=== PATIENT | male | born 1950 | race Two or more races ===

== ENCOUNTER → 2017-10-08 08:55 | Outpatient (CLI) | payer MEDICARE, SELFPAY ==
--- NOTE | 2017-10-08 09:00 | RAD_ITS ---
STUDY: BARIUM ENEMA. REASON FOR EXAM: Male, 67 years old. Recurrent UTIs. Possible colovesical fistula. FLUOROSCOPY TIME (if supplied): (0:47) minutes/seconds TECHNIQUE: A test clerk film was obtained. Following this, barium was was introduced retrograde through the rectum. The entire colon was opacified. COMPARISON: None. FINDINGS: On the test clerk film, mild degree of residual fecal material is seen in the colon. The entire colon was opacified. There is no evidence of antegrade or retrograde obstruction to the flow of contrast. There is no evidence of fistulous connection. The appendix was opacified. It is unremarkable. Prior to the start of the procedure and following the procedure, the patient's urine was radiographed. There is no evidence of barium within the urine. RAD/Barium Enema w/Air Contrast IMPRESSION: Unremarkable barium enema. Electronically Signed: Art Ochoa MD at 10:48 EST Tel [phone], Service support ,
== END ==
PROVIDERS: Family Provider Internal Medicine; PCP Internal Medicine
DX: N39.0 Urinary tract infection, site not specified (principal); Z87.440 Personal history of urinary (tract) infections
CPT/HCPCS: 74280

== ENCOUNTER 2017-12-21 17:28 | Inpatient (IN) | payer MEDICARE, SELFPAY ==
[2017-12-21] VITALS (9 sets, daily range): BP systolic 131–170; BP diastolic 59–78; PULSE 73–91; RESP 14–21; TEMP 36.9; O2SAT 98–100; BMI 29.0; BMI 28.4
--- NOTE | 2017-12-21 18:32 | EKG12_ITS ---
Test Reason : SOB Blood Pressure : / mmHG Vent. Rate : 078 BPM Atrial Rate : 078 BPM P-R Int : 202 ms QRS Dur : 144 ms QT Int : 372 ms P-R-T Axes : 027 -80 053 degrees QTc Int : 424 ms Normal sinus rhythm Right bundle branch block Left anterior fascicular block Abnormal ECG Confirmed by SONALI HERNÁNDEZ, MANJINDER ([id number]), editor managing director RICHELLE CHARLTON ([id number]) on 12/24/2017 1:58:13 PM Referred By: LOPEZ Confirmed By:MANJINDER LYON MD
--- NOTE | 2017-12-21 18:32 | CT_ITS ---
STUDY: CT BRAIN WITHOUT CONTRAST REASON FOR EXAM: Male, 67 years old. Weakness RADIATION DOSAGE (If Supplied By Facility): CTDIvol = ( 44.99 ) mGy, DLP = ( 832.67 ) mGycm TECHNIQUE: Transaxial CT imaging of the brain was performed without administration of intravenous contrast material. Individualized dose optimization techniques were used for this CT. COMPARISON: None. FINDINGS: Normal soft tissue structures. Normal calvarium. Mild atrophy and periventricular white matter ischemic changes.. Normal basal ganglia and thalami. Normal brainstem. Normal cerebellum. There is no intracranial hemorrhage. There are no findings of an acute ischemic infarction. Normal visualized paranasal sinuses. CT/Brain/Head without Contrast IMPRESSION: Mild atrophy and nonspecific periventricular white matter ischemic change. No evidence for acute bleed. If concern for acute infarct MRI recommended.. Electronically Signed: Wellington Sparks MD at 19:54 EDT , Service support ,
[2017-12-21 18:53] LABS: Bacteria 0 SEEN /hpf (None Seen); Mucous, Urine 0 SEEN /hpf (<or=2+); Red Blood Cells-Urine 0 SEEN /hpf (0-5)
[2017-12-21 18:55] LABS: Color, Urine Yellow (Yellow); Glucose, Dipstick Normal (Normal); Ketone-Dipstick Negative (Negative); Leukocyte Esterase-Dipstick 500 /ul (Negative); Nitrite-Dipstick Negative (Negative); Occult Blood-Urine 25 /ul (Negative); Protein-Dipstick 30 mg/dl (Negative); Specific Gravity, Urine 1.015 (1.002-1.030); Urine Bilirubin Dipstick Negative (Negative); Urine Clarity Sl. Cloudy (Clear); Urine Urobilinogen Normal (Normal)
[2017-12-21 19:01] LABS: Squamous Epithelial Cells - UA 0-5 SEEN /hpf (0-5); White Blood Cells >100 SEEN /hpf (0-5)
[2017-12-21 19:39] LABS: Absolute Lymphocyte Count 2.04 X10^3/ul (0.83-4.51); Absolute Neutrophil Count 7.1 X10^3/uL (2.0-7.7); Basophil# 0.02 X10^3/uL; Basophil% 0.2 % (0-1); Eosinophil# 0.28 X10^3/uL; Eosinophils% 2.8 % (0-5); Hemoglobin 9.4 g/dl (13.0-16.5); Lymphocyte # 2.04 X10^3/ul (4.0); Lymphocyte % 20.3 % (19-41); Mean Corp Hgb Conc 32.4 g/gl (32-36); Mean Corpuscular Volume 92.7 fL (80-94); Mean Platelet Vol. 9.4 fl (6.2-12.0); Monocyte# 0.59 X10^3/uL; Monocyte% 5.9 % (0-10); Neutrophil % 70.6 % (47-70); Platelet Count 212 K/mm3 (150-450); RBC Distribution Width CV 15.2 % (11.6-14.6); RBC Distribution Width SD 51.6 fl (35.1-43.9); Red Blood Count 3.13 M/mm3 (4.6-6.2); White Blood Count 10.1 K/mm3 (4.4-11.0)
[2017-12-21 19:40] LABS: POSITIVE COUNT NO; POSITIVE DIFFERENTIAL NO; POSITIVE MORPHOLOGY NO
--- NOTE | 2017-12-21 19:45 | RAD_ITS ---
STUDY: X-RAY CHEST REASON FOR EXAM: Male, 67 years old. Short of breath TECHNIQUE: PA and lateral COMPARISON: October 26, 2016 FINDINGS: The lungs are clear and expanded. There is no demonstrated pleural abnormality. Normal size heart. Normal mediastinum and power. Normal visualized pulmonary arteries. Normal visualized aortic arch and descending thoracic aorta. Mediport catheter seen on the right with tip in distal superior vena cava Dorsal spine demonstrates spondylosis. Normal visualized ribs, clavicles, and shoulders. There is no demonstrated abnormality of the visualized soft tissue structures of the upper abdomen. No significant change since prior study RAD/Chest PA and Lateral IMPRESSION: No acute cardiopulmonary pathology Electronically Signed: Wellington Sparks MD at 20:30 EDT , Service support ,
--- NOTE | 2017-12-21 20:38 | ED.RN ---
lab called to report pt's potassium of 9.1, dr made aware that labs needs to be redrawn.
[2017-12-21 21:23] LABS: ALB/GLOB Ratio 0.8 RATIO (0.9-2.4); AST(SGOT) 10 U/L (15-37); Alanine Aminotransfer ALT/SGPT 11 U/L (16-61); Albumin, Serum 3.3 g/dL (3.2-5.0); Alkaline Phosphatase 84 U/L (45-117); Anion Gap 8 (5-15); BUN 62 mg/dL (7-18); Calcium,Total 8.2 mg/dL (8.5-10.1); Chloride 118 mmol/L (98-107); Creatinine, Serum 3.87 mg/dL (0.70-1.30); EST Glomerular Filtration Rate 17 mL/min (>60); Est Glom Filt Rate - Afr Amer 20 mL/min (>60); Estimated Creatinine Clearance 16.94 ml/min; Globulin 4.4 g/dL (2.2-4.2); Glucose 84 mg/dL (74-106); Potassium 8.9 mmol/L (3.5-5.1); Protein, Total 7.7 g/dL (6.4-8.2); Sodium Level 140 mmol/L (136-145)
--- NOTE | 2017-12-21 21:23 | ED.RN ---
LAB CALLS WITH CRITICAL RESULT, POTASSIUM 8.9, DR. FERNANDES MADE AWARE.
--- NOTE | 2017-12-21 21:51 | PCM.HP.STD ---
Problem List (1) Diabetes mellitus, type II Status: Chronic Qualifiers: Diabetes mellitus alf insulin use: without alf use Diabetes mellitus complication status: with unspecified complications Qualified Code(s): E11.8 - Type 2 diabetes mellitus with unspecified complications (2) HTN (hypertension) Status: Chronic Qualifiers: Hypertension type: essential hypertension Qualified Code(s): I10 - Essential (primary) hypertension (3) HLD (hyperlipidemia) Status: Chronic Qualifiers: Hyperlipidemia type: unspecified Qualified Code(s): E78.5 - Hyperlipidemia, unspecified (4) Colon cancer Status: Chronic Qualifiers: Colon location: unspecified part of colon Qualified Code(s): C18.9 - Malignant neoplasm of colon, unspecified (5) LACHO (acute kidney injury) Status: Acute (6) Hyperkalemia Status: Acute (7) UTI (urinary tract infection) Status: Acute Qualifiers: Urinary tract infection type: site unspecified History of Present Illness Date of Admission: 12/21/17 Chief Complaint: Fatigue, weakness, malaise The patient is a 67 y/o M w/ PMHx: Chronic Normocytic Anemia, Diabetes mellitus type II w/ Neuropathy, HTN, HLD, Hx Colon CA s/p resection unclear region w/ radiation and chemotherapy following w/ [facility], Hx Frequent UTI who presents to the [facility] ED on 12/21/17 with history of ongoing malaise, progressively worsening weakness worse with exertional attempts, decreased intake, dyspnea worse with exertion ?3 weeks with increased urinary frequency but denied fevers or chills. In the ED work-up included T 98.5, HR 91, BP 131/59, RR 16, 98% on RA, CBC w/ WBC 10.2, Hgb 9.4, Plts 212 without marked shift, CMP w/ K 8.9, Chl 118, CO2 14, BUN/Cr 62/3.87, AST/ALT 10/11, trop < 0.02, EKG w/ SR with chronic findings without acute evidence of ischemia, no marked peaked T-waves, QRS 144 mildly widened, UA remarkable with pending UCx, CT brain with mild reticular right matter ischemic change with no acute findings, CXR with no acute findings. In the ED patient administered chloride, dextrose amp, insulin, Kayexalate. Past Medical History Past Medical History (Chronic Problems): Chronic Problems Diabetes mellitus, type II (Chronic) HTN (hypertension) (Chronic) HLD (hyperlipidemia) (Chronic) Colon cancer (Chronic) Allergies No Known Allergies Allergy (Verified 12/21/17 17:31) Home Medications: Ambulatory Orders Medication Instructions Recorded Lisinopril [Zestril] 30 mg PO DAILY 07/11/16 Metformin HCl [Glucophage] 500 mg PO BIDCM 07/11/16 glipiZIDE [Glucotrol] 5 mg PO DAILY@0730 07/11/16 Lovastatin [Mevacor] 40 mg PO QHS 07/12/16 Amlodipine [Norvasc] 2.5 mg PO DAILY 12/21/17 Pregabalin [Lyrica] 75 mg PO BID 12/21/17 Spironolactone [Aldactone] 100 mg PO DAILY 12/21/17 Surgical History: - - Colon CA resection, Port placement. Psychiatric History: No pertinent psych hx Lives: With Family Smoking Status: Never smoker Alcohol: None Drugs: None - *Family History Maternal History Items: Cancer, Diabetes, Renal Disease Paternal History Items: Heart Disease, Hypertension Review of Systems Constitutional: Reports: Anorexia, Malaise, Weakness, Fatigue. Denies: Chills, Fever, Weight Change HEENT: Denies: Head Aches, Sinus Congestion, Sinus Drainage Cardiovascular: Denies: Chest Pain, Palpitations Respiratory: Reports: Shortness of Breath, Shortness of breath upon exertion. Denies: Cough, Shortness of breath at rest, Sputum production Gastrointestinal: Denies: Abdominal Pain, Nausea, Vomiting Genitourinary: Reports: Dysuria, Frequency Musculoskeletal: Denies: Joint Pain, Joint Tenderness Skin: Denies: Rash, Wounds Neurological: Denies: Numbness, Tingling, Focal weakness Psychiatric: Denies: Anxiety, Depression, Homicidal Ideations, Suicidal Ideations Hematologic/ Lymphatic: Reports: Anemia. Denies: Easy Bruising, Easy Bleeding VTE Information - Inpt Only VTE Present on Admission: No VTE Mechan Device Prophylaxis: SCD's VTE Pharm Prophylaxis ordered?: Yes Patient Problems: Active and Suspected Problems LACHO (acute kidney injury) (Acute) Hyperkalemia (Acute) Subjective: Seated upright in the ED bed, fatigued appearing, flat affect. Objective: Physical Examination: General: awake, alert, oriented x 3 and cooperative, seated upright in the ED bed in no apparent distress, fatigued appearing. Skin: normal color, turgor, no icterus, cyanosis. HEENT: AT/NC, EOMI, PERRLA, dry MM, no carotid bruits or JVD noted. Lungs: Diminished BS BL, > bases, poor effort, shallow, no rales, ronchi or wheezing. Heart: Regular rate and rhythm; no gallop, rub audible. Abdomen: soft, mild suprapubic TTP otherwise NTTP, ND, normal BS, no HSM. Extremities: no cyanosis, clubbing, or edema. Neurological: patient awake, alert, oriented x 3; cognitive function intact; pupils equally reactive to light and accomodation; cranial nerves II-XII grossly normal, moving all 4 extremities, no focal deficits, strength severely globally decreased secondary to acute presentation. Psychiatric: affect appears flat, no acute evidence of depressive or anxiety feelings. - Physical Exam Vital Signs Temp Pulse Resp BP Pulse Ox 98.5 F 77 20 H 153/63 H 100 12/21/17 17:28 12/21/17 21:33 12/21/17 21:33 12/21/17 21:33 12/21/17 21:33 Oxygen Delivery Method Room Air Weight: 180 lb Body Mass Index (BMI) 29.0 Laboratory Tests Past 24 Hrs 12/21/17 12/21/17 12/21/17 18:45 19:30 19:30 WBC 10.1 RBC 3.13 L Hgb 9.4 L Hct 29.0 L MCV 92.7 MCH 30.0 MCHC 32.4 RDW 15.2 H RDW Differential 51.6 H Plt Count 212 MPV 9.4 Immature Gran % (Auto) 0.200 Neut % (Auto) 70.6 H Lymph % (Auto) 20.3 [place] % (Auto) 5.9 Eos % (Auto) 2.8 Baso % (Auto) 0.2 Absolute Neuts (auto) 7.1 Absolute Lymphs (auto) 2.04 Total Counted Not Reportable Sodium Cancelled Potassium Cancelled Chloride Cancelled Carbon Dioxide Cancelled Anion Gap Cancelled BUN Cancelled Creatinine Cancelled Estim Creat Clear Calc Cancelled Est GFR (MDRD) Af Amer Cancelled Est GFR (MDRD) Non-Af Cancelled BUN/Creatinine Ratio Cancelled Glucose Cancelled Calcium Cancelled Total Bilirubin Cancelled AST Cancelled ALT Cancelled Alkaline Phosphatase Cancelled Troponin I Cancelled Total Protein Cancelled Albumin Cancelled Globulin Cancelled Albumin/Globulin Ratio Cancelled Urine Color Yellow Urine Clarity Sl. Cloudy Urine pH 6.0 Ur Specific [place] 1.015 Urine Protein 30 H Urine Glucose (UA) Normal Urine Ketones Negative Urine Occult Blood 25 H Urine Nitrite Negative Urine Bilirubin Negative Urine Urobilinogen Normal Ur Leukocyte Esterase 500 H Urine RBC 0 SEEN Urine WBC >100 SEEN Ur Squamous Epith Cells 0-5 SEEN Urine Bacteria 0 SEEN Urine Mucus 0 SEEN 12/21/17 20:55 WBC RBC Hgb Hct MCV MCH MCHC RDW RDW Differential Plt Count MPV Immature Gran % (Auto) Neut % (Auto) Lymph % (Auto) [place] % (Auto) Eos % (Auto) Baso % (Auto) Absolute Neuts (auto) Absolute Lymphs (auto) Total Counted Sodium 140 Potassium 8.9 H* Chloride 118 H Carbon Dioxide 14.0 L Anion Gap 8 BUN 62 H Creatinine 3.87 H Estim Creat Clear Calc 16.94 Est GFR (MDRD) Af Amer 20 L Est GFR (MDRD) Non-Af 17 L BUN/Creatinine Ratio 16.0 Glucose 84 Calcium 8.2 L Total Bilirubin 0.50 AST 10 L ALT 11 L Alkaline Phosphatase 84 Troponin I < 0.02 Total Protein 7.7 Albumin 3.3 Globulin 4.4 H Albumin/Globulin Ratio 0.8 L Urine Color Urine Clarity Urine pH Ur Specific [place] Urine Protein Urine Glucose (UA) Urine Ketones Urine Occult Blood Urine Nitrite Urine Bilirubin Urine Urobilinogen Ur Leukocyte Esterase Urine RBC Urine WBC Ur Squamous Epith Cells Urine Bacteria Urine Mucus Assessment/Plan Active and Suspected Problems LACHO (acute kidney injury) (Acute) Hyperkalemia (Acute) The patient is a 67 y/o M w/ PMHx: Chronic Normocytic Anemia, Diabetes mellitus type II w/ Neuropathy, HTN, HLD, Hx Colon CA s/p resection unclear region w/ radiation and chemotherapy following w/ [facility], Hx Frequent UTI who presents to the [facility] ED on 12/21/17 with history of ongoing malaise, progressively worsening weakness worse with exertional attempts, decreased intake, dyspnea worse with exertion ?3 weeks with increased urinary frequency but denied fevers or chills. (1) Acute kidney injury: Secondary to acute UTI, suspected poor recent oral intake w/ dehydration, nephrotoxic regimen w/ concurrent hyperkalemia as noted. Admission BUN/Cr 62/3.87, prior baseline creatinine noted to be 1.1-1.3. Will given NS bolus now, requested pharmacy to arrange D5W w/ Bicarb (150 mEq) and given 1 amp bicarb now, hold nephrotoxic medications, serial BMPs given extensive K+ level, obtain FeNa, obtain renal US, treat acute UTI as noted. Nephrology and ICU consulted, notified these physicians of patient presentation and intervention plans upon admission. (2) Hyperkalemia: EKG without severe appearance despite confirmed K level, admission K+ 8.9, administered dextrose, insulin, Ca gluconate as well as kayexelate in the ED, will maintain on telemetry, cycle BMP, repeat EKG in AM, Nephrology and ICU consulted as noted, holding nephrotoxic regimen and medications with hyperkalemia association, maintained on D5W w/ bicarb, giving 1 amp bicarb now and prior to these being read administer 1L NS bolus now. (3) Acute Urinary Tract Infection: UA upon ED evaluation remarkable, pending UCx, admission CBC w/ WBC 10.1 without marked shift, continue aggressive IVFs, monitor I/Os, continue IV Rocephin w/ transition as able pending sensitivities and speciation. (4) Diabetes mellitus type II: Hold oral home regimen, ADA diet, accu checks w/ ISS. (5) Hypertension: Continue home regimen including vast, hold lisinopril and Aldactone given acute kidney injury and hyperkalemia, PRN hydralazine. (6) Hyperlipidemia: Continue home statin regimen. (7) Chronic normocytic anemia: Admission Hgb 9.4, baseline 9-10 range, stable. (8) Hx Colon CA: s/p resection unclear region w/ radiation and chemotherapy following w/ [facility]. (9) DVT Prophylaxis: SCDs, heparin. (10) CODE status: Discussed CODE status at length including difference between FULL code, DNR-CCA and DNR-CC status. Following discussions about the differences in these status, requested FULL CODE status. Advanced Care Planning Face to Face Time: 17 minutes. Code Visit Inpatient E&M: 00244 Init Hosp L3 Procedures: 00148 Advncd Care Plan 30 Min
[2017-12-21] MEDS: Calcium Chloride 1 GM/10 ML Syringe IV (21:54)
[2017-12-21] MEDS: Dextrose 50%-Water 25 GM/50 ML DISP.SYRIN IV (21:54)
--- NOTE | 2017-12-21 22:02 | HP.PCM_ITS ---
Problem List (1) Diabetes mellitus, type II Status: Chronic Qualifiers: Diabetes mellitus assisted insulin use: without assisted use Diabetes mellitus complication status: with unspecified complications Qualified Code(s) : E11.8 - Type 2 diabetes mellitus with unspecified complications (2) HTN (hypertension) Status: Chronic Qualifiers: Hypertension type: essential hypertension Qualified Code(s): I10 - Essential (primary) hypertension (3) HLD (hyperlipidemia) Status: Chronic Qualifiers: Hyperlipidemia type: unspecified Qualified Code(s): E78.5 - Hyperlipidemia , unspecified (4) Colon cancer Status: Chronic Qualifiers: Colon location: unspecified part of colon Qualified Code(s): C18.9 - Malignant neoplasm of colon, unspecified (5) LACHO (acute kidney injury) Status: Acute (6) Hyperkalemia Status: Acute (7) UTI (urinary tract infection) Status: Acute Qualifiers: Urinary tract infection type: site unspecified History of Present Illness Date of Admission: 12/21/17 Chief Complaint: Fatigue, weakness, malaise The patient is a 67 y/o M w/ PMHx: Chronic Normocytic Anemia, Diabetes mellitus type II w/ Neuropathy, HTN, HLD, Hx Colon CA s/p resection unclear region w/ radiation and chemotherapy following w/ [facility], Hx Frequent UTI who presents to the [facility] ED on 12/21/17 with history of ongoing malaise, progressively worsening weakness worse with exertional attempts, decreased intake, dyspnea worse with exertion ?3 weeks with increased urinary frequency but denied fevers or chills. In the ED work-up included T 98.5, HR 91, BP 131/59, RR 16, 98% on RA , CBC w/ WBC 10.2, Hgb 9.4, Plts 212 without marked shift, CMP w/ K 8.9, Chl 118 , CO2 14, BUN/Cr 62/3.87, AST/ALT 10/11, trop < 0.02, EKG w/ SR with chronic findings without acute evidence of ischemia, no marked peaked T-waves, QRS 144 mildly widened, UA remarkable with pending UCx, CT brain with mild reticular right matter ischemic change with no acute findings, CXR with no acute findings. In the ED patient administered chloride, dextrose amp, insulin, Kayexalate. Past Medical History Past Medical History (Chronic Problems): Chronic Problems Diabetes mellitus, type II (Chronic) HTN (hypertension) (Chronic) HLD (hyperlipidemia) (Chronic) Colon cancer (Chronic) Allergies No Known Allergies Allergy (Verified 12/21/17 17:31) Home Medications: Ambulatory Orders Medication Instructions Recorded Lisinopril [Zestril] 30 mg PO DAILY 07/11/16 Metformin HCl [Glucophage] 500 mg PO BIDCM 07/11/16 glipiZIDE [Glucotrol] 5 mg PO DAILY@0730 07/11/16 Lovastatin [Mevacor] 40 mg PO QHS 07/12/16 Amlodipine [Norvasc] 2.5 mg PO DAILY 12/21/17 Pregabalin [Lyrica] 75 mg PO BID 12/21/17 Spironolactone [Aldactone] 100 mg PO DAILY 12/21/17 Surgical History: - - Colon CA resection, Port placement. Psychiatric History: No pertinent psych hx Lives: With Family Smoking Status: Never smoker Alcohol: None Drugs: None - *Family History Maternal History Items: Cancer, Diabetes, Renal Disease Paternal History Items: Heart Disease, Hypertension Review of Systems Constitutional: Reports: Anorexia, Malaise, Weakness, Fatigue. Denies: Chills, Fever, Weight Change HEENT: Denies: Head Aches, Sinus Congestion, Sinus Drainage Cardiovascular: Denies: Chest Pain, Palpitations Respiratory: Reports: Shortness of Breath, Shortness of breath upon exertion. Denies: Cough, Shortness of breath at rest, Sputum production Gastrointestinal: Denies: Abdominal Pain, Nausea, Vomiting Genitourinary: Reports: Dysuria, Frequency Musculoskeletal: Denies: Joint Pain, Joint Tenderness Skin: Denies: Rash, Wounds Neurological: Denies: Numbness, Tingling, Focal weakness Psychiatric: Denies: Anxiety, Depression, Homicidal Ideations, Suicidal Ideations Hematologic/ Lymphatic: Reports: Anemia. Denies: Easy Bruising, Easy Bleeding VTE Information - Inpt Only VTE Present on Admission: No VTE Mechan Device Prophylaxis: SCD's VTE Pharm Prophylaxis ordered?: Yes Patient Problems: Active and Suspected Problems LACHO (acute kidney injury) (Acute) Hyperkalemia (Acute) Subjective: Seated upright in the ED bed, fatigued appearing, flat affect. Objective: Physical Examination: General: awake, alert, oriented x 3 and cooperative, seated upright in the ED bed in no apparent distress, fatigued appearing. Skin: normal color, turgor, no icterus, cyanosis. HEENT: AT/NC, EOMI, PERRLA, dry MM, no carotid bruits or JVD noted. Lungs: Diminished BS BL, > bases, poor effort, shallow, no rales, ronchi or wheezing. Heart: Regular rate and rhythm; no gallop, rub audible. Abdomen: soft, mild suprapubic TTP otherwise NTTP, ND, normal BS, no HSM. Extremities: no cyanosis, clubbing, or edema. Neurological: patient awake, alert, oriented x 3; cognitive function intact; pupils equally reactive to light and accomodation; cranial nerves II-XII grossly normal, moving all 4 extremities, no focal deficits, strength severely globally decreased secondary to acute presentation. Psychiatric: affect appears flat, no acute evidence of depressive or anxiety feelings. - Physical Exam Vital Signs Temp Pulse Resp BP Pulse Ox 98.5 F 77 20 H 153/63 H 100 12/21/17 17:28 12/21/17 21:33 12/21/17 21:33 12/21/17 21:33 12/21/17 21:33 Oxygen Delivery Method Room Air Weight: 180 lb Body Mass Index (BMI) 29.0 Laboratory Tests Past 24 Hrs 12/21/17 12/21/17 12/21/17 18:45 19:30 19:30 WBC 10.1 RBC 3.13 L Hgb 9.4 L Hct 29.0 L MCV 92.7 MCH 30.0 MCHC 32.4 RDW 15.2 H RDW Differential 51.6 H Plt Count 212 MPV 9.4 Immature Gran % (Auto) 0.200 Neut % (Auto) 70.6 H Lymph % (Auto) 20.3 [place] % (Auto) 5.9 Eos % (Auto) 2.8 Baso % (Auto) 0.2 Absolute Neuts (auto) 7.1 Absolute Lymphs (auto) 2.04 Total Counted Not Reportable Sodium Cancelled Potassium Cancelled Chloride Cancelled Carbon Dioxide Cancelled Anion Gap Cancelled BUN Cancelled Creatinine Cancelled Estim Creat Clear Calc Cancelled Est GFR (MDRD) Af Amer Cancelled Est GFR (MDRD) Non-Af Cancelled BUN/Creatinine Ratio Cancelled Glucose Cancelled Calcium Cancelled Total Bilirubin Cancelled AST Cancelled ALT Cancelled Alkaline Phosphatase Cancelled Troponin I Cancelled Total Protein Cancelled Albumin Cancelled Globulin Cancelled Albumin/Globulin Ratio Cancelled Urine Color Yellow Urine Clarity Sl. Cloudy Urine pH 6.0 Ur Specific [place] 1.015 Urine Protein 30 H Urine Glucose (UA) Normal Urine Ketones Negative Urine Occult Blood 25 H Urine Nitrite Negative Urine Bilirubin Negative Urine Urobilinogen Normal Ur Leukocyte Esterase 500 H Urine RBC 0 SEEN Urine WBC >100 SEEN Ur Squamous Epith Cells 0-5 SEEN Urine Bacteria 0 SEEN Urine Mucus 0 SEEN 12/21/17 20:55 WBC RBC Hgb Hct MCV MCH MCHC RDW RDW Differential Plt Count MPV Immature Gran % (Auto) Neut % (Auto) Lymph % (Auto) [place] % (Auto) Eos % (Auto) Baso % (Auto) Absolute Neuts (auto) Absolute Lymphs (auto) Total Counted Sodium 140 Potassium 8.9 H* Chloride 118 H Carbon Dioxide 14.0 L Anion Gap 8 BUN 62 H Creatinine 3.87 H Estim Creat Clear Calc 16.94 Est GFR (MDRD) Af Amer 20 L Est GFR (MDRD) Non-Af 17 L BUN/Creatinine Ratio 16.0 Glucose 84 Calcium 8.2 L Total Bilirubin 0.50 AST 10 L ALT 11 L Alkaline Phosphatase 84 Troponin I < 0.02 Total Protein 7.7 Albumin 3.3 Globulin 4.4 H Albumin/Globulin Ratio 0.8 L Urine Color Urine Clarity Urine pH Ur Specific [place] Urine Protein Urine Glucose (UA) Urine Ketones Urine Occult Blood Urine Nitrite Urine Bilirubin Urine Urobilinogen Ur Leukocyte Esterase Urine RBC Urine WBC Ur Squamous Epith Cells Urine Bacteria Urine Mucus Assessment/Plan Active and Suspected Problems LACHO (acute kidney injury) (Acute) Hyperkalemia (Acute) The patient is a 67 y/o M w/ PMHx: Chronic Normocytic Anemia, Diabetes mellitus type II w/ Neuropathy, HTN, HLD, Hx Colon CA s/p resection unclear region w/ radiation and chemotherapy following w/ [facility], Hx Frequent UTI who presents to the [facility] ED on 12/21/17 with history of ongoing malaise, progressively worsening weakness worse with exertional attempts, decreased intake, dyspnea worse with exertion ?3 weeks with increased urinary frequency but denied fevers or chills. (1) Acute kidney injury: Secondary to acute UTI, suspected poor recent oral intake w/ dehydration, nephrotoxic regimen w/ concurrent hyperkalemia as noted. Admission BUN/Cr 62/3.87, prior baseline creatinine noted to be 1.1-1.3. Will given NS bolus now, requested pharmacy to arrange D5W w/ Bicarb (150 mEq) and given 1 amp bicarb now, hold nephrotoxic medications, serial BMPs given extensive K+ level, obtain FeNa, obtain renal US, treat acute UTI as noted. Nephrology and ICU consulted, notified these physicians of patient presentation and intervention plans upon admission. (2) Hyperkalemia: EKG without severe appearance despite confirmed K level, admission K+ 8.9, administered dextrose, insulin, Ca gluconate as well as kayexelate in the ED, will maintain on telemetry, cycle BMP, repeat EKG in AM, Nephrology and ICU consulted as noted, holding nephrotoxic regimen and medications with hyperkalemia association, maintained on D5W w/ bicarb, giving 1 amp bicarb now and prior to these being read administer 1L NS bolus now. (3) Acute Urinary Tract Infection: UA upon ED evaluation remarkable, pending UCx , admission CBC w/ WBC 10.1 without marked shift, continue aggressive IVFs, monitor I/Os, continue IV Rocephin w/ transition as able pending sensitivities and speciation. (4) Diabetes mellitus type II: Hold oral home regimen, ADA diet, accu checks w/ ISS. (5) Hypertension: Continue home regimen including vast, hold lisinopril and Aldactone given acute kidney injury and hyperkalemia, PRN hydralazine. (6) Hyperlipidemia: Continue home statin regimen. (7) Chronic normocytic anemia: Admission Hgb 9.4, baseline 9-10 range, stable. (8) Hx Colon CA: s/p resection unclear region w/ radiation and chemotherapy following w/ [facility]. (9) DVT Prophylaxis: SCDs, heparin. (10) CODE status: Discussed CODE status at length including difference between FULL code, DNR-CCA and DNR-CC status. Following discussions about the differences in these status, requested FULL CODE status. Advanced Care Planning Face to Face Time: 17 minutes. Code Visit Inpatient E&M: 00929 Init Hosp L3 Procedures: 51602 Advncd Care Plan 30 Min
[2017-12-21] MEDS: Sodium Polystyrene Sulfonate 15 GM/60 ML UDC 30 GM PO (22:07)
[2017-12-21] MEDS: Ceftriaxone 1 GM/50 ML BAG IV (22:07)
--- NOTE | 2017-12-21 22:30 | NURSING ---
Pt arrives to ICU and walks to bed. Pt is A&O with no distress observed. Pt is oriented to ICU and use of call light.
--- NOTE | 2017-12-21 22:48 | US_ITS ---
STUDY: RENAL ULTRASOUND - COMPLETE REASON FOR EXAM: Male, 67 years old. Acute renal failure TECHNIQUE: Ultrasound evaluation of the kidneys was performed with real-time and static benitez-scale imaging. COMPARISON: None. FINDINGS: RIGHT KIDNEY: Normal location of the right kidney, which is normal in size. The right kidney measures 11.1 x 4.0 x 4.6 cm. There is a normal cortex of the right kidney. The renal cortex measures 1.9 cm. There is a lobular hypoechoic focus of the midpole of the right kidney measuring 2.7 x 2.4 x 2.2 cm. This is indeterminate for cyst versus mass. There are no right renal calculi. There is no right hydronephrosis. DISTAL RIGHT URETER: There is non-visualization of the distal right ureter. There is no demonstrated right ureterovesical junction calculus. There is no demonstrated right ureteral jet. LEFT KIDNEY: The left kidney is mildly atrophic The left kidney measures 9.2 x 4.5 x 4.5 cm. There is a normal cortex of the left kidney. The renal cortex measures 1.9 cm. There is no left renal mass or cyst. There are no left renal calculi. There is no left hydronephrosis. DISTAL LEFT URETER: There is non-visualization of the distal left ureter. There is no demonstrated left ureterovesical junction calculus. There is no demonstrated left ureteral jet. BLADDER: The distended urinary bladder has a volume of 286 ml. There is a normal wall thickness of the distended urinary bladder. There is no demonstrated mass within the urinary bladder. There are no demonstrated bladder calculi. US/Kidney and Bladder IMPRESSION: 1. Mildly atrophic left kidney. 2. There is a lobular hypoechoic focus of the midpole of the right kidney measuring 2.7 x 2.4 x 2.2 cm. This is indeterminate for solid versus cystic structure on this ultrasonographic study. This appears to have represented a cyst on prior CT study of 12/06/2012, where it measured 0.9 cm. If clinically indicated, follow-up CT may be helpful for confirmation of such. 3. There is no hydronephrosis or nephrolithiasis. Electronically Signed: Braeden Pennington MD at 23:58 EDT , Service support ,
[2017-12-21] MEDS: Sodium Bicarbonate 50 MEQ/50 ML Vial IV (23:05)
[2017-12-21] MEDS: 0.9% Normal Saline 1,000 ML 999 ML IV (23:05)
--- NOTE | 2017-12-21 23:20 | ED.VISSUMM ---
- ER Visit Summary Date of Service: 12/21/17 Chief Complaint: Dyspnea and weakness History of Present Illness: The patient is a 67 M who presents with shortness of breath and generalized weakness that has been getting worse over the past 3 weeks. Patient states that his legs feel weak when he is walking. Patient states after he walks his legs feel like they are going to give out and then he becomes short of breath. Patient also admits to some tingling of his left hand. Patient admits to some rhinorrhea. Patient denies any cough. Patient denies any fevers or chills. Patient does admit to some palpitations with his dizziness. Patient admits to some urinary urgency but denies any dysuria. Physical Examination: Vital signs are stable. Patient is afebrile. Patient is in no acute distress. Oral mucosa is pink and moist. Neck is supple. Trachea is midline. There is no JVD noted. Heart was regular rate and rhythm. Lungs are clear and equal bilaterally. Abdomen is soft and nontender. Cranial nerves II through XII are intact. There are no focal motor or sensory deficits noted. Strength is 5/5 bilaterally upper and lower extremity. The remaining physical exam is within normal limits. Test Results: EKG showed normal sinus rhythm with a rate of 78. There is a right bundle branch block noted. There is a left anterior hemiblock noted. There is some widening of the QRS at 144. There are no acute ST or T-wave changes noted. CT scan of the brain was obtained. There is no acute intracranial process noted. PA and lateral chest x-ray was obtained. There is no acute cardiopulmonary process. CBC showed anemia with a hemoglobin 9.4 and hematocrit 29.0. Basic metabolic profile showed elevated BUN and creatinine are 62 and 3.87. Potassium was elevated at 8.9. Chloride was 118. CO2 was low at 14. Urinalysis does show evidence of urinary tract infection with leukocyte esterase of 500 and greater than 100 white blood cells. Troponin was normal at 0.02. Emergency Department Course and Treatment: Patient was given IV fluids. Patient was given Kayexalate, calcium chloride, Humalog, and dextrose. Case was discussed with Dr. Lindo. She will admit the patient to the ICU. Patient and family understood and were agreeable with the plan. All questions were answered. Disposition: Admit to ICU Impression: Acute kidney injury, hyperkalemia, urinary tract infection This note was generated with [employer] dictation software. It may contain incorrect words, spelling, and punctuation that were not noted in review of the chart prior to signing ED Disposition - Plan for ED Patient: Disposition: Acute Care Hospital [facility] Chief Complaint: Shortness of Breath Diagnosis: Acute kidney injury (nontraumatic), UTI (urinary tract infection), Hyperkalemia Referrals: Tiffanie Ojeda MD [Primary Care Provider] -
[2017-12-22] VITALS (30 sets, daily range): BP systolic 112–158; BP diastolic 50–109; PULSE 66–104; RESP 13–23; TEMP 36.5–37.1; O2SAT 100
[2017-12-22 00:05] LABS: Anion Gap 8 (5-15); BUN 61 mg/dL (7-18); BUN/Creat Ratio 15.9 RATIO (10-20); Chloride 123 mmol/L (98-107); Creatinine, Serum 3.83 mg/dL (0.70-1.30); EST Glomerular Filtration Rate 17 mL/min (>60); Est Glom Filt Rate - Afr Amer 20 mL/min (>60); Estimated Creatinine Clearance 17.12 ml/min; Glucose 59 mg/dL (74-106); Magnesium 2.4 mg/dL (1.6-2.6); Potassium 7.3 mmol/L (3.5-5.1); Sodium Level 142 mmol/L (136-145)
--- NOTE | 2017-12-22 00:07 | NURSING ---
Farida LAMAS notified of critical K level of 7.3
[2017-12-22 00:18] LABS: M R Staph aureus DNA By PCR Negative (Negative); Probe Check PASS; Specimen Processing Control PASS
[2017-12-22 00:51] LABS: Bedside Glucose 47 mg/dL (70-110)
[2017-12-22 02:42] LABS: Anion Gap 8 (5-15); BUN 58 mg/dL (7-18); BUN/Creat Ratio 15.5 RATIO (10-20); Chloride 121 mmol/L (98-107); Creatinine, Serum 3.74 mg/dL (0.70-1.30); EST Glomerular Filtration Rate 17 mL/min (>60); Est Glom Filt Rate - Afr Amer 21 mL/min (>60); Estimated Creatinine Clearance 17.53 ml/min; Glucose 94 mg/dL (74-106); Sodium Level 143 mmol/L (136-145)
[2017-12-22 02:50] LABS: Potassium 7.5 mmol/L (3.5-5.1)
[2017-12-22 03:06] LABS: Bedside Glucose 88 mg/dL (70-110)
[2017-12-22 04:03] LABS: Hematocrit 27.5 % (40-54); Hemoglobin 9.2 g/dl (13.0-16.5); Mean Corp Hgb Conc 33.5 g/gl (32-36); Mean Corpuscular Hgb 30.9 pg (27.0-32.0); Mean Corpuscular Volume 92.3 fL (80-94); Mean Platelet Vol. 9.8 fl (6.2-12.0); Platelet Count 191 K/mm3 (150-450); RBC Distribution Width CV 14.8 % (11.6-14.6); RBC Distribution Width SD 48.2 fl (35.1-43.9); Red Blood Count 2.98 M/mm3 (4.6-6.2); Scan Indicated on CBC? Y/N NO
[2017-12-22 04:24] LABS: Anion Gap 8 (5-15); BUN 56 mg/dL (7-18); BUN/Creat Ratio 16.1 RATIO (10-20); Calcium,Total 8.5 mg/dL (8.5-10.1); Chloride 121 mmol/L (98-107); Creatinine, Serum 3.48 mg/dL (0.70-1.30); EST Glomerular Filtration Rate 19 mL/min (>60); Est Glom Filt Rate - Afr Amer 23 mL/min (>60); Estimated Creatinine Clearance 18.84 ml/min; Glucose 91 mg/dL (74-106); Potassium 8.5 mmol/L (3.5-5.1); Sodium Level 145 mmol/L (136-145)
[2017-12-22 04:26] LABS: Urine Sodium 128 mmol/L (Not Establ.)
[2017-12-22] MEDS: Sodium Polystyrene Sulfonate 15 GM/60 ML UDC 30 GM PO (05:28)
[2017-12-22] MEDS: Heparin Injection (Vial) 5,000 UNIT/ML VIAL 5000 UNIT SC ×3 (05:28→21:38)
--- NOTE | 2017-12-22 05:55 | EKG12_ITS ---
Test Reason : AM EKG Blood Pressure : / mmHG Vent. Rate : 065 BPM Atrial Rate : 065 BPM P-R Int : 192 ms QRS Dur : 124 ms QT Int : 382 ms P-R-T Axes : 015 -69 031 degrees QTc Int : 397 ms Normal sinus rhythm Right bundle branch block Left anterior fascicular block Bifascicular block Abnormal ECG When compared with ECG of 21-DEC-2017 18:38, MANUAL COMPARISON REQUIRED, DATA IS UNCONFIRMED Confirmed by SONALI HERNÁNDEZ, MANJINDER ([id number]), health editor RICHELLE CHARLTON ([id number]) on 12/31/2017 3:04:17 PM Referred By: AMERICA Confirmed By:MANJINDER LYON MD
--- NOTE | 2017-12-22 06:39 | PN_ITS ---
Patient Problems: Active and Suspected Problems LACHO (acute kidney injury) (Acute) Hyperkalemia (Acute) Acute kidney injury (nontraumatic) (Acute) UTI (urinary tract infection) (Acute) Subjective: Day #2 Nick The patient is a 67 YO M with a PMH of diabetes mellitus type 2, hypertension, hyperlipidemia, colon cancer ( treated with surgery, radiation and chemo), chronic anemia, diabetic peripheral neuropathy and frequent UTI's who presented to the ED at [facility] on 12/21/17 c/o weakness and malaise. He additionally complained of dyspnea with exertion which has been worsening over the past 3 weeks. He complained of urinary frequency but denied fever or chills. Vital signs at presentation to the emergency room were temp 98.5, heart rate 91, blood pressure 131/59, respiratory rate 16 and he was 98% saturated on room air. White blood cell count was elevated at 10.2 with hemoglobin of 9.4 and platelets of 212,000. Differential was unremarkable. CMP showed a potassium of 7.3 with sodium of 142, chloride of 123 and serum bicarb of 11. He has been on Zestril. The BUN was 61 with a creatinine of 3.83. Creatinine in October 2016 was 1.43. Glucose was low at 59. LFTs were unremarkable and troponin was less than 0.02. UA had greater than 100 WBCs per high-power field. Fractional excretion of sodium is 7.5. Chest x-ray showed no evidence of pleural effusion , pulmonary vascular congestion or infiltrate. Ultrasound of the kidneys showed a mildly atrophic left kidney a lobular hypoechoic focus of the midpole of the right kidney measuring 2.7 x 2.4 x 2.2. There was no hydronephrosis, nephrolithiasis or hydroureter. He was admitted to the intensive care unit with a diagnosis of urinary tract infection, acute kidney injury and hyperkalemia. All events of the past 24 hours have been reviewed. TMAX: 98.5 Vital signs: Vital signs are pulse 67, blood pressure 150/69, respiratory rate 17 and he is 100% saturated on room air. Fluid balance: Not accurate-patient has voided twice but is not measuring. He has had 6 bowel movements since Kayexalate given. Urine output: Urine output has not been measured. He has had 2 voids. Weight: 177 and 14.6 ounces, down from 178 and 12 ounces at admission. All radiologic testing was reviewed: see above All labs were personally reviewed: Microbiology: urine culture is pending Telemetry: Patient has a lot of interference on the telemetry. There was no significant ventricular ectopy noted and he is in normal sinus rhythm. EKG: Normal sinus rhythm with right bundle branch block and left anterior hemiblock. No significant peaking to the T waves no ischemic changes. Currently on a dextrose and bicarb infusion. Has received 2 doses of Kayexalate. Subjective: He tells me that for the past 2 weeks he has been getting more fatigued and he is short of breath, especially with walking. He denies fever, chills, sweats. He does have occasional cough but it is nonproductive. He denies any swelling of his legs. He denies any recent changes in his medication. He denies any history of heart disease. He tells me that his colon surgery was done in 2013 at [facility] in [place]. This facility no longer exists in his care has been transferred to [place]. He follows with Dr. Elder and is also seen Dr. Dan and had a colonoscopy. He had a barium enema in September 2017 that was unremarkable and showed no fistulas. He denies nausea and has had no emesis. His main complaint is that he feels very fatigued. He tells me that his urine OP has been decreased recently. He denies any hx of CRF. He tells me that his BS's are well controlled at home and are never greater than 200 - Physical Exam General: Alert, Oriented x3, Cooperative, No apparent distress, Well developed, Well nourished HEENT: Atraumatic, PERRLA, EOMI, Normocephalic Oral: Moist Mucosa Neck: Supple, No JVD, No Nuchal Rigidity, Trachea Midline Lungs: Clear to auscultation, Diminished - in the bases.....may be related to poor effort Cardiovascular: Regular rate, Regular Rhythm, Normal S1, Normal S2, No murmurs, No Ectopic Activity, No rub noted, No Gallop Abdomen: Bowel Sounds Present, Soft, Non Tender, Non-Distended Extremities: No clubbing, No cyanosis, No edema, No Calf Tenderness Skin: No rashes, No breakdown Neurological: Cranial nerves II-XII grossly intact, Neuro grossly intact Psych/Mental Status: Normal Affect, Appropriate Vital Signs Temp Pulse Resp BP Pulse Ox 98.4 F 67 17 158/69 H 100 12/21/17 22:46 12/22/17 05:00 12/22/17 05:00 12/22/17 05:00 12/22/17 05:00 Oxygen Delivery Method Room Air Weight: 177 lb 14.609 oz Body Mass Index (BMI) 28.4 Laboratory Tests Past 24 Hrs 12/21/17 12/21/17 12/22/17 22:40 23:40 01:15 WBC RBC Hgb Hct MCV MCH MCHC RDW RDW Differential Plt Count MPV Sodium 142 143 Potassium 7.3 H* 7.5 H* Chloride 123 H 121 H Carbon Dioxide 11.0 L 14.0 L Anion Gap 8 8 BUN 61 H 58 H Creatinine 3.83 H 3.74 H Estim Creat Clear Calc 17.12 17.53 Est GFR (MDRD) Af Amer 20 L 21 L Est GFR (MDRD) Non-Af 17 L 17 L BUN/Creatinine Ratio 15.9 15.5 Glucose 59 L 94 Calcium 9.0 9.0 Magnesium 2.4 Ur Random Sodium Urine Creatinine MRSA (PCR) Negative 12/22/17 12/22/17 12/22/17 03:45 03:45 04:15 WBC 9.0 RBC 2.98 L Hgb 9.2 L Hct 27.5 L MCV 92.3 MCH 30.9 MCHC 33.5 RDW 14.8 H RDW Differential 48.2 H Plt Count 191 MPV 9.8 Sodium 145 Potassium 8.5 H* Chloride 121 H Carbon Dioxide 16.0 L Anion Gap 8 BUN 56 H Creatinine 3.48 H Estim Creat Clear Calc 18.84 Est GFR (MDRD) Af Amer 23 L Est GFR (MDRD) Non-Af 19 L BUN/Creatinine Ratio 16.1 Glucose 91 Calcium 8.5 Magnesium Ur Random Sodium Urine Creatinine 40.90 MRSA (PCR) 12/22/17 12/22/17 04:15 06:15 WBC RBC Hgb Hct MCV MCH MCHC RDW RDW Differential Plt Count MPV Sodium Pending Potassium Pending Chloride Pending Carbon Dioxide Pending Anion Gap Pending BUN Pending Creatinine Pending Estim Creat Clear Calc Est GFR (MDRD) Af Amer Pending Est GFR (MDRD) Non-Af Pending BUN/Creatinine Ratio Pending Glucose Pending Calcium Pending Magnesium Ur Random Sodium 128 Urine Creatinine MRSA (PCR) POC Glucose 12/22/17 12/22/17 01:14 00:23 POC Glucose 88 47 L Medical Necessity - Tobacco Use Smoking Status: Never smoker Assessment/Plan Active and Suspected Problems LACHO (acute kidney injury) (Acute) Hyperkalemia (Acute) Acute kidney injury (nontraumatic) (Acute) UTI (urinary tract infection) (Acute) Impressions 1. acute on CRF with a FENA of 7.5 2. hyperkalemia - has been taking Zestril and Aldactone as OP 3. 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 N/N anemia - ? why 5. hx of colon CA treated with resection, radiation and chemo at [facility] - which no longer exists. He has been seeing Dr. Dan and Dr. Ojeda. Dr. Dan has performed a colonoscopy on him since his colon surgery and he had a Barium enema in September to r/o a fistula between the colon and the urinary tract.....there was no fistula. 6. DM II 7. HTN 8. HLD 9. hypoechoic mass in the R kidney and atrophic left kidney. 10. metabolic acidosis - due to ARF +/- Metformin CT scan of the abdomen to better evaluate the mass Add a potassium restriction to his diet Check a HGBA1C and a phos DC the Rocephin and start Merrem for hx of E. Coli ESBL check a post void residual Zestril, Aldactone, metformin, Glucotrol, Lyrica Check a hemoccult stool Continue heparin subcutaneously for DVT prophylaxis. Add famotidine 20 mg daily for GI prophylaxis. He has been seen by Dr. River who has discussed HD with him......he will discuss with his and get back to us Code Visit [facility] E[facility]M: 409[facility]
--- NOTE | 2017-12-22 06:59 | PCM.CON.CC ---
Reason for Consult Date of Consultation: 12/22/17 Reason for Consultation: Acute kidney injury/hyperkalemia History of Present Illness: The patient is a 67-year-old male, with a history as outlined below, who presented to the emergency department on December 21 with a myriad of symptoms including exertional dyspnea, generalized malaise, fatigue and decreased intake. The patient does have a history of colon cancer which was treated with surgery and a combination of chemoradiation. He also has frequent urinary tract infections with multidrug-resistant organisms. On presentation to the emergency department, the patient was noted to be afebrile hemodynamically stable. He was maintaining appropriate oxygen saturations on room air. Laboratory evaluation revealed no evidence of a leukocytosis. He did have a normocytic anemia. Urinalysis revealed the presence of leukocyte esterase with greater than 100 white blood cells, but no bacteria seen. Chemistry profile revealed elevated potassium to 7.3, chloride of 123, serum bicarbonate of 11 and creatinine of 3.83. The last serum creatinine level in our system from October [address] head revealed mild atrophy and nonspecific periventricular white matter ischemic change. Plain film chest x-ray revealed no acute cardiopulmonary process. Renal ultrasound was also performed and revealed a 2.7 x 2.4 x 2.2 cm hypoechoic focus in the midpole of the right kidney, indeterminate for solid versus cystic structure. There was no hydronephrosis or nephrolithiasis noted. The patient was treated with a combination of calcium, insulin, sodium bicarbonate and Kayexalate. He was also started on a sodium bicarbonate infusion. Nephrology was consulted. The patient was subsequently transferred to the medical intensive care unit for ongoing management. Past Medical History Past Medical History (Chronic Problems): Chronic Problems Diabetes mellitus, type II (Chronic) HTN (hypertension) (Chronic) HLD (hyperlipidemia) (Chronic) Colon cancer (Chronic) Allergies No Known Allergies Allergy (Verified 12/21/17 17:31) Home Medications: Ambulatory Orders Medication Instructions Recorded Lisinopril [Zestril] 30 mg PO DAILY 07/11/16 Metformin HCl [Glucophage] 500 mg PO BIDCM 07/11/16 glipiZIDE [Glucotrol] 5 mg PO DAILY@0730 07/11/16 Lovastatin [Mevacor] 40 mg PO QHS 07/12/16 Amlodipine [Norvasc] 2.5 mg PO DAILY 12/21/17 Pregabalin [Lyrica] 75 mg PO BID 12/21/17 Spironolactone [Aldactone] 100 mg PO DAILY 12/21/17 Surgical History: - - Colon CA resection, Port placement. Psychiatric History: No pertinent psych hx Lives: With Family Smoking Status: Never smoker Alcohol: None Drugs: None - *Family History Maternal History Items: Cancer, Diabetes, Renal Disease Paternal History Items: Heart Disease, Hypertension Review of Systems Constitutional: Reports: Anorexia, Chills, Malaise, Fatigue Eyes: Denies: Blurred vision, Double vision HEENT: Denies: Head Aches, Sinus Congestion, Sinus Drainage Cardiovascular: Denies: Chest Pain, Palpitations Respiratory: Reports: Shortness of Breath Gastrointestinal: Denies: Abdominal Pain, Nausea, Vomiting Genitourinary: Reports: Dysuria, Frequency Musculoskeletal: Denies: Joint Pain, Joint Tenderness Skin: Denies: Rash, Wounds Neurological: Denies: Numbness, Tingling, Focal weakness Psychiatric: Denies: Anxiety, Depression, Homicidal Ideations, Suicidal Ideations Hematologic/ Lymphatic: Reports: Anemia Patient Problems: Active and Suspected Problems LACHO (acute kidney injury) (Acute) Hyperkalemia (Acute) Acute kidney injury (nontraumatic) (Acute) UTI (urinary tract infection) (Acute) Objective: The patient's most recent lab work, culture data and imaging studies have all been personally reviewed. Urine culture is currently pending. - Physical Exam General: Alert, Oriented x3, Cooperative, No apparent distress HEENT: Atraumatic, PERRLA, Normocephalic Oral: Moist Mucosa, No Gingival or Mucosal Lesions/ Ulcerations Neck: Supple, No Nodes, Trachea Midline Lungs: No rhonchi, No wheeze, No rales, Diminished Cardiovascular: Regular rate, Regular Rhythm, Normal S1, Normal S2, No murmurs Abdomen: Bowel Sounds Present, Soft, Non Tender, Non-Distended Extremities: No clubbing, No cyanosis, No edema Skin: No rashes, No breakdown Musculoskeletal: No Tenderness to Palpation of Joints or Extremities Lymphatic: No Cervical, Supraclavicular, or Inguinal Adenopathy Neurological: Neuro grossly intact Psych/Mental Status: Normal Affect, Appropriate Vital Signs Temp Pulse Resp BP Pulse Ox 98.6 F 78 19 H 149/74 H 100 12/22/17 06:00 12/22/17 06:00 12/22/17 06:00 12/22/17 06:00 12/22/17 06:00 Oxygen Delivery Method Room Air Weight: 177 lb 14.609 oz Body Mass Index (BMI) 28.4 Laboratory Tests Past 24 Hrs 12/21/17 12/21/17 12/22/17 22:40 23:40 01:15 WBC RBC Hgb Hct MCV MCH MCHC RDW RDW Differential Plt Count MPV Sodium 142 143 Potassium 7.3 H* 7.5 H* Chloride 123 H 121 H Carbon Dioxide 11.0 L 14.0 L Anion Gap 8 8 BUN 61 H 58 H Creatinine 3.83 H 3.74 H Estim Creat Clear Calc 17.12 17.53 Est GFR (MDRD) Af Amer 20 L 21 L Est GFR (MDRD) Non-Af 17 L 17 L BUN/Creatinine Ratio 15.9 15.5 Glucose 59 L 94 Calcium 9.0 9.0 Magnesium 2.4 Ur Random Sodium Urine Creatinine MRSA (PCR) Negative 12/22/17 12/22/17 12/22/17 03:45 03:45 04:15 WBC 9.0 RBC 2.98 L Hgb 9.2 L Hct 27.5 L MCV 92.3 MCH 30.9 MCHC 33.5 RDW 14.8 H RDW Differential 48.2 H Plt Count 191 MPV 9.8 Sodium 145 Potassium 8.5 H* Chloride 121 H Carbon Dioxide 16.0 L Anion Gap 8 BUN 56 H Creatinine 3.48 H Estim Creat Clear Calc 18.84 Est GFR (MDRD) Af Amer 23 L Est GFR (MDRD) Non-Af 19 L BUN/Creatinine Ratio 16.1 Glucose 91 Calcium 8.5 Magnesium Ur Random Sodium Urine Creatinine 40.90 MRSA (PCR) 12/22/17 12/22/17 04:15 06:15 WBC RBC Hgb Hct MCV MCH MCHC RDW RDW Differential Plt Count MPV Sodium Cancelled Potassium Cancelled Chloride Cancelled Carbon Dioxide Cancelled Anion Gap Cancelled BUN Cancelled Creatinine Cancelled Estim Creat Clear Calc Cancelled Est GFR (MDRD) Af Amer Cancelled Est GFR (MDRD) Non-Af Cancelled BUN/Creatinine Ratio Cancelled Glucose Cancelled Calcium Cancelled Magnesium Ur Random Sodium 128 Urine Creatinine MRSA (PCR) POC Glucose 12/22/17 12/22/17 01:14 00:23 POC Glucose 88 47 L Clinical Impression(s) from Imaging Studies Brain CT 12/21/17 18:32 IMPRESSION: Mild atrophy and nonspecific periventricular white matter ischemic change. No evidence for acute bleed. If concern for acute infarct MRI recommended.. Electronically Signed: Wellington Sparks MD at 19:54 EDT , Service support , Chest X-Ray 12/21/17 19:45 IMPRESSION: No acute cardiopulmonary pathology Electronically Signed: Wellington Sparks MD at 20:30 EDT , Service support , Renal Ultrasound 12/21/17 22:48 IMPRESSION: 1. Mildly atrophic left kidney. 2. There is a lobular hypoechoic focus of the midpole of the right kidney measuring 2.7 x 2.4 x 2.2 cm. This is indeterminate for solid versus cystic structure on this ultrasonographic study. This appears to have represented a cyst on prior CT study of 12/06/2012, where it measured 0.9 cm. If clinically indicated, follow-up CT may be helpful for confirmation of such. 3. There is no hydronephrosis or nephrolithiasis. Electronically Signed: Braeden Pennington MD at 23:58 EDT , Service support , Assessment/Plan Active and Suspected Problems LACHO (acute kidney injury) (Acute) Hyperkalemia (Acute) Acute kidney injury (nontraumatic) (Acute) UTI (urinary tract infection) (Acute) RECOMMENDATIONS: 1. Continue medical management of hyperkalemia, pending evaluation by nephrology. 2. If the patient is felt to be a candidate for dialysis, a temporary hemodialysis catheter will be placed. 3. Continue sodium bicarbonate infusion for now. 4. Broaden antibiotics to include meropenem 5. Continue sliding scale insulin coverage 6. Check coagulation profile 7. Continue subcutaneous heparin for DVT prophylaxis IMPRESSIONS: 1. LACHO on CKD/hyperkalemia Potential medication effect with underlying progressive medical renal disease. Nephrology consultation is pending. If the patient does not respond to medical management of his hyperkalemia, dialysis may be required. If indicated, will place temporary hemodialysis catheter. We will plan to continue sodium bicarbonate infusion in the interim. Hold nephrotoxic medications. 2. Recurrent cystitis Given the patient's history, antibiotics will be broadened. The patient has grown ESBL E. coli previously. Awaiting finalized cultures. 3. Personal history of colon cancer/diabetes/hypertension/hyperlipidemia Complicates care, management, recovery and prognosis. Okay to continue Norvasc and hydralazine. Physical therapy evaluation once medically stabilized. Encourage incentive spirometer use. This note was generated with [employer] dictation software. It may contain incorrect words, spelling, and punctuation that were not noted in checking the note before signing. Code Visit Inpatient E&M: 41136 Init Hosp L3
--- NOTE | 2017-12-22 07:10 | CON.PCM_ITS ---
Reason for Consult Date of Consultation: 12/22/17 Reason for Consultation: Acute kidney injury/hyperkalemia History of Present Illness: The patient is a 67-year-old male, with a history as outlined below, who presented to the emergency department on December 21 with a myriad of symptoms including exertional dyspnea, generalized malaise, fatigue and decreased intake. The patient does have a history of colon cancer which was treated with surgery and a combination of chemoradiation. He also has frequent urinary tract infections with multidrug-resistant organisms. On presentation to the emergency department, the patient was noted to be afebrile hemodynamically stable. He was maintaining appropriate oxygen saturations on room air. Laboratory evaluation revealed no evidence of a leukocytosis. He did have a normocytic anemia. Urinalysis revealed the presence of leukocyte esterase with greater than 100 white blood cells, but no bacteria seen. Chemistry profile revealed elevated potassium to 7.3, chloride of 123, serum bicarbonate of 11 and creatinine of 3.83. The last serum creatinine level in our system from October [address] head revealed mild atrophy and nonspecific periventricular white matter ischemic change. Plain film chest x-ray revealed no acute cardiopulmonary process. Renal ultrasound was also performed and revealed a 2.7 x 2.4 x 2.2 cm hypoechoic focus in the midpole of the right kidney, indeterminate for solid versus cystic structure. There was no hydronephrosis or nephrolithiasis noted. The patient was treated with a combination of calcium, insulin, sodium bicarbonate and Kayexalate. He was also started on a sodium bicarbonate infusion. Nephrology was consulted. The patient was subsequently transferred to the medical intensive care unit for ongoing management. Past Medical History Past Medical History (Chronic Problems): Chronic Problems Diabetes mellitus, type II (Chronic) HTN (hypertension) (Chronic) HLD (hyperlipidemia) (Chronic) Colon cancer (Chronic) Allergies No Known Allergies Allergy (Verified 12/21/17 17:31) Home Medications: Ambulatory Orders Medication Instructions Recorded Lisinopril [Zestril] 30 mg PO DAILY 07/11/16 Metformin HCl [Glucophage] 500 mg PO BIDCM 07/11/16 glipiZIDE [Glucotrol] 5 mg PO DAILY@0730 07/11/16 Lovastatin [Mevacor] 40 mg PO QHS 07/12/16 Amlodipine [Norvasc] 2.5 mg PO DAILY 12/21/17 Pregabalin [Lyrica] 75 mg PO BID 12/21/17 Spironolactone [Aldactone] 100 mg PO DAILY 12/21/17 Surgical History: - - Colon CA resection, Port placement. Psychiatric History: No pertinent psych hx Lives: With Family Smoking Status: Never smoker Alcohol: None Drugs: None - *Family History Maternal History Items: Cancer, Diabetes, Renal Disease Paternal History Items: Heart Disease, Hypertension Review of Systems Constitutional: Reports: Anorexia, Chills, Malaise, Fatigue Eyes: Denies: Blurred vision, Double vision HEENT: Denies: Head Aches, Sinus Congestion, Sinus Drainage Cardiovascular: Denies: Chest Pain, Palpitations Respiratory: Reports: Shortness of Breath Gastrointestinal: Denies: Abdominal Pain, Nausea, Vomiting Genitourinary: Reports: Dysuria, Frequency Musculoskeletal: Denies: Joint Pain, Joint Tenderness Skin: Denies: Rash, Wounds Neurological: Denies: Numbness, Tingling, Focal weakness Psychiatric: Denies: Anxiety, Depression, Homicidal Ideations, Suicidal Ideations Hematologic/ Lymphatic: Reports: Anemia Patient Problems: Active and Suspected Problems LACHO (acute kidney injury) (Acute) Hyperkalemia (Acute) Acute kidney injury (nontraumatic) (Acute) UTI (urinary tract infection) (Acute) Objective: The patient's most recent lab work, culture data and imaging studies have all been personally reviewed. Urine culture is currently pending. - Physical Exam General: Alert, Oriented x3, Cooperative, No apparent distress HEENT: Atraumatic, PERRLA, Normocephalic Oral: Moist Mucosa, No Gingival or Mucosal Lesions/ Ulcerations Neck: Supple, No Nodes, Trachea Midline Lungs: No rhonchi, No wheeze, No rales, Diminished Cardiovascular: Regular rate, Regular Rhythm, Normal S1, Normal S2, No murmurs Abdomen: Bowel Sounds Present, Soft, Non Tender, Non-Distended Extremities: No clubbing, No cyanosis, No edema Skin: No rashes, No breakdown Musculoskeletal: No Tenderness to Palpation of Joints or Extremities Lymphatic: No Cervical, Supraclavicular, or Inguinal Adenopathy Neurological: Neuro grossly intact Psych/Mental Status: Normal Affect, Appropriate Vital Signs Temp Pulse Resp BP Pulse Ox 98.6 F 78 19 H 149/74 H 100 12/22/17 06:00 12/22/17 06:00 12/22/17 06:00 12/22/17 06:00 12/22/17 06:00 Oxygen Delivery Method Room Air Weight: 177 lb 14.609 oz Body Mass Index (BMI) 28.4 Laboratory Tests Past 24 Hrs 12/21/17 12/21/17 12/22/17 22:40 23:40 01:15 WBC RBC Hgb Hct MCV MCH MCHC RDW RDW Differential Plt Count MPV Sodium 142 143 Potassium 7.3 H* 7.5 H* Chloride 123 H 121 H Carbon Dioxide 11.0 L 14.0 L Anion Gap 8 8 BUN 61 H 58 H Creatinine 3.83 H 3.74 H Estim Creat Clear Calc 17.12 17.53 Est GFR (MDRD) Af Amer 20 L 21 L Est GFR (MDRD) Non-Af 17 L 17 L BUN/Creatinine Ratio 15.9 15.5 Glucose 59 L 94 Calcium 9.0 9.0 Magnesium 2.4 Ur Random Sodium Urine Creatinine MRSA (PCR) Negative 12/22/17 12/22/17 12/22/17 03:45 03:45 04:15 WBC 9.0 RBC 2.98 L Hgb 9.2 L Hct 27.5 L MCV 92.3 MCH 30.9 MCHC 33.5 RDW 14.8 H RDW Differential 48.2 H Plt Count 191 MPV 9.8 Sodium 145 Potassium 8.5 H* Chloride 121 H Carbon Dioxide 16.0 L Anion Gap 8 BUN 56 H Creatinine 3.48 H Estim Creat Clear Calc 18.84 Est GFR (MDRD) Af Amer 23 L Est GFR (MDRD) Non-Af 19 L BUN/Creatinine Ratio 16.1 Glucose 91 Calcium 8.5 Magnesium Ur Random Sodium Urine Creatinine 40.90 MRSA (PCR) 12/22/17 12/22/17 04:15 06:15 WBC RBC Hgb Hct MCV MCH MCHC RDW RDW Differential Plt Count MPV Sodium Cancelled Potassium Cancelled Chloride Cancelled Carbon Dioxide Cancelled Anion Gap Cancelled BUN Cancelled Creatinine Cancelled Estim Creat Clear Calc Cancelled Est GFR (MDRD) Af Amer Cancelled Est GFR (MDRD) Non-Af Cancelled BUN/Creatinine Ratio Cancelled Glucose Cancelled Calcium Cancelled Magnesium Ur Random Sodium 128 Urine Creatinine MRSA (PCR) POC Glucose 12/22/17 12/22/17 01:14 00:23 POC Glucose 88 47 L Clinical Impression(s) from Imaging Studies Brain CT 12/21/17 18:32 IMPRESSION: Mild atrophy and nonspecific periventricular white matter ischemic change. No evidence for acute bleed. If concern for acute infarct MRI recommended.. Electronically Signed: Wellington Sparks MD at 19:54 EDT , Service support , Chest X-Ray 12/21/17 19:45 IMPRESSION: No acute cardiopulmonary pathology Electronically Signed: Wellington Sparks MD at 20:30 EDT , Service support , Renal Ultrasound 12/21/17 22:48 IMPRESSION: 1. Mildly atrophic left kidney. 2. There is a lobular hypoechoic focus of the midpole of the right kidney measuring 2.7 x 2.4 x 2.2 cm. This is indeterminate for solid versus cystic structure on this ultrasonographic study. This appears to have represented a cyst on prior CT study of 12/06/2012, where it measured 0.9 cm. If clinically indicated, follow-up CT may be helpful for confirmation of such. 3. There is no hydronephrosis or nephrolithiasis. Electronically Signed: Braeden Pennington MD at 23:58 EDT , Service support , Assessment/Plan Active and Suspected Problems LACHO (acute kidney injury) (Acute) Hyperkalemia (Acute) Acute kidney injury (nontraumatic) (Acute) UTI (urinary tract infection) (Acute) RECOMMENDATIONS: 1. Continue medical management of hyperkalemia, pending evaluation by nephrology. 2. If the patient is felt to be a candidate for dialysis, a temporary hemodialysis catheter will be placed. 3. Continue sodium bicarbonate infusion for now. 4. Broaden antibiotics to include meropenem 5. Continue sliding scale insulin coverage 6. Check coagulation profile 7. Continue subcutaneous heparin for DVT prophylaxis IMPRESSIONS: 1. LACHO on CKD/hyperkalemia Potential medication effect with underlying progressive medical renal disease. Nephrology consultation is pending. If the patient does not respond to medical management of his hyperkalemia, dialysis may be required. If indicated, will place temporary hemodialysis catheter. We will plan to continue sodium bicarbonate infusion in the interim. Hold nephrotoxic medications. 2. Recurrent cystitis Given the patient's history, antibiotics will be broadened. The patient has grown ESBL E. coli previously. Awaiting finalized cultures. 3. Personal history of colon cancer/diabetes/hypertension/hyperlipidemia Complicates care, management, recovery and prognosis. Okay to continue Norvasc and hydralazine. Physical therapy evaluation once medically stabilized. Encourage incentive spirometer use. This note was generated with [employer] dictation software. It may contain incorrect words, spelling, and punctuation that were not noted in checking the note before signing. Code Visit Inpatient E&M: 41218 Init Hosp L3
[2017-12-22 07:31] LABS: Anion Gap 8 (5-15); BUN 54 mg/dL (7-18); BUN/Creat Ratio 14.9 RATIO (10-20); Calcium,Total 9.1 mg/dL (8.5-10.1); Chloride 120 mmol/L (98-107); Creatinine, Serum 3.62 mg/dL (0.70-1.30); EST Glomerular Filtration Rate 18 mL/min (>60); Est Glom Filt Rate - Afr Amer 22 mL/min (>60); Estimated Creatinine Clearance 18.11 ml/min; Glucose 110 mg/dL (74-106); Potassium 7.2 mmol/L (3.5-5.1); Sodium Level 146 mmol/L (136-145)
[2017-12-22 07:48] LABS: CPK Total, Creatine Kinase 54 U/L (39-308)
[2017-12-22 08:50] LABS: Bedside Glucose 96 mg/dL (70-110)
[2017-12-22 09:00] LABS: Prothrombin Time (Protime)PT. 13.5 SECONDS (11.7-14.9)
[2017-12-22 09:13] LABS: Anion Gap 5 (5-15); BUN 52 mg/dL (7-18); BUN/Creat Ratio 14.5 RATIO (10-20); Calcium,Total 8.7 mg/dL (8.5-10.1); Chloride 120 mmol/L (98-107); Creatinine, Serum 3.58 mg/dL (0.70-1.30); EST Glomerular Filtration Rate 18 mL/min (>60); Est Glom Filt Rate - Afr Amer 22 mL/min (>60); Estimated Creatinine Clearance 18.32 ml/min; Glucose 111 mg/dL (74-106); Potassium 8.2 mmol/L (3.5-5.1); Sodium Level 144 mmol/L (136-145)
--- NOTE | 2017-12-22 09:17 | CT_ITS ---
STUDY: CT ABDOMEN AND PELVIS WITHOUT CONTRAST REASON FOR EXAM: Male, 67 years old. Right renal mass on ultrasound RADIATION DOSAGE (If Supplied By Facility): CTDIvol = ( 18.79 ) mGy, DLP = ( 2072.92 ) mGycm TECHNIQUE: Transaxial images were obtained from the dome of the diaphragm to the symphysis pubis without oral contrast, and without intravenous contrast. Sagittal and coronal images were reconstructed. Individualized dose optimization techniques were used for this CT. COMPARISON: Previous study of 12/06/2012 FINDINGS: The study is technically limited, being performed without oral and intravenous contrast. The visualized lung bases are unremarkable. The visualized portions of the heart are within normal limits. Normal liver. Normal gallbladder and extrahepatic biliary system. Normal spleen. Normal pancreas. Normal bilateral adrenal glands. Normal right kidney. Normal left kidney. Normal visualized stomach. Normal small intestine. Status post rectal resection changes are noted. Radiopaque material is seen in the appendix. Normal abdominal aorta. Normal inferior vena cava. There are scattered shotty subcentimeter retroperitoneal nodes. Normal urinary bladder. The prostate, seminal vesicles, and seminal vesicle angles appear normal. There is a small midline ventral supraumbilical hernia containing fat. There are small bilateral fat-containing inguinal hernias, left side larger than right. There are diffuse degenerative changes of the visualized thoracolumbar spine. There is no evidence of osseous metastatic disease. CT/Abdomen/Pelvis without Cont IMPRESSION: 1. Status post rectal resection changes are noted. 2. There are scattered shotty subcentimeter retroperitoneal nodes. 3. There is a small midline ventral supraumbilical hernia containing omental fat. There are small bilateral fat-containing inguinal hernias, left side larger than right. 4. No definite right renal cyst or mass was identified on this study. Electronically Signed: Braeden Penningotn MD at 21:58 EDT , Service support ,
[2017-12-22 09:22] LABS: Phosphorus 4.7 mg/dL (2.5-4.9)
[2017-12-22 09:47] LABS: Hemoglobin A1c 5.3 % (4.2-6.3)
[2017-12-22] MEDS: amLODIPine 2.5 MG Tablet PO (10:00)
[2017-12-22] MEDS: Famotidine 20 MG Tablet PO (10:03)
--- NOTE | 2017-12-22 10:44 | CASEMGMT ---
RN CM Assessment Link. DC PLAN: home on discharge. Jimy SHANKAR updated on visit with pt and . is tearful, very worried for her . Pt states they had been to [facility] re: financial assistance. -plan is home. CM will continue to follow re: dc needs, possible hemodialysis on dc. Blaise SHEPHERD RN ACM
--- NOTE | 2017-12-22 11:15 | NURSING ---
Augustina Armstrong ICICLE MACHINE OPERATOR at bedside preparing to place a temporary dialysis catheter.
--- NOTE | 2017-12-22 11:37 | RAD_ITS ---
STUDY: X-RAY CHEST REASON FOR EXAM: Male, 67 years old. TEMPORARY DIALYSIS CATHETER PLACEMENT TECHNIQUE: Single AP portable view of the chest. COMPARISON: December 21, 2017 FINDINGS: There is a new left central venous line with the distal tip in the right atrium. There is a stable right central venous line. There is new minimal hazy opacity of the right upper lobe which may represent atelectasis. There is no demonstrated pleural abnormality. Normal size heart. Normal mediastinum and power. Normal visualized pulmonary arteries. There is atherosclerotic tortuosity of the aortic arch and descending thoracic aorta. Normal visualized thoracic spine. Normal visualized ribs, clavicles, and shoulders. There is no demonstrated abnormality of the visualized soft tissue structures of the upper abdomen. RAD/Chest 1 View (Portable) IMPRESSION: There is a new left central venous line with the distal tip in the right atrium. There is new minimal hazy opacity of the right upper lobe which may represent atelectasis. Electronically Signed: Mary River MD at 12:29 EDT , Service support ,
--- NOTE | 2017-12-22 11:42 | PCM.OP.BLANK ---
Operative Report Date of Procedure: 12/22/17 - Dialysis catheter insertion Temporary dialysis catheter placement procedure note Indication: Hemodialysis Procedure: A time-out was completed to verify correct patient, indication, medication allergies, procedure, coagulation studies, informed consent signed, and equipment needed. The patient was placed in the supine position for a central line placement to the left IJ vein. The patients left neck was prepped using chlorhexidine and a full body sterile drape was applied. 1% lidocaine was used to anesthetize the surrounding skin. A 12fr 20 cm temporary dialysis catheter introduced into the internal jugular vein using the modified Seldinger technique with the assistance of ultrasound. Site was dilated twice in a stepwise fashion. The catheter was threaded smoothly over the guidewire, the guidewire was removed easily, nonpulsatile blood returned. All ports were aspirated of air and flushed with sterile saline, and then locked with U 1000 heparin. The catheter was sutured in place and covered with an occlusive dressing impregnated with chlorhexidine. Post-procedure: The patient tolerated the procedure well. Vital signs remained stable. EBL 3 cc. No complications. Chest X Ray ordered, confirmed tip placement and the absence of a pneumothorax. Code Visit Procedures: 75608 Insert Non-tunnel CV Cath
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
[2017-12-22 12:26] LABS: Bedside Glucose 144 mg/dL (70-110)
--- NOTE | 2017-12-22 13:12 | CON.PCM_ITS ---
Consultation - Renal 12/22/17 PCP/ Referring MD: Requesting physician: Keira Lindo Primary care physician: Tiffanie Ojeda Reason for Consultation:: LACHO, hyperkalemia - History of Present Illness History of Present Illness: The patient is a 67 y/o M who presented to the ER for shortness of breath mostly with exertion past 3-4 days. He denied nausea vomiting, diarrhea. Denied chest pain, cough, fever, chills. He presented to ER with hyperkalemia at 8.9 with renal failure creatinine 3.87 with metabolic acidosis. Potassium remained elevated despite medical management including insulin, dextrose, bicarbonate, and kayexalate. Urine output has been the same at home. He is not aware of kidney disease in the past. However creatinine has been 1.1 to 1.4 since 2012, 2.4 in Aug 2017 on review of [facility] and [facility] records. 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 Renal US was negative for hydronephrosis. Appetite has been unchanged with no history of weight loss. Denied urinary complaints for BPH or UTI. He has a history of chronic Ecoli UTIs followed by . He has a history of colon cancer, pointing to transverse region of colon but [facility] records report rectal cancer. He has been on chemotherapy for 6 months around 4 years ago with radiation but no recent treatments or follow up with oncology. He complained of fatigue. Denied NSAID use or consumption of high potassium foods. Home medications included spironolactone and lisinopril. In ER , trop < 0.02, EKG w/ SR with chronic findings without acute evidence of ischemia, no marked peaked T-waves, QRS 144 mildly widened, UA remarkable for protein, leukocytes, occult blood with pending UCx, CT brain with mild reticular right matter ischemic change with no acute findings, CXR with no acute findings. - Allergies Allergies: Allergies No Known Allergies Allergy (Verified 12/21/17 17:31) - Current Medications Current Medications: Current Medications Albuterol Sulfate (Ventolin Aerosols) 2.5 mg INHALATION Q2H PRN PRN PRN Reason: dyspnea, hyperkalemia Amlodipine Besylate (Norvasc) 2.5 mg PO DAILY DANIEL Last Admin: 12/22/17 10:00 Dose: 2.5 mg Atorvastatin Calcium (Lipitor) 20 mg PO QHS [facility] Dextrose (D50w Syringe) 0 gm IV X1 PRN; Protocol PRN Reason: Hypoglycemia Famotidine (Pepcid) 20 mg PO DAILY [facility] Last Admin: 12/22/17 10:03 Dose: 20 mg Glucagon () 1 mg IM .X1 PRN PRN Reason: Hypoglycemia Heparin Sodium (Beef Lung) (Heparin 500 Unit/5 Ml (100/Ml)) 500 unit IV UD PRN PRN Reason: HEPARIN FLUSH Heparin Sodium (Porcine) (Heparin Na) 5,000 unit SC Q8 [facility] Last Admin: 12/22/17 05:28 Dose: 5,000 u Hydralazine HCl (Apresoline Iv) 10 mg IV Q4H PRN PRN PRN Reason: SBP > 160 Sodium Chloride () 250 mls @ 15 mls/hr IV .[id number] PRN PRN Reason: SALINE FLUSH Sodium Bicarbonate 100 meq/ (Dextrose) 1,000 mls @ 100 mls/hr IV .Q10H [facility] Last Admin: 12/22/17 08:20 Dose: 100 mls/hr Meropenem 500 mg/ Sodium (Chloride) 60 mls @ 100 mls/hr IV Q12 [facility] Last Admin: 12/22/17 10:00 Dose: 100 mls/hr Insulin Aspart (Novolog Flexpen (Bkc)) 0 units SC ACHS DANIEL PRN Reason: Protocol Last Admin: 12/22/17 12:25 Dose: Not Given Magnesium Hydroxide (Milk Of Magnesia) 30 ml PO DAILY PRN PRN PRN Reason: Constipation Ondansetron HCl (Zofran) 4 mg IV Q8H PRN PRN PRN Reason: NAUSEA Sodium Chloride () 10 ml IV UD PRN PRN Reason: VAD FLUSH - Past Medical History Past Medical History (Chronic Problems): Chronic Problems Diabetes mellitus, type II (Chronic) HTN (hypertension) (Chronic) HLD (hyperlipidemia) (Chronic) Colon cancer (Chronic) - Past Surgical History Surgical History: - - Colon CA resection, Port placement. - Social History Marital Status: Smoking Status: Never smoker Alcohol: None Drugs: None - Family History Maternal History Items: Cancer, Diabetes, Renal Disease Paternal History Items: Heart Disease, Hypertension Review of Systems Constitutional: Reports: Malaise, Weakness, Fatigue. Denies: Anorexia, Chills, Fever, Weight Change Eyes: Denies: Blurred vision HEENT: Denies: Head Aches, Sore Throat Cardiovascular: Reports: Edema, Syncope. Denies: Chest Pain Respiratory: Reports: Cough, Hemoptysis, Shortness of Breath, Shortness of breath upon exertion Gastrointestinal: Reports: - - colon cancer. Denies: Abdominal Pain, Constipation, Diarrhea, Hematochezia, Nausea, Vomiting Genitourinary: Reports: Urgency. Denies: Dysuria, Frequency, Hematuria, Hesitancy Musculoskeletal: Denies: Back Pain, Joint Pain, Joint swelling Skin: Denies: Rash Neurological: Denies: Balance problems, Focal weakness, Numbness Psychiatric: Denies: Anxiety, Depression Hematologic/ Lymphatic: Denies: Anemia, Hx of blood clot Patient Problems: Active and Suspected Problems LACHO (acute kidney injury) (Acute) Hyperkalemia (Acute) Acute kidney injury (nontraumatic) (Acute) UTI (urinary tract infection) (Acute) - Physical Exam General: Alert, Oriented x3, Cooperative, No apparent distress HEENT: PERRLA, EOMI Oral: Dry Mucosa Neck: Supple, No JVD Lungs: Clear to auscultation Cardiovascular: Regular rate Abdomen: Bowel Sounds Present, Soft, Non Tender Extremities: No edema Skin: No rashes Musculoskeletal: No Muscle Wasting Neurological: Cranial nerves II-XII grossly intact, - - mild intermittent UE twitching Psych/Mental Status: Appropriate, Flat Affect, Alert and oriented to time, place , person, mood and affect Vital Signs Temp Pulse Resp BP Pulse Ox 98.6 F 88 19 H 112/90 H 100 12/22/17 12:00 12/22/17 12:00 12/22/17 12:00 12/22/17 12:00 12/22/17 12:00 Oxygen Delivery Method Room Air Weight: 80.7 kg Body Mass Index (BMI) 28.4 Intake and Output for Last 24 Hours 12/20/17 12/21/17 12/22/17 23:59 23:59 23:59 Intake Total 2499 / 2499 Balance 2499 / 2499 Laboratory Tests Past 24 Hrs 12/21/17 12/21/17 12/22/17 22:40 23:40 01:15 WBC RBC Hgb Hct MCV MCH MCHC RDW RDW Differential Plt Count MPV Eos Smear Total Cells PT INR Sodium 142 143 Potassium 7.3 H* 7.5 H* Chloride 123 H 121 H Carbon Dioxide 11.0 L 14.0 L Anion Gap 8 8 BUN 61 H 58 H Creatinine 3.83 H 3.74 H Estim Creat Clear Calc 17.12 17.53 Est GFR (MDRD) Af Amer 20 L 21 L Est GFR (MDRD) Non-Af 17 L 17 L BUN/Creatinine Ratio 15.9 15.5 Glucose 59 L 94 Hemoglobin A1c Calcium 9.0 9.0 Phosphorus Magnesium 2.4 Total Creatine Kinase Ur Random Sodium Urine Creatinine MRSA (PCR) Negative 12/22/17 12/22/17 12/22/17 03:45 03:45 04:15 WBC 9.0 RBC 2.98 L Hgb 9.2 L Hct 27.5 L MCV 92.3 MCH 30.9 MCHC 33.5 RDW 14.8 H RDW Differential 48.2 H Plt Count 191 MPV 9.8 Eos Smear Total Cells PT INR Sodium 145 Potassium 8.5 H* Chloride 121 H Carbon Dioxide 16.0 L Anion Gap 8 BUN 56 H Creatinine 3.48 H Estim Creat Clear Calc 18.84 Est GFR (MDRD) Af Amer 23 L Est GFR (MDRD) Non-Af 19 L BUN/Creatinine Ratio 16.1 Glucose 91 Hemoglobin A1c Calcium 8.5 Phosphorus Magnesium Total Creatine Kinase Ur Random Sodium Urine Creatinine 40.90 MRSA (PCR) 12/22/17 12/22/17 12/22/17 04:15 06:15 07:08 WBC RBC Hgb Hct MCV MCH MCHC RDW RDW Differential Plt Count MPV Eos Smear Total Cells PT INR Sodium Cancelled 146 H Potassium Cancelled 7.2 H* Chloride Cancelled 120 H Carbon Dioxide Cancelled 18.0 L Anion Gap Cancelled 8 BUN Cancelled 54 H Creatinine Cancelled 3.62 H Estim Creat Clear Calc Cancelled 18.11 Est GFR (MDRD) Af Amer Cancelled 22 L Est GFR (MDRD) Non-Af Cancelled 18 L BUN/Creatinine Ratio Cancelled 14.9 Glucose Cancelled 110 H Hemoglobin A1c Calcium Cancelled 9.1 Phosphorus Magnesium Total Creatine Kinase Ur Random Sodium 128 Urine Creatinine MRSA (PCR) 12/22/17 12/22/17 12/22/17 07:09 08:44 08:44 WBC RBC Hgb Hct MCV MCH MCHC RDW RDW Differential Plt Count MPV Eos Smear Total Cells PT 13.5 INR 1.0 Sodium 144 Potassium 8.2 H* Chloride 120 H Carbon Dioxide 19.0 L Anion Gap 5 BUN 52 H Creatinine 3.58 H Estim Creat Clear Calc 18.32 Est GFR (MDRD) Af Amer 22 L Est GFR (MDRD) Non-Af 18 L BUN/Creatinine Ratio 14.5 Glucose 111 H Hemoglobin A1c Calcium 8.7 Phosphorus Magnesium Total Creatine Kinase 54 Ur Random Sodium Urine Creatinine MRSA (PCR) 12/22/17 12/22/17 12/22/17 08:45 08:45 10:30 WBC RBC Hgb Hct MCV MCH MCHC RDW RDW Differential Plt Count MPV Eos Smear Total Cells Pending PT INR Sodium Potassium Chloride Carbon Dioxide Anion Gap BUN Creatinine Estim Creat Clear Calc Est GFR (MDRD) Af Amer Est GFR (MDRD) Non-Af BUN/Creatinine Ratio Glucose Hemoglobin A1c 5.3 Calcium Phosphorus 4.7 Magnesium Total Creatine Kinase Ur Random Sodium Urine Creatinine MRSA (PCR) POC Glucose 12/22/17 12/22/17 12/22/17 12:21 08:44 01:14 POC Glucose 144 H 96 88 12/22/17 00:23 POC Glucose 47 L Clinical Impression(s) from Imaging Studies Brain CT 12/21/17 18:32 IMPRESSION: Mild atrophy and nonspecific periventricular white matter ischemic change. No evidence for acute bleed. If concern for acute infarct MRI recommended.. Electronically Signed: Wellington Sparks MD at 19:54 EDT , Service support , Chest X-Ray 12/21/17 19:45 IMPRESSION: No acute cardiopulmonary pathology Electronically Signed: Wellington Sparks MD at 20:30 EDT , Service support , Renal Ultrasound 12/21/17 22:48 IMPRESSION: 1. Mildly atrophic left kidney. 2. There is a lobular hypoechoic focus of the midpole of the right kidney measuring 2.7 x 2.4 x 2.2 cm. This is indeterminate for solid versus cystic structure on this ultrasonographic study. This appears to have represented a cyst on prior CT study of 12/06/2012, where it measured 0.9 cm. If clinically indicated, follow-up CT may be helpful for confirmation of such. 3. There is no hydronephrosis or nephrolithiasis. Electronically Signed: Braeden Pennington MD at 23:58 EDT , Service support , Chest X-Ray 12/22/17 11:37 IMPRESSION: There is a new left central venous line with the distal tip in the right atrium. There is new minimal hazy opacity of the right upper lobe which may represent atelectasis. Electronically Signed: Mary River MD at 12:29 EDT cf, Service support , Assessment/Plan Active and Suspected Problems LACHO (acute kidney injury) (Acute) Hyperkalemia (Acute) Acute kidney injury (nontraumatic) (Acute) UTI (urinary tract infection) (Acute) 1. LACHO on CKD stage 3. May have RORY from chronic infections vs arterionephrosclerosis. Creatinine 2.4 in Aug 2017 on [facility] records, 1.4 eGFR 53cc /min in October 2016 now at 3.8 to 3.6 after iv hydration. May have prerenal component from medications. Fena >1%. Renal US no hydro. Continue to monitor renal function with iv fluids to determine his baseline. 24h urine when at steady state. 2. Hyperkalemia refractory to medical management. Discussed with pt regarding short term dialysis to correct his acidosis and hyperkalemia. Pt to discuss with . Agree with discontinuation of spironolactone and lisinopril. Follow low K diet 3. Chronic ecoli UTI. Await urine c/s. IV antibx ordered 4. Hx colon cancer with no recent follow up. 5. DM2 stable 6. HTN stable 7. HPL 8. metabolic acidosis correct with bicarb, dialysis DW primary service, [facility] addendum: seen on dialysis at 2:45pm. Fluid bolus as needed for hypotension. Run even on 2K for 3 hrs.
[2017-12-22] MEDS: 0.9% Normal Saline 1,000 ML 75 ML IV (15:11)
[2017-12-22] MEDS: Heparin 10,000 UNITS/10 ML Vial IV (16:14)
--- NOTE | 2017-12-22 17:00 | DIALYSIS ---
Hemodialysis completed as ordered. Ran even with no fluid removed. Stable t/o. Tolerated well. CVC closed with Heparin to each lumen fill volume. Report to Sharon LAMAS
[2017-12-22 17:56] LABS: Bedside Glucose 121 mg/dL (70-110)
[2017-12-22 18:25] LABS: BUN 20 mg/dL (7-18); Creatinine, Serum 1.92 mg/dL (0.70-1.30); EST Glomerular Filtration Rate 37 mL/min (>60); Estimated Creatinine Clearance 34.15 ml/min; Glucose 127 mg/dL (74-106)
[2017-12-22 18:26] LABS: Anion Gap 6 (5-15); BUN/Creat Ratio 10.4 RATIO (10-20); Chloride 101 mmol/L (98-107); Est Glom Filt Rate - Afr Amer 45 mL/min (>60); Potassium 4.5 mmol/L (3.5-5.1); Sodium Level 139 mmol/L (136-145)
[2017-12-22] MEDS: Alteplase 2 MG/2 ML Vial IV (20:53)
[2017-12-22] MEDS: 0.9% NaCl VAD Flush 10 ML IV ×3 (20:54→22:02)
[2017-12-22] MEDS: Atorvastatin Calcium 20 MG Tablet PO (21:38)
--- NOTE | 2017-12-22 22:03 | NURSING ---
Cathflo administered by Emma Arita RN and Right chest port now has a positive blood return.
[2017-12-23] VITALS (23 sets, daily range): BP systolic 87–151; BP diastolic 43–82; PULSE 67–86; RESP 12–18; TEMP 36.4–37.2; O2SAT 97–100
[2017-12-23 04:09] LABS: HEPATITIS B SURFACE AG Negative (Negative)
[2017-12-23 04:34] LABS: Albumin, Serum 2.6 g/dL (3.2-5.0); BUN 23 mg/dL (7-18); BUN/Creat Ratio 9.8 RATIO (10-20); Calcium,Total 7.4 mg/dL (8.5-10.1); Chloride 104 mmol/L (98-107); Creatinine, Serum 2.35 mg/dL (0.70-1.30); EST Glomerular Filtration Rate 30 mL/min (>60); Est Glom Filt Rate - Afr Amer 36 mL/min (>60); Glucose 163 mg/dL (74-106); Phosphorus 4.2 mg/dL (2.5-4.9); Potassium 4.9 mmol/L (3.5-5.1); Sodium Level 141 mmol/L (136-145)
[2017-12-23] MEDS: Heparin Injection (Vial) 5,000 UNIT/ML VIAL 5000 UNIT SC ×3 (06:06→22:21)
[2017-12-23] MEDS: 0.9% NaCl VAD Flush 10 ML IV ×2 (06:07→10:08)
--- NOTE | 2017-12-23 06:42 | PCM.PN.INT ---
Subjective: The patient was seen and examined at the bedside this morning. Events from the last 24 hours have been reviewed. The patient is currently afebrile, hemodynamically stable and maintaining appropriate oxygen saturations on room air. The patient underwent successful hemodialysis yesterday. Laboratory abnormalities, including hyperkalemia have resolved. The patient is without any significant complaints this morning. Objective: The patient's most recent lab work, culture data and imaging studies have all been personally reviewed. Urine culture was positive for gram-negative alejandro. Blood cultures are currently pending. CT abdomen/pelvis revealed no definitive right renal cyst or mass. General: Alert, Oriented x3, Cooperative, No apparent distress HEENT: Atraumatic, PERRLA, Normocephalic Oral: No Gingival or Mucosal Lesions/ Ulcerations Neck: Supple, No Nodes, Trachea Midline, - - Left temporary hemodialysis catheter in place Lungs: Normal air movement, No rhonchi, No wheeze, No rales Cardiovascular: Regular rate, Regular Rhythm, Normal S1, Normal S2, No murmurs Abdomen: Bowel Sounds Present, Soft, Non Tender, Non-Distended Extremities: No clubbing, No cyanosis, No edema Skin: No breakdown Musculoskeletal: No Tenderness to Palpation of Joints or Extremities Lymphatic: No Cervical, Supraclavicular, or Inguinal Adenopathy Neurological: Neuro grossly intact Psych/Mental Status: Alert and oriented to time, place, person, mood and affect Vital Signs Temp Pulse Resp BP Pulse Ox 97.9 F 67 12 137/64 H 100 12/23/17 04:00 12/23/17 06:00 12/23/17 06:00 12/23/17 06:00 12/23/17 06:00 Oxygen Delivery Method Room Air Weight: 176 lb 2.389 oz Body Mass Index (BMI) 28.4 Intake and Output for Last 24 Hours 12/21/17 12/22/17 12/23/17 23:59 23:59 23:59 Intake Total 3366 / 3366 665 / 665 Output Total 0 / 0 Balance 3366 / 3366 665 / 665 Labs (Last 48 Hours) 12/21/17 12/21/17 12/22/17 22:40 23:40 00:23 WBC RBC Hgb Hct MCV MCH MCHC RDW RDW Differential Plt Count MPV Eos Smear Total Cells PT INR Sodium 142 Potassium 7.3 H* Chloride 123 H Carbon Dioxide 11.0 L Anion Gap 8 BUN 61 H Creatinine 3.83 H Estim Creat Clear Calc 17.12 Est GFR (MDRD) Af Amer 20 L Est GFR (MDRD) Non-Af 17 L BUN/Creatinine Ratio 15.9 Glucose 59 L Hemoglobin A1c Calcium 9.0 Phosphorus Magnesium 2.4 Total Creatine Kinase Albumin Ur Random Sodium Urine Creatinine Hep Bs Antigen Hep Bs Antibody Hep B Core Total Ab MRSA (PCR) Negative POC Glucose 47 L 12/22/17 12/22/17 12/22/17 01:14 01:15 03:45 WBC RBC Hgb Hct MCV MCH MCHC RDW RDW Differential Plt Count MPV Eos Smear Total Cells PT INR Sodium 143 145 Potassium 7.5 H* 8.5 H* Chloride 121 H 121 H Carbon Dioxide 14.0 L 16.0 L Anion Gap 8 8 BUN 58 H 56 H Creatinine 3.74 H 3.48 H Estim Creat Clear Calc 17.53 18.84 Est GFR (MDRD) Af Amer 21 L 23 L Est GFR (MDRD) Non-Af 17 L 19 L BUN/Creatinine Ratio 15.5 16.1 Glucose 94 91 Hemoglobin A1c Calcium 9.0 8.5 Phosphorus Magnesium Total Creatine Kinase Albumin Ur Random Sodium Urine Creatinine Hep Bs Antigen Hep Bs Antibody Hep B Core Total Ab MRSA (PCR) POC Glucose 88 12/22/17 12/22/17 12/22/17 03:45 04:15 04:15 WBC 9.0 RBC 2.98 L Hgb 9.2 L Hct 27.5 L MCV 92.3 MCH 30.9 MCHC 33.5 RDW 14.8 H RDW Differential 48.2 H Plt Count 191 MPV 9.8 Eos Smear Total Cells PT INR Sodium Potassium Chloride Carbon Dioxide Anion Gap BUN Creatinine Estim Creat Clear Calc Est GFR (MDRD) Af Amer Est GFR (MDRD) Non-Af BUN/Creatinine Ratio Glucose Hemoglobin A1c Calcium Phosphorus Magnesium Total Creatine Kinase Albumin Ur Random Sodium 128 Urine Creatinine 40.90 Hep Bs Antigen Hep Bs Antibody Hep B Core Total Ab MRSA (PCR) POC Glucose 12/22/17 12/22/17 12/22/17 06:15 07:08 07:09 WBC RBC Hgb Hct MCV MCH MCHC RDW RDW Differential Plt Count MPV Eos Smear Total Cells PT INR Sodium Cancelled 146 H Potassium Cancelled 7.2 H* Chloride Cancelled 120 H Carbon Dioxide Cancelled 18.0 L Anion Gap Cancelled 8 BUN Cancelled 54 H Creatinine Cancelled 3.62 H Estim Creat Clear Calc Cancelled 18.11 Est GFR (MDRD) Af Amer Cancelled 22 L Est GFR (MDRD) Non-Af Cancelled 18 L BUN/Creatinine Ratio Cancelled 14.9 Glucose Cancelled 110 H Hemoglobin A1c Calcium Cancelled 9.1 Phosphorus Magnesium Total Creatine Kinase 54 Albumin Ur Random Sodium Urine Creatinine Hep Bs Antigen Hep Bs Antibody Hep B Core Total Ab MRSA (PCR) POC Glucose 12/22/17 12/22/17 12/22/17 08:44 08:44 08:44 WBC RBC Hgb Hct MCV MCH MCHC RDW RDW Differential Plt Count MPV Eos Smear Total Cells PT 13.5 INR 1.0 Sodium 144 Potassium 8.2 H* Chloride 120 H Carbon Dioxide 19.0 L Anion Gap 5 BUN 52 H Creatinine 3.58 H Estim Creat Clear Calc 18.32 Est GFR (MDRD) Af Amer 22 L Est GFR (MDRD) Non-Af 18 L BUN/Creatinine Ratio 14.5 Glucose 111 H Hemoglobin A1c Calcium 8.7 Phosphorus Magnesium Total Creatine Kinase Albumin Ur Random Sodium Urine Creatinine Hep Bs Antigen Hep Bs Antibody Hep B Core Total Ab MRSA (PCR) POC Glucose 96 12/22/17 12/22/17 12/22/17 08:45 08:45 10:30 WBC RBC Hgb Hct MCV MCH MCHC RDW RDW Differential Plt Count MPV Eos Smear Total Cells Pending PT INR Sodium Potassium Chloride Carbon Dioxide Anion Gap BUN Creatinine Estim Creat Clear Calc Est GFR (MDRD) Af Amer Est GFR (MDRD) Non-Af BUN/Creatinine Ratio Glucose Hemoglobin A1c 5.3 Calcium Phosphorus 4.7 Magnesium Total Creatine Kinase Albumin Ur Random Sodium Urine Creatinine Hep Bs Antigen Hep Bs Antibody Hep B Core Total Ab MRSA (PCR) POC Glucose 12/22/17 12/22/17 12/22/17 12:21 14:55 17:36 WBC RBC Hgb Hct MCV MCH MCHC RDW RDW Differential Plt Count MPV Eos Smear Total Cells PT INR Sodium 139 Potassium 4.5 Chloride 101 Carbon Dioxide 32.0 Anion Gap 6 BUN 20 H Creatinine 1.92 H Estim Creat Clear Calc 34.15 Est GFR (MDRD) Af Amer 45 L Est GFR (MDRD) Non-Af 37 L BUN/Creatinine Ratio 10.4 Glucose 127 H Hemoglobin A1c Calcium 8.0 L Phosphorus Magnesium Total Creatine Kinase Albumin Ur Random Sodium Urine Creatinine Hep Bs Antigen Pending Hep Bs Antibody Pending Hep B Core Total Ab Pending MRSA (PCR) POC Glucose 144 H 12/22/17 12/23/17 17:51 04:15 WBC RBC Hgb Hct MCV MCH MCHC RDW RDW Differential Plt Count MPV Eos Smear Total Cells PT INR Sodium 141 Potassium 4.9 Chloride 104 Carbon Dioxide 34.0 H Anion Gap BUN 23 H Creatinine 2.35 H Estim Creat Clear Calc 27.90 Est GFR (MDRD) Af Amer 36 L Est GFR (MDRD) Non-Af 30 L BUN/Creatinine Ratio 9.8 L Glucose 163 H Hemoglobin A1c Calcium 7.4 L Phosphorus 4.2 Magnesium Total Creatine Kinase Albumin 2.6 L Ur Random Sodium Urine Creatinine Hep Bs Antigen Hep Bs Antibody Hep B Core Total Ab MRSA (PCR) POC Glucose 121 H Microbiology 12/22/17 16:40 Stool Stool Occult Blood (GARETH) - Final Clinical Impression(s) from Imaging Studies Brain CT 12/21/17 18:32 IMPRESSION: Mild atrophy and nonspecific periventricular white matter ischemic change. No evidence for acute bleed. If concern for acute infarct MRI recommended.. Electronically Signed: Wellington Sparks MD at 19:54 EDT , Service support , Chest X-Ray 12/21/17 19:45 IMPRESSION: No acute cardiopulmonary pathology Electronically Signed: Wellington Sparks MD at 20:30 EDT , Service support , Renal Ultrasound 12/21/17 22:48 IMPRESSION: 1. Mildly atrophic left kidney. 2. There is a lobular hypoechoic focus of the midpole of the right kidney measuring 2.7 x 2.4 x 2.2 cm. This is indeterminate for solid versus cystic structure on this ultrasonographic study. This appears to have represented a cyst on prior CT study of 12/06/2012, where it measured 0.9 cm. If clinically indicated, follow-up CT may be helpful for confirmation of such. 3. There is no hydronephrosis or nephrolithiasis. Electronically Signed: Braeden Pennington MD at 23:58 EDT , Service support , Abdomen/Pelvis CT 12/22/17 09:17 IMPRESSION: 1. Status post rectal resection changes are noted. 2. There are scattered shotty subcentimeter retroperitoneal nodes. 3. There is a small midline ventral supraumbilical hernia containing omental fat. There are small bilateral fat-containing inguinal hernias, left side larger than right. 4. No definite right renal cyst or mass was identified on this study. Electronically Signed: Braeden Pennington MD at 21:58 EDT , Service support , Chest X-Ray 12/22/17 11:37 IMPRESSION: There is a new left central venous line with the distal tip in the right atrium. There is new minimal hazy opacity of the right upper lobe which may represent atelectasis. Electronically Signed: Mary River MD at 12:29 EDT cf, Service support , Medical Necessity - Tobacco Use Smoking Status: Never smoker Assessment/Plan Active and Suspected Problems LACHO (acute kidney injury) (Acute) Hyperkalemia (Acute) Acute kidney injury (nontraumatic) (Acute) UTI (urinary tract infection) (Acute) RECOMMENDATIONS: 1. Continue hemodialysis per nephrology recommendations. 2. Continue antibiotics for gram-negative cystitis. 3. Discontinue sodium bicarbonate infusion 4. Continue sliding scale insulin coverage 5. Continue subcutaneous heparin for DVT prophylaxis IMPRESSIONS: 1. LACHO on CKD/hyperkalemia Potential medication/infectious effect with underlying progressive medical renal disease. Nephrology is following. The patient's electrolyte disturbance have normalized following hemodialysis. Discontinue sodium bicarbonate infusion, as it is no longer indicated. Will defer need for ongoing hemodialysis to nephrology accordingly. Maintain low potassium diet. Hold nephrotoxic medications. 2. 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 3. Personal history of colon cancer/diabetes/hypertension/hyperlipidemia Complicates care, management, recovery and prognosis. Okay to continue Norvasc and hydralazine. Physical therapy evaluation today. Continue to encourage incentive spirometer use. This note was generated with [employer] dictation software. It may contain incorrect words, spelling, and punctuation that were not noted in checking the note before signing. DISPOSITION: The patient is medically stable for transfer out of the intensive care unit. Given the lack of ongoing ICU/pulmonary needs, will sign off. Please call with any additional questions. Code Visit Inpatient E&M: 45524 Subs Hosp L2
--- NOTE | 2017-12-23 06:47 | PN_ITS ---
Subjective: The patient was seen and examined at the bedside this morning. Events from the last 24 hours have been reviewed. The patient is currently afebrile, hemodynamically stable and maintaining appropriate oxygen saturations on room air. The patient underwent successful hemodialysis yesterday. Laboratory abnormalities, including hyperkalemia have resolved. The patient is without any significant complaints this morning. Objective: The patient's most recent lab work, culture data and imaging studies have all been personally reviewed. Urine culture was positive for gram-negative alejandro. Blood cultures are currently pending. CT abdomen/pelvis revealed no definitive right renal cyst or mass. General: Alert, Oriented x3, Cooperative, No apparent distress HEENT: Atraumatic, PERRLA, Normocephalic Oral: No Gingival or Mucosal Lesions/ Ulcerations Neck: Supple, No Nodes, Trachea Midline, - - Left temporary hemodialysis catheter in place Lungs: Normal air movement, No rhonchi, No wheeze, No rales Cardiovascular: Regular rate, Regular Rhythm, Normal S1, Normal S2, No murmurs Abdomen: Bowel Sounds Present, Soft, Non Tender, Non-Distended Extremities: No clubbing, No cyanosis, No edema Skin: No breakdown Musculoskeletal: No Tenderness to Palpation of Joints or Extremities Lymphatic: No Cervical, Supraclavicular, or Inguinal Adenopathy Neurological: Neuro grossly intact Psych/Mental Status: Alert and oriented to time, place, person, mood and affect Vital Signs Temp Pulse Resp BP Pulse Ox 97.9 F 67 12 137/64 H 100 12/23/17 04:00 12/23/17 06:00 12/23/17 06:00 12/23/17 06:00 12/23/17 06:00 Oxygen Delivery Method Room Air Weight: 176 lb 2.389 oz Body Mass Index (BMI) 28.4 Intake and Output for Last 24 Hours 12/21/17 12/22/17 12/23/17 23:59 23:59 23:59 Intake Total 3366 / 3366 665 / 665 Output Total 0 / 0 Balance 3366 / 3366 665 / 665 Labs (Last 48 Hours) 12/21/17 12/21/17 12/22/17 22:40 23:40 00:23 WBC RBC Hgb Hct MCV MCH MCHC RDW RDW Differential Plt Count MPV Eos Smear Total Cells PT INR Sodium 142 Potassium 7.3 H* Chloride 123 H Carbon Dioxide 11.0 L Anion Gap 8 BUN 61 H Creatinine 3.83 H Estim Creat Clear Calc 17.12 Est GFR (MDRD) Af Amer 20 L Est GFR (MDRD) Non-Af 17 L BUN/Creatinine Ratio 15.9 Glucose 59 L Hemoglobin A1c Calcium 9.0 Phosphorus Magnesium 2.4 Total Creatine Kinase Albumin Ur Random Sodium Urine Creatinine Hep Bs Antigen Hep Bs Antibody Hep B Core Total Ab MRSA (PCR) Negative POC Glucose 47 L 12/22/17 12/22/17 12/22/17 01:14 01:15 03:45 WBC RBC Hgb Hct MCV MCH MCHC RDW RDW Differential Plt Count MPV Eos Smear Total Cells PT INR Sodium 143 145 Potassium 7.5 H* 8.5 H* Chloride 121 H 121 H Carbon Dioxide 14.0 L 16.0 L Anion Gap 8 8 BUN 58 H 56 H Creatinine 3.74 H 3.48 H Estim Creat Clear Calc 17.53 18.84 Est GFR (MDRD) Af Amer 21 L 23 L Est GFR (MDRD) Non-Af 17 L 19 L BUN/Creatinine Ratio 15.5 16.1 Glucose 94 91 Hemoglobin A1c Calcium 9.0 8.5 Phosphorus Magnesium Total Creatine Kinase Albumin Ur Random Sodium Urine Creatinine Hep Bs Antigen Hep Bs Antibody Hep B Core Total Ab MRSA (PCR) POC Glucose 88 12/22/17 12/22/17 12/22/17 03:45 04:15 04:15 WBC 9.0 RBC 2.98 L Hgb 9.2 L Hct 27.5 L MCV 92.3 MCH 30.9 MCHC 33.5 RDW 14.8 H RDW Differential 48.2 H Plt Count 191 MPV 9.8 Eos Smear Total Cells PT INR Sodium Potassium Chloride Carbon Dioxide Anion Gap BUN Creatinine Estim Creat Clear Calc Est GFR (MDRD) Af Amer Est GFR (MDRD) Non-Af BUN/Creatinine Ratio Glucose Hemoglobin A1c Calcium Phosphorus Magnesium Total Creatine Kinase Albumin Ur Random Sodium 128 Urine Creatinine 40.90 Hep Bs Antigen Hep Bs Antibody Hep B Core Total Ab MRSA (PCR) POC Glucose 12/22/17 12/22/17 12/22/17 06:15 07:08 07:09 WBC RBC Hgb Hct MCV MCH MCHC RDW RDW Differential Plt Count MPV Eos Smear Total Cells PT INR Sodium Cancelled 146 H Potassium Cancelled 7.2 H* Chloride Cancelled 120 H Carbon Dioxide Cancelled 18.0 L Anion Gap Cancelled 8 BUN Cancelled 54 H Creatinine Cancelled 3.62 H Estim Creat Clear Calc Cancelled 18.11 Est GFR (MDRD) Af Amer Cancelled 22 L Est GFR (MDRD) Non-Af Cancelled 18 L BUN/Creatinine Ratio Cancelled 14.9 Glucose Cancelled 110 H Hemoglobin A1c Calcium Cancelled 9.1 Phosphorus Magnesium Total Creatine Kinase 54 Albumin Ur Random Sodium Urine Creatinine Hep Bs Antigen Hep Bs Antibody Hep B Core Total Ab MRSA (PCR) POC Glucose 12/22/17 12/22/17 12/22/17 08:44 08:44 08:44 WBC RBC Hgb Hct MCV MCH MCHC RDW RDW Differential Plt Count MPV Eos Smear Total Cells PT 13.5 INR 1.0 Sodium 144 Potassium 8.2 H* Chloride 120 H Carbon Dioxide 19.0 L Anion Gap 5 BUN 52 H Creatinine 3.58 H Estim Creat Clear Calc 18.32 Est GFR (MDRD) Af Amer 22 L Est GFR (MDRD) Non-Af 18 L BUN/Creatinine Ratio 14.5 Glucose 111 H Hemoglobin A1c Calcium 8.7 Phosphorus Magnesium Total Creatine Kinase Albumin Ur Random Sodium Urine Creatinine Hep Bs Antigen Hep Bs Antibody Hep B Core Total Ab MRSA (PCR) POC Glucose 96 12/22/17 12/22/17 12/22/17 08:45 08:45 10:30 WBC RBC Hgb Hct MCV MCH MCHC RDW RDW Differential Plt Count MPV Eos Smear Total Cells Pending PT INR Sodium Potassium Chloride Carbon Dioxide Anion Gap BUN Creatinine Estim Creat Clear Calc Est GFR (MDRD) Af Amer Est GFR (MDRD) Non-Af BUN/Creatinine Ratio Glucose Hemoglobin A1c 5.3 Calcium Phosphorus 4.7 Magnesium Total Creatine Kinase Albumin Ur Random Sodium Urine Creatinine Hep Bs Antigen Hep Bs Antibody Hep B Core Total Ab MRSA (PCR) POC Glucose 12/22/17 12/22/17 12/22/17 12:21 14:55 17:36 WBC RBC Hgb Hct MCV MCH MCHC RDW RDW Differential Plt Count MPV Eos Smear Total Cells PT INR Sodium 139 Potassium 4.5 Chloride 101 Carbon Dioxide 32.0 Anion Gap 6 BUN 20 H Creatinine 1.92 H Estim Creat Clear Calc 34.15 Est GFR (MDRD) Af Amer 45 L Est GFR (MDRD) Non-Af 37 L BUN/Creatinine Ratio 10.4 Glucose 127 H Hemoglobin A1c Calcium 8.0 L Phosphorus Magnesium Total Creatine Kinase Albumin Ur Random Sodium Urine Creatinine Hep Bs Antigen Pending Hep Bs Antibody Pending Hep B Core Total Ab Pending MRSA (PCR) POC Glucose 144 H 12/22/17 12/23/17 17:51 04:15 WBC RBC Hgb Hct MCV MCH MCHC RDW RDW Differential Plt Count MPV Eos Smear Total Cells PT INR Sodium 141 Potassium 4.9 Chloride 104 Carbon Dioxide 34.0 H Anion Gap BUN 23 H Creatinine 2.35 H Estim Creat Clear Calc 27.90 Est GFR (MDRD) Af Amer 36 L Est GFR (MDRD) Non-Af 30 L BUN/Creatinine Ratio 9.8 L Glucose 163 H Hemoglobin A1c Calcium 7.4 L Phosphorus 4.2 Magnesium Total Creatine Kinase Albumin 2.6 L Ur Random Sodium Urine Creatinine Hep Bs Antigen Hep Bs Antibody Hep B Core Total Ab MRSA (PCR) POC Glucose 121 H Microbiology 12/22/17 16:40 Stool Stool Occult Blood (GARETH) - Final Clinical Impression(s) from Imaging Studies Brain CT 12/21/17 18:32 IMPRESSION: Mild atrophy and nonspecific periventricular white matter ischemic change. No evidence for acute bleed. If concern for acute infarct MRI recommended.. Electronically Signed: Wellington Sparks MD at 19:54 EDT , Service support , Chest X-Ray 12/21/17 19:45 IMPRESSION: No acute cardiopulmonary pathology Electronically Signed: Wellington Sparks MD at 20:30 EDT , Service support , Renal Ultrasound 12/21/17 22:48 IMPRESSION: 1. Mildly atrophic left kidney. 2. There is a lobular hypoechoic focus of the midpole of the right kidney measuring 2.7 x 2.4 x 2.2 cm. This is indeterminate for solid versus cystic structure on this ultrasonographic study. This appears to have represented a cyst on prior CT study of 12/06/2012, where it measured 0.9 cm. If clinically indicated, follow-up CT may be helpful for confirmation of such. 3. There is no hydronephrosis or nephrolithiasis. Electronically Signed: Braeden Pennington MD at 23:58 EDT , Service support , Abdomen/Pelvis CT 12/22/17 09:17 IMPRESSION: 1. Status post rectal resection changes are noted. 2. There are scattered shotty subcentimeter retroperitoneal nodes. 3. There is a small midline ventral supraumbilical hernia containing omental fat. There are small bilateral fat-containing inguinal hernias, left side larger than right. 4. No definite right renal cyst or mass was identified on this study. Electronically Signed: Braeden Pennington MD at 21:58 EDT , Service support , Chest X-Ray 12/22/17 11:37 IMPRESSION: There is a new left central venous line with the distal tip in the right atrium. There is new minimal hazy opacity of the right upper lobe which may represent atelectasis. Electronically Signed: Mary River MD at 12:29 EDT cf, Service support , Medical Necessity - Tobacco Use Smoking Status: Never smoker Assessment/Plan Active and Suspected Problems LACHO (acute kidney injury) (Acute) Hyperkalemia (Acute) Acute kidney injury (nontraumatic) (Acute) UTI (urinary tract infection) (Acute) RECOMMENDATIONS: 1. Continue hemodialysis per nephrology recommendations. 2. Continue antibiotics for gram-negative cystitis. 3. Discontinue sodium bicarbonate infusion 4. Continue sliding scale insulin coverage 5. Continue subcutaneous heparin for DVT prophylaxis IMPRESSIONS: 1. LACHO on CKD/hyperkalemia Potential medication/infectious effect with underlying progressive medical renal disease. Nephrology is following. The patient's electrolyte disturbance have normalized following hemodialysis. Discontinue sodium bicarbonate infusion , as it is no longer indicated. Will defer need for ongoing hemodialysis to nephrology accordingly. Maintain low potassium diet. Hold nephrotoxic medications. 2. 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 3. Personal history of colon cancer/diabetes/hypertension/hyperlipidemia Complicates care, management, recovery and prognosis. Okay to continue Norvasc and hydralazine. Physical therapy evaluation today. Continue to encourage incentive spirometer use. This note was generated with [employer] dictation software. It may contain incorrect words, spelling, and punctuation that were not noted in checking the note before signing. DISPOSITION: The patient is medically stable for transfer out of the intensive care unit. Given the lack of ongoing ICU/pulmonary needs, will sign off. Please call with any additional questions. Code Visit Inpatient E&M: 21508 Subs Hosp L2
[2017-12-23 07:40] LABS: Bedside Glucose 150 mg/dL (70-110)
[2017-12-23 09:21] LABS: Hep B Surface Antibodies Non Reactive (.); Hepatitis B Core Ab Total Negative (Negative)
[2017-12-23] MEDS: amLODIPine 2.5 MG Tablet PO (10:08)
[2017-12-23] MEDS: Famotidine 20 MG Tablet PO (10:08)
--- NOTE | 2017-12-23 10:48 | CASEMGMT ---
Addendum entered by Nicole Villalta 12/23/17 14:59: SW did call some mental health agencies to ask which agencies may be able to see pt's daughter, as had asked for assist with this. SW gave pt list of agencies that take pt's insurance, explained that he or his would need to call to make an initial appointment. Pt states understanding. SW remains available for support. MARILEE Rapp, [employer] TEACHER Original Note: SW spoke w/pt, and nephew Elyssa this morning in rounds. SW gave pt and family additional information on financial resources including information on [employer], [employer], [employer], [facility]. also spoke about their daughter being depressed, SW gave her a list of local places that offer counseling. SW also completed the application for [employer] offbearer care consult, faxed this to [facility], and left a message for Taina at [facility] regarding this application. SW called [facility] to ask about applying for food and delaney assist, was informed they need to fill out application for this. SW assisted pt and in completing the application and faxed it to [facility]. SW gave the S application and the [facility] care consult application. asked SW to assist in getting daughter set up w/counseling, SW explained will come back later as time allows to assist with this. SW will continue to follow for support to pt and . MARILEE Rapp, ETHNIC [employer]IGINS TEACHER
[2017-12-23] MEDS: Acetaminophen 325 MG Tablet 650 MG PO (11:35)
[2017-12-23 11:45] LABS: Bedside Glucose 208 mg/dL (70-110)
--- NOTE | 2017-12-23 14:20 | PCM.PROGNOTE ---
Patient Problems: Active and Suspected Problems LACHO (acute kidney injury) (Acute) Hyperkalemia (Acute) Acute kidney injury (nontraumatic) (Acute) UTI (urinary tract infection) (Acute) Subjective: All events of the past 24 hours have been reviewed. Antibiotic Day #day #2 meropenem TMAX: Afebrile since admission Vital signs: Current vital signs temp 97.6, pulse rate 86, blood pressure 126/74, respiratory rate 14 and he is 100% saturated on room air. Fluid balance: Urine output: He is not measuring all of his urine output. No urine output recorded for 5 9 but for 510 he is at 300 cc. Weight: 176 pounds 2.4 ounces, down from 178 and 12 ounces at admission All radiologic testing was reviewed: No evidence nephrolithiasis on CT scan of the abdomen and pelvis All labs were personally reviewed: Serum bicarb is 34 today. The BUN is 23 with a creatinine of 2.35. Phosphorus is normal at 4.2. Microbiology: E. coli ESBL in the urine sensitive to Augmentin, Unasyn, ertapenem, meropenem, Zosyn Telemetry: Normal sinus rhythm with occasional PACs Subjective: He complained of a headache this morning but it was relieved with Tylenol. He denies chest pain, shortness of breath, nausea or pain in his legs. Objective: - Physical Exam General: Alert, Oriented x3, Cooperative, No apparent distress, Well developed, Well nourished HEENT: Atraumatic, PERRLA, EOMI, Normocephalic Oral: Moist Mucosa Neck: Supple, No JVD, No Nuchal Rigidity, Trachea Midline Lungs: Clear to auscultation, Diminished - in the bases.....may be related to poor effort Cardiovascular: Regular rate, Regular Rhythm, Normal S1, Normal S2, No murmurs, No Ectopic Activity, No rub noted, No Gallop Abdomen: Bowel Sounds Present, Soft, Non Tender, Non-Distended Extremities: No clubbing, No cyanosis, No edema, No Calf Tenderness Skin: No rashes, No breakdown Neurological: Cranial nerves II-XII grossly intact, Neuro grossly intact Psych/Mental Status: Normal Affect, Appropriate - Physical Exam Vital Signs Temp Pulse Resp BP Pulse Ox 97.6 F L 86 14 126/74 H 100 12/23/17 14:00 12/23/17 14:00 12/23/17 14:00 12/23/17 14:00 12/23/17 14:00 Oxygen Delivery Method Room Air Weight: 176 lb 2.389 oz Body Mass Index (BMI) 28.4 Intake and Output for Last 24 Hours 12/21/17 12/22/17 12/23/17 23:59 23:59 23:59 Intake Total 3366 / 3366 1049 / 1049 Output Total 0 / 0 300 / 300 Balance 3366 / 3366 749 / 749 Microbiology Past 72 Hours 12/22/17 16:40 Stool Occult Blood (GARTEH) - Final Stool Laboratory Tests Past 24 Hrs 12/22/17 12/22/17 12/23/17 14:55 17:36 04:15 Sodium 139 141 Potassium 4.5 4.9 Chloride 101 104 Carbon Dioxide 32.0 34.0 H Anion Gap 6 BUN 20 H 23 H Creatinine 1.92 H 2.35 H Estim Creat Clear Calc 34.15 27.90 Est GFR (MDRD) Af Amer 45 L 36 L Est GFR (MDRD) Non-Af 37 L 30 L BUN/Creatinine Ratio 10.4 9.8 L Glucose 127 H 163 H Calcium 8.0 L 7.4 L Phosphorus 4.2 Albumin 2.6 L Hep Bs Antigen Negative Hep Bs Antibody Non Reactive Hep B Core Total Ab Negative POC Glucose 12/23/17 12/23/17 12/22/17 11:32 07:37 17:51 POC Glucose 208 H 150 H 121 H Medical Necessity - Tobacco Use Smoking Status: Never smoker Assessment/Plan Active and Suspected Problems LACHO (acute kidney injury) (Acute) Hyperkalemia (Acute) Acute kidney injury (nontraumatic) (Acute) UTI (urinary tract infection) (Acute) Impressions 1. acute on CRF with a FENA of 7.5 2. hyperkalemia - has been taking Zestril and Aldactone as OP 3. 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 N/N anemia - ? why 5. hx of colon CA treated with resection, radiation and chemo at [facility] - which no longer exists. He has been seeing Dr. Dan and Dr. Ojeda. Dr. Dan has performed a colonoscopy on him since his colon surgery and he had a Barium enema in September to r/o a fistula between the colon and the urinary tract.....there was no fistula. 6. DM II 7. HTN 8. HLD 9. hypoechoic mass in the R kidney and atrophic left kidney. 10. metabolic acidosis - due to ARF +/- Metformin Continue meropenem-consult Dr. Hollins to participate in management. Patient has had prior ESBL urinary tract infections and workup for a colon-bladder fistula was negative in September. Are no stones on CT scan of the abdomen. He is not retaining urine. He has seen a urologist at the [facility] who cannot tell him why he gets recurrent infections. Transfer to PCU Doubt he will need dialysis today but Dr. River has not assessed him yet. Code Visit Inpatient E&M: [id number] [facility] Hosp L3
--- NOTE | 2017-12-23 14:30 | PN_ITS ---
Patient Problems: Active and Suspected Problems LACHO (acute kidney injury) (Acute) Hyperkalemia (Acute) Acute kidney injury (nontraumatic) (Acute) UTI (urinary tract infection) (Acute) Subjective: All events of the past 24 hours have been reviewed. Antibiotic Day #day #2 meropenem TMAX: Afebrile since admission Vital signs: Current vital signs temp 97.6, pulse rate 86, blood pressure 126/74 , respiratory rate 14 and he is 100% saturated on room air. Fluid balance: Urine output: He is not measuring all of his urine output. No urine output recorded for 5 9 but for 510 he is at 300 cc. Weight: 176 pounds 2.4 ounces, down from 178 and 12 ounces at admission All radiologic testing was reviewed: No evidence nephrolithiasis on CT scan of the abdomen and pelvis All labs were personally reviewed: Serum bicarb is 34 today. The BUN is 23 with a creatinine of 2.35. Phosphorus is normal at 4.2. Microbiology: E. coli ESBL in the urine sensitive to Augmentin, Unasyn, ertapenem, meropenem, Zosyn Telemetry: Normal sinus rhythm with occasional PACs Subjective: He complained of a headache this morning but it was relieved with Tylenol. He denies chest pain, shortness of breath, nausea or pain in his legs. Objective: - Physical Exam General: Alert, Oriented x3, Cooperative, No apparent distress, Well developed, Well nourished HEENT: Atraumatic, PERRLA, EOMI, Normocephalic Oral: Moist Mucosa Neck: Supple, No JVD, No Nuchal Rigidity, Trachea Midline Lungs: Clear to auscultation, Diminished - in the bases.....may be related to poor effort Cardiovascular: Regular rate, Regular Rhythm, Normal S1, Normal S2, No murmurs, No Ectopic Activity, No rub noted, No Gallop Abdomen: Bowel Sounds Present, Soft, Non Tender, Non-Distended Extremities: No clubbing, No cyanosis, No edema, No Calf Tenderness Skin: No rashes, No breakdown Neurological: Cranial nerves II-XII grossly intact, Neuro grossly intact Psych/Mental Status: Normal Affect, Appropriate - Physical Exam Vital Signs Temp Pulse Resp BP Pulse Ox 97.6 F L 86 14 126/74 H 100 12/23/17 14:00 12/23/17 14:00 12/23/17 14:00 12/23/17 14:00 12/23/17 14:00 Oxygen Delivery Method Room Air Weight: 176 lb 2.389 oz Body Mass Index (BMI) 28.4 Intake and Output for Last 24 Hours 12/21/17 12/22/17 12/23/17 23:59 23:59 23:59 Intake Total 3366 / 3366 1049 / 1049 Output Total 0 / 0 300 / 300 Balance 3366 / 3366 749 / 749 Microbiology Past 72 Hours 12/22/17 16:40 Stool Occult Blood (GARETH) - Final Stool Laboratory Tests Past 24 Hrs 12/22/17 12/22/17 12/23/17 14:55 17:36 04:15 Sodium 139 141 Potassium 4.5 4.9 Chloride 101 104 Carbon Dioxide 32.0 34.0 H Anion Gap 6 BUN 20 H 23 H Creatinine 1.92 H 2.35 H Estim Creat Clear Calc 34.15 27.90 Est GFR (MDRD) Af Amer 45 L 36 L Est GFR (MDRD) Non-Af 37 L 30 L BUN/Creatinine Ratio 10.4 9.8 L Glucose 127 H 163 H Calcium 8.0 L 7.4 L Phosphorus 4.2 Albumin 2.6 L Hep Bs Antigen Negative Hep Bs Antibody Non Reactive Hep B Core Total Ab Negative POC Glucose 12/23/17 12/23/17 12/22/17 11:32 07:37 17:51 POC Glucose 208 H 150 H 121 H Medical Necessity - Tobacco Use Smoking Status: Never smoker Assessment/Plan Active and Suspected Problems LACHO (acute kidney injury) (Acute) Hyperkalemia (Acute) Acute kidney injury (nontraumatic) (Acute) UTI (urinary tract infection) (Acute) Impressions 1. acute on CRF with a FENA of 7.5 2. hyperkalemia - has been taking Zestril and Aldactone as OP 3. 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 N/N anemia - ? why 5. hx of colon CA treated with resection, radiation and chemo at [facility] - which no longer exists. He has been seeing Dr. Dan and Dr. Ojeda. Dr. Dan has performed a colonoscopy on him since his colon surgery and he had a Barium enema in September to r/o a fistula between the colon and the urinary tract.....there was no fistula. 6. DM II 7. HTN 8. HLD 9. hypoechoic mass in the R kidney and atrophic left kidney. 10. metabolic acidosis - due to ARF +/- Metformin Continue meropenem-consult Dr. Hollins to participate in management. Patient has had prior ESBL urinary tract infections and workup for a colon-bladder fistula was negative in September. Are no stones on CT scan of the abdomen. He is not retaining urine. He has seen a urologist at the [facility] who cannot tell him why he gets recurrent infections. Transfer to PCU Doubt he will need dialysis today but Dr. River has not assessed him yet. Code Visit Inpatient E&M: [id number] [facility] Hosp L3
--- NOTE | 2017-12-23 14:58 | PN.RENAL_ITS ---
Patient Problems: Active and Suspected Problems LACHO (acute kidney injury) (Acute) Hyperkalemia (Acute) Acute kidney injury (nontraumatic) (Acute) UTI (urinary tract infection) (Acute) Subjective: He denies any chest pain shortness of breath or edema. Denies any urinary complaints. Urine culture showed ESBL E. coli UTI. ID was consulted. He tolerated dialysis yesterday. Potassium improved. Creatinine at 2.3. Baseline creatinine unclear. Last serum creatinine was 2.4 in August 2017 on [facility] records but was 1.17 October 2016. Bladder scans were fine according to nursing staff. Renal ultrasound did not show hydronephrosis. - Physical Exam General: Alert, Oriented x3, Cooperative, No apparent distress HEENT: PERRLA, EOMI Oral: Dry Mucosa Neck: Supple Lungs: Clear to auscultation Cardiovascular: Regular rate Abdomen: Bowel Sounds Present, Soft, Non Tender, Non-Distended Extremities: No edema Skin: No rashes Neurological: - - No tremor Psych/Mental Status: Normal Affect, Appropriate, Alert and oriented to time, place, person, mood and affect Vital Signs Temp Pulse Resp BP Pulse Ox 97.6 F L 86 14 126/74 H 100 12/23/17 14:00 12/23/17 14:00 12/23/17 14:00 12/23/17 14:00 12/23/17 14:00 Oxygen Delivery Method Room Air Weight: 79.9 kg Body Mass Index (BMI) 28.4 Intake and Output for Last 24 Hours 12/21/17 12/22/17 12/23/17 23:59 23:59 23:59 Intake Total 3366 / 3366 1049 / 1049 Output Total 0 / 0 300 / 300 Balance 3366 / 3366 749 / 749 Microbiology Past 72 Hours 12/22/17 16:40 Stool Occult Blood (GARETH) - Final Stool Laboratory Tests Past 24 Hrs 12/22/17 12/22/17 12/23/17 14:55 17:36 04:15 Sodium 139 141 Potassium 4.5 4.9 Chloride 101 104 Carbon Dioxide 32.0 34.0 H Anion Gap 6 BUN 20 H 23 H Creatinine 1.92 H 2.35 H Estim Creat Clear Calc 34.15 27.90 Est GFR (MDRD) Af Amer 45 L 36 L Est GFR (MDRD) Non-Af 37 L 30 L BUN/Creatinine Ratio 10.4 9.8 L Glucose 127 H 163 H Calcium 8.0 L 7.4 L Phosphorus 4.2 Albumin 2.6 L Hep Bs Antigen Negative Hep Bs Antibody Non Reactive Hep B Core Total Ab Negative POC Glucose 12/23/17 12/23/17 12/22/17 11:32 07:37 17:51 POC Glucose 208 H 150 H 121 H Clinical Impression(s) from Imaging Studies Abdomen/Pelvis CT 12/22/17 09:17 IMPRESSION: 1. Status post rectal resection changes are noted. 2. There are scattered shotty subcentimeter retroperitoneal nodes. 3. There is a small midline ventral supraumbilical hernia containing omental fat. There are small bilateral fat-containing inguinal hernias, left side larger than right. 4. No definite right renal cyst or mass was identified on this study. Electronically Signed: Braeden Pennington MD at 21:58 EDT , Service support , Medical Necessity - Tobacco Use Smoking Status: Never smoker Assessment/Plan Active and Suspected Problems LACHO (acute kidney injury) (Acute) Hyperkalemia (Acute) Acute kidney injury (nontraumatic) (Acute) UTI (urinary tract infection) (Acute) 1. LACHO on CKD stage 3. May have RORY from chronic infections vs arterionephrosclerosis. Creatinine 2.4 in Aug 2017 on [facility] records, 1.4 eGFR 53cc /min in October 2016. Hemodialysis yesterday for hyperkalemia, acidosis.Creatinine 2.3 today. Hold dialysis today. Continue to monitor renal function to determine baseline creatinine. 24h urine when at steady state. 2. Hyperkalemia refractory to medical management resolved status post dialysis. Refrain from spironolactone and lisinopril. Follow low K diet. May remove dialysis catheter if potassium remains stable. 3. Chronic ecoli UTI. ID consulted 4. Hx colon cancer S/P chemotherapy and radiation history 5. DM2 stable continue to hold metformin. 6. HTN stable 7. HPL on statin therapy 8. metabolic acidosis corrected with dialysis
[2017-12-23] MEDS: Pregabalin 25 MG Capsule PO ×2 (15:01→22:32)
[2017-12-23 15:41] LABS: Bedside Glucose 215 mg/dL (70-110)
[2017-12-23 15:41] LABS: Bedside Glucose 237 mg/dL (70-110)
[2017-12-23 16:41] LABS: Bedside Glucose 210 mg/dL (70-110)
[2017-12-23] MEDS: Atorvastatin Calcium 20 MG Tablet PO (22:32)
[2017-12-24] VITALS (15 sets, daily range): BP systolic 148–191; BP diastolic 68–87; PULSE 63–98; RESP 14–16; TEMP 36.7–37.4; O2SAT 96–100
[2017-12-24 00:10] LABS: Bedside Glucose 156 mg/dL (70-110)
[2017-12-24] MEDS: 0.9% NaCl VAD Flush 10 ML IV ×4 (05:35→18:17)
[2017-12-24 05:50] LABS: Hematocrit 24.5 % (40-54); Hemoglobin 8.2 g/dl (13.0-16.5); Mean Corp Hgb Conc 33.5 g/gl (32-36); Mean Corpuscular Hgb 30.7 pg (27.0-32.0); Mean Corpuscular Volume 91.8 fL (80-94); Mean Platelet Vol. 9.8 fl (6.2-12.0); Platelet Count 125 K/mm3 (150-450); RBC Distribution Width CV 13.3 % (11.6-14.6); RBC Distribution Width SD 43.6 fl (35.1-43.9); Red Blood Count 2.67 M/mm3 (4.6-6.2); White Blood Count 6.7 K/mm3 (4.4-11.0)
[2017-12-24 05:51] LABS: Scan Indicated on CBC? Y/N NO
[2017-12-24] MEDS: Heparin Injection (Vial) 5,000 UNIT/ML VIAL 5000 UNIT SC ×2 (06:03→15:13)
[2017-12-24 06:06] LABS: Albumin, Serum 2.6 g/dL (3.2-5.0); BUN 24 mg/dL (7-18); BUN/Creat Ratio 8.2 RATIO (10-20); Calcium,Total 8.2 mg/dL (8.5-10.1); Chloride 107 mmol/L (98-107); Creatinine, Serum 2.92 mg/dL (0.70-1.30); EST Glomerular Filtration Rate 23 mL/min (>60); Est Glom Filt Rate - Afr Amer 28 mL/min (>60); Estimated Creatinine Clearance 22.46 ml/min; Glucose 126 mg/dL (74-106); Phosphorus 4.1 mg/dL (2.5-4.9); Potassium 4.7 mmol/L (3.5-5.1); Sodium Level 143 mmol/L (136-145)
[2017-12-24 06:56] LABS: Bedside Glucose 154 mg/dL (70-110)
[2017-12-24] MEDS: Pregabalin 25 MG Capsule PO (08:38)
[2017-12-24] MEDS: Famotidine 20 MG Tablet PO (08:38)
--- NOTE | 2017-12-24 08:51 | CASEMGMT ---
SW spoke w/Taina at [facility], [facility], in regard to this pt's situation. SW inquired if or daughter who is 16 can be pt's aide and be paid to care for pt. As per Taina, a spouse cannot be paid to care for the pt, and a minor is not able to do this either. Also a person needs to be an IMAGING NURSE. SW let the SW on PCU know this information. MARILEE Rapp, RAILROAD SWITCHMAN
[2017-12-24] MEDS: amLODIPine 2.5 MG Tablet PO (09:15)
[2017-12-24] MEDS: Glimepiride 1 MG Tablet PO (09:15)
[2017-12-24 11:50] LABS: Bedside Glucose 246 mg/dL (70-110)
[2017-12-24 11:59] LABS: Eosinophil Ct. Urine 2 % (.)
--- NOTE | 2017-12-24 13:38 | VDUE_ITS ---
Reason For Study: Assess for possible dialysis access placement Right Arm Left Arm Right Cephalic Vein at the wrist Left Cephalic Vein at the wrist measures .17 measures .23 x .27 cm. x .18 cm. Right Cephalic Vein in the forearm Left Cephalic Vein in the forearm measures .30 x .32 cm. measures .32 x .34 cm. Right Cephalic Vein below antecub Left Cephalic Vein below antecub measures .31 x .32 cm. measures .41 x .39 cm. Right Cephalic Vein above antecub Left Cephalic Vein above antecub measures .42 x .42 cm. measures .55 x .54 cm. Right Cephalic Vein mid bicep measures .43 Left Cephalic Vein at mid bicep measures .45 x .42 cm. x .50 cm. Right Cephalic Vein at the shoulder Left Cephalic Vein at the shoulder measures .48 x .44 cm. measures .48 x .45 cm. Right Basilic Vein at the origin Basilic vein at origin measures .49 x .47 measures .57 x .58 cm. cm. Right Basilic Vein mid bicep measures .37 Basilic vein at bicep measures .44 x .44 cm. x .39 cm. Basilic vein above antecub measures .40 Right Basilic Vein above antecub x .42 cm. measures .34 x .32 cm. Brachial artery - .45 x .41 cm with a Brachial artery - .54 x .53 cm with a velocity of 143.0 cm/sec velocity of 98.2 cm/sec Radial artery - .25 x .25 cm with a velocity Radial artery - .23 x .20 cm with a velocity of 79.4 cm/sec. of 88.8 cm/sec. < Interpretation Summary The basilic and cephalic veins are patent bilaterally,with segmental dimensions as documented above. The brachial and radial arteries are patent bilaterally, with dimensions as documented, and demonstrating pulsatile arterial flow. Ordering Physician: Scarlett River Referring Physician: GEETA WATSON Performed By: Lucinda Lopez RVT
--- NOTE | 2017-12-24 14:18 | PN.RENAL_ITS ---
Patient Problems: Active and Suspected Problems LACHO (acute kidney injury) (Acute) Hyperkalemia (Acute) Acute kidney injury (nontraumatic) (Acute) UTI (urinary tract infection) (Acute) Subjective: no complaints of SOB, weakness. No uremic symptoms. Urine output good. Denied dysuria, fever, chills or flank pain. Had lengthy discussion about dialysis, transplant eval, low potassium diet with pt and pt at bedside. Spoke with family friend who is an engraver ornamental design at [employer] [facility] main campus on renal status. Potassium level stable. Creatinine continues to rise but remains nonoliguric. Will remove dialysis catheter today. Hgb low at 8.2g. Denied hematochezia. - Physical Exam General: Alert, Oriented x3, Cooperative Neck: Supple Lungs: Clear to auscultation Cardiovascular: Regular rate Abdomen: Bowel Sounds Present, Soft, Non Tender, Non-Distended Extremities: No edema Skin: No rashes Musculoskeletal: No Muscle Wasting Psych/Mental Status: Normal Affect, Appropriate, Alert and oriented to time, place, person, mood and affect Vital Signs Temp Pulse Resp BP Pulse Ox 98.0 F 69 16 149/68 H 100 12/24/17 09:13 12/24/17 09:13 12/24/17 09:13 12/24/17 09:13 12/24/17 09:13 Oxygen Delivery Method Room Air Weight: 80 kg Body Mass Index (BMI) 28.4 Intake and Output for Last 24 Hours 12/22/17 12/23/17 12/24/17 23:59 23:59 23:59 Intake Total 3366 / 3366 1169 / 1169 300 / 300 Output Total 0 / 0 650 / 650 Balance 3366 / 3366 519 / 519 300 / 300 Microbiology Past 72 Hours 12/22/17 08:44 Blood Culture - Preliminary Blood Culture (Wb) - Anticubital Right No growth in 48 hours. 12/22/17 09:48 Blood Culture - Preliminary Blood Culture (Wb) - Anticubital Right No growth in 48 hours. 12/22/17 16:40 Stool Occult Blood (GARETH) - Final Stool Laboratory Tests Past 24 Hrs 12/22/17 12/24/17 12/24/17 10:30 05:30 05:30 WBC 6.7 RBC 2.67 L Hgb 8.2 L Hct 24.5 L MCV 91.8 MCH 30.7 MCHC 33.5 RDW 13.3 RDW Differential 43.6 Plt Count 125 L MPV 9.8 Eos Smear Total Cells 2 Sodium 143 Potassium 4.7 Chloride 107 Carbon Dioxide 30.0 BUN 24 H Creatinine 2.92 H Estim Creat Clear Calc 22.46 Est GFR (MDRD) Af Amer 28 L Est GFR (MDRD) Non-Af 23 L BUN/Creatinine Ratio 8.2 L Glucose 126 H Calcium 8.2 L Phosphorus 4.1 Albumin 2.6 L POC Glucose 12/24/17 12/24/17 12/23/17 11:45 06:43 22:19 POC Glucose 246 H 154 H 156 H 12/23/17 12/22/17 12/22/17 16:34 21:37 21:34 POC Glucose 210 H 215 H 237 H Medical Necessity - Tobacco Use Smoking Status: Never smoker Assessment/Plan Active and Suspected Problems LACHO (acute kidney injury) (Acute) Hyperkalemia (Acute) Acute kidney injury (nontraumatic) (Acute) UTI (urinary tract infection) (Acute) 1. LACHO on CKD stage 3 vs progressive renal failure. May have RORY from chronic infections vs arterionephrosclerosis. Creatinine 2.4 in Aug 2017 on [facility] records , 1.4 eGFR 53cc/min in October 2016. Creatinine up to 2.9 eGFR 23cc/min today. 24h urine as outpt. Had extensive discussion about dialysis, transplant with pt and pt spouse, family friend. f/u in office to continue monitoring renal fxn. No dialysis at this time. Will remove temp dialysis line before discharge to home. 2. Hyperkalemia refractory to medical management resolved status post dialysis. Refrain from spironolactone and lisinopril. Avoid NSAIDs. Follow low K diet. 3. Chronic ESBL ecoli UTI. ID consulted 4. Hx colon cancer S/P chemotherapy and radiation history. Still has mediport 5. DM2 stable avoid metformin. 6. HTN increase amlodipine to 5mg daily 7. HPL on statin therapy 8. metabolic acidosis corrected with dialysis DW primary team, ID
--- NOTE | 2017-12-24 15:20 | CASEMGMT ---
SW went to patient's room to let his know that in [place] she and her daughter are not allowed to be paid caregivers. She was not there so RAAD did let patient know this information. Rody FUCHS MSW
--- NOTE | 2017-12-24 15:34 | DCINST_ITS ---
- Discharge Diagnoses Current Active Problems: Current Active and Chronic Problems Diabetes mellitus, type II (Chronic) HTN (hypertension) (Chronic) HLD (hyperlipidemia) (Chronic) Colon cancer (Chronic) LACHO (acute kidney injury) (Acute) Hyperkalemia (Acute) Acute kidney injury (nontraumatic) (Acute) UTI (urinary tract infection) (Acute) You will use the following diet at home:: Calorie/Carbohydrate Controlled ( specify 1200, 1400, etc) - carbohydrate controlled, low potassium Your food should be the consistency of: Regular Your liquids should be the consistency of: Regular/Thin Discharge Activity: - - Activity as tolerated Call your doctor if you observe: Fever of 101 or Higher, Inability to urinate, Inability to have a bowel movement, Shortness of breath, Dizziness, Fainting spells, Swelling in the ankles, Chest pain, Prolonged hiccoughing, - - increasing fatigue Instructions: Discharge Instructions: Eating a Low Potassium Diet, Kidney Disease: Eating Less Sodium, Discharge Instructions for Chronic Kidney Disease, Kidney Disease: Understanding Fluids Additional Instructions: Since you are no longer getting chemotherapy you may want to speak to Dr. Dan about getting the mediport removed. You are being discharged on an antibiotic called Fosfomycin......for the urinary tract infection. If it comes back you will need IV antibiotics, possibly for a prolonged course. Do not take any Metformin, glucotrol, Lisinorpril or Aldactone......these medications can no longer be used because of the kidney disease. Take only the medications I listed on the discharge instructions. I will send a copy of the discharge summary to Dr. Ojeda so she will know what transpired in the hospital. Allergies/Adverse Reactions: Allergies No Known Allergies Allergy (Verified 12/21/17 17:31) Medications to take at Discharge Lovastatin [Mevacor] 40 mg PO QHS 07/12/16 Fosfomycin Tromethamine [Monurol] 3 gm PO Q72H #3 packet 12/24/17 Glimepiride [Amaryl] 1 mg PO DAILY@0800 #30 tab 12/24/17 Pregabalin [Lyrica] 25 mg PO BID #60 cap 12/24/17 The following prescriptions were given: Fosfomycin Tromethamine [Monurol] 3 gm PO Q72H #3 packet Glimepiride [Amaryl] 1 mg PO DAILY@0800 #30 tab Pregabalin [Lyrica] 25 mg PO BID #60 cap Primary Care Physician: Tiffanie Ojeda MD [Primary Care Provider] - Please follow up with your Primary Care Physician in: 7-10 days Please Follow Up With: Scarlett River DO When: next week Please Follow Up With: Rohit Dan MD When: call the office to see about getting the mediport taken out Proposed Discharge Date: 12/24/17
[2017-12-24 15:41] LABS: Ferritin 73 ng/mL (26-388); Iron 68 ug/dL (65-175)
--- NOTE | 2017-12-24 15:41 | CON.PCM_ITS ---
Problem List (1) Urinary tract infection due to extended-spectrum beta lactamase (ESBL) producing Escherichia coli Status: Acute Reason for Consult: esbl uti Consulted by: Dr. Chatterjee History of Present Illness: The patient is a 67 year old M with CKD and recurrent esbl ecoli uti who presented with several days of fatigue, not feeling well, dysuria, increased urinary frequency. Denies straining to urinate or sensation of incomplete emptying. Follows with urology. No h/o kidney stones. Has never been on care home abx or home iv abx. No fever, mild chills. Denies any changes in urine color or odor. Has not seen ID in past. Admitted, given HDx1, started on meropenem, feeling better. Full ROS performed and neg except as noted above. - Medical History Past Medical History (Chronic Problems): Chronic Problems History of colon cancer (Chronic) Diabetes mellitus, type II (Chronic) HTN (hypertension) (Chronic) HLD (hyperlipidemia) (Chronic) Allergies/Adverse Reactions: Allergies No Known Allergies Allergy (Verified 12/21/17 17:31) Home Medications: Ambulatory Orders Medication Instructions Recorded Lovastatin [Mevacor] 40 mg PO QHS 07/12/16 Fosfomycin Tromethamine [Monurol] 3 gm PO Q72H #3 packet 12/24/17 Glimepiride [Amaryl] 1 mg PO DAILY@0800 #30 tab 12/24/17 Pregabalin [Lyrica] 25 mg PO BID #60 cap 12/24/17 - Social History Tobacco Use: non-smoker Vital Signs Temp Pulse Resp BP Pulse Ox 98.2 F 76 14 163/81 H 100 12/24/17 15:00 12/24/17 15:00 12/24/17 15:00 12/24/17 15:00 12/24/17 15:00 Oxygen Delivery Method Room Air Weight: 80 kg Body Mass Index (BMI) 28.4 Microbiology Past 72 Hours 12/22/17 08:44 Blood Culture - Preliminary Blood Culture (Wb) - Anticubital Right No growth in 48 hours. 12/22/17 09:48 Blood Culture - Preliminary Blood Culture (Wb) - Anticubital Right No growth in 48 hours. 12/22/17 16:40 Stool Occult Blood (GARETH) - Final Stool Laboratory Tests Past 24 Hrs 12/22/17 12/24/17 12/24/17 10:30 05:30 05:30 WBC 6.7 RBC 2.67 L Hgb 8.2 L Hct 24.5 L MCV 91.8 MCH 30.7 MCHC 33.5 RDW 13.3 RDW Differential 43.6 Plt Count 125 L MPV 9.8 Eos Smear Total Cells 2 Sodium 143 Potassium 4.7 Chloride 107 Carbon Dioxide 30.0 BUN 24 H Creatinine 2.92 H Estim Creat Clear Calc 22.46 Est GFR (MDRD) Af Amer 28 L Est GFR (MDRD) Non-Af 23 L BUN/Creatinine Ratio 8.2 L Glucose 126 H Calcium 8.2 L Phosphorus 4.1 Iron Ferritin Albumin 2.6 L PTH Intact 12/24/17 12/24/17 05:30 05:30 WBC RBC Hgb Hct MCV MCH MCHC RDW RDW Differential Plt Count MPV Eos Smear Total Cells Sodium Potassium Chloride Carbon Dioxide BUN Creatinine Estim Creat Clear Calc Est GFR (MDRD) Af Amer Est GFR (MDRD) Non-Af BUN/Creatinine Ratio Glucose Calcium Phosphorus Iron Pending Ferritin Pending Albumin PTH Intact Pending - Other Studies Radiology: [] reviewed Other Studies: [] Route of nutrition/ use of supplements: [] Nutritional Intake: [] IV Site: [] Reddy Catheter: [] - Physical Exam General: Alert, Oriented x3, Cooperative, No apparent distress HEENT: Atraumatic, PERRLA, EOMI Neck: Supple, No Nodes Lungs: Clear to auscultation, Normal air movement Cardiovascular: Regular rate, Regular Rhythm, No murmurs Abdomen: Bowel Sounds Present, Soft, Non Tender, Non-Distended, - - no flank pain Extremities: No edema Skin: No rashes IV Site: Central Line, without redness Musculoskeletal: No Tenderness to Palpation of Joints or Extremities Neurological: Cranial nerves II-XII grossly intact - Assessment/Plan Antibiotics: [] Assessment/Plan: [] Active and Suspected Problems Urinary tract infection due to extended-spectrum beta lactamase (ESBL) producing Escherichia coli (Acute) Renal cyst, right (Acute) Metabolic acidosis (Acute) Acute renal failure superimposed on stage 3 chronic kidney disease (Acute) Hyperkalemia (Acute) recurrent esbl ecoli complicated uti - improved on meropenem. No h/o urinary retention. No fistula seen on CT here. U/s did show 2x2x2 R renal cyst. Given organism and renal function, no good options for care home prophylactic abx. Plan will be for d/c home on 3 dose course of 3gm fosfomycin q3day. Thank you, d./w primary team and Dr. River.
--- NOTE | 2017-12-24 15:45 | DS.PCM_ITS ---
Discharge Date and Diagnosis Date of Admission: 12/21/17 Date of Discharge: 12/24/17 - Primary Discharge Diagnosis Active and Suspected Problems Acute renal failure superimposed on stage 3 chronic kidney disease (Acute) Hyperkalemia (Acute) Metabolic acidosis (Acute) Urinary tract infection due to extended-spectrum beta lactamase (ESBL) producing Escherichia coli (Acute) - Secondary Discharge Diagnosis Chronic Problems History of colon cancer (Chronic)diagnosed and treated in 2013 Diabetes mellitus, type II (Chronic) - well controlled HTN (hypertension) (Chronic) HLD (hyperlipidemia) (Chronic) Right renal cyst-stable Chronic renal failure stage III Hospital Course and Treatment Imaging Results: Clinical Impression(s) from Imaging Studies Brain CT 12/21/17 18:32 IMPRESSION: Mild atrophy and nonspecific periventricular white matter ischemic change. No evidence for acute bleed. If concern for acute infarct MRI recommended.. Electronically Signed: Wellington Sparks MD at 19:54 EDT , Service support , Chest X-Ray 12/21/17 19:45 IMPRESSION: No acute cardiopulmonary pathology Electronically Signed: Wellington Sparks MD at 20:30 EDT , Service support , Renal Ultrasound 12/21/17 22:48 IMPRESSION: 1. Mildly atrophic left kidney. 2. There is a lobular hypoechoic focus of the midpole of the right kidney measuring 2.7 x 2.4 x 2.2 cm. This is indeterminate for solid versus cystic structure on this ultrasonographic study. This appears to have represented a cyst on prior CT study of 12/06/2012, where it measured 0.9 cm. If clinically indicated, follow-up CT may be helpful for confirmation of such. 3. There is no hydronephrosis or nephrolithiasis. Electronically Signed: Braeden Pennington MD at 23:58 EDT , Service support , Abdomen/Pelvis CT 12/22/17 09:17 IMPRESSION: 1. Status post rectal resection changes are noted. 2. There are scattered shotty subcentimeter retroperitoneal nodes. 3. There is a small midline ventral supraumbilical hernia containing omental fat. There are small bilateral fat-containing inguinal hernias, left side larger than right. 4. No definite right renal cyst or mass was identified on this study. Electronically Signed: Braeden Pennington MD at 21:58 EDT , Service support , Chest X-Ray 12/22/17 11:37 IMPRESSION: There is a new left central venous line with the distal tip in the right atrium. There is new minimal hazy opacity of the right upper lobe which may represent atelectasis. Electronically Signed: Mary River MD at 12:29 EDT , Service support , Laboratory Results - last 24 hr 12/22/17 12/23/17 12/23/17 10:30 16:34 22:19 WBC RBC Hgb Hct MCV MCH MCHC RDW RDW Differential Plt Count MPV Eos Smear Total Cells 2 Sodium Potassium Chloride Carbon Dioxide BUN Creatinine Estim Creat Clear Calc Est GFR (MDRD) Af Amer Est GFR (MDRD) Non-Af BUN/Creatinine Ratio Glucose Calcium Phosphorus Iron Ferritin Albumin POC Glucose 210 H 156 H 12/24/17 12/24/17 12/24/17 05:30 05:30 05:30 WBC 6.7 RBC 2.67 L Hgb 8.2 L Hct 24.5 L MCV 91.8 MCH 30.7 MCHC 33.5 RDW 13.3 RDW Differential 43.6 Plt Count 125 L MPV 9.8 Eos Smear Total Cells Sodium 143 Potassium 4.7 Chloride 107 Carbon Dioxide 30.0 BUN 24 H Creatinine 2.92 H Estim Creat Clear Calc 22.46 Est GFR (MDRD) Af Amer 28 L Est GFR (MDRD) Non-Af 23 L BUN/Creatinine Ratio 8.2 L Glucose 126 H Calcium 8.2 L Phosphorus 4.1 Iron 68 Ferritin 73 Albumin 2.6 L POC Glucose 12/24/17 12/24/17 06:43 11:45 WBC RBC Hgb Hct MCV MCH MCHC RDW RDW Differential Plt Count MPV Eos Smear Total Cells Sodium Potassium Chloride Carbon Dioxide BUN Creatinine Estim Creat Clear Calc Est GFR (MDRD) Af Amer Est GFR (MDRD) Non-Af BUN/Creatinine Ratio Glucose Calcium Phosphorus Iron Ferritin Albumin POC Glucose [address] Scarlett River-nephrology Dr. Timothy ToddRcnaf-vvuqbixp-iwif Dr. Rusty Hollins-infectious disease Operations: None Procedures: Dialysis Summary of Care Provided: The patient is a 67 YO M with a PMH of diabetes mellitus type 2, hypertension, stage III chronic renal failure, hyperlipidemia, colon cancer ( treated with surgery, radiation and chemo), chronic anemia, diabetic peripheral neuropathy and frequent UTI's who presented to the ED at [facility] on 12/21/17 c/o weakness and malaise. He additionally complained of dyspnea with exertion which has been worsening over the past 3 weeks. He complained of urinary frequency but denied fever or chills. Vital signs at presentation to the emergency room were temp 98.5, heart rate 91, blood pressure 131/59, respiratory rate 16 and he was 98% saturated on room air. White blood cell count was elevated at 10.2 with hemoglobin of 9.4 and platelets of 212,000. Differential was unremarkable. CMP showed a potassium of 7.3 with sodium of 142 , chloride of 123 and serum bicarb of 11. He had been on Zestril and Aldactone as an OP. The BUN was 61 with a creatinine of 3.83. Creatinine in October 2016 was 1.43. Glucose was low at 59. LFTs were unremarkable and troponin was less than 0.02. UA had greater than 100 WBCs per high-power field. Fractional excretion of sodium was 7.5. Chest x-ray showed no evidence of pleural effusion , pulmonary vascular congestion or infiltrate. Ultrasound of the kidneys showed a mildly atrophic left kidney a lobular hypoechoic focus of the midpole of the right kidney measuring 2.7 x 2.4 x 2.2. There was no hydronephrosis, nephrolithiasis or hydroureter. He was admitted to the intensive care unit with a diagnosis of urinary tract infection, acute kidney injury and hyperkalemia. Aldactone, Zestril, Glucotrol and Metformin were discontinued. Dr. River and Dr. Timothy Todd were consulted. He was started on Rocephin for UTI. A temporary dialysis catheter was placed and the patient had hemodialysis on . On 12/23/2017 the serum bicarb was 34, potassium 4.9, BUN was 23 and the creatinine was 2.35. The potassium remained WNL for the remainder of his hospital stay. Creat at VT was 2.92 with a BUN of 24 and a potassium 4.7. He is going to follow up with Dr. River in the office next week. On 12/22 review of prior urine cultures showed he had an E. Coli ESBL in the past and Rocephin was discontinued and he was started on Merrem. consult was ordered with Dr. Rusty Hollins. A CT scan of the abdomen and pelvis done on 12/22/2017 had showed no nephrolithiasis. He had previously been seen by a urologist and he was unable to find an abnormality that would lead to recurrent ESBL E. coli infections. He had a barium enema in September 2017 to rule out a fistula between the colon and the urinary tract and the study was negative for fistula. He had no history of urine retention. He does have renal cysts. He did not appear toxic. Dr. Hollins recommended discharge home on a 3 dose course of 3 g of fosfomycin every 3 days. There are no good options for long- term prophylactic antibiotics. The temporary dialysis catheter was removed prior to discharge. He was discharged home on 12/24/2017 and will follow up with Dr. River next week. He was given a prescription for fosfomycin 3 g p.o. every 3 days for 3 doses. He was also given prescriptions for a decreased dose of Lyrica, 25 mg twice daily, in light of renal failure. Glucotrol had been discontinued and he was started on Amaryl 1 mg p.o. daily. He will follow up with Dr. Ojeda 7-10 days. He will also follow-up with Dr. Vazquez to see if the Mediport can be removed. This note was generated with [employer] dictation software. It may contain incorrect words, spelling, and punctuation that were not noted in checking the note before signing. Discharge Activity: - - Activity as tolerated Call your doctor if you observe: Fever of 101 or Higher, Inability to urinate, Inability to have a bowel movement, Shortness of breath, Dizziness, Fainting spells, Swelling in the ankles, Chest pain, Prolonged hiccoughing, - - increasing fatigue Home Medications: Medications to take at Discharge Lovastatin [Mevacor] 40 mg PO QHS 07/12/16 Fosfomycin Tromethamine [Monurol] 3 gm PO Q72H #3 packet 12/24/17 Glimepiride [Amaryl] 1 mg PO DAILY@0800 #30 tab 12/24/17 Pregabalin [Lyrica] 25 mg PO BID #60 cap 12/24/17 Following Prescrptions Were Given to Patient: Fosfomycin Tromethamine [Monurol] 3 gm PO Q72H #3 packet Glimepiride [Amaryl] 1 mg PO DAILY@0800 #30 tab Pregabalin [Lyrica] 25 mg PO BID #60 cap Primary Care Physician: Tiffanie Ojeda MD [Primary Care Provider] - Please follow up with your Primary Care Physician in: 7-10 days Please Follow Up With: Scarlett River DO When: next week Please Follow Up With: Rohit Dan MD When: call the office to see about getting the mediport taken out Patient Instructions: Kidney Disease: Understanding Fluids, Kidney Disease: Eating Less Sodium, Discharge Instructions for Chronic Kidney Disease, Discharge Instructions: Eating a Low Potassium Diet Disposition: Home Minutes spent on discharge:: 40 Patient Condition:: Stable Medical Necessity - Tobacco Use Smoking Status: Never smoker Meaningful Use Info Meaningful Use Diagnoses (Choose all that apply): None applicable Code Visit Inpatient E&M: 65260 Disch Hosp
[2017-12-24 16:19] LABS: PTHIN 185.2 pg/mL (18.4-80.1)
--- NOTE | 2017-12-24 17:00 | DIALYSIS ---
[facility] temporary HD CVC removed intact. Hemostasis x 5mins. No s/s bleeding post procedure. Pt instructed on monitoring for s/s of infection. To maintain dressing for 24hrs and to not shower or get wet during this time. Pt tolerated very well. Bedside handoff to Nicole LAMAS
[2017-12-24 17:25] LABS: Bedside Glucose 163 mg/dL (70-110)
--- NOTE | 2017-12-24 21:50 | ED.RN ---
[facility] called and requesting information about dc instructions sent to [facility] for further information
== END 2017-12-24 19:50 | disposition home or self-care (01) | DRG 683 ==
LOC: ED 20:48 → ICU 22:15 → PCU 12-24 10:59
PROVIDERS: Internal Medicine Critical Care Medicine; Internal Medicine Nephrology; Admitting Provider Family Medicine; Emergency Provider Emergency Medicine; Family Provider Internal Medicine; PCP Internal Medicine; Visit Provider Internal Medicine
DX: N17.9 Acute kidney failure, unspecified (principal); E87.2 Acidosis; E87.5 Hyperkalemia; E78.5 Hyperlipidemia, unspecified; I12.9 Hypertensive chronic kidney disease with stage 1 through stage 4 chronic kidney disease, or unspecified chronic kidney disease; N18.3 Chronic kidney disease, stage 3 (moderate); N28.1 Cyst of kidney, acquired; Z92.3 Personal history of irradiation; Z87.440 Personal history of urinary (tract) infections; E11.22 Type 2 diabetes mellitus with diabetic chronic kidney disease; E11.42 Type 2 diabetes mellitus with diabetic polyneuropathy; Z79.84 Long term (current) use of oral hypoglycemic drugs; B96.20 Unspecified Escherichia coli [E. coli] as the cause of diseases classified elsewhere; N30.90 Cystitis, unspecified without hematuria; Z90.49 Acquired absence of other specified parts of digestive tract; Z92.21 Personal history of antineoplastic chemotherapy; Z85.038 Personal history of other malignant neoplasm of large intestine; Z16.12 Extended spectrum beta lactamase (ESBL) resistance; D64.9 Anemia, unspecified
CPT/HCPCS: 36415; 70450; 71045; 71046; 74176; 76770; 80048; 80053; 80069; 81001; 82274; 82550; 82570; 82728; 82962; 83036; 83540; 83735; 83970; 84100; 84300; 84484; 85025; 85027; 85610; 86704; 86706; 87040; 87077; 87086; 87088; 87186; 87205; 87340; 87641; 90937; 93005; 93970; 99284; J2185; J2997; J7030; A4216; C1752; G0257

== ENCOUNTER → 2017-12-27 13:28 | Outpatient (CLI) | payer MEDICARE, SELFPAY ==
[2017-12-27 14:37] LABS: Hemoglobin 8.3 g/dl (13.0-16.5); Mean Corp Hgb Conc 33.2 g/gl (32-36); Mean Corpuscular Hgb 30.2 pg (27.0-32.0); Mean Corpuscular Volume 90.9 fL (80-94); Platelet Count 159 K/mm3 (150-450); RBC Distribution Width CV 13.2 % (11.6-14.6); RBC Distribution Width SD 42.3 fl (35.1-43.9); Red Blood Count 2.75 M/mm3 (4.6-6.2); White Blood Count 6.9 K/mm3 (4.4-11.0)
[2017-12-27 14:39] LABS: Scan Indicated on CBC? Y/N NO
[2017-12-27 14:46] LABS: Albumin, Serum 3.1 g/dL (3.2-5.0); BUN 35 mg/dL (7-18); BUN/Creat Ratio 11.3 RATIO (10-20); Calcium,Total 8.1 mg/dL (8.5-10.1); Chloride 108 mmol/L (98-107); Creatinine, Serum 3.09 mg/dL (0.70-1.30); EST Glomerular Filtration Rate 22 mL/min (>60); Est Glom Filt Rate - Afr Amer 26 mL/min (>60); Glucose 193 mg/dL (74-106); Potassium 4.7 mmol/L (3.5-5.1); Sodium Level 137 mmol/L (136-145)
== END ==
LOC: POLAB3 13:39 → MEDOUTP 13:40
PROVIDERS: Family Provider Internal Medicine; PCP Internal Medicine; Visit Provider Internal Medicine Nephrology
DX: N17.9 Acute kidney failure, unspecified (principal)
CPT/HCPCS: 36591; 80069; 85027; A4216

== ENCOUNTER → 2017-12-30 10:53 | Outpatient (CLI) | payer MEDICARE, SELFPAY ==
[2017-12-30 13:05] LABS: Albumin, Serum 3.3 g/dL (3.2-5.0); BUN 35 mg/dL (7-18); BUN/Creat Ratio 12.7 RATIO (10-20); Calcium,Total 8.5 mg/dL (8.5-10.1); Chloride 112 mmol/L (98-107); Creatinine, Serum 2.76 mg/dL (0.70-1.30); EST Glomerular Filtration Rate 25 mL/min (>60); Est Glom Filt Rate - Afr Amer 30 mL/min (>60); Glucose 90 mg/dL (74-106); Phosphorus 3.8 mg/dL (2.5-4.9); Potassium 5.6 mmol/L (3.5-5.1); Sodium Level 141 mmol/L (136-145)
== END ==
PROVIDERS: Family Provider Internal Medicine; PCP Internal Medicine; Visit Provider Internal Medicine Nephrology
DX: N18.4 Chronic kidney disease, stage 4 (severe) (principal)
CPT/HCPCS: 36415; 80069

== ENCOUNTER → 2018-01-03 13:10 | Outpatient (CLI) | payer MEDICARE, SELFPAY ==
[2018-01-03 14:55] LABS: Anion Gap 9 (5-15); BUN 34 mg/dL (7-18); BUN/Creat Ratio 12.1 RATIO (10-20); Calcium,Total 8.5 mg/dL (8.5-10.1); Chloride 108 mmol/L (98-107); Creatinine, Serum 2.81 mg/dL (0.70-1.30); EST Glomerular Filtration Rate 24 mL/min (>60); Est Glom Filt Rate - Afr Amer 29 mL/min (>60); Glucose 271 mg/dL (74-106); Potassium 5.2 mmol/L (3.5-5.1); Sodium Level 138 mmol/L (136-145)
== END ==
PROVIDERS: Family Provider Internal Medicine; PCP Internal Medicine; Visit Provider Internal Medicine Nephrology
DX: E87.5 Hyperkalemia (principal)
CPT/HCPCS: 36415; 80048

== ENCOUNTER → 2018-02-03 10:59 | Outpatient (CLI) | payer MEDICARE, SELFPAY ==
[2018-02-03 13:03] LABS: Albumin, Serum 3.5 g/dL (3.2-5.0); BUN 34 mg/dL (7-18); BUN/Creat Ratio 11.6 RATIO (10-20); Calcium,Total 8.6 mg/dL (8.5-10.1); Chloride 110 mmol/L (98-107); Creatinine, Serum 2.94 mg/dL (0.70-1.30); EST Glomerular Filtration Rate 23 mL/min (>60); Est Glom Filt Rate - Afr Amer 28 mL/min (>60); Glucose 89 mg/dL (74-106); Sodium Level 140 mmol/L (136-145)
[2018-02-03 13:12] LABS: 24HR. UA Prot. Total Volume 1650 mL; Urine Protein (24 Hour) 16.3 mg/dL (<11.9)
[2018-02-03 13:13] LABS: Creat.Clear Total Volume 1650 mL; Creatinine Clearance 16 ml/min (100-200); Creatinine Serum Creat 2.9 mg/dL (0.8-1.3); Creatinine Urine 41.3 mg/dL (NO RANGE EST.); EST Glomerular Filtration Rate 23 mL/min (>60); Est Glom Filt Rate - Afr Amer 28 mL/min (>60)
== END ==
PROVIDERS: Family Provider Internal Medicine; PCP Internal Medicine; Visit Provider Internal Medicine Nephrology
DX: N18.4 Chronic kidney disease, stage 4 (severe) (principal)
CPT/HCPCS: 36415; 80069; 82575; 84156

== ENCOUNTER → 2018-02-08 10:45 | Outpatient (CLI) | payer MEDICARE, SELFPAY ==
[2018-02-08 12:49] LABS: Hematocrit 31.9 % (40-54); Hemoglobin 10.4 g/dl (13.0-16.5); Mean Corp Hgb Conc 32.6 g/gl (32-36); Mean Corpuscular Hgb 29.7 pg (27.0-32.0); Mean Corpuscular Volume 91.1 fL (80-94); Mean Platelet Vol. 11.4 fl (6.2-12.0); Platelet Count 172 K/mm3 (150-450); RBC Distribution Width CV 12.8 % (11.6-14.6); RBC Distribution Width SD 41.4 fl (35.1-43.9); White Blood Count 5.9 K/mm3 (4.4-11.0)
[2018-02-08 12:52] LABS: Scan Indicated on CBC? Y/N NO
== END ==
PROVIDERS: Family Provider Internal Medicine; PCP Internal Medicine; Visit Provider Internal Medicine Nephrology
DX: D50.9 Iron deficiency anemia, unspecified (principal)
CPT/HCPCS: 36415; 85027

== ENCOUNTER 2018-02-10 05:33 | Day surgery (SDC) | payer MEDICARE, SELFPAY ==
[2018-02-10] VITALS (7 sets, daily range): BP systolic 135–148; BP diastolic 60–78; PULSE 58–62; RESP 16–18; TEMP 36.1–36.6; O2SAT 99–100; BMI 28.0
[2018-02-10 06:36] LABS: Bedside Glucose 88 mg/dL (70-110)
--- NOTE | 2018-02-10 06:58 | PCM.DC.FIST ---
Discharge Diet: Renal Diet Discharge Activity: May Not Drive - for 2-3 days or while taking narcotic pain medications., May Shower, May Take a Tub Bath - in 5 days. Lifting Restrictions: 5 pounds Keep extremity elevated above heart level: - - Keep arm elevated above the heart level for 3 days. Additional Activity Instructions:: Exercise hand vigorously with a stress ball. Call your doctor if your incision/area has: Continuous Slow Oozing, Sudden Increased Bleeding - apply pressure and call your doctor., Increased Pain/ Swelling, Increased Redness, Foul Smelling Discharge Call your doctor if you observe: Fever of 101 or Higher Suture Line Care: Avoid Pulling/Pushing, Avoid Pinching/Bending Cleanse incision/area with: Keep Dressing Clean & Dry Additional Dressing/Incision Instructions:: You may leave the plastic dressing on for approximately 3 days. You may leave the Steri-Strips on for 1 week. Allergies/Adverse Reactions: Allergies No Known Allergies Allergy (Verified 01/14/18 15:12) Medications to take at Discharge Lovastatin [Mevacor] 40 mg PO QHS 07/12/16 ferrous sulfate ER 325 mg (65 mg iron) capsule,extended release 150 mg PO DAILY cap 01/14/18 Fosfomycin Tromethamine [Monurol] 3 gm PO 02/04/18 Glimepiride [Amaryl] 1 mg PO DAILY@0800 02/04/18 Pregabalin [Lyrica] 25 mg PO BID 02/04/18 Hydrocodone Bitart/Apap 5-325 [[place] 5MG-325MG] 1 tablet PO Q6H PRN PRN 2 Days #5 tablet 02/10/18 The following prescriptions were given: Hydrocodone Bitart/Apap 5-325 [[place] 5MG-325MG] 1 tablet PO Q6H PRN PRN 2 Days #5 tablet PRN Reason: Pain Primary Care Physician: Tiffanie Ojeda MD [Primary Care Provider] - Please Follow Up With: Rusty Grier MD - [phone] When: Call to make an appointment for follow up in 10 days please
--- NOTE | 2018-02-10 07:04 | DCINST_ITS ---
Discharge Diet: Renal Diet Discharge Activity: May Not Drive - for 2-3 days or while taking narcotic pain medications., May Shower, May Take a Tub Bath - in 5 days. Lifting Restrictions: 5 pounds Keep extremity elevated above heart level: - - Keep arm elevated above the heart level for 3 days. Additional Activity Instructions:: Exercise hand vigorously with a stress ball. Call your doctor if your incision/area has: Continuous Slow Oozing, Sudden Increased Bleeding - apply pressure and call your doctor., Increased Pain/ Swelling, Increased Redness, Foul Smelling Discharge Call your doctor if you observe: Fever of 101 or Higher Suture Line Care: Avoid Pulling/Pushing, Avoid Pinching/Bending Cleanse incision/area with: Keep Dressing Clean & Dry Additional Dressing/Incision Instructions:: You may leave the plastic dressing on for approximately 3 days. You may leave the Steri-Strips on for 1 week. Allergies/Adverse Reactions: Allergies No Known Allergies Allergy (Verified 01/14/18 15:12) Medications to take at Discharge Lovastatin [Mevacor] 40 mg PO QHS 07/12/16 ferrous sulfate ER 325 mg (65 mg iron) capsule,extended release 150 mg PO DAILY cap 01/14/18 Fosfomycin Tromethamine [Monurol] 3 gm PO 02/04/18 Glimepiride [Amaryl] 1 mg PO DAILY@0800 02/04/18 Pregabalin [Lyrica] 25 mg PO BID 02/04/18 Hydrocodone Bitart/Apap 5-325 [[place] 5MG-325MG] 1 tablet PO Q6H PRN PRN 2 Days # 5 tablet 02/10/18 The following prescriptions were given: Hydrocodone Bitart/Apap 5-325 [[place] 5MG-325MG] 1 tablet PO Q6H PRN PRN 2 Days # 5 tablet PRN Reason: Pain Primary Care Physician: Tiffanie Ojeda MD [Primary Care Provider] - Please Follow Up With: Rusty Grier MD - [phone] When: Call to make an appointment for follow up in 10 days please
[2018-02-10] MEDS: Heparin Injection (Vial) 5,000 UNIT/ML VIAL 5000 UNIT (07:30)
[2018-02-10] MEDS: Bupivacaine Mpf 0.5% 30 ML VIAL (07:30)
--- NOTE | 2018-02-10 08:21 | OP.PCM_ITS ---
Problem List (1) Acute renal failure superimposed on stage 3 chronic kidney disease Status: Acute Qualifiers: Acute renal failure type: unspecified Report of Operation Date of Procedure: 02/10/18 Pre-Operative Diagnosis: Chronic renal failure Post-Operative Diagnosis: Same Surgery/Procedure Performed:: Left forearm radiocephalic arteriovenous fistula creation Description of Surgical Findings:: Timeout informed consent was obtained. 67-year-old gentleman was taken out from. He was placed upon the table. The left upper extremity was sterilely prepped and draped. He underwent monitored anesthesia care local 1% lidocaine mixed 50-50 with 0.5% Marcaine was used as local anesthetic. Ultrasound was used to map out the course of the cephalic vein. Local was instilled. An oblique incision was made. Cephalic vein was sharply and bluntly dissected free. The radial artery was then dissected free and a vessel loop placed. The patient received 8000 units of heparin. The vein was secured distally with a Hemoclip. It was spatulated to length. A longitudinal arteriotomy was made in the radial artery with 11 blade and extended with Navarro scissors. A end-to- side anastomosis was created with a 7-0 Prolene in running fashion. Excellent apposition was achieved. Nice hemostasis. There was a good pulse, thrill, bruit within the fistula at the completion with a good positional lie. The wound was closed with a running septic or 4-0 Monocryl. Steri-Strips Telfa OpSite dressings applied. Sponge and instrument and needle counts were reported the surgeon be correct. Specimens none. Drains none. Blood loss minimal. Hand was viable to completion he was taken to the recovery room in satisfactory condition Rusty Grier M.D., F.A.C.S. Type of Anesthesia:: Local MAC Anesthesiologist: Rigoberto Mas
--- NOTE | 2018-02-10 10:25 | SUR.PHASEII ---
Addendum entered by Kia Guzmán 02/10/18 10:28: addendum to note: pt was departing at 0955. Original Note: as pt was departing via w/c, he brought to the nurses' attention that the surgery site had swelling. pt states that it '''just happened. pt ttaken back to his room. Dr Grier notified. pressure applied and elevated above heart level. swelling has decreased after pressure for 30minutes. sand bag applied at elevated wrist. awaiting Dr Grier's visit. pt and deny needs at this time.
== END 2018-02-10 10:42 | disposition home or self-care (01) ==
LOC: SDC 05:34 → AC 05:35
PROVIDERS: Family Provider Internal Medicine; PCP Internal Medicine; Visit Provider Surgery
PROC: (CPT 36821; principal; 2018-02-10 07:00)
DX: I12.9 Hypertensive chronic kidney disease with stage 1 through stage 4 chronic kidney disease, or unspecified chronic kidney disease (principal); E11.22 Type 2 diabetes mellitus with diabetic chronic kidney disease; N18.3 Chronic kidney disease, stage 3 (moderate); N17.9 Acute kidney failure, unspecified; E78.5 Hyperlipidemia, unspecified; E87.5 Hyperkalemia; Z99.2 Dependence on renal dialysis; Z85.038 Personal history of other malignant neoplasm of large intestine; Z90.49 Acquired absence of other specified parts of digestive tract; Z79.84 Long term (current) use of oral hypoglycemic drugs; Z79.899 Other long term (current) drug therapy
CPT/HCPCS: 01844; 36821; 82962

== ENCOUNTER → 2018-02-14 16:28 | Outpatient (CLI) | payer MEDICARE, SELFPAY ==
[2018-02-14 17:47] LABS: Absolute Lymphocyte Count 1.98 X10^3/ul (0.83-4.51); Absolute Neutrophil Count 4.2 X10^3/uL (2.0-7.7); Basophil# 0.02 X10^3/uL; Basophil% 0.3 % (0-1); Eosinophil# 0.15 X10^3/uL; Eosinophils% 2.3 % (0-5); Hematocrit 30.6 % (40-54); Hemoglobin 10.3 g/dl (13.0-16.5); Lymphocyte # 1.98 X10^3/ul (4.0); Lymphocyte % 29.9 % (19-41); Mean Corp Hgb Conc 33.7 g/gl (32-36); Mean Corpuscular Hgb 30.5 pg (27.0-32.0); Mean Corpuscular Volume 90.5 fL (80-94); Mean Platelet Vol. 10.7 fl (6.2-12.0); Monocyte# 0.32 X10^3/uL; Monocyte% 4.8 % (0-10); Neutrophil # 4.15 X10^3/uL (2.7-7.7); Neutrophil % 62.5 % (47-70); Platelet Count 182 K/mm3 (150-450); RBC Distribution Width CV 12.3 % (11.6-14.6); RBC Distribution Width SD 39.8 fl (35.1-43.9); Red Blood Count 3.38 M/mm3 (4.6-6.2); White Blood Count 6.6 K/mm3 (4.4-11.0)
[2018-02-14 17:50] LABS: POSITIVE COUNT NO; POSITIVE DIFFERENTIAL NO; POSITIVE MORPHOLOGY NO
[2018-02-14 18:05] LABS: Vitamin D,25 Hydroxy 17.4 ng/mL (29.95-100.01)
[2018-02-14 18:11] LABS: AST(SGOT) 10 U/L (15-37); Alanine Aminotransfer ALT/SGPT 14 U/L (16-61); Albumin, Serum 3.6 g/dL (3.2-5.0); Alkaline Phosphatase 61 U/L (45-117); Anion Gap 5 (5-15); BUN 35 mg/dL (7-18); BUN/Creat Ratio 12.2 RATIO (10-20); Calcium,Total 8.7 mg/dL (8.5-10.1); Chloride 113 mmol/L (98-107); Creatinine, Serum 2.86 mg/dL (0.70-1.30); EST Glomerular Filtration Rate 24 mL/min (>60); Est Glom Filt Rate - Afr Amer 29 mL/min (>60); Globulin 3.6 g/dL (2.2-4.2); Glucose 130 mg/dL (74-106); PSA,Total - Annual Screen 0.16 ng/mL (0.00-4.00); Potassium 5.1 mmol/L (3.5-5.1); Protein, Total 7.2 g/dL (6.4-8.2); Sodium Level 143 mmol/L (136-145)
== END ==
PROVIDERS: Family Provider Internal Medicine; PCP Internal Medicine; Visit Provider Family Medicine Geriatric Medicine
DX: D50.9 Iron deficiency anemia, unspecified (principal); E03.9 Hypothyroidism, unspecified; E56.9 Vitamin deficiency, unspecified; E87.5 Hyperkalemia; I10 Essential (primary) hypertension; Z12.5 Encounter for screening for malignant neoplasm of prostate
CPT/HCPCS: 36415; 80053; 82306; 84153; 84443; 85025; G0103

== ENCOUNTER 2018-02-28 22:23 | Emergency (ER) | payer MEDICARE, SELFPAY ==
[2018-02-28 22:25] VITALS: BP 128/65; PULSE 89; RESP 16; TEMP 36.8; O2SAT 99; BMI 28.0
[2018-02-28] MEDS: MethylPREDNISolone 125 MG/2 ML Vial IV (23:00)
[2018-02-28] MEDS: DiphenhydrAMINE 50 MG/ML Syringe 25 MG IV (23:01)
[2018-02-28 23:09] VITALS: PULSE 73; RESP 16; O2SAT 100
[2018-03-01 01:06] VITALS: RESP 16; O2SAT 99
--- NOTE | 2018-03-01 02:00 | ED.DCSUM_ITS ---
- ER Visit Summary Date of Service: 03/01/18 Chief Complaint: [Allergic reaction] History of Present Illness: The patient is a 67 M [presents to the emergency department with complaint of an allergic reaction to Bactrim. Patient states that he started taken Bactrim tonight that was prescribed by his urologist and 10 minutes after taking it patient began feeling very itchy and developed swelling in his hands. Patient also complains of some skin peeling from his feet that he noticed tonight. Patient denies any significant shortness of breath. He denies lip or tongue swelling. Patient denies any dysuria currently patient denies vomiting. Patient denies diarrhea. Patient has a history of UTIs and apparently had a urine culture that still showed some bacteria and his urologist wanted him on Bactrim.] Physical Examination: [HEENT-PERRLA, EOMI. Cranial nerves II through XII grossly intact. TMs clear. Mucous membranes moist. No adenopathy. No angioedema of the oropharynx or tongue. Cardiovascular-regular rate and rhythm without murmur or ectopy Lungs-clear to auscultation, chest wall stable without crepitus or subcu emphysema Abdomen-normoactive bowel sounds, soft, nontender, no rebound or rigidity, no peritoneal signs. Skin exam-no rash noted. Patient had some faint erythema both palms. Extremities-intact ?4, normal range of motion, normal pulses, atraumatic] Test Results: [None indicated] Emergency Department Course and Treatment: [Patient treated with Solu-Medrol, Benadryl, and Pepcid. Patient was observed for approximately 4 hours and his symptoms resolved.] Treatment Plan: [Patient was started on prednisone for 3 days. Patient advised to discontinue the Bactrim and claim it as an allergy. Patient advised to follow-up with his urologist tomorrow regarding different antibiotic given that I do not have access to patient's urine culture results.] Disposition: [Discharged home in stable condition] Impression: [Allergic reaction to Bactrim] This note was generated with [employer] dictation software. It may contain incorrect words, spelling, and punctuation that were not noted in review of the chart prior to signing ED Disposition - Plan for ED Patient: Chief Complaint: Allergic Reaction Referrals: Nabeel Reyes Chi, MD [Primary Care Provider] -
--- NOTE | 2018-03-01 02:00 | ED.DEP ---
ED Disposition - Plan for ED Patient: Chief Complaint: Allergic Reaction Instructions: ED Drug React Allergic Prescriptions: Prednisone [Deltasone] 20 mg PO BID #6 tab Referrals: Nabeel Reyes Chi, MD [Primary Care Provider] - Additional Instructions: call your Urologist tomorrow for an alternate antibiotic based on your culture results Do not take Bactrim
[2018-03-01 02:09] VITALS: BP 145/66; PULSE 66; RESP 18; O2SAT 99
== END 2018-03-01 02:12 | disposition home or self-care (01) ==
LOC: ED 23:14
PROVIDERS: Emergency Provider Emergency Medicine; Family Provider Family Medicine Geriatric Medicine; PCP Family Medicine Geriatric Medicine
DX: L29.9 Pruritus, unspecified (principal); M79.89 Other specified soft tissue disorders; T37.0X5A Adverse effect of sulfonamides, initial encounter; Y92.9 Unspecified place or not applicable; I12.9 Hypertensive chronic kidney disease with stage 1 through stage 4 chronic kidney disease, or unspecified chronic kidney disease; N18.9 Chronic kidney disease, unspecified; E78.00 Pure hypercholesterolemia, unspecified; Z87.440 Personal history of urinary (tract) infections; Z85.038 Personal history of other malignant neoplasm of large intestine; Z90.49 Acquired absence of other specified parts of digestive tract; Z79.899 Other long term (current) drug therapy
CPT/HCPCS: 96365; 96375; 99284; A4216; J3490

== ENCOUNTER → 2018-03-03 12:00 | Outpatient (CLI) | payer MEDICARE, SELFPAY ==
[2018-03-03 13:20] LABS: BUN 53 mg/dL (7-18); Creatinine, Serum 2.96 mg/dL (0.70-1.30); EST Glomerular Filtration Rate 23 mL/min (>60); Glucose 303 mg/dL (74-106)
[2018-03-03 13:21] LABS: Anion Gap 8 (5-15); BUN/Creat Ratio 17.9 RATIO (10-20); Calcium,Total 8.7 mg/dL (8.5-10.1); Chloride 109 mmol/L (98-107); Est Glom Filt Rate - Afr Amer 27 mL/min (>60); Sodium Level 138 mmol/L (136-145)
== END ==
PROVIDERS: Family Provider Family Medicine Geriatric Medicine; PCP Family Medicine Geriatric Medicine; Visit Provider Family Medicine Geriatric Medicine
DX: N18.4 Chronic kidney disease, stage 4 (severe) (principal)
CPT/HCPCS: 36415; 80048

== ENCOUNTER → 2018-03-28 09:13 | Outpatient (CLI) | payer MEDICARE, SELFPAY ==
[2018-03-28 10:40] LABS: Mean Corp Hgb Conc 32.4 g/gl (32-36); Mean Corpuscular Hgb 28.3 pg (27.0-32.0); Mean Corpuscular Volume 87.4 fL (80-94); Mean Platelet Vol. 9.8 fl (6.2-12.0); Platelet Count 191 K/mm3 (150-450); RBC Distribution Width CV 12.5 % (11.6-14.6); Red Blood Count 3.89 M/mm3 (4.6-6.2); Scan Indicated on CBC? Y/N NO; White Blood Count 5.7 K/mm3 (4.4-11.0)
[2018-03-28 10:53] LABS: Albumin, Serum 3.4 g/dL (3.2-5.0); BUN 31 mg/dL (7-18); BUN/Creat Ratio 11.5 RATIO (10-20); Calcium,Total 8.7 mg/dL (8.5-10.1); Chloride 110 mmol/L (98-107); Creatinine, Serum 2.69 mg/dL (0.70-1.30); EST Glomerular Filtration Rate 25 mL/min (>60); Est Glom Filt Rate - Afr Amer 31 mL/min (>60); Glucose 163 mg/dL (74-106); Iron 71 ug/dL (65-175); Iron Binding Capacity,Total 305 ug/dL (250-450); PERCENT IRON SATURATION 23.3 % (15.0-55.0); Phosphorus 3.6 mg/dL (2.5-4.9); Potassium 5.2 mmol/L (3.5-5.1); Sodium Level 145 mmol/L (136-145)
[2018-03-28 11:17] LABS: PTHIN 134.8 pg/mL (18.4-80.1)
[2018-03-29 11:12] LABS: Ferritin 24 ng/mL (26-388)
== END ==
PROVIDERS: Family Provider Family Medicine Geriatric Medicine; PCP Family Medicine Geriatric Medicine; Visit Provider Internal Medicine Nephrology
DX: N17.9 Acute kidney failure, unspecified (principal); N18.4 Chronic kidney disease, stage 4 (severe); D50.9 Iron deficiency anemia, unspecified; N25.81 Secondary hyperparathyroidism of renal origin
CPT/HCPCS: 36415; 80069; 82728; 83540; 83550; 83970; 85027

== ENCOUNTER → 2018-05-18 11:31 | Outpatient (CLI) | payer MEDICARE, SELFPAY ==
[2018-05-18 12:33] LABS: Absolute Lymphocyte Count 1.88 X10^3/ul (0.83-4.51); Absolute Neutrophil Count 4.1 X10^3/uL (2.0-7.7); Basophil# 0.02 X10^3/uL; Basophil% 0.3 % (0-1); Eosinophil# 0.12 X10^3/uL; Eosinophils% 1.8 % (0-5); Hematocrit 34.7 % (40-54); Hemoglobin 11.6 g/dl (13.0-16.5); Lymphocyte # 1.88 X10^3/ul (4.0); Lymphocyte % 28.7 % (19-41); Mean Corp Hgb Conc 33.4 g/gl (32-36); Mean Corpuscular Hgb 28.5 pg (27.0-32.0); Mean Corpuscular Volume 85.3 fL (80-94); Mean Platelet Vol. 10.2 fl (6.2-12.0); Monocyte# 0.39 X10^3/uL; Neutrophil # 4.14 X10^3/uL (2.7-7.7); Neutrophil % 63.2 % (47-70); Platelet Count 166 K/mm3 (150-450); RBC Distribution Width CV 13.4 % (11.6-14.6); RBC Distribution Width SD 41.6 fl (35.1-43.9); Red Blood Count 4.07 M/mm3 (4.6-6.2); White Blood Count 6.6 K/mm3 (4.4-11.0)
[2018-05-18 12:35] LABS: POSITIVE COUNT NO; POSITIVE DIFFERENTIAL NO; POSITIVE MORPHOLOGY NO
[2018-05-18 12:46] LABS: Vitamin D,25 Hydroxy 38.6 ng/mL (29.95-100.01)
[2018-05-18 12:52] LABS: AST(SGOT) 11 U/L (15-37); Alanine Aminotransfer ALT/SGPT 15 U/L (16-61); Albumin, Serum 3.6 g/dL (3.2-5.0); Alkaline Phosphatase 81 U/L (45-117); Anion Gap 7 (5-15); BUN 31 mg/dL (7-18); BUN/Creat Ratio 12.4 RATIO (10-20); Calcium,Total 8.5 mg/dL (8.5-10.1); Chloride 111 mmol/L (98-107); Creatinine, Serum 2.51 mg/dL (0.70-1.30); EST Glomerular Filtration Rate 27 mL/min (>60); Est Glom Filt Rate - Afr Amer 33 mL/min (>60); Globulin 3.6 g/dL (2.2-4.2); Glucose 145 mg/dL (74-106); Potassium 4.7 mmol/L (3.5-5.1); Protein, Total 7.2 g/dL (6.4-8.2); Sodium Level 142 mmol/L (136-145); Thyroid Stim Hormone (TSH) 1.85 uIU/mL (0.358-3.74)
== END ==
PROVIDERS: Family Provider Family Medicine Geriatric Medicine; PCP Family Medicine Geriatric Medicine; Visit Provider Family Medicine Geriatric Medicine
DX: E11.9 Type 2 diabetes mellitus without complications (principal); E55.9 Vitamin D deficiency, unspecified; I10 Essential (primary) hypertension
CPT/HCPCS: 36415; 80053; 82306; 84443; 85025

== ENCOUNTER 2018-05-30 09:52 | Day surgery (SDC) | payer MEDICARE, SELFPAY ==
[2018-05-23 08:11] VITALS: BP 129/72; PULSE 100; RESP 16; TEMP 36.5; O2SAT 63; BMI 28.3
[2018-05-30] VITALS (7 sets, daily range): BP systolic 146–159; BP diastolic 64–77; PULSE 54–60; RESP 16; TEMP 36.1–36.6; O2SAT 97–100; BMI 28.3
[2018-05-30] MEDS: Heparin Injection (Vial) 5,000 UNIT/ML VIAL 5000 UNIT (10:52)
[2018-05-30 11:30] LABS: Bedside Glucose 70 mg/dL (70-110)
--- NOTE | 2018-05-30 12:14 | DCINST_ITS ---
Discharge Diet: Renal Diet Discharge Activity: May Not Drive - for 2-3 days or while taking narcotic pain medications., May Shower, May Take a Tub Bath - in 5 days. Lifting Restrictions: 5 pounds Keep extremity elevated above heart level: - - Keep arm elevated above the heart level for 3 days. Additional Activity Instructions:: Exercise hand vigorously with a stress ball. Call your doctor if your incision/area has: Continuous Slow Oozing, Sudden Increased Bleeding - apply pressure and call your doctor., Increased Pain/ Swelling, Increased Redness, Foul Smelling Discharge Call your doctor if you observe: Fever of 101 or Higher Suture Line Care: Avoid Pulling/Pushing, Avoid Pinching/Bending Cleanse incision/area with: Keep Dressing Clean & Dry Additional Dressing/Incision Instructions:: Change or remove dressing in one day. May protect with a gauze bandaid. Allergies/Adverse Reactions: Allergies No Known Allergies Allergy (Verified 05/23/18 08:06) Medications to take at Discharge Lovastatin [Mevacor] 40 mg PO QHS 07/12/16 ferrous sulfate ER 325 mg (65 mg iron) capsule,extended release 150 mg PO DAILY cap 01/14/18 Fosfomycin Tromethamine [Monurol] 3 gm PO 02/04/18 Pregabalin [Lyrica] 25 mg PO BID 02/04/18 Amlodipine [Norvasc] 5 mg PO DAILY 02/28/18 glimepiride 1 mg tablet 2 mg PO DAILY@0800 tab 05/19/18 Ergocalciferol [Vitamin D] 50,000 unit PO Q7D 05/23/18 Hydrocodone Bitart/Apap 5-325 [[place] 5MG-325MG] 1 tablet PO Q6H PRN PRN 3 Days #5 tablet 05/30/18 Metoprolol Succinate 25 mg PO 05/30/18 The following prescriptions were given: Hydrocodone Bitart/Apap 5-325 [[place] 5MG-325MG] 1 tablet PO Q6H PRN PRN 3 Days #5 tablet PRN Reason: Pain Primary Care Physician: Nabeel Reyes Chi, MD [Primary Care Provider] - Test Results: Test results from this visit will be discussed in further detail at your follow- up appointment, if applicable. Please Follow Up With: Rusty Grier MD - [phone] When: Call to make an appointment for suture removal and follow up in 1 week.
[2018-05-30] MEDS: Bupivacaine Mpf 0.5% 30 ML VIAL (12:34)
--- NOTE | 2018-05-30 13:35 | PCM.OPRPT ---
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 68-year-old gentleman was taken the operating he was placed on the table. Discussion was had with the patient is preoperatively that if the forearm cephalic vein was not adequate that I would convert to an antecubital space. He has had an opportunity to ask and have questions answered and was comfortable with this. The left upper extremity was sterilely prepped and draped. 1% lidocaine mixed 50-50 with 0.5% Marcaine was used as a local anesthetic. A total 10 cc was used. Ultrasound was performed demonstrating that the cephalic vein of the forearm was thrombosed distally and very diminutive and thick-walled in the proximal forearm. It then became adequate in the upper arm albeit somewhat deep. After mapping I placed ink celeste. Instilled a local made a slightly oblique incision left upper arm identify the cephalic vein at the antecubital space. Tediously and carefully I dissected 8 cm proximally in the sub-cutaneous tissues carefully dissected the vein free. Side branches were secured with hemoclips. I then had the vein nicely mobilized. I marked the anterior wall of the vein. Sharp and blunt dissection was used to identify the brachial artery this also was circumferentially dissected free to allow for better mobilization. Having achieved that the patient received 8000 units of heparin intravenously. The vein was ligated distal at the antecubital space with hemoclips. The vein nicely had nice luminal diameter it was irrigated with heparinized saline. The brachial artery was secured carefully with vascular clamps. 11 blade was used to make an arteriotomy which was extended with Navarro scissors. A end-to-side venous to arterial anastomosis was created with a running 7-0 Prolene. Prior to completion there was excellent arterial inflow and venous outflow. The anastomosis was completed to complete hemostasis was intact. Patient still had a 2+ left radial artery and a viable hand. The fistula had an excellent pulse and thrill. Appear to have a good positional lie and I further dissected free some of the extra subcutaneous fatty tissue to allow for more superficial positioning of the vein. The wound was closed with a deep layer of interrupted 3-0 Vicryl. The skin edges were approximated running septic or 4-0 Monocryl. Steri-Strips Telfa tape dressing was applied. Sponge instrument and needle counts were reported the surgeon be correct. Blood loss was quite minimal. He tolerated the procedure well had a viable hand had an excellent thrill he was taken to the recovery area in satisfactory condition. Specimens none. Drains none. Blood loss minimal. Rusty rGier M.D., F.A.C.S. Type of Anesthesia:: Local MAC Anesthesiologist: Barron Jacob
== END 2018-05-30 15:14 | disposition home or self-care (01) ==
LOC: SDC 09:53 → AC 12:19
PROVIDERS: Family Provider Family Medicine Geriatric Medicine; PCP Family Medicine Geriatric Medicine; Referring Provider Surgery; Visit Provider Surgery
PROC: (CPT 36818; principal; 2018-05-30 11:30)
DX: T82.868A Thrombosis due to vascular prosthetic devices, implants and grafts, initial encounter (principal); I12.9 Hypertensive chronic kidney disease with stage 1 through stage 4 chronic kidney disease, or unspecified chronic kidney disease; E11.22 Type 2 diabetes mellitus with diabetic chronic kidney disease; N18.4 Chronic kidney disease, stage 4 (severe); N17.9 Acute kidney failure, unspecified; Z99.2 Dependence on renal dialysis; E78.5 Hyperlipidemia, unspecified; E78.00 Pure hypercholesterolemia, unspecified; Z85.038 Personal history of other malignant neoplasm of large intestine; Z90.49 Acquired absence of other specified parts of digestive tract; Z79.84 Long term (current) use of oral hypoglycemic drugs; Z79.899 Other long term (current) drug therapy
CPT/HCPCS: 01780; 36818; 82962; J7120

== ENCOUNTER → 2018-06-07 11:29 | Outpatient (CLI) | payer MEDICARE, SELFPAY ==
[2018-06-07 12:46] LABS: Absolute Lymphocyte Count 2.04 X10^3/ul (0.83-4.51); Absolute Neutrophil Count 4.3 X10^3/uL (2.0-7.7); Basophil# 0.02 X10^3/uL; Basophil% 0.3 % (0-1); Eosinophil# 0.18 X10^3/uL; Eosinophils% 2.6 % (0-5); Hematocrit 31.7 % (40-54); Hemoglobin 10.3 g/dl (13.0-16.5); Lymphocyte # 2.04 X10^3/ul (4.0); Lymphocyte % 29.4 % (19-41); Mean Corp Hgb Conc 32.5 g/gl (32-36); Mean Corpuscular Hgb 28.1 pg (27.0-32.0); Mean Corpuscular Volume 86.6 fL (80-94); Mean Platelet Vol. 10.8 fl (6.2-12.0); Monocyte# 0.43 X10^3/uL; Monocyte% 6.2 % (0-10); Neutrophil # 4.28 X10^3/uL (2.7-7.7); Neutrophil % 61.5 % (47-70); POSITIVE COUNT NO; POSITIVE DIFFERENTIAL NO; POSITIVE MORPHOLOGY NO; Platelet Count 174 K/mm3 (150-450); RBC Distribution Width CV 13.9 % (11.6-14.6); RBC Distribution Width SD 44.2 fl (35.1-43.9); Red Blood Count 3.66 M/mm3 (4.6-6.2)
[2018-06-07 12:55] LABS: Albumin, Serum 3.3 g/dL (3.2-5.0); BUN 30 mg/dL (7-18); BUN/Creat Ratio 12.4 RATIO (10-20); Calcium,Total 8.3 mg/dL (8.5-10.1); Chloride 111 mmol/L (98-107); Creatinine, Serum 2.42 mg/dL (0.70-1.30); EST Glomerular Filtration Rate 29 mL/min (>60); Est Glom Filt Rate - Afr Amer 35 mL/min (>60); Glucose 166 mg/dL (74-106); Phosphorus 2.8 mg/dL (2.5-4.9); Potassium 5.3 mmol/L (3.5-5.1); Sodium Level 142 mmol/L (136-145)
== END ==
PROVIDERS: Family Provider Family Medicine Geriatric Medicine; PCP Family Medicine Geriatric Medicine; Visit Provider Internal Medicine Nephrology
DX: N18.4 Chronic kidney disease, stage 4 (severe) (principal); D50.9 Iron deficiency anemia, unspecified
CPT/HCPCS: 36415; 80069; 85025

== ENCOUNTER → 2018-06-16 08:06 | Outpatient (CLI) | payer MEDICARE, SELFPAY ==
[2018-06-16 09:01] LABS: Anion Gap 5 (5-15); BUN 28 mg/dL (7-18); BUN/Creat Ratio 11.5 RATIO (10-20); Calcium,Total 8.2 mg/dL (8.5-10.1); Chloride 112 mmol/L (98-107); Creatinine, Serum 2.43 mg/dL (0.70-1.30); EST Glomerular Filtration Rate 28 mL/min (>60); Est Glom Filt Rate - Afr Amer 34 mL/min (>60); Glucose 80 mg/dL (74-106); Potassium 4.4 mmol/L (3.5-5.1); Sodium Level 143 mmol/L (136-145)
== END ==
PROVIDERS: Family Provider Family Medicine Geriatric Medicine; PCP Family Medicine Geriatric Medicine; Referring Provider Internal Medicine Nephrology; Visit Provider Internal Medicine Nephrology
DX: E11.22 Type 2 diabetes mellitus with diabetic chronic kidney disease (principal); N18.4 Chronic kidney disease, stage 4 (severe); N25.81 Secondary hyperparathyroidism of renal origin; D50.9 Iron deficiency anemia, unspecified; E87.5 Hyperkalemia
CPT/HCPCS: 36415; 80048

== ENCOUNTER → 2018-08-22 11:34 | Outpatient (CLI) | payer MEDICARE, SELFPAY ==
[2018-08-22 13:48] LABS: Protein, Urine (Random) 45.6 mg/dL (<11.9); Protein:Creat Ratio 463 mg/g CRE (0-200)
[2018-08-22 13:53] LABS: Albumin, Serum 3.7 g/dL (3.2-5.0); BUN 36 mg/dL (7-18); BUN/Creat Ratio 14.5 RATIO (10-20); Calcium,Total 8.8 mg/dL (8.5-10.1); Chloride 112 mmol/L (98-107); Creatinine, Serum 2.49 mg/dL (0.70-1.30); EST Glomerular Filtration Rate 28 mL/min (>60); Est Glom Filt Rate - Afr Amer 33 mL/min (>60); Ferritin 17 ng/mL (26-388); Glucose 73 mg/dL (74-106); Iron 80 ug/dL (65-175); Iron Binding Capacity,Total 359 ug/dL (250-450); Potassium 5.3 mmol/L (3.5-5.1); Sodium Level 144 mmol/L (136-145)
[2018-08-22 14:13] LABS: PTHIN 108.6 pg/mL (18.4-80.1)
== END ==
PROVIDERS: Family Provider Family Medicine Geriatric Medicine; PCP Family Medicine Geriatric Medicine; Visit Provider Internal Medicine Nephrology
DX: E87.5 Hyperkalemia (principal); E11.22 Type 2 diabetes mellitus with diabetic chronic kidney disease; N18.4 Chronic kidney disease, stage 4 (severe); N25.81 Secondary hyperparathyroidism of renal origin; D50.9 Iron deficiency anemia, unspecified
CPT/HCPCS: 36415; 80069; 82570; 82728; 83540; 83550; 83970; 84156

== ENCOUNTER → 2018-08-30 13:23 | Outpatient (CLI) | payer MEDICARE, SELFPAY ==
[2018-08-30 17:26] LABS: Potassium 4.7 mmol/L (3.5-5.1)
== END ==
PROVIDERS: Family Provider Family Medicine Geriatric Medicine; PCP Family Medicine Geriatric Medicine; Visit Provider Internal Medicine Nephrology
DX: E87.5 Hyperkalemia (principal); E11.22 Type 2 diabetes mellitus with diabetic chronic kidney disease; N18.4 Chronic kidney disease, stage 4 (severe); N25.81 Secondary hyperparathyroidism of renal origin; D50.9 Iron deficiency anemia, unspecified
CPT/HCPCS: 36415; 84132

== ENCOUNTER → 2018-10-19 11:21 | Outpatient (CLI) | payer MEDICARE, SELFPAY | PROVIDERS: Family Provider Family Medicine Geriatric Medicine; PCP Family Medicine Geriatric Medicine; Referring Provider Family Medicine Geriatric Medicine; Visit Provider Family Medicine Geriatric Medicine | DX: R50.9 Fever, unspecified (principal) | CPT/HCPCS: 87633 ==

== ENCOUNTER → 2018-11-02 11:11 | Outpatient (CLI) | payer MEDICARE, SELFPAY ==
--- NOTE | 2018-11-02 11:40 | RAD_ITS ---
STUDY: X-RAY - LEFT KNEE REASON FOR EXAM: Male, 68 years old. Chronic knee pain, recently acute. TECHNIQUE: 4 view(s) of the knee. COMPARISON: None. FINDINGS: There is degenerative periarticular spurring of the femoral condyles. 3 mm degenerative ossific density also seen along the medial margin of the medial femoral condyle. There is mild degenerative periarticular spurring of the medial tibial plateau. Normal visualized proximal fibula. There is near circumferential periarticular spurring of the patella, most prominent along its medial margin. There is no demonstrated destructive osseous lesion or acute fracture. There is mild degenerative arthrosis of the medial femorotibial compartment. Normal lateral femorotibial compartment. There is borderline to mild degenerative arthrosis of the patellofemoral articulation. Normal proximal tibiofibular articulation. There is no demonstrated joint effusion. The soft tissue structures are unremarkable. RAD/Knee 4 or More Views IMPRESSION: Degenerative changes of the left knee, as noted. Electronically Signed: Saúl Mejias MD at 16:03 EDT , Service support ,
[2018-11-02 15:47] LABS: Absolute Lymphocyte Count 1.68 X10^3/ul (0.83-4.51); Absolute Neutrophil Count 4.7 X10^3/uL (2.0-7.7); Basophil# 0.02 X10^3/uL; Basophil% 0.3 % (0-1); Eosinophil# 0.14 X10^3/uL; Hematocrit 36.1 % (40-54); Hemoglobin 8.4 g/dl (13.0-16.5); Lymphocyte # 1.68 X10^3/ul (4.0); Lymphocyte % 23.5 % (19-41); Mean Corp Hgb Conc 23.3 g/gl (32-36); Mean Corpuscular Hgb 21.2 pg (27.0-32.0); Mean Corpuscular Volume 90.9 fL (80-94); Mean Platelet Vol. 11.1 fl (6.2-12.0); Monocyte# 0.58 X10^3/uL; Monocyte% 8.1 % (0-10); Neutrophil # 4.71 X10^3/uL (2.7-7.7); Platelet Count 144 K/mm3 (150-450); RBC Distribution Width CV 14.6 % (11.6-14.6); RBC Distribution Width SD 47.3 fl (35.1-43.9); Red Blood Count 3.97 M/mm3 (4.6-6.2); White Blood Count 7.1 K/mm3 (4.4-11.0)
[2018-11-02 15:56] LABS: Anion Gap 4 (5-15); BUN 33 mg/dL (7-18); BUN/Creat Ratio 14.7 RATIO (10-20); CRP < 2.90 mg/L (0.0-3.0); Calcium,Total 8.5 mg/dL (8.5-10.1); Chloride 112 mmol/L (98-107); Creatinine, Serum 2.25 mg/dL (0.70-1.30); EST Glomerular Filtration Rate 31 mL/min (>60); Est Glom Filt Rate - Afr Amer 38 mL/min (>60); Glucose 101 mg/dL (74-106); Potassium 5.6 mmol/L (3.5-5.1); Sodium Level 142 mmol/L (136-145); Uric Acid 3.9 mg/dL (3.5-7.2)
[2018-11-02 16:27] LABS: POSITIVE COUNT NO; POSITIVE DIFFERENTIAL NO; POSITIVE MORPHOLOGY NO
[2018-11-02 16:37] LABS: Erythrocyte Sedimentation Rate 5 mm/hr (0-20)
== END ==
PROVIDERS: Family Provider Family Medicine Geriatric Medicine; PCP Family Medicine Geriatric Medicine; Referring Provider Family Medicine Geriatric Medicine; Visit Provider Family Medicine Geriatric Medicine
DX: M25.562 Pain in left knee (principal); I10 Essential (primary) hypertension; M10.9 Gout, unspecified
CPT/HCPCS: 36415; 73564; 80048; 84550; 85025; 85652; 86140

== ENCOUNTER 2018-11-14 13:30 | Outpatient (RCR) | payer MEDICARE, SELFPAY ==
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
--- NOTE | 2019-01-23 16:25 | HP.PT.NRP ---
HP - Discharge Summary (1) - Patient Information ALEISHA ERVIN was seen in my office for initial evaluation on 11/03/18. The following Plan of Care was established for this patient: Initial Frequency: 2-3x /Week Initial Duration: 4-6 Weeks - Anticipated Interventions Patient/Client Instruction: Educate patient on: Condition, Plan of Care, Risk Factors, Benefits of Fitness Program For the Purpose of:: To improve self management Therapeutic Exercise to Include: Strength training, Postural training, Flexibilty training, Dynamic Lumbar Stabilization For the Purpose of:: To decrease pain, To improve muscle performance and motor function, To increase tolerance to activity/condition/position, To improve ability of physical actions for home/community/work/leisure, To improve gait and locomotor functions This patient was last seen in our office 11/14/18. Pertinent comments regarding their Physical therapy will appear below: This patient has not returned to Physical Therapy and is appropriate to return to MD for further follow-up as needed. At this point I will be discontinuing this patient from physical therapy. I would be happy to see this patient again in the future if found appropriate by the physician. Thank you! Unique Erickson, PT, Cert MDT
== END 2018-11-14 19:00 | disposition home or self-care (01) ==
LOC: PT 13:30
PROVIDERS: Family Provider Family Medicine Geriatric Medicine; PCP Family Medicine Geriatric Medicine; Referring Provider Family Medicine Geriatric Medicine; Visit Provider Family Medicine Geriatric Medicine
DX: M25.569 Pain in unspecified knee (principal)
CPT/HCPCS: 97110; 97162; 97530

== ENCOUNTER → 2018-11-22 | Outpatient (CLI) | payer MEDICARE, SELFPAY ==
[2018-11-22 12:40] VITALS: BMI 29.3
[2018-11-22 16:07] LABS: Absolute Lymphocyte Count 1.97 X10^3/ul (0.83-4.51); Absolute Neutrophil Count 5.3 X10^3/uL (2.0-7.7); Basophil# 0.02 X10^3/uL; Basophil% 0.2 % (0-1); Eosinophil# 0.28 X10^3/uL; Eosinophils% 3.4 % (0-5); Hematocrit 39.3 % (40-54); Hemoglobin 12.9 g/dl (13.0-16.5); Lymphocyte # 1.97 X10^3/ul (4.0); Lymphocyte % 23.8 % (19-41); Mean Corp Hgb Conc 32.8 g/gl (32-36); Mean Corpuscular Hgb 29.1 pg (27.0-32.0); Mean Corpuscular Volume 88.5 fL (80-94); Mean Platelet Vol. 10.9 fl (6.2-12.0); Monocyte% 8.4 % (0-10); Neutrophil # 5.31 X10^3/uL (2.7-7.7); Neutrophil % 64.1 % (47-70); Platelet Count 154 K/mm3 (150-450); RBC Distribution Width CV 14.9 % (11.6-14.6); Red Blood Count 4.44 M/mm3 (4.6-6.2); White Blood Count 8.3 K/mm3 (4.4-11.0)
[2018-11-22 16:09] LABS: POSITIVE COUNT NO; POSITIVE DIFFERENTIAL NO; POSITIVE MORPHOLOGY NO
[2018-11-22 16:27] LABS: Vitamin D,25 Hydroxy 40.7 ng/mL (29.95-100.01)
[2018-11-22 16:38] LABS: ALB/GLOB Ratio 1.1 RATIO (0.9-2.4); AST(SGOT) 21 U/L (15-37); Alanine Aminotransfer ALT/SGPT 25 U/L (16-61); Albumin, Serum 3.5 g/dL (3.2-5.0); Alkaline Phosphatase 62 U/L (45-117); Anion Gap 7 (5-15); BUN 33 mg/dL (7-18); BUN/Creat Ratio 14.7 RATIO (10-20); Calcium,Total 8.5 mg/dL (8.5-10.1); Chloride 111 mmol/L (98-107); Creatinine, Serum 2.24 mg/dL (0.70-1.30); EST Glomerular Filtration Rate 31 mL/min (>60); Est Glom Filt Rate - Afr Amer 38 mL/min (>60); Globulin 3.2 g/dL (2.2-4.2); Glucose 57 mg/dL (74-106); Protein, Total 6.7 g/dL (6.4-8.2); Sodium Level 143 mmol/L (136-145); Thyroid Stim Hormone (TSH) 1.76 uIU/mL (0.358-3.74)
== END | disposition home or self-care (01) ==
LOC: POLAB3 13:01
PROVIDERS: Family Provider Family Medicine Geriatric Medicine; PCP Family Medicine Geriatric Medicine; Visit Provider Family Medicine Geriatric Medicine
DX: E87.6 Hypokalemia (principal); E11.9 Type 2 diabetes mellitus without complications; E55.9 Vitamin D deficiency, unspecified; I10 Essential (primary) hypertension
CPT/HCPCS: 36415; 80053; 82306; 84443; 85025

== ENCOUNTER → 2018-12-23 20:00 | Outpatient (CLI) | payer MEDICARE, SELFPAY ==
[2018-11-24 12:28] VITALS: BMI 29.3
== END ==
PROVIDERS: Family Provider Family Medicine Geriatric Medicine; PCP Family Medicine Geriatric Medicine; Visit Provider Family Medicine Geriatric Medicine
DX: G47.30 Sleep apnea, unspecified (principal); R06.83 Snoring
CPT/HCPCS: 95810

== ENCOUNTER → 2019-02-22 09:50 | Outpatient (CLI) | payer MEDICARE, SELFPAY ==
[2019-01-10 10:47] VITALS: BMI 62.9
== END ==
LOC: POLAB3 09:51 → LAB.FUTURE 15:06 → POLAB3 15:08 → LAB.FUTURE 08-26 00:33
PROVIDERS: Family Provider Family Medicine Geriatric Medicine; PCP Family Medicine Geriatric Medicine; Visit Provider Family Medicine Geriatric Medicine
DX: E11.9 Type 2 diabetes mellitus without complications (principal); E55.9 Vitamin D deficiency, unspecified; I10 Essential (primary) hypertension; Z12.5 Encounter for screening for malignant neoplasm of prostate

== ENCOUNTER → 2019-03-30 12:08 | Outpatient (CLI) | payer MEDICARE, SELFPAY ==
[2018-11-22 12:40] VITALS: BMI 29.3
[2019-01-10 10:47] VITALS: BMI 62.9
[2019-03-30 12:51] LABS: Hematocrit 38.3 % (40-54); Hemoglobin 13.1 g/dL (13.0-16.5); Mean Corp Hgb Conc 34.2 g/dL (32-36); Mean Corpuscular Hgb 31.1 pg (27.0-32.0); Mean Platelet Vol. 11.2 fl (6.2-12.0); Platelet Count 131 K/mm3 (150-450); RBC Distribution Width SD 39.8 fl (35.1-43.9); Red Blood Count 4.21 M/mm3 (4.6-6.2); White Blood Count 7.7 K/mm3 (4.4-11.0)
[2019-03-30 13:12] LABS: Albumin, Serum 3.4 g/dL (3.2-5.0); BUN 32 mg/dL (7-18); BUN/Creat Ratio 14.5 RATIO (10-20); Calcium,Total 8.6 mg/dL (8.5-10.1); Chloride 112 mmol/L (98-107); Creatinine, Serum 2.21 mg/dL (0.70-1.30); EST Glomerular Filtration Rate 32 mL/min (>60); Est Glom Filt Rate - Afr Amer 38 mL/min (>60); Glucose 86 mg/dL (74-106); Phosphorus 2.8 mg/dL (2.5-4.9); Potassium 4.9 mmol/L (3.5-5.1); Sodium Level 143 mmol/L (136-145)
[2019-03-30 13:36] LABS: PTHIN 132.7 pg/mL (18.4-80.1)
== END ==
PROVIDERS: Family Provider Family Medicine Geriatric Medicine; PCP Family Medicine Geriatric Medicine; Visit Provider Internal Medicine Nephrology
DX: N18.4 Chronic kidney disease, stage 4 (severe) (principal); N25.81 Secondary hyperparathyroidism of renal origin; E87.5 Hyperkalemia; D50.9 Iron deficiency anemia, unspecified
CPT/HCPCS: 36415; 80069; 83970; 85027

== ENCOUNTER → 2019-04-07 08:56 | Outpatient (CLI) | payer MEDICARE, SELFPAY ==
[2019-01-10 10:47] VITALS: BMI 62.9
--- NOTE | 2019-04-07 11:36 | RAD_ITS ---
STUDY: X-RAY - RIGHT WRIST REASON FOR EXAM: Male, 69 years old. Right wrist pain TECHNIQUE: 3 view(s) of the wrist were obtained. COMPARISON: None. FINDINGS: Osseous structures about the wrist appear acutely intact. There is evidence for small cortical erosion on the surface of the lunate. No other apparent degenerative features. Periarticular soft tissues unremarkable. Distal radius and ulna intact. RAD/Wrist min 3 Views IMPRESSION: Small cortical surface erosions of the lunate. Otherwise unremarkable wrist. No evidence of traumatic injury. Electronically Signed: Rohit Ardon MD at 14:00 EDT Tel , Service support ,
[2019-04-07 12:57] LABS: Absolute Lymphocyte Count 1.83 X10^3/uL (0.83-4.51); Absolute Neutrophil Count 4.7 X10^3/uL (2.0-7.7); Basophil# 0.04 X10^3/uL; Basophil% 0.6 % (0-1); Eosinophil# 0.17 X10^3/uL; Eosinophils% 2.4 % (0-5); Hematocrit 36.1 % (40-54); Hemoglobin 12.1 g/dL (13.0-16.5); Lymphocyte # 1.83 X10^3/ul (4.0); Lymphocyte % 25.3 % (19-41); Mean Corp Hgb Conc 33.5 g/dL (32-36); Mean Corpuscular Hgb 31.1 pg (27.0-32.0); Mean Corpuscular Volume 92.8 fL (80-94); Mean Platelet Vol. 10.7 fl (6.2-12.0); Monocyte% 6.9 % (0-10); NRBC Flagged by Analyzer 0 % (0-5); Neutrophil # 4.65 X10^3/uL (2.7-7.7); Neutrophil % 64.4 % (47-70); Platelet Count 136 K/mm3 (150-450); RBC Distribution Width CV 12.5 % (11.6-14.6); RBC Distribution Width SD 42.4 fl (35.1-43.9); Red Blood Count 3.89 M/mm3 (4.6-6.2); White Blood Count 7.2 K/mm3 (4.4-11.0)
[2019-04-07 13:20] LABS: Vitamin D,25 Hydroxy 24.3 ng/mL (29.95-100.01)
[2019-04-07 13:27] LABS: AST(SGOT) 15 U/L (15-37); Alanine Aminotransfer ALT/SGPT 15 U/L (16-61); Albumin, Serum 3.3 g/dL (3.2-5.0); Alkaline Phosphatase 69 U/L (45-117); Anion Gap 6 (5-15); BUN 29 mg/dL (7-18); BUN/Creat Ratio 14.1 RATIO (10-20); Calcium,Total 8.3 mg/dL (8.5-10.1); Chloride 112 mmol/L (98-107); Creatinine, Serum 2.05 mg/dL (0.70-1.30); EST Glomerular Filtration Rate 35 mL/min (>60); Est Glom Filt Rate - Afr Amer 42 mL/min (>60); Globulin 3.2 g/dL (2.2-4.2); Glucose 79 mg/dL (74-106); PSA,Total - Annual Screen 0.17 ng/mL (0.00-4.00); Potassium 4.7 mmol/L (3.5-5.1); Protein, Total 6.5 g/dL (6.4-8.2); Sodium Level 144 mmol/L (136-145); Thyroid Stim Hormone (TSH) 2.36 uIU/mL (0.358-3.74)
[2019-04-07 14:03] LABS: Hepatitis C Antibody Non-Reactive (Nonreactive)
== END ==
PROVIDERS: Family Provider Family Medicine Geriatric Medicine; PCP Family Medicine Geriatric Medicine; Referring Provider Family Medicine Geriatric Medicine; Visit Provider Family Medicine Geriatric Medicine
DX: E11.9 Type 2 diabetes mellitus without complications (principal); E55.9 Vitamin D deficiency, unspecified; I10 Essential (primary) hypertension; Z12.5 Encounter for screening for malignant neoplasm of prostate; Z13.89 Encounter for screening for other disorder; M25.531 Pain in right wrist
CPT/HCPCS: 36415; 73110; 80053; 82306; 84153; 84443; 85025; 86803; G0103

== ENCOUNTER 2019-05-11 22:19 | Observation (INO) | payer MEDICARE, SELFPAY ==
[2019-01-10 10:47] VITALS: BMI 62.9
[2019-05-11 22:21] VITALS: BP 165/80; PULSE 78; RESP 16; TEMP 36.7; O2SAT 98; BMI 28.2
--- NOTE | 2019-05-11 22:39 | CT_ITS ---
STUDY: CT ABDOMEN AND PELVIS WITHOUT CONTRAST REASON FOR EXAM: Male, 69 years old. Periumbilical abdominal pain, history of colon CA RADIATION DOSAGE (If Supplied By Facility): CTDIvol = ( 9.59 ) mGy, DLP = ( 488.79 ) mGycm TECHNIQUE: Transaxial images were obtained from the dome of the diaphragm to the symphysis pubis without oral contrast, and without intravenous contrast. Sagittal and coronal images were reconstructed. Individualized dose optimization techniques were used for this CT. COMPARISON: Prior study of 12/22/2017 FINDINGS: The study is technically limited, being performed without oral and intravenous contrast. The visualized lung bases are unremarkable. There is mild cardiomegaly. There is no pericardial effusion. Normal liver. Normal gallbladder and extrahepatic biliary system. Normal spleen. Normal pancreas. Normal bilateral adrenal glands. Normal right kidney. Normal left kidney. Normal visualized stomach. There is mild dilatation with air-fluid levels of several loops of small bowel in the abdomen and pelvis. There are postsurgical changes of the rectosigmoid. There is a tiny amount of free fluid in the deep pelvis. The appendix is visualized and appears normal. Normal abdominal aorta. There are calcified plaques of the abdominal aorta. Normal retroperitoneum. Normal urinary bladder. The prostate, seminal vesicles, and seminal vesicle angles appear normal. There is a ventral hernia containing omental fat. There is no evidence of associated inflammatory process. There are also small bilateral fat-containing inguinal hernias. There are mild degenerative changes of the visualized thoracolumbar spine. CT/Abdomen/Pelvis without Cont IMPRESSION: 1. Mild dilatation with air-fluid levels of several loops of small bowel in the abdomen and pelvis. Findings may represent early or incomplete small bowel obstruction. 2. There is a tiny amount of free fluid in the deep pelvis. 3. There are postsurgical changes of the rectosigmoid. 4. There is a ventral hernia containing omental fat. There is no associated inflammatory process. 5. There are small bilateral fat-containing inguinal hernias. Electronically Signed: Braeden Pennington MD at 23:18 EDT , Service support ,
--- NOTE | 2019-05-11 22:39 | ED.DCSUM_ITS ---
History of Present Illness Chief Complaint: Abd Pain Informant: Patient Narrative: Dense with middle abdominal pain for last 2 hours. It came on gradually. It is a cramping sharp pain in the middle of his abdomen. It does help to push on it with his hands. He associates nausea with one episode of emesis. He has small bowel movement this afternoon. Normal bowel movements yesterday. Status post remote partial colectomy 10 cm for rectal cancer. It was 5 years ago. He has had no problems since. He is not had any chemo or radiation for several years. Forearm patient does have a periumbilical hernia that he is been watching it does not hurt him. Current severity is moderate. He is tried Gas-X with minimal relief. No previous pain like this. - Past Medical History (1) Acute renal failure superimposed on stage 3 chronic kidney disease Status: Acute (2) Chronic renal failure, stage 4 (severe) Status: Acute (3) Hx of colectomy Status: Acute Comment: 2012 (4) Hyperkalemia Status: Acute (5) Metabolic acidosis Status: Acute (6) GERA (obstructive sleep apnea) Status: Acute (7) Problem with dialysis access Status: Acute (8) Renal cyst, right Status: Acute (9) Sepsis Status: Acute (10) Urinary tract infection due to extended-spectrum beta lactamase (ESBL) producing Escherichia coli Status: Acute (11) Anemia in chronic kidney disease Status: Chronic (12) Diabetes mellitus, type II Status: Chronic (13) HLD (hyperlipidemia) Status: Chronic (14) HTN (hypertension) Status: Chronic (15) History of colon cancer Status: Chronic (16) Iron deficiency Status: Resolved Past Medical History - Allergies and Home Meds Allergies/Adverse Reactions: Allergies No Known Allergies Allergy (Verified 05/11/19 22:23) Primary Care Physician: Nabeel Reyes Chi, MD [Primary Care Provider] - Prior records reviewed: Yes Past Medical History: - - See problem list Surgical History: - - Reviewed Lives: With Family Smoking Status: Never smoker Alcohol: None Drugs: None - Family History Maternal Family History: Reports: Cancer, Diabetes, Renal Disease Paternal Family History: Reports: Heart Disease, Hypertension Review of Systems General: Denies: Chills, Fever, Sweats Eyes: Denies: Visual changes - bilaterally, Diplopia ENT: Denies: Rhinorrhea, Sore throat Cardiovascular: Denies: Chest pain, Palpitations Respiratory: Denies: Dyspnea, Cough, Dyspnea on exertion Gastrointestinal: Reports: Abdominal pain, Nausea, Vomiting. Denies: Diarrhea, Melena, Hematochezia Genitourinary: Denies: Dysuria, Hematuria, Frequency Musculoskeletal: Denies: Back pain, Extremity Pain Skin: Denies: Rash, Wounds Neurological: Denies: Headache, Weakness, Numbness Physical Exam Vital Signs/Narrative: Vital Signs Temp Pulse Resp BP Pulse Ox 05/11/19 22:21 98.1 F 78 16 165/80 H 98 General: Well nourished, Well developed, No Acute Distress Head: Normocephalic, Atraumatic Eyes: Perrl, EOMI ENT: Moist mucous membranes, No rhinorrhea Neck: Supple, Nontender Cardiovascular: Regular rate, Regular rhythm, No murmurs Respiratory: No distress, CTA bilaterally, Chest nontender Abdomen: Soft, Nondistended, Normal bowel sounds, Tender. Negative for: Nontender - Mild tenderness in the umbilical region of the abdomen. The hernia that he was speaking about is not palpated. There is no strangulation or incar ceration. There is no guarding or rebound. He is able to allow me to palpate deeply. Sometimes it seems to bother him and sometimes it does not., Guarding, Rebound tenderness, Pulsatile mass, Swift's sign Back: Nontender, Normal Inspection Extremities: Nontender, No edema Skin: Normal color, No rash Neurological: Alert, Oriented x3, Cranial nerves II-XII grossly intact, Normal Strength, Normal Sensation Psychological: Normal affect, Normal Mood Diagnostic/Tx/Re-eval Impressions Abdomen/Pelvis CT 05/11/19 22:39 IMPRESSION: 1. Mild dilatation with air-fluid levels of several loops of small bowel in the abdomen and pelvis. Findings may represent early or incomplete small bowel obstruction. 2. There is a tiny amount of free fluid in the deep pelvis. 3. There are postsurgical changes of the rectosigmoid. 4. There is a ventral hernia containing omental fat. There is no associated inflammatory process. 5. There are small bilateral fat-containing inguinal hernias. Electronically Signed: Braeden Pennington MD at 23:18 EDT , Service support , 05/11/19 22:39 Abdomen/Pelvis without Cont [CT] Stat 05/11/19 23:29 Abdomen Single View (Portable) [RAD] Stat Laboratory Results 05/11/19 05/11/19 05/11/19 22:30 22:50 22:50 WBC 10.4 RBC 4.33 L Hgb 13.4 Hct 39.0 L MCV 90.1 MCH 30.9 MCHC 34.4 RDW Std Deviation 39.9 RDW Coeff of Teresa 12.1 Plt Count 154 MPV 10.0 Immature Gran % (Auto) 0.200 Neut % (Auto) 58.6 Lymph % (Auto) 32.9 [place] % (Auto) 6.2 Eos % (Auto) 1.8 Baso % (Auto) 0.3 Absolute Neuts (auto) 6.1 Absolute Lymphs (auto) 3.43 Nucleated RBC % 0 Sodium 140 Potassium 4.3 Chloride 109 H Carbon Dioxide 25.0 Anion Gap 6 BUN 31 H Creatinine 2.38 H Estim Creat Clear Calc 26.81 Est GFR (MDRD) Af Amer 35 L Est GFR (MDRD) Non-Af 29 L BUN/Creatinine Ratio 13.0 Glucose 147 H Calcium 8.8 Total Bilirubin 0.70 AST 15 ALT 13 L Alkaline Phosphatase 72 Total Protein 6.8 Albumin 3.7 Globulin 3.1 Albumin/Globulin Ratio 1.2 Lipase 340 Urine Color Yellow Urine Clarity Sl. Cloudy Urine pH 6.0 Ur Specific [employer] 1.015 Urine Protein 100 H Urine Glucose (UA) Normal Urine Ketones Negative Urine Occult Blood 10 H Urine Nitrite Negative Urine Bilirubin Negative Urine Urobilinogen Normal Ur Leukocyte Esterase Negative Urine RBC 0-5 SEEN Urine WBC 0 SEEN Ur Squamous Epith Cells 0-5 SEEN Urine Bacteria 0 SEEN Urine Mucus 0 SEEN - Medical Decision Making Given IV fluids Zofran morphine. Lab work CT abdomen pelvis obtained. Lab work below. Patient has no leukocytosis. He does have chronic renal insufficiency. He is not doing dialysis they are monitoring. His creatinine is baseline. Liver function test and lipase show no abnormality. CT shows a early or incomplete small bowel obstruction. Discussed with surgery Dr. Painter is the hospitalist and the patient will be admitted to the hospitalist service. NG was placed. Patient resting comfortably. I suspect this is adhesion related partial small bowel obstruction. Impressions Abdomen/Pelvis CT 05/11/19 22:39 IMPRESSION: 1. Mild dilatation with air-fluid levels of several loops of small bowel in the abdomen and pelvis. Findings may represent early or incomplete small bowel obstruction. 2. There is a tiny amount of free fluid in the deep pelvis. 3. There are postsurgical changes of the rectosigmoid. 4. There is a ventral hernia containing omental fat. There is no associated inflammatory process. 5. There are small bilateral fat-containing inguinal hernias. Electronically Signed: Braeden Pennington MD at 23:18 EDT , Service support , 05/11/19 22:39 Abdomen/Pelvis without Cont [CT] Stat 05/11/19 23:29 Abdomen Single View (Portable) [RAD] Stat Laboratory Results 05/11/19 05/11/19 05/11/19 22:30 22:50 22:50 WBC 10.4 RBC 4.33 L Hgb 13.4 Hct 39.0 L MCV 90.1 MCH 30.9 MCHC 34.4 RDW Std Deviation 39.9 RDW Coeff of Teresa 12.1 Plt Count 154 MPV 10.0 Immature Gran % (Auto) 0.200 Neut % (Auto) 58.6 Lymph % (Auto) 32.9 [place] % (Auto) 6.2 Eos % (Auto) 1.8 Baso % (Auto) 0.3 Absolute Neuts (auto) 6.1 Absolute Lymphs (auto) 3.43 Nucleated RBC % 0 Sodium 140 Potassium 4.3 Chloride 109 H Carbon Dioxide 25.0 Anion Gap 6 BUN 31 H Creatinine 2.38 H Estim Creat Clear Calc 26.81 Est GFR (MDRD) Af Amer 35 L Est GFR (MDRD) Non-Af 29 L BUN/Creatinine Ratio 13.0 Glucose 147 H Calcium 8.8 Total Bilirubin 0.70 AST 15 ALT 13 L Alkaline Phosphatase 72 Total Protein 6.8 Albumin 3.7 Globulin 3.1 Albumin/Globulin Ratio 1.2 Lipase 340 Urine Color Yellow Urine Clarity Sl. Cloudy Urine pH 6.0 Ur Specific [employer] 1.015 Urine Protein 100 H Urine Glucose (UA) Normal Urine Ketones Negative Urine Occult Blood 10 H Urine Nitrite Negative Urine Bilirubin Negative Urine Urobilinogen Normal Ur Leukocyte Esterase Negative Urine RBC 0-5 SEEN Urine WBC 0 SEEN Ur Squamous Epith Cells 0-5 SEEN Urine Bacteria 0 SEEN Urine Mucus 0 SEEN ED Disposition - Plan for ED Patient: Diagnosis: Small bowel obstruction
[2019-05-11] MEDS: Morphine 4 MG/ML Syringe IV (22:49)
[2019-05-11] MEDS: 0.9% Normal Saline 1,000 ML 1000 ML IV (22:49)
[2019-05-11] MEDS: Ondansetron 4 MG/2 ML Vial IV (22:49)
[2019-05-11 22:55] LABS: Bacteria 0 SEEN /hpf (None Seen); Mucous, Urine 0 SEEN /hpf (<or=2+); White Blood Cells 0 SEEN /hpf (0-5)
[2019-05-11 23:01] LABS: Absolute Lymphocyte Count 3.43 X10^3/uL (0.83-4.51); Absolute Neutrophil Count 6.1 X10^3/uL (2.0-7.7); Basophil# 0.03 X10^3/uL; Basophil% 0.3 % (0-1); Eosinophil# 0.19 X10^3/uL; Eosinophils% 1.8 % (0-5); Hemoglobin 13.4 g/dL (13.0-16.5); Lymphocyte # 3.43 X10^3/ul (4.0); Lymphocyte % 32.9 % (19-41); Mean Corp Hgb Conc 34.4 g/dL (32-36); Mean Corpuscular Hgb 30.9 pg (27.0-32.0); Mean Corpuscular Volume 90.1 fL (80-94); Monocyte# 0.65 X10^3/uL; Monocyte% 6.2 % (0-10); NRBC Flagged by Analyzer 0 % (0-5); Neutrophil # 6.09 X10^3/uL (2.7-7.7); Neutrophil % 58.6 % (47-70); Platelet Count 154 K/mm3 (150-450); RBC Distribution Width CV 12.1 % (11.6-14.6); RBC Distribution Width SD 39.9 fl (35.1-43.9); Red Blood Count 4.33 M/mm3 (4.6-6.2); White Blood Count 10.4 K/mm3 (4.4-11.0)
[2019-05-11 23:05] LABS: Color, Urine Yellow (Yellow); Glucose, Dipstick Normal (Normal); Ketone-Dipstick Negative (Negative); Leukocyte Esterase-Dipstick Negative /ul (Negative); Nitrite-Dipstick Negative (Negative); Occult Blood-Urine 10 /ul (Negative); Protein-Dipstick 100 mg/dl (Negative); Specific Gravity, Urine 1.015 (1.002-1.030); Urine Bilirubin Dipstick Negative (Negative); Urine Clarity Sl. Cloudy (Clear); Urine Urobilinogen Normal (Normal)
[2019-05-11 23:12] LABS: ALB/GLOB Ratio 1.2 RATIO (0.9-2.4); AST(SGOT) 15 U/L (15-37); Alanine Aminotransfer ALT/SGPT 13 U/L (16-61); Albumin, Serum 3.7 g/dL (3.2-5.0); Alkaline Phosphatase 72 U/L (45-117); Anion Gap 6 (5-15); BUN 31 mg/dL (7-18); Calcium,Total 8.8 mg/dL (8.5-10.1); Chloride 109 mmol/L (98-107); Creatinine, Serum 2.38 mg/dL (0.70-1.30); EST Glomerular Filtration Rate 29 mL/min (>60); Est Glom Filt Rate - Afr Amer 35 mL/min (>60); Estimated Creatinine Clearance 26.81 ml/min; Globulin 3.1 g/dL (2.2-4.2); Glucose 147 mg/dL (74-106); Lipase 340 U/L (73-393); Potassium 4.3 mmol/L (3.5-5.1); Protein, Total 6.8 g/dL (6.4-8.2); Sodium Level 140 mmol/L (136-145)
[2019-05-11 23:15] VITALS: BP 165/70; PULSE 66; RESP 17; TEMP 36.9; O2SAT 99
[2019-05-11 23:18] LABS: Red Blood Cells-Urine 0-5 SEEN /hpf (0-5); Squamous Epithelial Cells - UA 0-5 SEEN /hpf (0-5)
--- NOTE | 2019-05-11 23:29 | RAD_ITS ---
STUDY: X-RAY - ABDOMEN/PELVIS REASON FOR EXAM: Male, 69 years old. Nasogastric tube placement TECHNIQUE: AP portable COMPARISON: CT abdomen and pelvis from 05/11/2019 FINDINGS: Gastric tube tracks into the stomach. The prior noted mildly dilated loops of small bowel are not well demonstrated.. There is no demonstrated free abdominal air. The visualized liver, spleen and kidneys are grossly normal in size and morphology. Normal soft tissue structures. Negative visualized osseous structures. RAD/Abdomen Single View (Portable) IMPRESSION: Interval insertion of nasogastric tube tracking into the stomach. Electronically Signed: Refugio Erwin, at 1:07 EDT Tel , Service support ,
--- NOTE | 2019-05-11 23:44 | PCM.HP.STD ---
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: without intermediate use Diabetes mellitus complication status: with unspecified complications (6) HTN (hypertension) Status: Chronic Qualifiers: Hypertension type: essential hypertension Qualified Code(s): I10 - Essential (primary) hypertension (7) HLD (hyperlipidemia) Status: Chronic Qualifiers: Hyperlipidemia type: unspecified Qualified Code(s): E78.5 - Hyperlipidemia, unspecified History of Present Illness Date of Admission: 05/11/19 Chief Complaint: Nausea and abdominal pain The patient is a 69 year old M with PMH as below who presents with 1 day of abdominal pain and nausea that started a few hours prior to admission. He states that he had rectal cancer about 5 years ago and is status post rectal resection with reanastomosis. He developed abdominal pain and nausea 2 hours prior to presentation to the ER. He has never had anything like this before. CT of the abdomen and pelvis in the ER demonstrated mild dilatation with air-fluid levels several loops of small bowel in the abdomen and pelvis. An NG tube was placed with about 100 cc of output. Lab work is unremarkable and at baseline. Past Medical History Past Medical History (Chronic Problems): Chronic Problems (Last Reviewed 01/10/19 @ 11:05 by Augustina Armstrong NP-C) Anemia in chronic kidney disease (Chronic) History of colon cancer (Chronic) Diabetes mellitus, type II (Chronic) HTN (hypertension) (Chronic) HLD (hyperlipidemia) (Chronic) Medical History: Medical History (Last Reviewed 01/10/19 @ 11:05 by Augustina Armstrong NP-C) Problem with dialysis access (Acute) T82.898A Chronic renal failure, stage 4 (severe) (Acute) N18.4 Urinary tract infection due to extended-spectrum beta lactamase (ESBL) producing Escherichia coli (Acute) N39.0, B96.29, Z16.12 Renal cyst, right (Acute) N28.1 Metabolic acidosis (Acute) E87.2 Acute renal failure superimposed on stage 3 chronic kidney disease (Acute) N17.9, N18.3 History of colon cancer (Chronic) Z85.038 Diabetes mellitus, type II (Chronic) E11.9 HTN (hypertension) (Chronic) I10 HLD (hyperlipidemia) (Chronic) E78.5 Hyperkalemia (Acute) E87.5 Sepsis (Acute) A41.9 Allergies No Known Allergies Allergy (Verified 05/11/19 22:23) Home Medications: Ambulatory Orders Medication Instructions Recorded Pregabalin [Lyrica] 25 mg PO BID 02/04/18 glimepiride 1 mg tablet 2 mg PO DAILY@0800 tab 05/19/18 Metoprolol Succinate 25 mg PO DAILY 05/30/18 Atorvastatin Calcium [Lipitor] 40 mg PO DAILY 11/08/18 Surgical History: Surgical History (Last Reviewed 01/10/19 @ 11:05 by MACEY Hope) Hx of colectomy (Acute) Z90.49 2013 Presence of surgically created arteriovenous shunt for hemodialysis Z99.2 Surgical History: - - Reviewed Psychiatric History: No pertinent psych hx Lives: With Family Smoking Status: Never smoker Alcohol: None Drugs: None - *Family History Maternal History Items: Cancer, Diabetes, Renal Disease Paternal History Items: Heart Disease, Hypertension Review of Systems Constitutional: Denies: Chills, Fever, Weight Change HEENT: Denies: Head Aches, Sinus Congestion, Sinus Drainage Cardiovascular: Denies: Chest Pain, Palpitations Respiratory: Denies: Cough, Shortness of breath at rest, Sputum production Gastrointestinal: Reports: Abdominal Pain, Nausea. Denies: Vomiting Genitourinary: Denies: Dysuria Musculoskeletal: Denies: Joint Pain, Joint Tenderness Skin: Denies: Rash, Wounds Neurological: Denies: Numbness, Tingling, Focal weakness Psychiatric: Denies: Anxiety, Depression, Homicidal Ideations, Suicidal Ideations Hematologic/ Lymphatic: Denies: Easy Bruising, Easy Bleeding VTE Information - Inpt Only VTE Present on Admission: No Patient Problems: Active and Suspected Problems (Last Reviewed 01/10/19 @ 11:05 by MACEY Hope) Small bowel obstruction (Acute) - Physical Exam General: Alert, Oriented x3, Cooperative, No apparent distress HEENT: Atraumatic, PERRLA, EOMI, Normocephalic Oral: Moist Mucosa Neck: Supple, No JVD Lungs: Clear to auscultation, Normal air movement, No rhonchi, No wheeze, No rales Cardiovascular: Regular rate, Regular Rhythm, Normal S1, Normal S2, No murmurs Abdomen: Soft, Non Tender, Non-Distended, No Hepato-splenomegaly Extremities: No edema, Capillary Refill Less than 3 Seconds Skin: No rashes, No breakdown Neurological: Neuro grossly intact, Sensory exam intact to light touch and pain Psych/Mental Status: Normal Affect, Appropriate Vital Signs Temp Pulse Resp BP Pulse Ox 98.1 F 78 16 165/80 H 98 05/11/19 22:21 05/11/19 22:21 05/11/19 22:21 05/11/19 22:21 05/11/19 22:21 Oxygen Delivery Method Room Air Weight: 175 lb Body Mass Index (BMI) 28.2 Laboratory Tests Past 24 Hrs 05/11/19 05/11/19 05/11/19 22:30 22:50 22:50 WBC 10.4 RBC 4.33 L Hgb 13.4 Hct 39.0 L MCV 90.1 MCH 30.9 MCHC 34.4 RDW Std Deviation 39.9 RDW Coeff of Teresa 12.1 Plt Count 154 MPV 10.0 Immature Gran % (Auto) 0.200 Neut % (Auto) 58.6 Lymph % (Auto) 32.9 [place] % (Auto) 6.2 Eos % (Auto) 1.8 Baso % (Auto) 0.3 Absolute Neuts (auto) 6.1 Absolute Lymphs (auto) 3.43 Nucleated RBC % 0 Sodium 140 Potassium 4.3 Chloride 109 H Carbon Dioxide 25.0 Anion Gap 6 BUN 31 H Creatinine 2.38 H Estim Creat Clear Calc 26.81 Est GFR (MDRD) Af Amer 35 L Est GFR (MDRD) Non-Af 29 L BUN/Creatinine Ratio 13.0 Glucose 147 H Calcium 8.8 Total Bilirubin 0.70 AST 15 ALT 13 L Alkaline Phosphatase 72 Total Protein 6.8 Albumin 3.7 Globulin 3.1 Albumin/Globulin Ratio 1.2 Lipase 340 Urine Color Yellow Urine Clarity Sl. Cloudy Urine pH 6.0 Ur Specific [place] 1.015 Urine Protein 100 H Urine Glucose (UA) Normal Urine Ketones Negative Urine Occult Blood 10 H Urine Nitrite Negative Urine Bilirubin Negative Urine Urobilinogen Normal Ur Leukocyte Esterase Negative Urine RBC 0-5 SEEN Urine WBC 0 SEEN Ur Squamous Epith Cells 0-5 SEEN Urine Bacteria 0 SEEN Urine Mucus 0 SEEN Assessment/Plan All Active Problems (Last Reviewed 01/10/19 @ 11:05 by Augustina Armstrong, GATE PERSON-C) Small bowel obstruction (Acute) GERA (obstructive sleep apnea) (Acute) Iron deficiency (Resolved) Problem with dialysis access (Acute) Chronic renal failure, stage 4 (severe) (Acute) Hx of colectomy (Acute) Urinary tract infection due to extended-spectrum beta lactamase (ESBL) producing Escherichia coli (Acute) Renal cyst, right (Acute) Metabolic acidosis (Acute) Acute renal failure superimposed on stage 3 chronic kidney disease (Acute) Hyperkalemia (Acute) Sepsis (Acute) 1. Small bowel obstruction -Secondary to adhesions from his previous abdominal surgery for his rectal cancer -Consult to general surgery -NG tube placed in the ER continue with low intermittent wall suction -N.p.o. -IV fluids -Chloraseptic [place] for comfort 2. Chronic kidney disease stage IV -Creatinine is at baseline 2.38 -We will continue to monitor 3. DM 2 -He is on glimepiride at home, will hold -Sliding scale insulin with Accu-Cheks every 4 while n.p.o. 4. HTN/HLD -We will hold his home medications for now while he is n.p.o. -If his blood pressure be does become difficult to manage could likely restart his metoprolol with sips and clamping the NG tube for 30 minutes DVT: Heparin Code Visit Inpatient E&M: 16838 Init Hosp L2
[2019-05-12] VITALS (7 sets, daily range): BP systolic 161–193; BP diastolic 69–93; PULSE 67–79; RESP 18; TEMP 36.6–37.1; O2SAT 98–100; BMI 28.5
[2019-05-12] MEDS: 0.9% Normal Saline 1,000 ML 100 ML IV (02:03)
[2019-05-12] MEDS: Metoprolol(XL)Succ 25 MG Tablet PO ×2 (02:03→13:25)
[2019-05-12] MEDS: Insulin Lispro 100 UNIT/ML INSULN.PEN SC ×2 (02:21→11:18)
[2019-05-12 02:31] LABS: Bedside Glucose 152 mg/dL (70-110)
[2019-05-12 06:05] LABS: Bedside Glucose 146 mg/dL (70-110)
[2019-05-12] MEDS: Heparin Injection (Vial) 5,000 UNIT/ML VIAL 5000 UNIT SC (06:05)
[2019-05-12 06:42] LABS: Anion Gap 6 (5-15); BUN 31 mg/dL (7-18); Calcium,Total 8.2 mg/dL (8.5-10.1); Chloride 111 mmol/L (98-107); Creatinine, Serum 2.06 mg/dL (0.70-1.30); EST Glomerular Filtration Rate 34 mL/min (>60); Est Glom Filt Rate - Afr Amer 42 mL/min (>60); Estimated Creatinine Clearance 30.97 ml/min; Glucose 141 mg/dL (74-106); Potassium 4.7 mmol/L (3.5-5.1); Sodium Level 143 mmol/L (136-145)
[2019-05-12 06:46] LABS: Absolute Lymphocyte Count 1.37 X10^3/uL (0.83-4.51); Absolute Neutrophil Count 6.1 X10^3/uL (2.0-7.7); Basophil# 0.02 X10^3/uL; Basophil% 0.2 % (0-1); Eosinophil# 0.06 X10^3/uL; Eosinophils% 0.7 % (0-5); Hematocrit 38.2 % (40-54); Hemoglobin 12.9 g/dL (13.0-16.5); Lymphocyte # 1.37 X10^3/ul (4.0); Lymphocyte % 17.1 % (19-41); Mean Corp Hgb Conc 33.8 g/dL (32-36); Mean Corpuscular Hgb 30.6 pg (27.0-32.0); Mean Corpuscular Volume 90.5 fL (80-94); Mean Platelet Vol. 10.3 fl (6.2-12.0); Monocyte# 0.49 X10^3/uL; Monocyte% 6.1 % (0-10); NRBC Flagged by Analyzer 0 % (0-5); Neutrophil # 6.05 X10^3/uL (2.7-7.7); Neutrophil % 75.5 % (47-70); Platelet Count 133 K/mm3 (150-450); RBC Distribution Width CV 12.1 % (11.6-14.6); RBC Distribution Width SD 39.8 fl (35.1-43.9); Red Blood Count 4.22 M/mm3 (4.6-6.2)
[2019-05-12] MEDS: hydrALAZINE 20 MG/ML Vial 10 MG IV (07:02)
--- NOTE | 2019-05-12 07:07 | PCM.PROGNOTE ---
Patient Problems: Active and Suspected Problems (Last Reviewed 01/10/19 @ 11:05 by MCAEY Hope) Small bowel obstruction (Acute) Subjective: The patient is an 69-year-old male with a past medical history of anemia of chronic renal disease, stage IV chronic renal failure, diabetes mellitus type 2, hypertension, hyperlipidemia and history of partial colectomy for rectal CA who presented to the emergency department at [facility] on 05/11/2019 complaining of nausea and abdominal pain. CT scan of the abdomen and pelvis showed mild dilatation with air-fluid levels of several loops of small bowel in the abdomen and pelvis. NG was placed and he was admitted to the hospital with a diagnosis of small bowel obstruction and Dr. Painter was consulted to participate in management. All events the past 24 hours of been reviewed. Blood pressures have been elevated through the night and he has been receiving oral antihypertensives with clamping of the NG tube for 1 hour. Current blood pressure is 193/84 and IV hydralazine has been ordered. He is maintaining appropriate oxygen saturation on room air. Fluid balance since admission is +630. White blood cell count remains normal at 8.0 with 75% neutrophils. Hemoglobin is 12.9 today and platelets are low at 133,000. The BUN is 31 and the creatinine is 2.06. Baseline creatinine has ranged from 2.09-2.49 in 2019. - Physical Exam Vital Signs Temp Pulse Resp BP Pulse Ox 97.8 F 73 18 193/84 H 100 05/12/19 05:48 05/12/19 07:02 05/12/19 05:48 05/12/19 05:48 05/12/19 05:48 Oxygen Delivery Method Room Air Weight: 179 lb 3 oz Body Mass Index (BMI) 28.5 Intake and Output for Last 24 Hours 05/10/19 05/11/19 05/12/19 23:59 23:59 23:59 Intake Total 1030 / 1030 Output Total 400 / 400 Balance 630 / 630 Laboratory Tests Past 24 Hrs 05/11/19 05/11/19 05/11/19 22:30 22:50 22:50 WBC 10.4 RBC 4.33 L Hgb 13.4 Hct 39.0 L MCV 90.1 MCH 30.9 MCHC 34.4 RDW Std Deviation 39.9 RDW Coeff of Teresa 12.1 Plt Count 154 MPV 10.0 Immature Gran % (Auto) 0.200 Neut % (Auto) 58.6 Lymph % (Auto) 32.9 [place] % (Auto) 6.2 Eos % (Auto) 1.8 Baso % (Auto) 0.3 Absolute Neuts (auto) 6.1 Absolute Lymphs (auto) 3.43 Nucleated RBC % 0 Sodium 140 Potassium 4.3 Chloride 109 H Carbon Dioxide 25.0 Anion Gap 6 BUN 31 H Creatinine 2.38 H Estim Creat Clear Calc 26.81 Est GFR (MDRD) Af Amer 35 L Est GFR (MDRD) Non-Af 29 L BUN/Creatinine Ratio 13.0 Glucose 147 H Calcium 8.8 Total Bilirubin 0.70 AST 15 ALT 13 L Alkaline Phosphatase 72 Total Protein 6.8 Albumin 3.7 Globulin 3.1 Albumin/Globulin Ratio 1.2 Lipase 340 Urine Color Yellow Urine Clarity Sl. Cloudy Urine pH 6.0 Ur Specific [place] 1.015 Urine Protein 100 H Urine Glucose (UA) Normal Urine Ketones Negative Urine Occult Blood 10 H Urine Nitrite Negative Urine Bilirubin Negative Urine Urobilinogen Normal Ur Leukocyte Esterase Negative Urine RBC 0-5 SEEN Urine WBC 0 SEEN Ur Squamous Epith Cells 0-5 SEEN Urine Bacteria 0 SEEN Urine Mucus 0 SEEN 05/12/19 05/12/19 05:55 05:55 WBC 8.0 RBC 4.22 L Hgb 12.9 L Hct 38.2 L MCV 90.5 MCH 30.6 MCHC 33.8 RDW Std Deviation 39.8 RDW Coeff of Teresa 12.1 Plt Count 133 L MPV 10.3 Immature Gran % (Auto) 0.400 Neut % (Auto) 75.5 H Lymph % (Auto) 17.1 L [place] % (Auto) 6.1 Eos % (Auto) 0.7 Baso % (Auto) 0.2 Absolute Neuts (auto) 6.1 Absolute Lymphs (auto) 1.37 Nucleated RBC % 0 Sodium 143 Potassium 4.7 Chloride 111 H Carbon Dioxide 26.0 Anion Gap 6 BUN 31 H Creatinine 2.06 H Estim Creat Clear Calc 30.97 Est GFR (MDRD) Af Amer 42 L Est GFR (MDRD) Non-Af 34 L BUN/Creatinine Ratio 15.0 Glucose 141 H Calcium 8.2 L Total Bilirubin AST ALT Alkaline Phosphatase Total Protein Albumin Globulin Albumin/Globulin Ratio Lipase Urine Color Urine Clarity Urine pH Ur Specific [place] Urine Protein Urine Glucose (UA) Urine Ketones Urine Occult Blood Urine Nitrite Urine Bilirubin Urine Urobilinogen Ur Leukocyte Esterase Urine RBC Urine WBC Ur Squamous Epith Cells Urine Bacteria Urine Mucus POC Glucose 05/12/19 05/12/19 05:59 02:20 POC Glucose 146 H 152 H Medical Necessity - Tobacco Use Smoking Status: Never smoker Assessment/Plan All Active Problems (Last Reviewed 01/10/19 @ 11:05 by Augustina Armstrong, SENIOR GENETIC COUNSELOR-C) Small bowel obstruction (Acute) GERA (obstructive sleep apnea) (Acute) Iron deficiency (Resolved) Problem with dialysis access (Acute) Chronic renal failure, stage 4 (severe) (Acute) Hx of colectomy (Acute) Urinary tract infection due to extended-spectrum beta lactamase (ESBL) producing Escherichia coli (Acute) Renal cyst, right (Acute) Metabolic acidosis (Acute) Acute renal failure superimposed on stage 3 chronic kidney disease (Acute) Hyperkalemia (Acute) Sepsis (Acute)
--- NOTE | 2019-05-12 07:33 | CON.PCM_ITS ---
Problem List (1) Small bowel obstruction Status: Acute Reason for Consult Date of Consultation: 05/12/19 Reason for Consultation: Abdominal pain and small bowel obstruction History of Present Illness: The patient is a 69 year old M who presented to the emergency room with abdominal pain. Patient reports abdominal pain started yesterday and it was in his mid abdomen. He did have nausea and vomiting x1. He says that he was not passing any flatus. He has never had a bowel obstruction in the past. He does have a history of colon resection for rectal cancer. Past Medical History Past Medical History (Chronic Problems): Chronic Problems (Last Reviewed 01/10/19 @ 11:05 by Augustina Armstrong NP-C) Anemia in chronic kidney disease (Chronic) History of colon cancer (Chronic) Diabetes mellitus, type II (Chronic) HTN (hypertension) (Chronic) HLD (hyperlipidemia) (Chronic) Medical History: Medical History (Last Reviewed 01/10/19 @ 11:05 by DUANE HopeC) Problem with dialysis access (Acute) T82.898A Chronic renal failure, stage 4 (severe) (Acute) N18.4 Urinary tract infection due to extended-spectrum beta lactamase (ESBL) producing Escherichia coli (Acute) N39.0, B96.29, Z16.12 Renal cyst, right (Acute) N28.1 Metabolic acidosis (Acute) E87.2 Acute renal failure superimposed on stage 3 chronic kidney disease (Acute) N17.9, N18.3 History of colon cancer (Chronic) Z85.038 Diabetes mellitus, type II (Chronic) E11.9 HTN (hypertension) (Chronic) I10 HLD (hyperlipidemia) (Chronic) E78.5 Hyperkalemia (Acute) E87.5 Sepsis (Acute) A41.9 Allergies No Known Allergies Allergy (Verified 05/11/19 22:23) Home Medications: Ambulatory Orders Medication Instructions Recorded Pregabalin [Lyrica] 25 mg PO BID 02/04/18 glimepiride 1 mg tablet 2 mg PO DAILY@0800 tab 05/19/18 Metoprolol Succinate 25 mg PO DAILY 05/30/18 Atorvastatin Calcium [Lipitor] 40 mg PO DAILY 11/08/18 Surgical History: Surgical History (Last Reviewed 01/10/19 @ 11:05 by Augustina Armstrong NP-[place]) Hx of colectomy (Acute) Z90.49 2013 Presence of surgically created arteriovenous shunt for hemodialysis Z99.2 Surgical History: - - Reviewed Psychiatric History: No pertinent psych hx Lives: With Family Smoking Status: Never smoker Alcohol: None Drugs: None - *Family History Maternal History Items: Cancer, Diabetes, Renal Disease Paternal History Items: Heart Disease, Hypertension Review of Systems Constitutional: Denies: Anorexia, Chills, Fever HEENT: Denies: Difficulty Swallowing Cardiovascular: Denies: Chest Pain Respiratory: Denies: Shortness of Breath Gastrointestinal: Reports: Abdominal Pain, Nausea, Vomiting Genitourinary: Denies: Incontinence Musculoskeletal: Denies: Joint Tenderness Skin: Denies: Dryness Neurological: Denies: Balance problems Hematologic/ Lymphatic: Denies: Anemia Patient Problems: Active and Suspected Problems (Last Reviewed 01/10/19 @ 11:05 by Augustina Armstrong NP-C) Small bowel obstruction (Acute) - Physical Exam General: Alert, Oriented x3 Neck: No JVD Lungs: Normal air movement Cardiovascular: Regular rate, Regular Rhythm Abdomen: Soft, Non Tender, Non-Distended Vital Signs Temp Pulse Resp BP Pulse Ox 97.8 F 73 18 193/84 H 100 05/12/19 05:48 05/12/19 07:02 05/12/19 05:48 05/12/19 05:48 05/12/19 05:48 Oxygen Delivery Method Room Air Weight: 179 lb 3 oz Body Mass Index (BMI) 28.5 Intake and Output for Last 24 Hours 05/10/19 05/11/19 05/12/19 23:59 23:59 23:59 Intake Total 1030 / 1030 Output Total 400 / 400 Balance 630 / 630 Laboratory Tests Past 24 Hrs 05/11/19 05/11/19 05/11/19 22:30 22:50 22:50 WBC 10.4 RBC 4.33 L Hgb 13.4 Hct 39.0 L MCV 90.1 MCH 30.9 MCHC 34.4 RDW Std Deviation 39.9 RDW Coeff of Teresa 12.1 Plt Count 154 MPV 10.0 Immature Gran % (Auto) 0.200 Neut % (Auto) 58.6 Lymph % (Auto) 32.9 [place] % (Auto) 6.2 Eos % (Auto) 1.8 Baso % (Auto) 0.3 Absolute Neuts (auto) 6.1 Absolute Lymphs (auto) 3.43 Nucleated RBC % 0 Sodium 140 Potassium 4.3 Chloride 109 H Carbon Dioxide 25.0 Anion Gap 6 BUN 31 H Creatinine 2.38 H Estim Creat Clear Calc 26.81 Est GFR (MDRD) Af Amer 35 L Est GFR (MDRD) Non-Af 29 L BUN/Creatinine Ratio 13.0 Glucose 147 H Calcium 8.8 Total Bilirubin 0.70 AST 15 ALT 13 L Alkaline Phosphatase 72 Total Protein 6.8 Albumin 3.7 Globulin 3.1 Albumin/Globulin Ratio 1.2 Lipase 340 Urine Color Yellow Urine Clarity Sl. Cloudy Urine pH 6.0 Ur Specific [place] 1.015 Urine Protein 100 H Urine Glucose (UA) Normal Urine Ketones Negative Urine Occult Blood 10 H Urine Nitrite Negative Urine Bilirubin Negative Urine Urobilinogen Normal Ur Leukocyte Esterase Negative Urine RBC 0-5 SEEN Urine WBC 0 SEEN Ur Squamous Epith Cells 0-5 SEEN Urine Bacteria 0 SEEN Urine Mucus 0 SEEN 05/12/19 05/12/19 05:55 05:55 WBC 8.0 RBC 4.22 L Hgb 12.9 L Hct 38.2 L MCV 90.5 MCH 30.6 MCHC 33.8 RDW Std Deviation 39.8 RDW Coeff of Teresa 12.1 Plt Count 133 L MPV 10.3 Immature Gran % (Auto) 0.400 Neut % (Auto) 75.5 H Lymph % (Auto) 17.1 L [place] % (Auto) 6.1 Eos % (Auto) 0.7 Baso % (Auto) 0.2 Absolute Neuts (auto) 6.1 Absolute Lymphs (auto) 1.37 Nucleated RBC % 0 Sodium 143 Potassium 4.7 Chloride 111 H Carbon Dioxide 26.0 Anion Gap 6 BUN 31 H Creatinine 2.06 H Estim Creat Clear Calc 30.97 Est GFR (MDRD) Af Amer 42 L Est GFR (MDRD) Non-Af 34 L BUN/Creatinine Ratio 15.0 Glucose 141 H Calcium 8.2 L Total Bilirubin AST ALT Alkaline Phosphatase Total Protein Albumin Globulin Albumin/Globulin Ratio Lipase Urine Color Urine Clarity Urine pH Ur Specific [place] Urine Protein Urine Glucose (UA) Urine Ketones Urine Occult Blood Urine Nitrite Urine Bilirubin Urine Urobilinogen Ur Leukocyte Esterase Urine RBC Urine WBC Ur Squamous Epith Cells Urine Bacteria Urine Mucus POC Glucose 05/12/19 05/12/19 05:59 02:20 POC Glucose 146 H 152 H Assessment/Plan All Active Problems (Last Reviewed 01/10/19 @ 11:05 by Augustina Armstrong, CAYLA-C) Small bowel obstruction (Acute) GERA (obstructive sleep apnea) (Acute) Iron deficiency (Resolved) Problem with dialysis access (Acute) Chronic renal failure, stage 4 (severe) (Acute) Hx of colectomy (Acute) Urinary tract infection due to extended-spectrum beta lactamase (ESBL) producing Escherichia coli (Acute) Renal cyst, right (Acute) Metabolic acidosis (Acute) Acute renal failure superimposed on stage 3 chronic kidney disease (Acute) Hyperkalemia (Acute) Sepsis (Acute) 69-year-old male with small bowel obstruction 1. Patient reports that this morning he is not having any abdominal pain he started passing flatus overnight. I will order a small bowel follow-through. If this reaches the colon his NG can be removed and he can try to clear liquid diet and advance as tolerated. Patient may have had gastroenteritis instead of a bowel obstruction. David Painter MD Pager: [facility] [address] [place] [address] [address] [place] [address] Office:
--- NOTE | 2019-05-12 08:10 | NURSING ---
Pt being taken to xray
--- NOTE | 2019-05-12 08:15 | RAD_ITS ---
STUDY: SMALL BOWEL FOLLOW-THROUGH STUDY REASON FOR EXAM: Male, 69 years old. Abdominal pain and distention RADIATION DOSAGE (If Supplied By Facility): CTDIvol = ( ) mGy, DLP = ( ) mGycm. Individualized dose optimization techniques were used for this CT.? TECHNIQUE: Barium injected into the stomach via NG tube. Serial films tracked the barium through the small intestine. COMPARISON: None. FINDINGS: Director [employer] film demonstrates retained stool throughout the colon. NG tube tip in the distal stomach. No free air or suspicious calcifications noted. Small bowel follow-through series shows normal distention of the small bowel. There is no evidence of wall thickening, abnormal distention, or separation of bowel loops to suspect acute inflammation. Transit time to the terminal ileum was approximately 90 minutes, within normal range. No suspicious findings are noted in the terminal ileum. RAD/Small Bowel Series Only IMPRESSION: Normal small bowel follow-through. Electronically Signed: Saúl Riojas MD at 11:07 EDT , Service support ,
[2019-05-12 10:56] LABS: Bedside Glucose 157 mg/dL (70-110)
[2019-05-12] MEDS: amLODIPine 10 MG Tablet PO (11:17)
--- NOTE | 2019-05-12 13:03 | DCINST_ITS ---
- Discharge Diagnoses Current Active Problems: Current Active and Chronic Problems (Last Reviewed 01/10/19 @ 11:05 by MACEY Hope) Partial Small bowel obstruction (Acute) - resolved You will use the following diet at home:: Other - light diet, low residue for the next 3-5 days Your food should be the consistency of: Mechanical soft (ground) Your liquids should be the consistency of: Regular/Thin Discharge Activity: Return to Normal Activity Call your doctor if you observe: Fever of 101 or Higher, Uncontrolled pain, - - nausea, vomiting, abdominal pain, inability to pass gas or have a bowel movement Instructions: Low-Residue Diet Additional Instructions: Make sure that your bowel movements are soft. Constipation can lead to the problems you have had this admission. If you have to strain to have a BM or you are not having a BM at least every other day I recommend you start a stool softener such as Metamucil or Citracel or Miralax. Pending Tests on Discharge: none Allergies/Adverse Reactions: Allergies No Known Allergies Allergy (Verified 05/11/19 22:23) Medications to take at Discharge Pregabalin [Lyrica] 25 mg PO BID 02/04/18 glimepiride 1 mg tablet 2 mg PO DAILY@0800 tab 05/19/18 Metoprolol Succinate 25 mg PO DAILY 05/30/18 Atorvastatin Calcium [Lipitor] 40 mg PO DAILY 11/08/18 Primary Care Physician: Nabeel Reyes Chi, MD [Primary Care Provider] - Please follow up with your Primary Care Physician in: 7-10 days Test Results: Test results from this visit will be discussed in further detail at your follow- up appointment, if applicable. Proposed Discharge Date: 05/12/19
--- NOTE | 2019-05-12 13:11 | DS.PCM_ITS ---
Discharge Date and Diagnosis Date of Admission: 05/11/19 Date of Discharge: 05/12/19 - Primary Discharge Diagnosis Partial small bowel obstruction-resolved - Secondary Discharge Diagnosis Chronic Problems (Last Reviewed 01/10/19 @ 11:05 by MACEY Hope) GERA (obstructive sleep apnea) (Chronic) Anemia in chronic kidney disease (Chronic) Chronic renal failure, stage 4 (severe) (Chronic) Hx of partial colectomy (Chronic) 2013 Renal cyst, right (Chronic) History of colon cancer (Chronic) Diabetes mellitus, type II (Chronic) HTN (hypertension) (Chronic) HLD (hyperlipidemia) (Chronic) Ventral hernia Hospital Course and Treatment Imaging Results: 05/12/19 08:15 Small Bowel Series Only [RAD] Urgent Clinical Impression(s) from Imaging Studies Abdomen/Pelvis CT 05/11/19 22:39 IMPRESSION: 1. Mild dilatation with air-fluid levels of several loops of small bowel in the abdomen and pelvis. Findings may represent early or incomplete small bowel obstruction. 2. There is a tiny amount of free fluid in the deep pelvis. 3. There are postsurgical changes of the rectosigmoid. 4. There is a ventral hernia containing omental fat. There is no associated inflammatory process. 5. There are small bilateral fat-containing inguinal hernias. Electronically Signed: Braeden Pennington MD at 23:18 EDT , Service support , KUB X-Ray 05/11/19 23:29 IMPRESSION: Interval insertion of nasogastric tube tracking into the stomach. Electronically Signed: Refugio Erwin at 1:07 EDT Tel , Service support , Small Bowel X-Ray 05/12/19 08:15 IMPRESSION: Normal small bowel follow-through. Electronically Signed: Saúl Riojas MD at 11:07 EDT , Service support , Dr. David Painter[facility] [facility] Operations: None Procedures: None Summary of Care Provided: The patient is a 69-year-old male with a past medical history of anemia of chronic renal disease, stage IV chronic renal failure, diabetes mellitus type 2, hypertension, hyperlipidemia and history of partial colectomy for rectal CA who presented to the emergency department at [facility] on 05/11/2019 complaining of nausea and abdominal pain. CT scan of the abdomen and pelvis showed mild dilatation with air-fluid levels of several loops of small bowel in the abdomen and pelvis. NG was placed and he was admitted to the hospital with a diagnosis of small bowel obstruction and Dr. Painter was consulted to participate in management. The following morning he had 2 formed bowel movements and was passing flatus. He denied any nausea or vomiting and his abdomen was flat. Small bowel follow-through on 05/12/2019 was normal. He was started on clear liquids following discontinuation of the NG tube and he tolerated this without any abdominal pain, nausea or vomiting. His diet was advanced and he tolerated the advance without nausea, vomiting or abdominal pain. He was afebrile for the duration of his hospital stay. But pressures were elevated but he was being given oral antihypertensives which she was likely not absorbing. He was converted to hydralazine intravenously and the blood pressure improved. He was given his regular dose of metoprolol prior to discharge and his blood pressure was 161/69 at discharge. He was instructed to follow-up with Dr. Reyes in 7 to 10 days. He was told that bowel obstructions sometimes happen in pts who have had abdominal surgery due to scar tissue and being constipated increases the Risk. He was advised to take a stool softener to ensure that he has a BM at least every other day. PHYSICAL EXAM: GENERAL: alert, oriented X 3, Cooperative, NAD ORAL: moist mucosa, no mucosal lesions NECK: No JVD, supple, trachea midline LUNGS: CTA, symmetric chest expansion HEART: RRR, Normal S1 and S2, no rub, no gallop ABDOMEN: soft, NT, ND, BS present, no guarding with palpation, very active bowel sounds EXTREMITIES: no edema, no cyanosis, no calf tenderness SKIN: No rashes, no breakdown NEUROLOGIC: no focal neurologic deficits PSYCH: appropriate, normal affect, pleasant This note was generated with [employer] software. It may contain incorrect words, spelling, and punctuation that were not noted in checking the note before signing. - Physical Exam Vital Signs Temp Pulse Resp BP Pulse Ox 98.1 F 79 18 163/93 H 98 05/12/19 10:50 05/12/19 10:50 05/12/19 10:50 05/12/19 10:50 05/12/19 10:50 Oxygen Delivery Method Room Air Weight: 179 lb 3 oz Body Mass Index (BMI) 28.5 Intake and Output for Last 24 Hours 05/10/19 05/11/19 05/12/19 23:59 23:59 23:59 Intake Total 1881.67 / 1881.67 Output Total 400 / 400 Balance 1481.67 / 1481.67 Laboratory Tests Past 24 Hrs 05/11/19 05/11/19 05/11/19 22:30 22:50 22:50 WBC 10.4 RBC 4.33 L Hgb 13.4 Hct 39.0 L MCV 90.1 MCH 30.9 MCHC 34.4 RDW Std Deviation 39.9 RDW Coeff of Teresa 12.1 Plt Count 154 MPV 10.0 Immature Gran % (Auto) 0.200 Neut % (Auto) 58.6 Lymph % (Auto) 32.9 [place] % (Auto) 6.2 Eos % (Auto) 1.8 Baso % (Auto) 0.3 Absolute Neuts (auto) 6.1 Absolute Lymphs (auto) 3.43 Nucleated RBC % 0 Sodium 140 Potassium 4.3 Chloride 109 H Carbon Dioxide 25.0 Anion Gap 6 BUN 31 H Creatinine 2.38 H Estim Creat Clear Calc 26.81 Est GFR (MDRD) Af Amer 35 L Est GFR (MDRD) Non-Af 29 L BUN/Creatinine Ratio 13.0 Glucose 147 H Calcium 8.8 Total Bilirubin 0.70 AST 15 ALT 13 L Alkaline Phosphatase 72 Total Protein 6.8 Albumin 3.7 Globulin 3.1 Albumin/Globulin Ratio 1.2 Lipase 340 Urine Color Yellow Urine Clarity Sl. Cloudy Urine pH 6.0 Ur Specific [place] 1.015 Urine Protein 100 H Urine Glucose (UA) Normal Urine Ketones Negative Urine Occult Blood 10 H Urine Nitrite Negative Urine Bilirubin Negative Urine Urobilinogen Normal Ur Leukocyte Esterase Negative Urine RBC 0-5 SEEN Urine WBC 0 SEEN Ur Squamous Epith Cells 0-5 SEEN Urine Bacteria 0 SEEN Urine Mucus 0 SEEN 05/12/19 05/12/19 05:55 05:55 WBC 8.0 RBC 4.22 L Hgb 12.9 L Hct 38.2 L MCV 90.5 MCH 30.6 MCHC 33.8 RDW Std Deviation 39.8 RDW Coeff of Teresa 12.1 Plt Count 133 L MPV 10.3 Immature Gran % (Auto) 0.400 Neut % (Auto) 75.5 H Lymph % (Auto) 17.1 L [place] % (Auto) 6.1 Eos % (Auto) 0.7 Baso % (Auto) 0.2 Absolute Neuts (auto) 6.1 Absolute Lymphs (auto) 1.37 Nucleated RBC % 0 Sodium 143 Potassium 4.7 Chloride 111 H Carbon Dioxide 26.0 Anion Gap 6 BUN 31 H Creatinine 2.06 H Estim Creat Clear Calc 30.97 Est GFR (MDRD) Af Amer 42 L Est GFR (MDRD) Non-Af 34 L BUN/Creatinine Ratio 15.0 Glucose 141 H Calcium 8.2 L Total Bilirubin AST ALT Alkaline Phosphatase Total Protein Albumin Globulin Albumin/Globulin Ratio Lipase Urine Color Urine Clarity Urine pH Ur Specific [place] Urine Protein Urine Glucose (UA) Urine Ketones Urine Occult Blood Urine Nitrite Urine Bilirubin Urine Urobilinogen Ur Leukocyte Esterase Urine RBC Urine WBC Ur Squamous Epith Cells Urine Bacteria Urine Mucus POC Glucose 05/12/19 05/12/19 05/12/19 10:44 05:59 02:20 POC Glucose 157 H 146 H 152 H Discharge Activity: Return to Normal Activity Call your doctor if you observe: Fever of 101 or Higher, Uncontrolled pain, - - nausea, vomiting, abdominal pain, inability to pass gas or have a bowel movement Home Medications: Medications to take at Discharge Pregabalin [Lyrica] 25 mg PO BID 02/04/18 glimepiride 1 mg tablet 2 mg PO DAILY@0800 tab 05/19/18 Metoprolol Succinate 25 mg PO DAILY 05/30/18 Atorvastatin Calcium [Lipitor] 40 mg PO DAILY 11/08/18 Primary Care Physician: Nabeel Reyes Chi, MD [Primary Care Provider] - Please follow up with your Primary Care Physician in: 7-10 days Patient Instructions: Low-Residue Diet Disposition: Home Minutes spent on discharge:: 25 Patient Condition:: Good Medical Necessity - Tobacco Use Smoking Status: Never smoker Tobacco Use: Non-smoker Meaningful Use Info Meaningful Use Diagnoses (Choose all that apply): None applicable Code Visit OBSV E&M: 44864 Observation care discharge
--- NOTE | 2019-05-12 13:20 | NURSING ---
patient was in a hurry to go home, tried to call kathy office two times to make an followup apt. Kept getting a answering machine saying they were busy to leave message. told patient all the doctors office information and for him to call and make an apt
== END 2019-05-12 13:43 | disposition home or self-care (01) ==
LOC: ED 22:48 → MS3 23:46
PROVIDERS: Admitting Provider Family Medicine; Emergency Provider Emergency Medicine; Family Provider Family Medicine Geriatric Medicine; PCP Family Medicine Geriatric Medicine; Visit Provider Internal Medicine
DX: K56.600 Partial intestinal obstruction, unspecified as to cause (principal); G47.33 Obstructive sleep apnea (adult) (pediatric); E78.5 Hyperlipidemia, unspecified; I12.9 Hypertensive chronic kidney disease with stage 1 through stage 4 chronic kidney disease, or unspecified chronic kidney disease; N18.4 Chronic kidney disease, stage 4 (severe); E11.22 Type 2 diabetes mellitus with diabetic chronic kidney disease; E87.5 Hyperkalemia; D63.1 Anemia in chronic kidney disease; Z85.048 Personal history of other malignant neoplasm of rectum, rectosigmoid junction, and anus; Z90.49 Acquired absence of other specified parts of digestive tract; Z79.899 Other long term (current) drug therapy
CPT/HCPCS: 36415; 74018; 74176; 74250; 80048; 80053; 81001; 82962; 83690; 85025; 96361; 96372; 96374; 96375; 99218; 99285; J7030; A4216; G0378; J2405

== ENCOUNTER → 2019-05-15 16:34 | Outpatient (CLI) | payer MEDICARE, SELFPAY ==
[2019-05-12 00:46] VITALS: BMI 28.5
--- NOTE | 2019-05-15 16:40 | RAD_ITS ---
STUDY: X-RAY - ABDOMEN/PELVIS REASON FOR EXAM: Male, 69 years old. Follow-up for fecal impaction and continued constipation. TECHNIQUE: AP supine and upright views of the abdomen and pelvis. COMPARISON: May 11, 2019. Small bowel series, May 12, 2019. FINDINGS: Lung bases are not included. The NG tube is no longer seen. There is contrast remaining in the descending and rectosigmoid colon. Air is seen in the rectum. There is no small bowel distention. Minimal feces is seen in the proximal colon. There is no demonstrated free abdominal air. The visualized liver, spleen and kidneys are grossly normal in size and morphology. Normal soft tissue structures. There are no osseous changes. RAD/Abd Inc Decub and/or Erect IMPRESSION: 1. Residual colonic contrast from a small bowel series performed 3 days earlier. 2. Minimal feces in the right colon without evidence of obstruction Electronically Signed: Sukhwinder Guillory DO at 23:02 EDT Tel [phone], Service support ,
== END ==
PROVIDERS: Family Provider Family Medicine Geriatric Medicine; PCP Family Medicine Geriatric Medicine; Referring Provider Family Medicine Geriatric Medicine; Visit Provider Family Medicine Geriatric Medicine
DX: K56.41 Fecal impaction (principal)
CPT/HCPCS: 74019

== ENCOUNTER → 2019-08-10 13:36 | Outpatient (CLI) | payer MEDICARE, SELFPAY ==
[2019-01-10 10:47] VITALS: BMI 62.9
[2019-07-11 14:58] VITALS: BMI 29.7
[2019-08-10 17:31] LABS: Absolute Lymphocyte Count 2.75 X10^3/uL (0.83-4.51); Absolute Neutrophil Count 4.1 X10^3/uL (2.0-7.7); Basophil# 0.04 X10^3/uL; Basophil% 0.5 % (0-1); Eosinophil# 0.25 X10^3/uL; Eosinophils% 3.2 % (0-5); Hematocrit 38.6 % (40-54); Hemoglobin 12.7 g/dL (13.0-16.5); Lymphocyte # 2.75 X10^3/ul (4.0); Lymphocyte % 35.7 % (19-41); Mean Corp Hgb Conc 32.9 g/dL (32-36); Mean Corpuscular Hgb 30.2 pg (27.0-32.0); Mean Corpuscular Volume 91.7 fL (80-94); Mean Platelet Vol. 11.9 fl (6.2-12.0); Monocyte# 0.59 X10^3/uL; Monocyte% 7.7 % (0-10); NRBC Flagged by Analyzer 0 % (0-5); Neutrophil # 4.06 X10^3/uL (2.7-7.7); Neutrophil % 52.6 % (47-70); Platelet Count 138 K/mm3 (150-450); Red Blood Count 4.21 M/mm3 (4.6-6.2); White Blood Count 7.7 K/mm3 (4.4-11.0)
[2019-08-10 17:53] LABS: Albumin, Serum 3.6 g/dL (3.2-5.0); BUN 32 mg/dL (7-18); BUN/Creat Ratio 12.9 RATIO (10-20); Creatinine, Serum 2.48 mg/dL (0.70-1.30); EST Glomerular Filtration Rate 28 mL/min (>60); Est Glom Filt Rate - Afr Amer 34 mL/min (>60); Globulin 3.2 g/dL (2.2-4.2); Glucose 68 mg/dL (74-106); Protein, Total 6.8 g/dL (6.4-8.2)
[2019-08-10 17:54] LABS: ALB/GLOB Ratio 1.1 RATIO (0.9-2.4); AST(SGOT) 18 U/L (15-37); Alanine Aminotransfer ALT/SGPT 18 U/L (16-61); Alkaline Phosphatase 76 U/L (45-117); Anion Gap 5 (5-15); Calcium,Total 9.2 mg/dL (8.5-10.1); Chloride 108 mmol/L (98-107); Phosphorus 3.9 mg/dL (2.5-4.9); Potassium 4.9 mmol/L (3.5-5.1); Sodium Level 142 mmol/L (136-145); Thyroid Stim Hormone (TSH) 2.19 uIU/mL (0.358-3.74)
[2019-08-10 17:57] LABS: Vitamin D,25 Hydroxy 29.9 ng/mL (29.95-100.01)
[2019-08-11 09:22] LABS: PTHIN 52.1 pg/mL (18.4-80.1)
== END ==
PROVIDERS: Family Provider Family Medicine Geriatric Medicine; PCP Family Medicine Geriatric Medicine; Visit Provider Internal Medicine Nephrology
DX: E11.9 Type 2 diabetes mellitus without complications (principal); E55.9 Vitamin D deficiency, unspecified; I10 Essential (primary) hypertension
CPT/HCPCS: 36415; 80053; 82306; 83970; 84100; 84443; 85025

== ENCOUNTER → 2019-10-05 11:21 | Outpatient (CLI) | payer MEDICARE, SELFPAY ==
[2019-07-11 14:58] VITALS: BMI 29.7
[2019-10-05 12:30] LABS: Absolute Lymphocyte Count 2.14 X10^3/uL (0.83-4.51); Absolute Neutrophil Count 4.6 X10^3/uL (2.0-7.7); Basophil# 0.03 X10^3/uL; Basophil% 0.4 % (0-1); Eosinophil# 0.26 X10^3/uL; Eosinophils% 3.4 % (0-5); Hematocrit 37.6 % (40-54); Hemoglobin 12.4 g/dL (13.0-16.5); Lymphocyte # 2.14 X10^3/ul (4.0); Lymphocyte % 28.2 % (19-41); Mean Corpuscular Hgb 29.8 pg (27.0-32.0); Mean Corpuscular Volume 90.4 fL (80-94); Mean Platelet Vol. 12.6 fl (6.2-12.0); Monocyte# 0.59 X10^3/uL; Monocyte% 7.8 % (0-10); NRBC Flagged by Analyzer 0 % (0-5); Neutrophil # 4.55 X10^3/uL (2.7-7.7); Neutrophil % 59.9 % (47-70); Platelet Count 130 K/mm3 (150-450); RBC Distribution Width CV 12.6 % (11.6-14.6); RBC Distribution Width SD 41.1 fl (35.1-43.9); Red Blood Count 4.16 M/mm3 (4.6-6.2); White Blood Count 7.6 K/mm3 (4.4-11.0)
[2019-10-05 12:40] LABS: Vitamin D,25 Hydroxy 33.7 ng/mL (29.95-100.01)
[2019-10-05 12:44] LABS: AST(SGOT) 16 U/L (15-37); Alanine Aminotransfer ALT/SGPT 16 U/L (16-61); Albumin, Serum 3.5 g/dL (3.2-5.0); Alkaline Phosphatase 76 U/L (45-117); Anion Gap 3 (5-15); BUN 29 mg/dL (7-18); BUN/Creat Ratio 12.3 RATIO (10-20); Calcium,Total 8.9 mg/dL (8.5-10.1); Chloride 110 mmol/L (98-107); Creatinine, Serum 2.36 mg/dL (0.70-1.30); EST Glomerular Filtration Rate 29 mL/min (>60); Est Glom Filt Rate - Afr Amer 35 mL/min (>60); Globulin 3.4 g/dL (2.2-4.2); Glucose 92 mg/dL (74-106); Potassium 4.8 mmol/L (3.5-5.1); Protein, Total 6.9 g/dL (6.4-8.2); Sodium Level 141 mmol/L (136-145); Thyroid Stim Hormone (TSH) 2.57 uIU/mL (0.358-3.74)
== END ==
PROVIDERS: PCP Family Medicine Geriatric Medicine; Visit Provider Family Medicine Geriatric Medicine
DX: E11.9 Type 2 diabetes mellitus without complications (principal); E55.9 Vitamin D deficiency, unspecified; I10 Essential (primary) hypertension
CPT/HCPCS: 36415; 80053; 82306; 84443; 85025

== ENCOUNTER → 2019-12-27 11:39 | Outpatient (CLI) | payer MEDICARE, MEDICAID, SELFPAY ==
[2019-07-11 14:58] VITALS: BMI 29.7
[2019-12-27 12:23] LABS: Hematocrit 34.9 % (40-54); Hemoglobin 11.5 g/dL (13.0-16.5); Mean Corpuscular Hgb 30.7 pg (27.0-32.0); Mean Corpuscular Volume 93.1 fL (80-94); Mean Platelet Vol. 10.5 fl (6.2-12.0); Platelet Count 145 K/mm3 (150-450); RBC Distribution Width CV 12.9 % (11.6-14.6); RBC Distribution Width SD 43.9 fl (35.1-43.9); Red Blood Count 3.75 M/mm3 (4.6-6.2); White Blood Count 6.4 K/mm3 (4.4-11.0)
[2019-12-27 12:35] LABS: Albumin, Serum 3.6 g/dL (3.2-5.0); BUN 36 mg/dL (7-18); BUN/Creat Ratio 15.6 RATIO (10-20); Calcium,Total 8.8 mg/dL (8.5-10.1); Chloride 111 mmol/L (98-107); Creatinine, Serum 2.31 mg/dL (0.70-1.30); EST Glomerular Filtration Rate 30 mL/min (>60); Est Glom Filt Rate - Afr Amer 36 mL/min (>60); Glucose 110 mg/dL (74-106); Phosphorus 3.3 mg/dL (2.5-4.9); Sodium Level 143 mmol/L (136-145)
[2019-12-27 12:45] LABS: PTHIN 98.7 pg/mL (18.4-80.1)
== END ==
PROVIDERS: Family Provider Family Medicine Geriatric Medicine; PCP Family Medicine Geriatric Medicine; Visit Provider Internal Medicine Nephrology
DX: N18.4 Chronic kidney disease, stage 4 (severe) (principal); N25.81 Secondary hyperparathyroidism of renal origin
CPT/HCPCS: 36415; 80069; 83970; 85027

== ENCOUNTER → 2020-04-09 11:23 | Outpatient (CLI) | payer MEDICARE, MEDICAID, SELFPAY ==
[2020-01-09 15:21] VITALS: BMI 29.9
[2020-04-09 12:36] LABS: Absolute Lymphocyte Count 2.06 X10^3/uL (0.83-4.51); Basophil# 0.03 X10^3/uL; Basophil% 0.4 % (0-1); Eosinophil# 0.22 X10^3/uL; Eosinophils% 3.2 % (0-5); Hematocrit 34.4 % (40-54); Hemoglobin 11.3 g/dL (13.0-16.5); Lymphocyte # 2.06 X10^3/ul (4.0); Lymphocyte % 30.2 % (19-41); Mean Corp Hgb Conc 32.8 g/dL (32-36); Mean Corpuscular Hgb 30.1 pg (27.0-32.0); Mean Corpuscular Volume 91.5 fL (80-94); Mean Platelet Vol. 10.6 fl (6.2-12.0); Monocyte# 0.52 X10^3/uL; Monocyte% 7.6 % (0-10); NRBC Flagged by Analyzer 0 % (0-5); Neutrophil # 3.99 X10^3/uL (2.7-7.7); Neutrophil % 58.5 % (47-70); Platelet Count 166 K/mm3 (150-450); RBC Distribution Width CV 12.7 % (11.6-14.6); RBC Distribution Width SD 41.8 fl (35.1-43.9); Red Blood Count 3.76 M/mm3 (4.6-6.2); White Blood Count 6.8 K/mm3 (4.4-11.0)
[2020-04-09 12:53] LABS: Vitamin D,25 Hydroxy 50.4 ng/mL
[2020-04-09 13:24] LABS: ALB/GLOB Ratio 1.2 RATIO (0.9-2.4); AST(SGOT) 14 U/L (15-37); Alanine Aminotransfer ALT/SGPT 16 U/L (16-61); Albumin, Serum 3.5 g/dL (3.2-5.0); Alkaline Phosphatase 76 U/L (45-117); Anion Gap 6 (5-15); BUN 33 mg/dL (7-18); BUN/Creat Ratio 14.2 RATIO (10-20); Calcium,Total 8.4 mg/dL (8.5-10.1); Chloride 114 mmol/L (98-107); Creatinine, Serum 2.33 mg/dL (0.70-1.30); EST Glomerular Filtration Rate 30 mL/min (>60); Est Glom Filt Rate - Afr Amer 36 mL/min (>60); Globulin 2.8 g/dL (2.2-4.2); Glucose 80 mg/dL (74-106); PSA,Total - Annual Screen 0.19 ng/mL (0.00-4.00); Potassium 4.8 mmol/L (3.5-5.1); Protein, Total 6.3 g/dL (6.4-8.2); Sodium Level 144 mmol/L (136-145)
[2020-04-09 15:22] LABS: Ferritin 56 ng/mL (26-388); Iron 71 ug/dL (65-175); Iron Binding Capacity,Total 226 ug/dL (250-450)
== END ==
PROVIDERS: PCP Family Medicine Geriatric Medicine; Visit Provider Family Medicine Geriatric Medicine
DX: E11.40 Type 2 diabetes mellitus with diabetic neuropathy, unspecified (principal); E55.9 Vitamin D deficiency, unspecified; I10 Essential (primary) hypertension; Z12.5 Encounter for screening for malignant neoplasm of prostate
CPT/HCPCS: 36415; 80053; 82306; 82728; 83540; 83550; 84153; 84443; 85025; G0103

== ENCOUNTER → 2020-04-12 14:32 | Outpatient (CLI) | payer MEDICARE, MEDICAID, SELFPAY ==
[2020-01-09 15:21] VITALS: BMI 29.9
[2020-04-10 13:44] VITALS: BMI 29.5
--- NOTE | 2020-04-12 14:36 | US_ITS ---
STUDY: THYROID ULTRASOUND REASON FOR EXAM: Male, 70 years old. THYROID NODULE TECHNIQUE: Ultrasound evaluation of the thyroid was performed with real-time and static mary-scale imaging. COMPARISON: None. FINDINGS: RIGHT LOBE: The right lobe of the thyroid gland measures 3.8 x 1.5 x 1.4 cm. There is a homogeneous echotexture. There are no demonstrated solid, cystic or complex lesions. LEFT LOBE: The left lobe of the thyroid gland measures 3.7 x 1.6 x 1.2 cm. There is a homogeneous echotexture. There are no demonstrated solid, cystic or complex lesions. ISTHMUS: The isthmus measures 3 mm thick. . The regional lymph nodes are normal. US/Thyroid IMPRESSION: Normal ultrasound examination of the thyroid. Electronically Signed: Rohit De Leon MD at 15:33 EDT Tel , Service support ,
== END ==
PROVIDERS: PCP Family Medicine Geriatric Medicine; Referring Provider Family Medicine Geriatric Medicine; Visit Provider Family Medicine Geriatric Medicine
DX: E06.0 Acute thyroiditis (principal)
CPT/HCPCS: 76536

== ENCOUNTER → 2020-06-27 15:26 | Outpatient (CLI) | payer MEDICARE, MEDICAID, SELFPAY ==
[2019-07-11 14:58] VITALS: BMI 29.7
[2020-04-10 13:44] VITALS: BMI 29.5
[2020-06-27 16:47] LABS: Hemoglobin 11.2 g/dL (13.0-16.5); Mean Corpuscular Hgb 29.2 pg (27.0-32.0); Mean Corpuscular Volume 91.1 fL (80-94); Mean Platelet Vol. 11.4 fl (6.2-12.0); Platelet Count 131 K/mm3 (150-450); RBC Distribution Width SD 42.9 fl (35.1-43.9); Red Blood Count 3.84 M/mm3 (4.6-6.2); White Blood Count 6.5 K/mm3 (4.4-11.0)
[2020-06-27 16:51] LABS: Albumin, Serum 3.7 g/dL (3.2-5.0); BUN 30 mg/dL (7-18); BUN/Creat Ratio 13.2 RATIO (10-20); Calcium,Total 8.7 mg/dL (8.5-10.1); Chloride 109 mmol/L (98-107); Creatinine, Serum 2.27 mg/dL (0.70-1.30); EST Glomerular Filtration Rate 31 mL/min (>60); Est Glom Filt Rate - Afr Amer 37 mL/min (>60); Glucose 79 mg/dL (74-106); Phosphorus 3.6 mg/dL (2.5-4.9); Potassium 4.8 mmol/L (3.5-5.1); Sodium Level 141 mmol/L (136-145)
[2020-06-27 17:22] LABS: PTHIN 128.7 pg/mL (18.4-80.1)
== END ==
PROVIDERS: PCP Family Medicine Geriatric Medicine; Visit Provider Internal Medicine Nephrology
DX: N18.4 Chronic kidney disease, stage 4 (severe) (principal); D50.9 Iron deficiency anemia, unspecified; N25.81 Secondary hyperparathyroidism of renal origin
CPT/HCPCS: 36415; 80069; 83970; 85027

== ENCOUNTER → 2020-10-08 11:11 | Outpatient (CLI) | payer MEDICARE, MEDICAID, SELFPAY ==
[2020-10-03 13:03] VITALS: BMI 31.3
[2020-10-08 12:59] LABS: Absolute Lymphocyte Count 1.63 X10^3/uL (0.83-4.51); Absolute Neutrophil Count 4.5 X10^3/uL (2.0-7.7); Basophil# 0.04 X10^3/uL; Basophil% 0.6 % (0-1); Eosinophil# 0.18 X10^3/uL; Eosinophils% 2.6 % (0-5); Hematocrit 37.6 % (40-54); Hemoglobin 12.1 g/dL (13.0-16.5); Lymphocyte # 1.63 X10^3/ul (4.0); Lymphocyte % 23.8 % (19-41); Mean Corp Hgb Conc 32.2 g/dL (32-36); Mean Corpuscular Hgb 29.7 pg (27.0-32.0); Mean Corpuscular Volume 92.4 fL (80-94); Mean Platelet Vol. 11.1 fl (6.2-12.0); Monocyte# 0.47 X10^3/uL; Monocyte% 6.9 % (0-10); NRBC Flagged by Analyzer 0 % (0-5); Neutrophil # 4.52 X10^3/uL (2.7-7.7); Neutrophil % 65.8 % (47-70); Platelet Count 154 K/mm3 (150-450); RBC Distribution Width CV 12.8 % (11.6-14.6); RBC Distribution Width SD 43.1 fl (35.1-43.9); Red Blood Count 4.07 M/mm3 (4.6-6.2); White Blood Count 6.9 K/mm3 (4.4-11.0)
[2020-10-08 13:13] LABS: Vitamin D,25 Hydroxy 45.7 ng/mL
[2020-10-08 13:26] LABS: ALB/GLOB Ratio 1.2 RATIO (0.9-2.4); AST(SGOT) 21 U/L (15-37); Alanine Aminotransfer ALT/SGPT 21 U/L (16-61); Albumin, Serum 3.8 g/dL (3.2-5.0); Alkaline Phosphatase 79 U/L (45-117); Anion Gap 6 (5-15); BUN 34 mg/dL (7-18); BUN/Creat Ratio 14.3 RATIO (10-20); Calcium,Total 8.9 mg/dL (8.5-10.1); Chloride 109 mmol/L (98-107); Creatinine, Serum 2.38 mg/dL (0.70-1.30); EST Glomerular Filtration Rate 29 mL/min (>60); Est Glom Filt Rate - Afr Amer 35 mL/min (>60); Globulin 3.2 g/dL (2.2-4.2); Glucose 63 mg/dL (74-106); Potassium 5.1 mmol/L (3.5-5.1); Sodium Level 143 mmol/L (136-145); Thyroid Stim Hormone (TSH) 1.96 uIU/mL (0.358-3.74)
== END ==
PROVIDERS: PCP Family Medicine Geriatric Medicine; Visit Provider Family Medicine Geriatric Medicine
DX: I10 Essential (primary) hypertension (principal); E11.40 Type 2 diabetes mellitus with diabetic neuropathy, unspecified; E55.9 Vitamin D deficiency, unspecified
CPT/HCPCS: 36415; 80053; 82306; 84443; 85025

== ENCOUNTER → 2020-10-21 14:28 | Outpatient (CLI) | payer MEDICARE, MEDICAID, SELFPAY ==
[2020-10-03 13:03] VITALS: BMI 31.3
== END ==
PROVIDERS: PCP Family Medicine Geriatric Medicine; Referring Provider Family Medicine Geriatric Medicine; Visit Provider Family Medicine Geriatric Medicine
DX: R68.83 Chills (without fever) (principal)
CPT/HCPCS: 87635; C9803; U0002

== ENCOUNTER → 2020-11-13 11:26 | Outpatient (CLI) | payer MEDICARE, MEDICAID, SELFPAY ==
[2020-10-03 13:03] VITALS: BMI 31.3
--- NOTE | 2020-11-13 11:40 | RAD_ITS ---
STUDY: X-RAY - UNILATERAL RIBS ( LEFT ) WITH CHEST REASON FOR EXAM: Male, 70 years old. Rib pain. Fell against bathtub. TECHNIQUE - RIBS: 2 view(s) of the ribs. TECHNIQUE - CHEST: Single PA view of the chest. COMPARISON: Chest, 12/22/2017. FINDINGS - RIBS: Normal visualized ribs without a demonstrated fracture. FINDINGS - CHEST: There is been interval removal of the right jugular Port-A-Cath seen on the prior study. The lungs are clear and expanded. There is no demonstrated pleural abnormality. Normal size heart. Normal mediastinum. There is persistent mild hilar prominence. Normal visualized pulmonary arteries. Normal visualized aortic arch and descending thoracic aorta. There are diffuse degenerative changes of the visualized thoracic spine. There is degenerative osteoarthritis of the bilateral shoulders. There is no demonstrated abnormality of the visualized soft tissue structures of the upper abdomen. RAD/Ribs Uni Min 3V w/PA Chest IMPRESSION: RIBS: Normal x-ray examination of the ribs. CHEST: No acute cardiopulmonary disease. Electronically Signed: Sukhwinder Guillory DO at 17:34 EDT Tel [phone], Service support ,
== END ==
PROVIDERS: PCP Family Medicine Geriatric Medicine; Referring Provider Family Medicine Geriatric Medicine; Visit Provider Family Medicine Geriatric Medicine
DX: R07.81 Pleurodynia (principal)
CPT/HCPCS: 71101

== ENCOUNTER 2020-12-05 13:24 | Day surgery (SDC) | payer MEDICARE, MEDICAID, SELFPAY ==
--- NOTE | 2020-12-05 11:03 | PCM.HP.BLA ---
Problem List (1) Problem with dialysis access Status: Acute History and Physical Date of Admission: 12/05/20 [facility] [address] [place] [address] OFFICE VISIT Date of Service: 12/05/20 MR#:[id number] Name: ALEISHA ERVINRep #:[id number] : 1950 Provider: SARA Guzmán Age/Sex: 70/M Location:[facility] Status:ISigned Intake Vital Signs 12/05/20 BP 197/87 H 12/05/20 Blood Pressure Location Rt brachial 12/05/20 Position Sitting 12/05/20 Height 5 ft 6 in 12/05/20 Weight: 188 lb 12/05/20 BMI 30.3 12/05/20 BP 209/97 H 12/05/20 Blood Pressure Location Rt brachial 12/05/20 Position Sitting 12/05/20 Respiration 16 12/05/20 Pulse 62 12/05/20 Pulse Source Monitor 12/05/20 Temp 98.2 F 12/05/20 Temp Source Temporal 12/05/20 Pulse Oximetry (%) 99 12/05/20 Oxygen Delivery Method room air Intake Visit Reasons: FISTULA F/U Chief Complaint: check fistula Brim Stretcher Required: No Is patient in pain?: No Allergies No Known Allergies Allergy (Verified 12/05/20 07:50) Medications glimepiride 1 mg tablet 2 mg PO DAILY@0800 tab 05/19/18 [History Confirmed 12/05/20] Metoprolol Succinate 50 mg PO BID 05/30/18 [History Confirmed 12/05/20] Atorvastatin Calcium [Lipitor] 40 mg PO DAILY 11/08/18 [History Confirmed 12/05/20] Iron Polysaccharide Complex [Ferrex 150] 150 mg PO DAILYCM #90 cap 01/09/20 [Rx Confirmed 12/05/20] hydrALAZINE [Apresoline] 25 mg PO TID 01/09/20 [History Confirmed 12/05/20] Ergocalciferol (Vitamin D2) [Vitamin D2] 50,000 unit PO DAILY 04/10/20 [History Confirmed 12/05/20] Pregabalin 25 mg PO DAILY 04/10/20 [History Confirmed 12/05/20] cephalexin 500 mg capsule 500 mg PO BID 5 Days #10 cap 12/02/20 [Rx Confirmed 12/05/20] [facility] Medical History Chronic renal failure, stage 4 (severe) (Chronic) Renal cyst, right (Chronic) History of colon cancer (Chronic) Diabetes mellitus, type II (Chronic) HTN (hypertension) (Chronic) HLD (hyperlipidemia) (Chronic) Acute renal failure superimposed on stage 3 chronic kidney disease (Resolved) Hyperkalemia (Resolved) Metabolic acidosis (Resolved) Problem with dialysis access (Resolved) Sepsis (Resolved) Urinary tract infection due to extended-spectrum beta lactamase (ESBL) producing Escherichia coli (Resolved) Surgical History Hx of colectomy (Chronic) Presence of surgically created arteriovenous shunt for hemodialysis (Acute) Family History Brother Myocardial infarction Social History (Updated 12/05/20 @ 08:39 by Gabrielle APONTE PA-C) Smoking Status: Never smoker alcohol intake: never substance use type: does not use caffeine: Yes what type of physical activity do you participate in: walking, running frequency: daily duration: < 15 minutes/day seatbelt use: always HPI: ALEISHA ERVIN, is a 70 M who presents to the office today for worsening erythema and swelling at the fistula site. Patient contacted our physician contract preparer last night and stated his arm was looking worse. Dr. Garcia recommended the patient come into the office this morning to be evaluated. Patient was evaluated on Wednesday do to increased pain and swelling at his left upper extremity AV fistula site. Patient has never been on dialysis. He denies recent hospitalizations or illnesses. He denies previous myocardial infarction or pulmonary issues. He denies anesthesia complications. He denies taking any blood thinners. His daughter, whom I spoke with the patient's permission, stated following the patient's COVID he had mentioned the fistula was not working as well. My previous note from Wednesday reflected below: ALEISHA ERVIN, is a 70 M who presents to the office today for left upper extremity fistula pain/discomfort. Patient was evaluated at his PCP, Dr. Reyes's office today. He was given an injection of Rocephin due to the patient having redness in the upper arm at the fistula site. Patient states the left upper extremity started becoming painful yesterday. He noted a thrill yesterday however he was not feeling one today. He denies being on dialysis ever. He had this fistula created in 2018. He has not followed up with our office since 07/2018. Patient denies trauma to the area. Dr. River is his web project manager. ROS General General: Yes colon cancer; no weight change, appetite, fatigue, breast cancer or weakness HEENT HEENT: No difficulty swallowing, eye injury, eye surgery, swollen glands or hoarseness Endo Endocrine: Yes diabetes mellitus; no thyroid disease, thyroid cancer, Hair loss, heat intolerance or cold intolerance Skin Skin: No rash or changing moles Musc Musculoskeletal: Yes arthritis; no back problems, rheumatoid arthritis, gout or joint pain Cardio Cardiovascular: Yes high blood pressure; no murmur, pacemaker, heart disease, atrial fibrillation, heart attack, heart stent, palpitations, shortness of breat with exertion or chest pain Psych Psychiatric: No depression, anxiety or hearing voices Resp Respiratory: No shortness of breath, No sleep apnea, No cough, No COPD, No asthma, No emphysema, No wheezing Gastro Gastrointestinal: No abdominal pain, No nausea or vomiting, No diarrhea, No constipation, No blood in stool, No acid reflux, No hemorrhoids, No ulcers, No gallbladder problem, No black,tarry stools Chris Hematologic: No blood thinners, No blood disorders, No bleeding, No anemia, No blood clots Neuro Neurologic: No system reviewed and no additional complaints, except as docu, No as per HPI, No abnormal walking, No abnormal hearing, No abnormal movements, No abnormal speech, No behavioral changes, No burning sensations, No confusion, No seizure-like activity, No unsteadiness, No dizziness, No localized weakness, No frequent falls, No headache(s), No lack of coordination, No loss of vision, No memory loss, No numbness, No other visual disturbances, No radiating pain, No restless legs, No sensory deficit, No fainting, No tingling, No tremor(s), No weakness, No other Exam Const General: cooperative, healthy appearing, comfortable, no acute distress [facility] Head: normal to inspection Eyes General: appearance normal, both eyes and all related structures Neck Neck mass: No Resp Effort & Inspection: normal respiratory effort Auscultation: clear to auscultation bilaterally Cardio Rate: regular rate Rhythm: regular rhythm Heart Sounds: no murmurs GI Inspection: normal to inspection Palpation: soft Auscultation: normal bowel sounds Skin Other: Left upper extremity- erythema noted noted from the antecubital space superior towards mid upper arm. Increased swelling noted. Pulse noted. Negative bruit and thrill. Fistula is no longer viable. Neuro General: no focal motor deficits Extrem General: normal to inspection Psych Appearance: grossly normal Affect: normal affect Assessment & Plan Problems 1. Problem with dialysis access, subsequent encounter T82.105D 2. Erythema L53.9 3. Swelling R60.9 Plan - Dr. Grier has also evaluated this patient. Dr. Grier will plan to perform a ligation and debridement of the left upper extremity arteriovenous fistula. He will plan to tie off the current fistula. Procedure details, risks and benefits have been explained to the patient. He is aware that he is to not have anything to drink or eat until after the procedure. He was given a wash. Our office will call the patient to give arrival time. I have also discussed this procedure with his daughter via phone. Patient verbally understands and agrees with the plan. He notes having his 2nd COVID injection on 11/24. His blood pressure was also elevated this morning. Coding Level of Care Code Off vis,est,level 3 Diagnoses Problem with dialysis access, subsequent encounter T82.898D Encounter type: subsequent encounter Erythema L53.9 Swelling R60.9 12/05/20 0839<Electronically signed by Gabrielle APONTE PA-C> Date Gabrielle APONTE PA-C
--- NOTE | 2020-12-05 13:37 | SUR.PREOP ---
pt here for surgery- by himself, when discussed transport he said he was driving himself home- informed pt that he can not do this - he then says he will call a taxi- informed pt that he can't do this by himself- he said that he is going to call someone to come get him.
--- NOTE | 2020-12-05 13:39 | EKG12_ITS ---
Test Reason : PRE OP Blood Pressure : / mmHG Vent. Rate : 067 BPM Atrial Rate : 067 BPM P-R Int : 202 ms QRS Dur : 120 ms QT Int : 410 ms P-R-T Axes : 029 -76 030 degrees QTc Int : 433 ms Normal sinus rhythm Right bundle branch block Left anterior fascicular block Bifascicular block Abnormal ECG When compared with ECG of 22-DEC-2017 05:07, No significant change was found Confirmed by LAURO HERNÁNDEZ, DIANE ([id number]), makeup editor PALAK DALY ([id number]) on 12/09/2020 10:14:04 A M Referred By: Rusty Grier Confirmed By:LETICIA RESTREPO MD
--- NOTE | 2020-12-05 13:44 | HP.PCM_ITS ---
Problem List (1) Problem with dialysis access Status: Acute Qualifiers: Encounter type: initial encounter Qualified Code(s): T82.898A - Other specified complication of vascular prosthetic devices, implants and grafts, initial encounter History and Physical Date of Admission: 12/05/20 [facility] Medical Records Department [address] [place] [address] History and Physical 12/05/20 1103 MR#: [id number] Acct: [id number] Name: ALEISHA ERVIN HAMMAD Rep #:[id number] : 1950 70 From: Gabrielle APONTE PA-C PCP: Dr. Nabeel Reyes MD Status:PRE S DC Y Location: [facility] [place] Problem List (1) Problem with dialysis access Status: Acute History and Physical Date of Admission: 12/05/20 [facility] [address] [place] [address] OFFICE VISIT Date of Service: 12/05/20 MR#:[id number] Name: ALEISHA ERVIN HAMMADRep #:[id number] : 1950 Provider: SARA Guzmán Age/Sex: 70/M Location:[facility] Status:ISigned Intake Vital Signs 12/05/20 BP 197/87 H 12/05/20 Blood Pressure Location Rt brachial 12/05/20 Position Sitting 12/05/20 Height 5 ft 6 in 12/05/20 Weight: 188 lb 12/05/20 BMI 30.3 12/05/20 BP 209/97 H 12/05/20 Blood Pressure Location Rt brachial 12/05/20 Position Sitting 12/05/20 Respiration 16 12/05/20 Pulse 62 12/05/20 Pulse Source Monitor 12/05/20 Temp 98.2 F 12/05/20 Temp Source Temporal 12/05/20 Pulse Oximetry (%) 99 12/05/20 Oxygen Delivery Method room air Intake Visit Reasons: FISTULA F/U Chief Complaint: check fistula Social Worker Health Services Required: No Is patient in pain?: No Allergies No Known Allergies Allergy (Verified 12/05/20 07:50) Medications glimepiride 1 mg tablet 2 mg PO DAILY@0800 tab 05/19/18 [History Confirmed 12/05/20] Metoprolol Succinate 50 mg PO BID 05/30/18 [History Confirmed 12/05/20] Atorvastatin Calcium [Lipitor] 40 mg PO DAILY 11/08/18 [History Confirmed 12/05/20] Iron Polysaccharide Complex [Ferrex 150] 150 mg PO DAILYCM #90 cap 01/09/20 [Rx Confirmed 12/05/20] hydrALAZINE [Apresoline] 25 mg PO TID 01/09/20 [History Confirmed 12/05/20] Ergocalciferol (Vitamin D2) [Vitamin D2] 50,000 unit PO DAILY 04/10/20 [History Confirmed 12/05/20] Pregabalin 25 mg PO DAILY 04/10/20 [History Confirmed 12/05/20] cephalexin 500 mg capsule 500 mg PO BID 5 Days #10 cap 12/02/20 [Rx Confirmed 12/05/20] PFSH Medical History Chronic renal failure, stage 4 (severe) (Chronic) Renal cyst, right (Chronic) History of colon cancer (Chronic) Diabetes mellitus, type II (Chronic) HTN (hypertension) (Chronic) HLD (hyperlipidemia) (Chronic) Acute renal failure superimposed on stage 3 chronic kidney disease (Resolved) Hyperkalemia (Resolved) Metabolic acidosis (Resolved) Problem with dialysis access (Resolved) Sepsis (Resolved) Urinary tract infection due to extended-spectrum beta lactamase (ESBL) producing Escherichia coli (Resolved) Surgical History Hx of colectomy (Chronic) Presence of surgically created arteriovenous shunt for hemodialysis (Acute) Family History Brother Myocardial infarction Social History (Updated 12/05/20 @ 08:39 by Gabrielle APONTE PAKathyC) Smoking Status: Never smoker alcohol intake: never substance use type: does not use caffeine: Yes what type of physical activity do you participate in: walking, running frequency: daily duration: < 15 minutes/day seatbelt use: always HPI: ALEISHA ERVIN, is a 70 M who presents to the office today for worsening erythema and swelling at the fistula site. Patient contacted our physician auto parts counter person last night and stated his arm was looking worse. Dr. Garcia recommended the patient come into the office this morning to be evaluated. Patient was evaluated on Wednesday do to increased pain and swelling at his left upper extremity AV fistula site. Patient has never been on dialysis. He denies recent hospitalizations or illnesses. He denies previous myocardial infarction or pulmonary issues. He denies anesthesia complications. He denies taking any blood thinners. His daughter, whom I spoke with the patient's permission, stated following the patient's COVID he had mentioned the fistula was not working as well. My previous note from Wednesday reflected below: ALEISHA ERVIN, is a 70 M who presents to the office today for left upper extremity fistula pain/discomfort. Patient was evaluated at his PCP, Dr. Reyes's office today. He was given an injection of Rocephin due to the patient having redness in the upper arm at the fistula site. Patient states the left upper extremity started becoming painful yesterday. He noted a thrill yesterday however he was not feeling one today. He denies being on dialysis ever. He had this fistula created in 2018. He has not followed up with our office since 07/2018. Patient denies trauma to the area. Dr. River is his customer engagement manager. ROS General General: Yes colon cancer; no weight change, appetite, fatigue, breast cancer or weakness HEENT HEENT: No difficulty swallowing, eye injury, eye surgery, swollen glands or hoarseness Endo Endocrine: Yes diabetes mellitus; no thyroid disease, thyroid cancer, Hair loss, heat intolerance or cold intolerance Skin Skin: No rash or changing moles Musc Musculoskeletal: Yes arthritis; no back problems, rheumatoid arthritis, gout or joint pain Cardio Cardiovascular: Yes high blood pressure; no murmur, pacemaker, heart disease, atrial fibrillation, heart attack, heart stent, palpitations, shortness of breat with exertion or chest pain Psych Psychiatric: No depression, anxiety or hearing voices Resp Respiratory: No shortness of breath, No sleep apnea, No cough, No COPD, No asthma, No emphysema, No wheezing Gastro Gastrointestinal: No abdominal pain, No nausea or vomiting, No diarrhea, No constipation, No blood in stool, No acid reflux, No hemorrhoids, No ulcers, No gallbladder problem, No black,tarry stools Chris Hematologic: No blood thinners, No blood disorders, No bleeding, No anemia, No blood clots Neuro Neurologic: No system reviewed and no additional complaints, except as docu, No as per HPI, No abnormal walking, No abnormal hearing, No abnormal movements, No abnormal speech, No behavioral changes, No burning sensations, No confusion, No seizure-like activity, No unsteadiness, No dizziness, No localized weakness, No frequent falls, No headache(s), No lack of coordination, No loss of vision, No memory loss, No numbness, No other visual disturbances, No radiating pain, No restless legs, No sensory deficit, No fainting, No tingling, No tremor(s), No weakness, No other Exam Const General: cooperative, healthy appearing, comfortable, no acute distress HENMT Head: normal to inspection Eyes General: appearance normal, both eyes and all related structures Neck Neck mass: No Resp Effort & Inspection: normal respiratory effort Auscultation: clear to auscultation bilaterally Cardio Rate: regular rate Rhythm: regular rhythm Heart Sounds: no murmurs GI Inspection: normal to inspection Palpation: soft Auscultation: normal bowel sounds Skin Other: Left upper extremity- erythema noted noted from the antecubital space superior towards mid upper arm. Increased swelling noted. Pulse noted. Negative bruit and thrill. Fistula is no longer viable. Neuro General: no focal motor deficits Extrem General: normal to inspection Psych Appearance: grossly normal Affect: normal affect Assessment & Plan Problems 1. Problem with dialysis access, subsequent encounter T82.259L 2. Erythema L53.9 3. Swelling R60.9 Plan - Dr. Grier has also evaluated this patient. Dr. Grier will plan to perform a ligation and debridement of the left upper extremity arteriovenous fistula. He will plan to tie off the current fistula. Procedure details, risks and benefits have been explained to the patient. He is aware that he is to not have anything to drink or eat until after the procedure. He was given a wash. Our office will call the patient to give arrival time. I have also discussed this procedure with his daughter via phone. Patient verbally understands and agrees with the plan. He notes having his 2nd COVID injection on 11/24. His blood pressure was also elevated this morning. Coding Level of Care Code Off vis,est,level 3 Diagnoses Problem with dialysis access, subsequent encounter T82.077V Encounter type: subsequent encounter Erythema L53.9 Swelling R60.9 12/05/20 0839<Electronically signed by Gabrielle APONTE PA-C> Date Gabrielle Ramirez APONTE PA-C 12/05/20 1105 <Electronically signed by Gabrielle APONTE PA-C> Date _ Gabrielle APONTE PA-C I was present throughout the interview and evaluation and concur with the above findings. We will proceed as indicated. Rusty Grier M.D., F.A.C.S. Procedure Criteria Procedure Type: Elective COVID Risk Discussion: The surgeon/proceduralist and patient have discussed in detail the risk of exposure to and/or potential harm posed by the COVID-19 virus with having a surgery/procedure at this time versus the risk of delaying the surgery/procedure. It is not possible to know either the risk of delaying the surgery or procedure or chance of getting an infection with perfect accuracy, but a joint decision was made between the patient and the surgeon/proceduralist to proceed at this time with the scheduled surgery/procedure as indicated on the consent form.
[2020-12-05 13:57] VITALS: BP 220/85; PULSE 75; RESP 18; TEMP 36.3; O2SAT 100; BMI 29.9
[2020-12-05] MEDS: Lactated Ringers 1,000 ML 30 ML IV (14:20)
[2020-12-05 14:26] LABS: Hematocrit 37.6 % (40-54); Hemoglobin 12.4 g/dL (13.0-16.5); Mean Corpuscular Volume 90.8 fL (80-94); Mean Platelet Vol. 10.8 fl (6.2-12.0); Platelet Count 150 K/mm3 (150-450); RBC Distribution Width CV 12.6 % (11.6-14.6); RBC Distribution Width SD 41.4 fl (35.1-43.9); Red Blood Count 4.14 M/mm3 (4.6-6.2); White Blood Count 9.6 K/mm3 (4.4-11.0)
[2020-12-05 14:36] LABS: Anion Gap 5 (5-15); BUN 36 mg/dL (7-18); BUN/Creat Ratio 16.6 RATIO (10-20); Calcium,Total 8.9 mg/dL (8.5-10.1); Chloride 111 mmol/L (98-107); Creatinine, Serum 2.17 mg/dL (0.70-1.30); EST Glomerular Filtration Rate 32 mL/min (>60); Est Glom Filt Rate - Afr Amer 39 mL/min (>60); Estimated Creatinine Clearance 28.99 ml/min; Glucose 79 mg/dL (74-106); Sodium Level 140 mmol/L (136-145)
[2020-12-05 14:50] LABS: Bedside Glucose 65 mg/dL (70-110)
[2020-12-05] MEDS: Cefazolin 2 GM in 0.9% Normal Saline 100 ML IV (15:07)
--- NOTE | 2020-12-05 15:30 | VE_PTH ---
PATIENT: ALEISHA ERVIN LOC: [facility] [place] U#:[id number] AGE/SX: 70/M ROOM: RE12/05/[address]: Dr. Rusty Grier MD : 1950 BED: DIS: 12/05/2020 SPEC #: [id number] RECD: 12/06/20 08:02 STATUS: WILBERT PHAM #: [id number] KAVYA: 12/05/20 15:[address]: Rusty Grier DEPT: SURGICAL PATHOLOGY RECD BY: Kassandra Matthew ENTERED: 12/06/20 08:22 SP TYPE: VEIN(S) OTHR DR: Dr. Nabeel Reyes MD Tissues: Vein, NOS Procedures: Surgery Specimen Level IV HEADER OPERATION: Ligation and debridement upper arm arteriovenous fistula PRE-OP DIAGNOSIS: Problem with dialysis access TISSUE SUBMITTED: Cephalic vein, left upper arm MICROSCOPIC DIAGNOSIS Left upper arm cephalic vein, excision: Intimal fibroplasia and acute inflammation. Early organizing thrombus. AM:yg 12/09/2020 MICROSCOPIC DESCRIPTION Slides are reviewed. GROSS DESCRIPTION Received in fixative is one container labeled with the patient's name and designated cephalic vein left upper arm. The specimen consists of a tubular fragment of walsh tissue measuring 7 cm in length and varying in diameter from 0.8 to 1.2 cm. Airport Ramp Agent cross-sections are submitted in two cassettes. / AM:yg 12/06/20 TC:2 CPT: 56136
[2020-12-05] MEDS: Bupivacaine Mpf 0.5% 30 ML VIAL (16:00)
--- NOTE | 2020-12-05 16:05 | OP.PCM_ITS ---
Problem List (1) Problem with dialysis access Status: Acute Qualifiers: Encounter type: initial encounter Qualified Code(s): T82.898A - Other specified complication of vascular prosthetic devices, implants and grafts, initial encounter Report of Operation Date of Procedure: 12/05/20 Pre-Operative Diagnosis: Acutely thrombosed left upper arm brachiocephalic arteriovenous hemodialysis fistula with increasing induration and erythema, possible septic thrombophlebitis Post-Operative Diagnosis: Acutely thrombosed left upper arm brachiocephalic arteriovenous hemodialysis fistula with findings consistent with acute thrombophlebitis Surgery/Procedure Performed:: Ligation left upper arm brachiocephalic arteriovenous fistula with debridement of segment of severe thrombophlebitis. Cultures obtained Description of Surgical Findings:: Timeout and informed consent was obtained. 70-year-old gentleman was taken to the operating room placed supine on the table underwent general anesthesia Ancef 2 g were given intravenously the left upper extremity was sterilely prepped all the way to the shoulder. Then a sleep was placed at the shoulder level and a tourniquet was placed. 0.5% Marcaine was used as a local anesthetic. Total 9 cc was used. Local was instilled. The tourniquet was inflated to 250 mmHg pressure. Total tourniquet time was 19 minutes. A longitudinal incision was made directly over the inflamed thrombosed cephalic vein. Sharp and blunt dissection was instituted down to the anastomosis. It is of note that there was slight amount of soft tissue fluid but there clearly was no purulence. I transected the vein short of the artery and some thrombus was removed and the thrombus Was removed. I then suture closed a very small Of remaining cephalic vein with a 2-0 Prolene running suture. I have elected not to dissect all the way down to the brachial artery anterior direct repair of the artery as there wa s no purulence identified and I did not want to risk potential blood flow interruption to the hand. There was inflamed thickened thrombosed cephalic vein which I then lengthened my incision cephalad and dissected free until the vein return to a more normal size. At that point I ligated the vein with a 3-0 Vicryl suture ligature. The inflamed segment of vein was removed. It is of note that thrombus within the vein was sent for Gram stain SHIPBOARD INTELLIGENCE ANALYST aerobic anaerobic and aerobic. The tourniquet was deflated. Hemostasis obtained with interrupted 3-0 chromic. The small portion of the vein adjacent the brachial artery was then tunneled from the a interrupted simple suture layer of 3-0 Vicryl to provide containment. Several interrupted 3-0 Vicryl sutures were used to approximate some of the jovanny d space in the subcutaneous tissue. I elected not to use a running subcuticular stitch in case there was actually infection present so I did apply mihir. Telfa 4 x 4's applied followed by soft roll and Tevin wrap. Sponge and instrument and needle counts were reported to surgically correct. Specimen included the cultures obtained in the segment of inflamed thrombosed vein. He was taken to the recovery room in satisfactory condition no apparent complication. Specimen vein. Blood loss minimal. Drains none. Rusty Grier M.D., F.A.C.S. Type of Anesthesia:: General Anesthesiologist: Michelle Steinberg
[2020-12-05 16:20] VITALS: BP 204/84; BP 220/85; PULSE 58; RESP 16; TEMP 36.3; O2SAT 100
[2020-12-05 16:30] VITALS: BP 196/78; BP 220/85; PULSE 54; RESP 17; O2SAT 100
--- NOTE | 2020-12-05 16:34 | DCINST_ITS ---
Discharge Diet: Renal Diet Discharge Activity: May Not Shower Lifting Restrictions: 5 pounds Keep extremity elevated above heart level: Left Arm, - - Keep arm elevated above the heart level for 3 days. Additional Dressing/Incision Instructions:: Please leave your dressings intact. Allergies/Adverse Reactions: Allergies No Known Allergies Allergy (Verified 12/05/20 13:45) Medications to take at Discharge glimepiride 1 mg tablet 2 mg PO DAILY@0800 tab 05/19/18 Metoprolol Succinate 50 mg PO BID 05/30/18 Atorvastatin Calcium [Lipitor] 40 mg PO DAILY 11/08/18 hydrALAZINE [Apresoline] 25 mg PO BID 01/09/20 Ergocalciferol (Vitamin D2) [Vitamin D2] 50,000 unit PO DAILY 04/10/20 Pregabalin 25 mg PO DAILY 04/10/20 Augmentin 500-125 Tablet 500 mg PO BID #10 12/05/20 Hydrocodone Bitart/Apap 5-325 [Belton 5MG-325MG] 1 tablet PO Q6H PRN PRN 3 Days #8 tab 12/05/20 The following prescriptions were given: Augmentin 500-125 Tablet 500 mg PO BID #10 Hydrocodone Bitart/Apap 5-325 [Belton 5MG-325MG] 1 tablet PO Q6H PRN PRN 3 Days #8 tab PRN Reason: Pain Transmission Status: Received by [facility] Primary Care Physician: Nabeel Reyes Chi, MD [Primary Care Provider] - Test Results: Test results from this visit will be discussed in further detail at your follow- up appointment, if applicable. Please Follow Up With: Rusty Grier MD - [phone] When: Appt. tomorrow 12:00 noon please
[2020-12-05 16:45] VITALS: BP 207/78; BP 220/85; PULSE 54; RESP 16; O2SAT 99
[2020-12-05 17:00] VITALS: BP 204/76; BP 220/85; PULSE 55; RESP 16; TEMP 36.1; O2SAT 100
[2020-12-05 18:15] VITALS: BP 208/67; BP 220/85; PULSE 64; RESP 16; TEMP 35.8; O2SAT 98
== END 2020-12-05 18:30 | disposition home or self-care (01) ==
LOC: SDC 13:25 → AC 13:26
PROVIDERS: PCP Family Medicine Geriatric Medicine; Referring Provider Surgery; Visit Provider Surgery
PROC: (CPT 37607; principal; 2020-12-05 15:15)
DX: T82.868A Thrombosis due to vascular prosthetic devices, implants and grafts, initial encounter (principal); I12.9 Hypertensive chronic kidney disease with stage 1 through stage 4 chronic kidney disease, or unspecified chronic kidney disease; E11.22 Type 2 diabetes mellitus with diabetic chronic kidney disease; N18.4 Chronic kidney disease, stage 4 (severe); E78.00 Pure hypercholesterolemia, unspecified; Z79.84 Long term (current) use of oral hypoglycemic drugs; Z79.899 Other long term (current) drug therapy
CPT/HCPCS: 01770; 37607; 80048; 82962; 85027; 87070; 87075; 87102; 87205; 87206; 87426; 88304; 88305; 93005; J7120; J2405

== ENCOUNTER → 2021-01-08 14:58 | Outpatient (CLI) | payer MEDICARE, SELFPAY ==
[2021-01-08 16:01] LABS: Anion Gap 3 (5-15); BUN 31 mg/dL (7-18); BUN/Creat Ratio 14.4 RATIO (10-20); Calcium,Total 9.2 mg/dL (8.5-10.1); Chloride 111 mmol/L (98-107); Creatinine, Serum 2.16 mg/dL (0.70-1.30); EST Glomerular Filtration Rate 32 mL/min (>60); Est Glom Filt Rate - Afr Amer 39 mL/min (>60); Glucose 67 mg/dL (74-106); Potassium 4.5 mmol/L (3.5-5.1); Sodium Level 142 mmol/L (136-145)
[2021-01-08 16:04] LABS: Absolute Lymphocyte Count 2.14 X10^3/uL (0.83-4.51); Absolute Neutrophil Count 4.1 X10^3/uL (2.0-7.7); Basophil# 0.03 X10^3/uL; Basophil% 0.4 % (0-1); Eosinophil# 0.22 X10^3/uL; Eosinophils% 3.1 % (0-5); Hematocrit 36.5 % (40-54); Hemoglobin 11.8 g/dL (13.0-16.5); Lymphocyte # 2.14 X10^3/ul (0.83-4.51); Lymphocyte % 30.6 % (19-41); Mean Corp Hgb Conc 32.3 g/dL (32-36); Mean Corpuscular Hgb 29.6 pg (27.0-32.0); Mean Corpuscular Volume 91.7 fL (80-94); Mean Platelet Vol. 10.6 fl (6.2-12.0); Monocyte# 0.49 X10^3/uL; NRBC Flagged by Analyzer 0 % (0-5); Neutrophil # 4.11 X10^3/uL (2.7-7.7); Neutrophil % 58.9 % (47-70); Platelet Count 169 K/mm3 (150-450); RBC Distribution Width CV 12.7 % (11.6-14.6); RBC Distribution Width SD 42.6 fl (35.1-43.9); Red Blood Count 3.98 M/mm3 (4.6-6.2)
== END ==
PROVIDERS: PCP Family Medicine Geriatric Medicine; Visit Provider Family Medicine Geriatric Medicine
DX: I10 Essential (primary) hypertension (principal)
CPT/HCPCS: 36415; 80048; 85025

== ENCOUNTER → 2021-01-22 08:55 | Outpatient (CLI) | payer MEDICARE, MEDICAID, SELFPAY ==
[2020-10-03 13:03] VITALS: BMI 31.3
--- NOTE | 2021-01-22 15:07 | NEURO ---
NCS and/or EMG Patient Report Ordering Doctor: Nabeel Reyes Chi DATE OF SERVICE: 01/22/21 Delores Bear presents for electrodiagnostic testing of the lower limbs. He reports progressive weakness in the legs. He has a history of chemotherapy and radiation for treatment of colon cancer. Electrodiagnostic findings: Peroneal motor nerve demonstrates normal distal latency bilaterally with normal amplitude and reduced conduction velocity. Normal tibial motor response bilaterally. Sensory responses are absent. Prolonged tibial F wave bilaterally. Prolonged right peroneal F-wave. Prolonged right tibial H reflex. Needle EMG, motor units of increased amplitude and duration noted bilaterally in the gastrocnemius. No acute denervation noted. Electrodiagnostic assessment: This is an abnormal study in the lower limbs 1. Electrodiagnostic findings demonstrate peripheral polyneuropathy, sensory greater than motor. This may be secondary to previous history of chemotherapy and radiation treatment.
== END ==
PROVIDERS: PCP Family Medicine Geriatric Medicine; Referring Provider Family Medicine Geriatric Medicine; Visit Provider Family Medicine Geriatric Medicine
DX: R20.2 Paresthesia of skin (principal)
CPT/HCPCS: 95886; 95911

== ENCOUNTER → 2021-04-10 13:05 | Outpatient (CLI) | payer MEDICARE, SELFPAY ==
[2021-04-10 16:45] LABS: Vitamin D,25 Hydroxy 57.8 ng/mL
[2021-04-10 16:52] LABS: ALB/GLOB Ratio 1.1 RATIO (0.9-2.4); AST(SGOT) 17 U/L (15-37); Alanine Aminotransfer ALT/SGPT 22 U/L (16-61); Albumin, Serum 3.5 g/dL (3.2-5.0); Alkaline Phosphatase 69 U/L (45-117); Anion Gap 6 (5-15); BUN 32 mg/dL (7-18); BUN/Creat Ratio 15.5 RATIO (10-20); Calcium,Total 8.8 mg/dL (8.5-10.1); Chloride 110 mmol/L (98-107); Creatinine, Serum 2.06 mg/dL (0.70-1.30); EST Glomerular Filtration Rate 34 mL/min (>60); Est Glom Filt Rate - Afr Amer 41 mL/min (>60); Globulin 3.1 g/dL (2.2-4.2); Glucose 115 mg/dL (74-106); PSA,Total - Annual Screen 0.12 ng/mL (0.00-4.00); Potassium 4.2 mmol/L (3.5-5.1); Protein, Total 6.6 g/dL (6.4-8.2); Sodium Level 141 mmol/L (136-145); Thyroid Stim Hormone (TSH) 1.69 uIU/mL (0.358-3.74)
[2021-04-10 17:04] LABS: Absolute Lymphocyte Count 1.66 X10^3/uL (0.83-4.51); Absolute Neutrophil Count 4.4 X10^3/uL (2.0-7.7); Basophil# 0.03 X10^3/uL; Basophil% 0.4 % (0-1); Eosinophil# 0.16 X10^3/uL; Eosinophils% 2.4 % (0-5); Hemoglobin 11.4 g/dL (13.0-16.5); Lymphocyte # 1.66 X10^3/ul (0.83-4.51); Lymphocyte % 24.5 % (19-41); Mean Corp Hgb Conc 32.6 g/dL (32-36); Mean Corpuscular Hgb 29.6 pg (27.0-32.0); Mean Corpuscular Volume 90.9 fL (80-94); Mean Platelet Vol. 11.6 fl (6.2-12.0); Monocyte# 0.49 X10^3/uL; Monocyte% 7.2 % (0-10); NRBC Flagged by Analyzer 0 % (0-5); Neutrophil # 4.43 X10^3/uL (2.7-7.7); Neutrophil % 65.4 % (47-70); Platelet Count 142 K/mm3 (150-450); RBC Distribution Width CV 13.1 % (11.6-14.6); Red Blood Count 3.85 M/mm3 (4.6-6.2); White Blood Count 6.8 K/mm3 (4.4-11.0)
== END ==
PROVIDERS: PCP Family Medicine Geriatric Medicine; Visit Provider Family Medicine Geriatric Medicine
DX: E11.65 Type 2 diabetes mellitus with hyperglycemia (principal); E55.9 Vitamin D deficiency, unspecified; I10 Essential (primary) hypertension; Z12.5 Encounter for screening for malignant neoplasm of prostate
CPT/HCPCS: 36415; 80053; 82306; 84153; 84443; 85025; G0103

== ENCOUNTER → 2021-05-13 13:30 | Outpatient (CLI) | payer MEDICARE, MEDICAID, SELFPAY ==
--- NOTE | 2021-05-13 13:32 | AVDS_ITS ---
Reason For Study: Evaluate for aneurysm, left upper arm LEFT Brachial artery, 0.56 x 0.54 cm, 108.8/7.9 cm/sec. Residual fistula noted at the prox anastamosis site. Prox anastamosis, 0.50 cm. Bidirectional flow noted. Cephalic vein just prox to anastamosis, 0.77 x 0.91 cm. Radial artery, 0.30 x 0.30 cm, 88.1 cm/sec. Ulnar artery, 0.27 x 0.27 cm, 97.2 cm/sec. Basilic is compressible, normal venous flow. Cephalic vein below antecube is compressible, normal venous flow. Prelim to [place]. VL/AV Fistula/Dialysis Graft Scan Interpretation Summary Normal diameter and flow left brachial artery, radial artery, and ulnar artery Remnant cephalic vein stump portion of the fistula measuring 0.77 x 0.91 cm in diameter, patent with no evidence of thrombophlebitis Ordering Physician: Gabrielle Guzmán Referring Physician: Naebel Reyes Chi Performed By: Taina Vega RVT
== END ==
PROVIDERS: PCP Family Medicine Geriatric Medicine; Referring Provider Physician Assistant; Visit Provider Physician Assistant
DX: N18.4 Chronic kidney disease, stage 4 (severe) (principal)
CPT/HCPCS: 93990

== ENCOUNTER → 2021-08-06 11:26 | Outpatient (CLI) | payer MEDICARE, MEDICAID, SELFPAY ==
[2021-08-06 12:28] LABS: Hematocrit 33.6 % (40-54); Hemoglobin 10.7 g/dL (13.0-16.5); Mean Corp Hgb Conc 31.8 g/dL (32-36); Mean Corpuscular Hgb 28.8 pg (27.0-32.0); Mean Corpuscular Volume 90.6 fL (80-94); Mean Platelet Vol. 11.1 fl (6.2-12.0); Platelet Count 166 K/mm3 (150-450); RBC Distribution Width SD 42.7 fl (35.1-43.9); Red Blood Count 3.71 M/mm3 (4.6-6.2); White Blood Count 6.9 K/mm3 (4.4-11.0)
[2021-08-06 12:52] LABS: PTHIN 39.4 pg/mL (18.4-80.1)
[2021-08-06 12:54] LABS: Albumin, Serum 3.2 g/dL (3.2-5.0); BUN 35 mg/dL (7-18); BUN/Creat Ratio 14.1 RATIO (10-20); Calcium,Total 8.9 mg/dL (8.5-10.1); Chloride 107 mmol/L (98-107); Creatinine, Serum 2.49 mg/dL (0.70-1.30); EST Glomerular Filtration Rate 27 mL/min (>60); Est Glom Filt Rate - Afr Amer 33 mL/min (>60); Glucose 126 mg/dL (74-106); Phosphorus 3.3 mg/dL (2.5-4.9); Potassium 4.9 mmol/L (3.5-5.1); Sodium Level 141 mmol/L (136-145)
== END ==
PROVIDERS: PCP Family Medicine Geriatric Medicine; Visit Provider Internal Medicine Nephrology
DX: N18.4 Chronic kidney disease, stage 4 (severe) (principal)
CPT/HCPCS: 36415; 80069; 83970; 85027

== ENCOUNTER → 2021-08-12 16:28 | Outpatient (CLI) | payer MEDICARE, MEDICAID, SELFPAY ==
--- NOTE | 2021-08-12 16:32 | RAD_ITS ---
STUDY: X-RAY - RIGHT ANKLE REASON FOR EXAM: Male, 71 years old. ANKLE PAIN TECHNIQUE: 2 view(s) of the ankle. COMPARISON: None. FINDINGS: Normal visualized distal tibia and fibula. Normal medial and lateral malleoli. Normal tibiotalar articulation and ankle mortise. Normal visualized talus and calcaneus. The visualized subtalar, talonavicular, calcaneocuboid and tarsal articulations are normal. The soft tissue structures are unremarkable. RAD/Ankle 2 Views IMPRESSION: Normal x-ray examination of the ankle. Electronically Signed: Rohit De Leon MD at 8:59 EST Tel , Service support ,
--- NOTE | 2021-08-12 16:37 | RAD_ITS ---
STUDY: X-RAY - RIGHT FOOT CLINICAL: Male, 71 years old. FOOT PAIN TECHNIQUE: 2 view(s) of the foot. COMPARISON: None. FINDINGS: Normal talus, calcaneus, and tarsal bones. Tiny plantar calcaneal enthesophyte. Normal visualized subtalar, talonavicular, calcaneocuboid, tarsal and tarsometatarsal articulations. Normal metatarsi. Mild hallux valgus deformity. Normal tibial and fibular sesamoid bones. Normal interphalangeal joint of the great toe. Normal phalanges of the great toe. Normal second through fifth metatarsophalangeal joints. Normal interphalangeal joints and phalanges of the lesser toes. The soft tissue structures are unremarkable. RAD/Foot 2 Views IMPRESSION: Mild hallux valgus deformity. Electronically Signed: Rohit De Leon MD at 9:00 EST Tel , Service support ,
== END ==
PROVIDERS: PCP Family Medicine Geriatric Medicine; Referring Provider Family Medicine Geriatric Medicine; Visit Provider Family Medicine Geriatric Medicine
DX: M20.11 Hallux valgus (acquired), right foot (principal)
CPT/HCPCS: 73600; 73620

== ENCOUNTER 2021-10-09 12:48 | Outpatient (CLI) | payer MEDICARE, MEDICAID, SELFPAY ==
[2021-10-09 15:39] LABS: Absolute Lymphocyte Count 1.77 X10^3/uL (0.83-4.51); Absolute Neutrophil Count 4.3 X10^3/uL (2.0-7.7); Basophil# 0.04 X10^3/uL; Basophil% 0.6 % (0-1); Eosinophil# 0.19 X10^3/uL; Eosinophils% 2.8 % (0-5); Hematocrit 33.9 % (40-54); Hemoglobin 11.4 g/dL (13.0-16.5); Lymphocyte # 1.77 X10^3/ul (0.83-4.51); Lymphocyte % 25.8 % (19-41); Mean Corp Hgb Conc 33.6 g/dL (32-36); Mean Corpuscular Hgb 30.6 pg (27.0-32.0); Mean Corpuscular Volume 90.9 fL (80-94); Mean Platelet Vol. 11.1 fl (6.2-12.0); Monocyte# 0.51 X10^3/uL; Monocyte% 7.4 % (0-10); NRBC Flagged by Analyzer 0 % (0-5); Neutrophil # 4.29 X10^3/uL (2.7-7.7); Neutrophil % 62.7 % (47-70); Platelet Count 155 K/mm3 (150-450); RBC Distribution Width CV 13.7 % (11.6-14.6); RBC Distribution Width SD 45.9 fl (35.1-43.9); Red Blood Count 3.73 M/mm3 (4.6-6.2); White Blood Count 6.9 K/mm3 (4.4-11.0)
[2021-10-09 16:06] LABS: AST(SGOT) 17 U/L (15-37); Alanine Aminotransfer ALT/SGPT 20 U/L (16-61); Albumin, Serum 3.5 g/dL (3.2-5.0); Alkaline Phosphatase 74 U/L (45-117); Anion Gap 4 (5-15); BUN 37 mg/dL (7-18); BUN/Creat Ratio 17.1 RATIO (10-20); Calcium,Total 9.1 mg/dL (8.5-10.1); Chloride 109 mmol/L (98-107); Creatinine, Serum 2.17 mg/dL (0.70-1.30); EST Glomerular Filtration Rate 32 mL/min (>60); Est Glom Filt Rate - Afr Amer 39 mL/min (>60); Globulin 3.4 g/dL (2.2-4.2); Glucose 113 mg/dL (74-106); Potassium 4.4 mmol/L (3.5-5.1); Protein, Total 6.9 g/dL (6.4-8.2); Sodium Level 141 mmol/L (136-145); Thyroid Stim Hormone (TSH) 1.45 uIU/mL (0.358-3.74)
== END 2021-10-09 23:59 | disposition home or self-care (01) ==
LOC: POLAB3 12:49
PROVIDERS: PCP Family Medicine Geriatric Medicine; Visit Provider Family Medicine Geriatric Medicine
DX: E11.40 Type 2 diabetes mellitus with diabetic neuropathy, unspecified (principal); E55.9 Vitamin D deficiency, unspecified; I10 Essential (primary) hypertension
CPT/HCPCS: 36415; 80053; 82306; 84443; 85025

== ENCOUNTER 2021-10-23 13:57 | Outpatient (CLI) | payer MEDICARE, MEDICAID, SELFPAY ==
--- NOTE | 2021-10-23 14:06 | ART_ITS ---
Reason For Study: PVD Procedure A bilateral lower extremity continuous wave Doppler with analog waveform analysis and ankle brachial indexes. Left Segmental Pressures Left brachial= 174mmHg. Left posterior tibial artery = 212mmHg. Left dorsalis pedis artery = 200mmHg. Left digit = 194 mmHg. The left dorsalis pedis waveforms are triphasic. The left posterior tibial artery waveforms are triphasic. Right Segmental Pressures Right brachial= 168mmHg. Right posterior tibial artery = 213mmHg. Right dorsalis pedis artery = 221mmHg. Right digit = 159 mmHg. The right dorsalis pedis waveforms are triphasic. The right posterior tibial artery waveforms are triphasic. Indices The right ankle brachial index by the dorsalis pedis is 1.27. The right ankle brachial index by the posterior tibial artery is 1.22. The right digital-brachial index is .91. The left ankle brachial index by the dorsalis pedis is 1.15. The left ankle brachial index by the posterior tibial artery is 1.22. The left digital-brachial index is 1.12. VL/Ankle Brachial Index Interpretation Summary Normal bilateral lower extremity resting ankle brachial indices and triphasic d oppler waveforms. Normal bilateral digital brachial indices Ordering Physician: Nabeel Reyes Performed By: Nic Leroy RVT
== END 2021-10-23 23:59 | disposition home or self-care (01) ==
PROVIDERS: PCP Family Medicine Geriatric Medicine; Referring Provider Family Medicine Geriatric Medicine; Visit Provider Family Medicine Geriatric Medicine
DX: I73.9 Peripheral vascular disease, unspecified (principal)
CPT/HCPCS: 93922

== ENCOUNTER 2021-11-14 13:52 | Outpatient (CLI) | payer MEDICARE, MEDICAID, SELFPAY ==
--- NOTE | 2021-11-14 13:54 | AVDS_ITS ---
Reason For Study: Fistula check LEFT Brachial artery, 0.52 x 0.56 cm, 113 cm/sec. Minimal residual fistula noted at the prox anastamosis site. Prox anastamosis, 0.50 cm. Bidirectional flow noted. Cephalic vein at prox and mid bicep is noncompressible with bright intraluminal echoes. Radial artery, 0.20 x x 0.21 cm, 89.3 cm/sec. Ulnar artery, 0.18 x 0.21 cm, 80.3 cm/sec. Basilic is compressible, normal venous flow. Cephalic vein below antecube is compressible, normal venous flow. Compared to 05/13/2021. VL/AV Fistula/Dialysis Graft Scan Interpretation Summary Normal diameter and flow left brachial artery Occluded left upper arm cephalic vein fistula Patent compressible left basilic vein Ordering Physician: Rusty Grier Referring Physician: Nabeel Reyes Chi Performed By: Taina Vega RVT
== END 2021-11-14 23:59 | disposition home or self-care (01) ==
LOC: CVS 13:53
PROVIDERS: PCP Family Medicine Geriatric Medicine; Referring Provider Surgery; Visit Provider Surgery
DX: Z99.2 Dependence on renal dialysis (principal); Z98.890 Other specified postprocedural states; Z86.79 Personal history of other diseases of the circulatory system
CPT/HCPCS: 93990

== ENCOUNTER → 2021-12-10 | Outpatient (CLI) | payer MEDICARE, MEDICAID, SELFPAY ==
--- NOTE | 2021-12-10 14:35 | RAD_ITS ---
STUDY: X-RAY - LUMBAR SPINE REASON FOR EXAM: Male, 71 years old. Technologist Notes PATIENT FELL ON WEDNESDAY. PAIN IN LEFT KNEE AND LOWER LEFT BACK. LOW BACK PAIN TECHNIQUE: XR Spine Lumbar 2 or 3 Views COMPARISON: None FINDINGS: Normal lumbar lordosis. There is a dextroscoliosis of the lumbar spine. There is a normal alignment of the vertebrae. There is multilevel endplate spondylosis of the lumbar vertebrae. There is multi-level degenerative disc disease with multi-level disc space narrowing. The soft tissue structures are unremarkable. RAD/Lumbar Spine 2 or 3 Views IMPRESSION: Degenerative changes of the spine, as detailed above. Electronically Signed: Immanuel Garcia MD at 18:41 EDT ,
--- NOTE | 2021-12-10 14:50 | RAD_ITS ---
STUDY: XR Knee Complete 4 Views or More 12/10/2021 6:40 PM REASON FOR EXAM: Male, 71 years old. PAIN TECHNIQUE: XR Knee Complete 4 Views or More LEFT COMPARISON: None FINDINGS: Normal visualized distal femur. Normal visualized proximal tibia and fibula. Normal proximal tibiofibular articulation. There is severe degenerative arthrosis of the medial femorotibial compartment with severe joint space narrowing. There is mild degenerative arthrosis of the lateral femorotibial compartment. There is mild degenerative arthrosis of the patellofemoral articulation. The soft tissue structures are unremarkable. RAD/Knee 4 or More Views IMPRESSION: Degenerative arthrosis. Electronically Signed: Immanuel Garcia MD at 18:41 EDT ,
== END | disposition home or self-care (01) ==
LOC: RAD 14:34
PROVIDERS: PCP Family Medicine Geriatric Medicine; Referring Provider Family Medicine Geriatric Medicine; Visit Provider Family Medicine Geriatric Medicine
DX: M25.569 Pain in unspecified knee (principal); M54.50 Low back pain, unspecified
CPT/HCPCS: 72100; 73564

== ENCOUNTER → 2021-12-17 | Outpatient (CLI) | payer MEDICARE, MEDICAID, SELFPAY ==
--- NOTE | 2021-12-17 15:16 | VDLE_ITS ---
Reason For Study: edema Procedure LEFT This is a venous duplex using B-mode, color GSV is normal. flow and spectral Doppler. CFV is compressible, spontaneous, phasic, Exam performed in department. competent, and demonstrates normal The exam was abbreviated due to the COVID 19 augmentation. protocol. FV is compressible, spontaneous, phasic, The exam was diagnostic. competent and demonstrates normal A preliminary report was called and/or faxed augmentation. to Dr. Reyes. POP V is compressible, spontaneous, phasic, competent and demonstrates normal augmentation. T/P Trunk is compressible. PTV is compressible. LT PerV is compressible. VL/Venous Duplex US, Unilateral Interpretation Summary Deep veins of the left lower extremity are patent and compressible segmentally. There is no evidence of left lower extremity deep vein thrombosis. Valvular competence appears intac t within the proximal deep venous system on the left . The left great saphenous vein appears patent a nd compressible segmentally. Ordering Physician: Nabeel Reyes Performed By: Nic Leroy RVT
== END | disposition home or self-care (01) ==
LOC: CVS 15:15
PROVIDERS: PCP Family Medicine Geriatric Medicine; Referring Provider Family Medicine Geriatric Medicine; Visit Provider Family Medicine Geriatric Medicine
DX: R60.0 Localized edema (principal)
CPT/HCPCS: 93971

== ENCOUNTER 2022-01-05 14:30 | Outpatient (RCR) | payer MEDICARE, MEDICAID, SELFPAY ==
--- NOTE | 2021-12-29 15:24 | HP.PTEVAL_ITS ---
Patient's Visit Information ALEISHA ERVIN is a 71 year old M referred to Physical Therapy by Dr. Nabeel Reyes MD with a diagnosis of Severe Left Knee OA. Date of Evaluation: 12/29/21 Physical Therapist: Niecy Hall DPT - Visit Plan Frequency: 2x /Week Duration: 4 Weeks Plan: Knee- severe left OA- focus on LE and core strength/stabilization- modality as needed. HEP Given IE: SLS, HR/TR, sit to stand, hamstring stretch seated - Subjective Patient reports that his left knee really bothers hip. About a month ago he fell on it and now it swells. He has pain on the inside of the knee. He had x- rays and he has severe OA. No radiating pain from the knee but does have left back pain. Worst: 6/10 Agg: walking to far. Gets tired but if he sits for 5 min he can then walk again. Eases: sitting down, rest. Best: 0/10. Sleep: does not wake him up but he does have redness on the medial side. But when he gets up in the AM he feels he has to wait and get his knee under him before he moves. Describes the knee pain as sharp but usually its a constant pain. Sometimes he has N/T in bilateral LE. He does not fall normally- he is careful of how he moves. He is unable to cross his legs. 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 He has not had any injections in the knee. PMHx/Meds: see chart scanned in. - Objective Posture: FH, RS can correct but does not maintain throughout session. Gait: sli ght deviation noted- decreased stance on the left LE- no AD. HR/TR: able with UE A. Stairs: asc/desc 8 recip with bilateral HR- poor control with descent. SLS: 1-2 seconds then required to place other foot on the floor. Palpation: not tender to palpatoin. ROM: WFL in all planes. Strength: Core: fair, hip: 4/5 throughout, Knee: 4+/5, Ankle: 5/5. Flex: HS: moderate Gastroc: mild. - Special Tests L Knee Bella - Meniscus: Positive L Knee Valgus - MCL: Positive L Knee Varus - LCL: Positive L Knee Patellar Grind - PFS: Positive - Balance/Special Test Scores Lower Extremity Functional Score: 30 - Goals Goal 1:: Patient will be I with HEP and progression Goal Time Frame: 4-6 Weeks Goal 2:: Patient will asc/desc 8 stairs recip with 1 HR Goal Time Frame: 4-6 Weeks Goal 3:: Patient will ambulate >300 feet with a normalized gait pattern Goal Time Frame: 4-6 Weeks Goal 4:: Patient will report 80% improvement Goal Time Frame: 4-6 Weeks - Rehabilitation Potential Physical Therapy Diagnosis: Patient presents with hypomobility- he has decreased LE and core strength/stabilization, flex, proprioception and functional mobility leading to abnormal gait and increased pain with ADL's. - Anticipated Interventions Patient/Client Instruction: Educate patient on: Benefits of Fitness Program Therapeutic Exercise to Include: Strength training, Endurance training, Balance training, Coordination, Agility training, Body mechanics, Postural training, Flexibilty training, Gait and locomotor training, Neuromotor development, P assive ROM, Active ROM, Dynamic Lumbar Stabilization, Scapular Strength/Stabilization For the Purpose of:: To improve muscle performance and motor function TENS: Yes Cryotherapy (ice pack, ice massage): Yes Thermo therapy (hot pack): Yes Ultrasound (thermal/non thermal): Yes Thank you for the opportunity to evaluate your patient. For Medicare and Medicare HMO plans, please review the plan of care and approve it. It will need to be FAXED BACK to us at [phone] for Medicare purposes. For Medicare only, by signing this I certify the plan of care. Please let me know if there are questions or concerns regarding this plan of care. Physician Signature: Date:
== END 2022-01-05 19:00 | disposition home or self-care (01) ==
LOC: PT 14:30
PROVIDERS: PCP Family Medicine Geriatric Medicine; Referring Provider Family Medicine Geriatric Medicine; Visit Provider Family Medicine Geriatric Medicine
DX: M17.12 Unilateral primary osteoarthritis, left knee (principal)
CPT/HCPCS: 97110; 97162

== ENCOUNTER → 2022-01-15 | Outpatient (CLI) | payer MEDICARE, MEDICAID, SELFPAY ==
--- NOTE | 2022-01-15 13:11 | VDLE_ITS ---
Reason For Study: Edema Procedure LEFT This is a venous duplex using B-mode, color GSV is normal. flow and spectral Doppler. CFV is compressible, spontaneous, phasic, Exam performed in department. competent, and demonstrates normal A preliminary report was called and/or faxed augmentation. to Daniela. FV is compressible, spontaneous, phasic, competent and demonstrates normal augmentation. POP V is compressible, spontaneous, phasic, competent and demonstrates normal augmentation. T/P Trunk is compressible. PTV is compressible. LT PerV is compressible. Acute deep vein thrombosis is noted in the left Gastroc vein. Nonvascularized structure noted in the prosimal calf muscle that measures 1.94 x 4.33 cm. VL/Venous Duplex US, Unilateral Interpretation Summary Complex 1.94 x 4.33 non-vascular non-simple cyst proximal left calf. Clinical c orrelation would be appropriate Acute deep venous thrombosis left gastrocnemius vein Patent,compressible left great saphenous vein Ordering Physician: Nabeel Reyes Referring Physician: Nabeel Reyes Chi Performed By: Taina Vega RVT
== END | disposition home or self-care (01) ==
LOC: CVS 12:50
PROVIDERS: PCP Family Medicine Geriatric Medicine; Referring Provider Family Medicine Geriatric Medicine; Visit Provider Family Medicine Geriatric Medicine
DX: I82.462 Acute embolism and thrombosis of left calf muscular vein (principal)
CPT/HCPCS: 93971

== ENCOUNTER → 2022-02-04 | Outpatient (CLI) | payer MEDICARE, MEDICAID, SELFPAY ==
--- NOTE | 2022-02-04 15:53 | VDLE_ITS ---
Reason For Study: Edema Procedure LEFT This is a venous duplex using B-mode, color GSV is normal. flow and spectral Doppler. CFV is compressible, spontaneous, phasic, Exam performed in department. competent, and demonstrates normal A preliminary report was called and/or faxed augmentation. to Eric. FV is compressible, spontaneous, phasic, competent and demonstrates normal augmentation. POP V is compressible, spontaneous, phasic, competent and demonstrates normal augmentation. T/P Trunk is compressible. PTV is compressible. LT PerV is compressible. Acute deep vein thrombosis is noted in the right GastrocV. Compared to 01/15/22. Nonvascularized structure noted in the proximal calf muscle. VL/Venous Duplex US, Unilateral Interpretation Summary Deep venous thrombosis left gastrocnemius vein similar to January 15, 2022 Nonvascular structure proximal left calf muscle similar to January 15, 2022 with cl inical correlation appropriate. Patent and compressible left great saphenous vein Ordering Physician: Nabeel Reyes Referring Physician: Nabeel Reyes Chi Performed By: Taina Vega RVT
== END | disposition home or self-care (01) ==
LOC: CVS 15:52
PROVIDERS: PCP Family Medicine Geriatric Medicine; Referring Provider Family Medicine Geriatric Medicine; Visit Provider Family Medicine Geriatric Medicine
DX: I82.462 Acute embolism and thrombosis of left calf muscular vein (principal)
CPT/HCPCS: 93971

== ENCOUNTER → 2022-02-09 | Outpatient (CLI) | payer MEDICARE, MEDICAID, SELFPAY ==
[2022-02-09 10:54] LABS: Hematocrit 37.1 % (40-54); Hemoglobin 11.9 g/dL (13.0-16.5); Mean Corp Hgb Conc 32.1 g/dL (32-36); Mean Corpuscular Hgb 29.5 pg (27.0-32.0); Mean Corpuscular Volume 92.1 fL (80-94); Mean Platelet Vol. 10.9 fl (6.2-12.0); Platelet Count 180 K/mm3 (150-450); RBC Distribution Width SD 43.8 fl (35.1-43.9); Red Blood Count 4.03 M/mm3 (4.6-6.2); White Blood Count 8.9 K/mm3 (4.4-11.0)
[2022-02-09 11:15] LABS: PTHIN 56.2 pg/mL (18.4-80.1)
[2022-02-09 11:27] LABS: Albumin, Serum 3.7 g/dL (3.2-5.0); BUN 39 mg/dL (7-18); Calcium,Total 9.8 mg/dL (8.5-10.1); Chloride 108 mmol/L (98-107); Creatinine, Serum 2.44 mg/dL (0.70-1.30); EST Glomerular Filtration Rate 28 mL/min (>60); Est Glom Filt Rate - Afr Amer 34 mL/min (>60); Glucose 119 mg/dL (74-106); Potassium 4.8 mmol/L (3.5-5.1); Sodium Level 140 mmol/L (136-145)
== END | disposition home or self-care (01) ==
PROVIDERS: PCP Family Medicine Geriatric Medicine; Referring Provider Internal Medicine Nephrology; Visit Provider Internal Medicine Nephrology
DX: N18.4 Chronic kidney disease, stage 4 (severe) (principal); N25.81 Secondary hyperparathyroidism of renal origin; D50.9 Iron deficiency anemia, unspecified
CPT/HCPCS: 36415; 80069; 83970; 85027

== ENCOUNTER → 2022-04-13 | Outpatient (CLI) | payer MEDICARE, MEDICAID, SELFPAY ==
[2022-04-13 16:29] LABS: Absolute Lymphocyte Count 2.07 X10^3/uL (0.83-4.51); Absolute Neutrophil Count 4.6 X10^3/uL (2.0-7.7); Basophil# 0.02 X10^3/uL; Basophil% 0.3 % (0-1); Eosinophil# 0.18 X10^3/uL; Eosinophils% 2.4 % (0-5); Hematocrit 34.5 % (40-54); Hemoglobin 11.5 g/dL (13.0-16.5); Lymphocyte # 2.07 X10^3/ul (0.83-4.51); Lymphocyte % 27.5 % (19-41); Mean Corp Hgb Conc 33.3 g/dL (32-36); Mean Corpuscular Hgb 30.6 pg (27.0-32.0); Mean Corpuscular Volume 91.8 fL (80-94); Mean Platelet Vol. 10.9 fl (6.2-12.0); Monocyte# 0.62 X10^3/uL; Monocyte% 8.2 % (0-10); NRBC Flagged by Analyzer 0 % (0-5); Neutrophil # 4.64 X10^3/uL (2.7-7.7); Neutrophil % 61.5 % (47-70); Platelet Count 192 K/mm3 (150-450); RBC Distribution Width CV 12.9 % (11.6-14.6); Red Blood Count 3.76 M/mm3 (4.6-6.2); White Blood Count 7.5 K/mm3 (4.4-11.0)
[2022-04-13 16:48] LABS: Vitamin D,25 Hydroxy 56.2 ng/mL
[2022-04-13 16:59] LABS: ALB/GLOB Ratio 0.9 RATIO (0.9-2.4); AST(SGOT) 15 U/L (15-37); Alanine Aminotransfer ALT/SGPT 16 U/L (16-61); Albumin, Serum 3.3 g/dL (3.2-5.0); Alkaline Phosphatase 70 U/L (45-117); Anion Gap 7 (5-15); BUN 30 mg/dL (7-18); BUN/Creat Ratio 12.8 RATIO (10-20); Calcium,Total 8.5 mg/dL (8.5-10.1); Chloride 107 mmol/L (98-107); Creatinine, Serum 2.35 mg/dL (0.70-1.30); EST Glomerular Filtration Rate 29 mL/min (>60); Est Glom Filt Rate - Afr Amer 35 mL/min (>60); Globulin 3.5 g/dL (2.2-4.2); Glucose 149 mg/dL (74-106); Potassium 4.4 mmol/L (3.5-5.1); Protein, Total 6.8 g/dL (6.4-8.2); Sodium Level 139 mmol/L (136-145); Thyroid Stim Hormone (TSH) 1.54 uIU/mL (0.358-3.74)
[2022-04-15 13:57] LABS: Ferritin 106 ng/mL (26-388); Iron 79 ug/dL (65-175); Iron Binding Capacity,Total 248 ug/dL (250-450); PERCENT IRON SATURATION 31.9 % (15.0-55.0)
== END | disposition home or self-care (01) ==
PROVIDERS: Internal Medicine Medical Oncology; PCP Family Medicine Geriatric Medicine; Visit Provider Family Medicine Geriatric Medicine
DX: E11.65 Type 2 diabetes mellitus with hyperglycemia (principal); E55.9 Vitamin D deficiency, unspecified; I10 Essential (primary) hypertension
CPT/HCPCS: 36415; 80053; 82306; 82728; 83540; 83550; 84443; 85025

== ENCOUNTER 2022-08-15 10:50 | Emergency (ER) | payer MEDICARE, MEDICAID, SELFPAY ==
[2022-08-15] VITALS (10 sets, daily range): BP systolic 154–207; BP diastolic 75–86; PULSE 60–68; RESP 13–19; TEMP 36.6; O2SAT 99–100; BMI 30.2
--- NOTE | 2022-08-15 11:03 | CT_ITS ---
STUDY: CT BRAIN WITHOUT CONTRAST REASON FOR EXAM: Male, 72 years old. Dizziness, ELEVATED BLOOD PRESSURE RADIATION DOSAGE (If Supplied By Facility): CTDIvol = ( 44.99 ) mGy, DLP = ( 846.73 ) mGycm TECHNIQUE: Transaxial CT imaging of the brain was performed without administration of intravenous contrast material. Individualized dose optimization techniques were used for this CT. COMPARISON: December 21, 2017 CT scan head FINDINGS: Normal soft tissue structures. Normal calvarium. There is mild cerebral atrophy with widening of the extra-axial spaces and ventricular dilatation. There are minimal areas of decreased attenuation within the white matter tracts of the supratentorial brain, consistent with microvascular disease changes. Normal basal ganglia and thalami. Normal brainstem. There is mild cerebellar atrophy. There is no intracranial hemorrhage. There are no findings of an acute ischemic infarction. Normal visualized paranasal sinuses. CT/Brain/Head without Contrast IMPRESSION: Mild atrophy no visualized acute hemorrhage infarct or edema. Stable head CT. Electronically Signed: Brooke Martinez MD at 12:15 EST Reading Location ID and State: [facility] / [place] Tel , Service support ,
--- NOTE | 2022-08-15 11:03 | EKG12_ITS ---
Test Reason : HTN Blood Pressure : / mmHG Vent. Rate : 062 BPM Atrial Rate : 062 BPM P-R Int : 248 ms QRS Dur : 134 ms QT Int : 460 ms P-R-T Axes : 033 -78 034 degrees QTc Int : 466 ms Sinus rhythm with sinus arrhythmia with 1st degree A-V block Right bundle branch block Left anterior fascicular block Bifascicular block Abnormal ECG Confirmed by SAMI HERNÁNDEZ, ARTURO ([id number]), newspaper managing editor PALAK DALY ([id number]) on 08/18/2022 10:38:40 AM Referred By: Confirmed By:ARTURO GALLARDO MD
--- NOTE | 2022-08-15 11:04 | EX.ED.DYSGE1 ---
HPI History of Present Illness Chief Complaint: Dizziness Narrative Narrative: 72-year-old male past medical history of hypertension, hyperlipidemia, diabetes, chronic kidney failure presents with dizziness that began yesterday and worsened today. He states he did not take his antihypertensive last night but took it this morning and noticed his blood pressure was high, over 200 systolic. He complains of dizziness and vertiginous type symptoms especially when he turns his head to the right or looks to the right. He denies any fevers or chills. No nausea or vomiting. No paresthesias. He states he might have a slight headache but it is more the dizziness although he drove himself here. PFSH [facility] Medical History Acute renal failure superimposed on stage 3 chronic kidney disease Chronic renal failure, stage 4 (severe) Diabetes mellitus, type II History of colon cancer HLD (hyperlipidemia) HTN (hypertension) Hyperkalemia Left upper arm pain Metabolic acidosis Problem with dialysis access Renal cyst, right Sepsis Urinary tract infection due to extended-spectrum beta lactamase (ESBL) producing Escherichia coli Home Medications glimepiride 1 mg tablet 2 mg PO DAILY@0800 DIABETES 05/19/18 [History Last Taken 05/11/19 08:00 2 mg] metoprolol succinate 25 mg tablet,extended release 24 hr 50 mg PO BID heart 05/30/18 [History Last Taken 12/05/20 06:50 50 MG] atorvastatin 40 mg tablet 40 mg PO DAILY cholesterol 11/08/18 [History Last Taken 05/10/19 08:00 40 mg] hydralazine 25 mg tablet 25 mg PO BID 01/09/20 [History Last Taken Unknown] ergocalciferol (vitamin D2) 1,250 mcg (50,000 unit) capsule 50,000 unit PO DAILY 04/10/20 [History Last Taken Unknown] pregabalin 50 mg capsule 25 mg PO DAILY 04/10/20 [History Last Taken Unknown] meclizine 25 mg tablet 25 mg PO TID PRN dizziness #20 tabs 08/15/22 [Rx Last Taken Unknown] Allergy/AdvReac Type Severity Reaction Status Date / Time No Known Allergies Allergy Verified 08/15/22 10:53 Family History Brother Myocardial infarction Surgical History Hx of colectomy Presence of surgically created arteriovenous shunt for hemodialysis S/P arteriovenous (AV) fistula repair Social History Smoking Status: Never smoker alcohol intake: never substance use type: does not use caffeine: Yes what type of physical activity do you participate in: walking and running frequency: daily duration: < 15 minutes/day seatbelt use: always ROS ROS ED ROS Narrative Constitutional: No fever, no chills. HEENT: No sore throat. No neck pain. No loss of vision. No rhinorrhea. Cardiovascular: No chest pain. No palpitations. No pedal edema. Respiratory: No cough, no shortness of breath. Abdominal: No abdominal pain. No nausea. No vomiting. Genitourinary: No dysuria. No hematuria. Musculoskeletal: No myalgias. No arthralgias. Neurologic: Minimal headaches. Positive dizziness. No lightheadedness. No paresthesias. Skin: No rash. No change in color. Psychiatric: No depression. No anxiety. EXAM Physical Exam Narrative Exam Narrative: Afebrile. Vital signs noted. HEENT: Normocephalic. Atraumatic. PERRL, EOMI. Neck soft and supple. No point tenderness or step off. Cardiovascular: Regular rate and rhythm. No murmurs, rubs, or gallops appreciated. Respiratory: No tachypnea. Lungs clear to auscultation bilaterally. Gastrointestinal: Abdomen soft, nontender, with normoactive bowel sounds. No rebound or guarding. Neurological: Awake. Alert. Oriented x3. Nonfocal, nonlateralizing. DTRs are equal and symmetric. No noted nystagmus on examination. Vertiginous symptoms exacerbated by turning head to right and looking towards the right. Skin: No rash. Normal color. No pallor. Musculoskeletal: No pedal edema. Full range of motion extremities. Const Vital Signs: 08/15/22 10:51 08/15/22 11:21 08/15/22 11:24 Temperature 97.8 F Temperature Source Temporal Pulse Rate 62 67 Respiratory Rate 16 18 Respiratory Effort Normal Non-Labored Respiratory Pattern Normal Blood Pressure 199/85 H 171/78 H Blood Pressure Mean 123 109 Pulse Ox 100 99 Oxygen Delivery Method Room Air Room Air 08/15/22 12:33 08/15/22 13:48 08/15/22 14:26 Temperature Temperature Source Pulse Rate 60 Respiratory Rate 13 Respiratory Effort Respiratory Pattern Blood Pressure 188/81 H 207/86 H 185/83 H Blood Pressure Mean 116 126 117 Pulse Ox 100 Oxygen Delivery Method Room Air 08/15/22 15:30 08/15/22 15:58 Temperature Temperature Source Pulse Rate Respiratory Rate Respiratory Effort Respiratory Pattern Blood Pressure 179/83 H 193/86 H Blood Pressure Mean 115 121 Pulse Ox Oxygen Delivery Method MDM MDM MDM Narrative Medical decision making narrative: I do feel that he probably has more benign positional vertigo/labyrinthitis. He has elevated blood pressure 199/85. Given his risk factors I do feel that CT imaging and laboratory work is indicated including EKG. He denies any chest pain however. Mynor maneuver was attempted, but was unsuccessful. He has a negative CT of the brain he will be given meclizine. CBC shows normal white count of 7.6, hemoglobin stable at 12.4, hematocrit 38.1. He has a history of chronic renal disease and electrolyte panel shows creatinine 2.33 near his baseline, BUN of 35. Chloride slightly elevated at 111 which I think is nonspecific, glucose of 270 but he has a normal anion gap of 5. He was feeling slightly improved with the meclizine. However his blood pressure is fluctuating. He was given an additional dose of hydralazine for a total of 20 mg, but his blood pressure still remains elevated. I discussed the patient with Dr. Harvey who suggested administering clonidine 0.2 mg orally. Blood pressure was rechecked approximately 40 minutes afterwards and it still remains elevated in the 190s. At this point in time, given his uncontrolled blood pressure, patient will be placed on observation to the PCU. He is in stable condition. Lab Data Attestation: I reviewed the patient's lab results. Labs: Laboratory Results - last 24 hr 08/15/22 08/15/22 11:20 11:20 WBC 7.6 RBC 4.25 L Hgb 12.4 L Hct 38.1 L MCV 89.6 MCH 29.2 MCHC 32.5 RDW Std Deviation 42.6 RDW Coeff of Teresa 13.0 Plt Count 193 MPV 10.5 Immature Gran % (Auto) 0.300 Neut % (Auto) 72.6 H Lymph % (Auto) 21.0 Knox % (Auto) 4.6 Eos % (Auto) 1.0 Baso % (Auto) 0.5 Absolute Neuts (auto) 5.5 Absolute Lymphs (auto) 1.60 Nucleated RBC % 0 Sodium 141 Potassium 4.6 Chloride 111 H Carbon Dioxide 25.0 Anion Gap 5 BUN 35 H Creatinine 2.33 H Estim Creat Clear Calc 25.30 Est GFR (MDRD) Af Amer 36 L Est GFR (MDRD) Non-Af 30 L BUN/Creatinine Ratio 15.0 Glucose 270 H Calcium 8.5 Radiography Diagnostic Testing: Clinical Impression(s) from Imaging Studies Brain CT 08/15/22 11:03 IMPRESSION: Mild atrophy no visualized acute hemorrhage infarct or edema. Stable head CT. Electronically Signed: Brooke Martinez MD at 12:15 EST Reading Location ID and State: [facility] / [place] Tel , Service support , Discharge Plan Dx/Rx/DC Orders Clinical Impression: Dizziness, Vertigo, Uncontrolled hypertension Disposition Disposition: Acute Care Hospital [facility]
[2022-08-15] MEDS: hydrALAZINE 20 MG/ML Vial 10 MG IV ×2 (11:19→13:45)
[2022-08-15 11:34] LABS: Absolute Neutrophil Count 5.5 X10^3/uL (2.0-7.7); Basophil# 0.04 X10^3/uL; Basophil% 0.5 % (0-1); Eosinophil# 0.08 X10^3/uL; Hematocrit 38.1 % (40-54); Hemoglobin 12.4 g/dL (13.0-16.5); Mean Corp Hgb Conc 32.5 g/dL (32-36); Mean Corpuscular Hgb 29.2 pg (27.0-32.0); Mean Corpuscular Volume 89.6 fL (80-94); Mean Platelet Vol. 10.5 fl (6.2-12.0); Monocyte# 0.35 X10^3/uL; Monocyte% 4.6 % (0-10); NRBC Flagged by Analyzer 0 % (0-5); Neutrophil # 5.54 X10^3/uL (2.7-7.7); Neutrophil % 72.6 % (47-70); Platelet Count 193 K/mm3 (150-450); RBC Distribution Width SD 42.6 fl (35.1-43.9); Red Blood Count 4.25 M/mm3 (4.6-6.2); White Blood Count 7.6 K/mm3 (4.4-11.0)
[2022-08-15 11:47] LABS: Anion Gap 5 (5-15); BUN 35 mg/dL (7-18); Calcium,Total 8.5 mg/dL (8.5-10.1); Chloride 111 mmol/L (98-107); Creatinine, Serum 2.33 mg/dL (0.70-1.30); EST Glomerular Filtration Rate 30 mL/min (>60); Est Glom Filt Rate - Afr Amer 36 mL/min (>60); Glucose 270 mg/dL (74-106); Potassium 4.6 mmol/L (3.5-5.1); Sodium Level 141 mmol/L (136-145)
[2022-08-15] MEDS: Meclizine HCl 25 MG Tablet PO (12:42)
[2022-08-15] MEDS: cloNIDine HCl 0.2 MG Tablet PO (15:19)
[2022-08-15] MEDS: cloNIDine HCl 0.1 MG Tablet PO (16:56)
== END 2022-08-15 17:16 | disposition home or self-care (01) ==
PROVIDERS: Emergency Provider Emergency Medicine; PCP Family Medicine Geriatric Medicine; Visit Provider Emergency Medicine
DX: R42 Dizziness and giddiness (principal); E11.22 Type 2 diabetes mellitus with diabetic chronic kidney disease; N18.4 Chronic kidney disease, stage 4 (severe); I12.9 Hypertensive chronic kidney disease with stage 1 through stage 4 chronic kidney disease, or unspecified chronic kidney disease; E78.5 Hyperlipidemia, unspecified
CPT/HCPCS: 70450; 80048; 85025; 93005; 96374; 96376; 99284; A4216

== ENCOUNTER → 2022-08-26 | Outpatient (CLI) | payer MEDICARE, MEDICAID, SELFPAY ==
[2022-08-26 12:41] LABS: Hematocrit 37.3 % (40-54); Hemoglobin 12.1 g/dL (13.0-16.5); Mean Corp Hgb Conc 32.4 g/dL (32-36); Mean Corpuscular Hgb 29.2 pg (27.0-32.0); Mean Corpuscular Volume 89.9 fL (80-94); Mean Platelet Vol. 9.8 fl (6.2-12.0); Platelet Count 209 K/mm3 (150-450); RBC Distribution Width CV 12.7 % (11.6-14.6); Red Blood Count 4.15 M/mm3 (4.6-6.2); White Blood Count 7.5 K/mm3 (4.4-11.0)
[2022-08-26 13:16] LABS: PTHIN 40.2 pg/mL (18.4-80.1)
[2022-08-26 13:22] LABS: Albumin, Serum 3.4 g/dL (3.2-5.0); BUN 36 mg/dL (7-18); BUN/Creat Ratio 14.9 RATIO (10-20); Calcium,Total 9.2 mg/dL (8.5-10.1); Chloride 110 mmol/L (98-107); Creatinine, Serum 2.41 mg/dL (0.70-1.30); EST Glomerular Filtration Rate 28 mL/min (>60); Est Glom Filt Rate - Afr Amer 34 mL/min (>60); Glucose 141 mg/dL (74-106); Phosphorus 3.4 mg/dL (2.5-4.9); Potassium 4.7 mmol/L (3.5-5.1); Sodium Level 141 mmol/L (136-145)
== END | disposition home or self-care (01) ==
LOC: LAB.FUTURE 11:56 → POLAB3 11:57
PROVIDERS: PCP Family Medicine Geriatric Medicine; Visit Provider Internal Medicine Nephrology
DX: N18.4 Chronic kidney disease, stage 4 (severe) (principal); N25.81 Secondary hyperparathyroidism of renal origin; D50.9 Iron deficiency anemia, unspecified
CPT/HCPCS: 36415; 80069; 83970; 85027

== ENCOUNTER → 2022-10-12 | Outpatient (CLI) | payer MEDICARE, MEDICAID, SELFPAY ==
[2022-10-12 17:36] LABS: Absolute Lymphocyte Count 2.48 X10^3/uL (0.83-4.51); Absolute Neutrophil Count 4.6 X10^3/uL (2.0-7.7); Basophil# 0.06 X10^3/uL; Basophil% 0.8 % (0-1); Eosinophil# 0.15 X10^3/uL; Eosinophils% 1.9 % (0-5); Hematocrit 37.3 % (40-54); Hemoglobin 12.3 g/dL (13.0-16.5); Lymphocyte # 2.48 X10^3/ul (0.83-4.51); Mean Corpuscular Hgb 29.6 pg (27.0-32.0); Mean Corpuscular Volume 89.7 fL (80-94); Mean Platelet Vol. 10.4 fl (6.2-12.0); Monocyte# 0.47 X10^3/uL; Monocyte% 6.1 % (0-10); NRBC Flagged by Analyzer 0 % (0-5); Neutrophil # 4.59 X10^3/uL (2.7-7.7); Neutrophil % 59.1 % (47-70); Platelet Count 190 K/mm3 (150-450); RBC Distribution Width CV 12.9 % (11.6-14.6); RBC Distribution Width SD 42.1 fl (35.1-43.9); Red Blood Count 4.16 M/mm3 (4.6-6.2); White Blood Count 7.8 K/mm3 (4.4-11.0)
[2022-10-12 17:55] LABS: Vitamin D,25 Hydroxy 54.3 ng/mL
[2022-10-12 18:07] LABS: AST(SGOT) 20 U/L (15-37); Alanine Aminotransfer ALT/SGPT 17 U/L (16-61); Albumin, Serum 3.6 g/dL (3.2-5.0); Alkaline Phosphatase 83 U/L (45-117); Anion Gap 6 (5-15); BUN 38 mg/dL (7-18); BUN/Creat Ratio 15.5 RATIO (10-20); Calcium,Total 8.9 mg/dL (8.5-10.1); Chloride 110 mmol/L (98-107); Creatinine, Serum 2.45 mg/dL (0.70-1.30); EST Glomerular Filtration Rate 28 mL/min (>60); Est Glom Filt Rate - Afr Amer 34 mL/min (>60); Globulin 3.7 g/dL (2.2-4.2); Glucose 194 mg/dL (74-106); Potassium 4.5 mmol/L (3.5-5.1); Protein, Total 7.3 g/dL (6.4-8.2); Sodium Level 141 mmol/L (136-145)
== END | disposition home or self-care (01) ==
LOC: POLAB3 13:48
PROVIDERS: PCP Family Medicine Geriatric Medicine; Visit Provider Family Medicine Geriatric Medicine
DX: E11.65 Type 2 diabetes mellitus with hyperglycemia (principal); E55.9 Vitamin D deficiency, unspecified; I10 Essential (primary) hypertension
CPT/HCPCS: 36415; 80053; 82306; 84443; 85025

== ENCOUNTER → 2023-02-02 | Outpatient (CLI) | payer MEDICARE, MEDICAID, SELFPAY ==
[2023-02-02 18:18] LABS: Hematocrit 33.6 % (40-54); Hemoglobin 11.1 g/dL (13.0-16.5); Mean Corpuscular Hgb 29.3 pg (27.0-32.0); Mean Corpuscular Volume 88.7 fL (80-94); Mean Platelet Vol. 10.8 fl (6.2-12.0); Platelet Count 144 K/mm3 (150-450); RBC Distribution Width CV 13.3 % (11.6-14.6); RBC Distribution Width SD 43.2 fl (35.1-43.9); Red Blood Count 3.79 M/mm3 (4.6-6.2); White Blood Count 7.3 K/mm3 (4.4-11.0)
[2023-02-02 18:39] LABS: Albumin, Serum 3.3 g/dL (3.2-5.0); BUN 37 mg/dL (7-18); BUN/Creat Ratio 14.8 RATIO (10-20); Calcium,Total 8.7 mg/dL (8.5-10.1); Chloride 113 mmol/L (98-107); EST Glomerular Filtration Rate 27 mL/min (>60); Est Glom Filt Rate - Afr Amer 33 mL/min (>60); Glucose 187 mg/dL (74-106); Phosphorus 3.2 mg/dL (2.5-4.9); Potassium 4.3 mmol/L (3.5-5.1); Sodium Level 143 mmol/L (136-145)
[2023-02-03 08:23] LABS: PTHIN 46.7 pg/mL (18.4-80.1)
== END | disposition home or self-care (01) ==
LOC: LAB 17:37
PROVIDERS: PCP Family Medicine Geriatric Medicine; Referring Provider Internal Medicine Nephrology; Visit Provider Internal Medicine Nephrology
DX: I12.9 Hypertensive chronic kidney disease with stage 1 through stage 4 chronic kidney disease, or unspecified chronic kidney disease (principal); N18.4 Chronic kidney disease, stage 4 (severe)
CPT/HCPCS: 36415; 80069; 83970; 85027

== ENCOUNTER → 2023-04-14 | Outpatient (CLI) | payer MEDICARE, MEDICAID, SELFPAY ==
[2023-04-14 14:55] LABS: Absolute Lymphocyte Count 2.37 X10^3/uL (0.83-4.51); Absolute Neutrophil Count 4.6 X10^3/uL (2.0-7.7); Basophil# 0.04 X10^3/uL; Basophil% 0.5 % (0-1); Eosinophil# 0.15 X10^3/uL; Hematocrit 35.5 % (40-54); Hemoglobin 11.2 g/dL (13.0-16.5); Lymphocyte # 2.37 X10^3/ul (0.83-4.51); Lymphocyte % 31.3 % (19-41); Mean Corp Hgb Conc 31.5 g/dL (32-36); Mean Corpuscular Hgb 29.2 pg (27.0-32.0); Mean Corpuscular Volume 92.4 fL (80-94); Mean Platelet Vol. 10.7 fl (6.2-12.0); Monocyte# 0.42 X10^3/uL; Monocyte% 5.5 % (0-10); NRBC Flagged by Analyzer 0 % (0-5); Neutrophil # 4.57 X10^3/uL (2.7-7.7); Neutrophil % 60.4 % (47-70); Platelet Count 167 K/mm3 (150-450); RBC Distribution Width CV 13.1 % (11.6-14.6); RBC Distribution Width SD 43.8 fl (35.1-43.9); Red Blood Count 3.84 M/mm3 (4.6-6.2); White Blood Count 7.6 K/mm3 (4.4-11.0)
[2023-04-14 15:23] LABS: Hemoglobin A1c 7.4 % (3.8-5.6)
[2023-04-14 16:04] LABS: Vitamin B12 271 pg/mL (211-911)
[2023-04-14 16:06] LABS: ALB/GLOB Ratio 0.9 RATIO (0.9-2.4); AST(SGOT) 14 U/L (15-37); Alanine Aminotransfer ALT/SGPT 15 U/L (16-61); Albumin, Serum 3.4 g/dL (3.2-5.0); Alkaline Phosphatase 82 U/L (45-117); Anion Gap 6 (5-15); BUN 36 mg/dL (7-18); Calcium,Total 8.4 mg/dL (8.5-10.1); Chloride 109 mmol/L (98-107); Cholesterol 100 mg/dL (200); Creatinine, Serum 2.57 mg/dL (0.70-1.30); EST Glomerular Filtration Rate 26 mL/min (>60); Est Glom Filt Rate - Afr Amer 32 mL/min (>60); Ferritin 50 ng/mL (26-388); Globulin 3.6 g/dL (2.2-4.2); Glucose 196 mg/dL (74-106); High Density Lipoprotein 39 mg/dL; Iron 54 ug/dL (65-175); Iron Binding Capacity,Total 252 ug/dL (250-450); LDH 180 U/L (87-241); PERCENT IRON SATURATION 21.4 % (15.0-55.0); Potassium 4.6 mmol/L (3.5-5.1); Sodium Level 140 mmol/L (136-145); Thyroid Stim Hormone (TSH) 1.29 uIU/mL (0.358-3.74); Triglycerides 141 mg/dL; Very Low Density Lipoprotein 28 mg/dL (5-40)
== END | disposition home or self-care (01) ==
LOC: POLAB3 14:32
PROVIDERS: Internal Medicine Medical Oncology; PCP Family Medicine Geriatric Medicine; Visit Provider Family Medicine Geriatric Medicine
DX: E11.65 Type 2 diabetes mellitus with hyperglycemia (principal); E55.9 Vitamin D deficiency, unspecified; I10 Essential (primary) hypertension
CPT/HCPCS: 80053; 80061; 82306; 82607; 82728; 83036; 83540; 83550; 83615; 84443; 85025

== ENCOUNTER → 2023-07-05 | Outpatient (CLI) | payer MEDICARE, MEDICAID, SELFPAY | END | disposition home or self-care (01) | LOC: PSN 12:17 | PROVIDERS: PCP Family Medicine Geriatric Medicine; Referring Provider Family Medicine Geriatric Medicine; Visit Provider Family Medicine Geriatric Medicine | DX: R68.83 Chills (without fever) (principal) | CPT/HCPCS: 87635; 87804; 87807 ==

== ENCOUNTER → 2023-08-31 | Outpatient (CLI) | payer MEDICARE, MEDICAID, SELFPAY ==
[2023-08-31 16:41] LABS: Hematocrit 38.6 % (40-54); Hemoglobin 12.3 g/dL (13.0-16.5); Mean Corp Hgb Conc 31.9 g/dL (32-36); Mean Corpuscular Hgb 29.3 pg (27.0-32.0); Mean Corpuscular Volume 91.9 fL (80-94); Mean Platelet Vol. 10.7 fl (6.2-12.0); Platelet Count 199 K/mm3 (150-450); RBC Distribution Width CV 13.2 % (11.6-14.6); RBC Distribution Width SD 44.2 fl (35.1-43.9); White Blood Count 8.6 K/mm3 (4.4-11.0)
--- OUTSIDE RECORDS SUMMARY | 2023-08-31 16:44 | XMS RPT_ITS | CCD ---
Author Name Unknown Address [address] [place] [address] Organization [facility] Results Test Name Value Interpretation Reference Range Facil ity Procedures Date Procedure Procedure Detail Performing Clinician Start: 03-08-2018 Antibody screen Summary Purpose Family History No Family History Records Found Advance Directives No Advanced Directives Records Found Additional Source Comments (unrecognized sect ion and content) No Status Records Found INFORMATION SOURCE (unrecogn ized section and content) FOR RECORDS PERTAINING TO PATIENTS WHO ARE OR HAVE BEEN ENROLLED IN A CHEMICAL DEPENDENCY/SUBSTANCEABUSE PROGRAM, SOME INFORMATION MAY BE OMITTED. This clinical summary was aggregated from multiple sources. Caution should be exercised in using it in the provision of clinical care. This summary normalizes information from multiple sources, and as a consequence, information in this document may materially change the coding, format and clinical context of patient data. In addition, data may be omitted in some cases. CLINICAL DECISIONS SHOULD BE BASED ON THE PRIMARY CLINICAL RECORDS. [employer] provides no warranty or guarantee of the accuracy or completeness of information in this document.
[2023-08-31 16:51] LABS: Albumin, Serum 3.5 g/dL (3.2-5.0); BUN 32 mg/dL (7-18); BUN/Creat Ratio 14.2 RATIO (10-20); Calcium,Total 9.4 mg/dL (8.5-10.1); Chloride 110 mmol/L (98-107); Creatinine, Serum 2.26 mg/dL (0.70-1.30); EST Glomerular Filtration Rate 30 mL/min (>60); Est Glom Filt Rate - Afr Amer 37 mL/min (>60); Glucose 195 mg/dL (74-106); Potassium 5.1 mmol/L (3.5-5.1); Sodium Level 142 mmol/L (136-145)
[2023-08-31 17:05] LABS: Protein, Urine (Random) 116.5 mg/dL (<11.9); Protein:Creat Ratio 883 mg/g CRE (0-200)
== END | disposition home or self-care (01) ==
PROVIDERS: PCP Family Medicine Geriatric Medicine; Visit Provider Internal Medicine Nephrology
DX: E11.22 Type 2 diabetes mellitus with diabetic chronic kidney disease (principal); N18.4 Chronic kidney disease, stage 4 (severe); D50.9 Iron deficiency anemia, unspecified
CPT/HCPCS: 36415; 80069; 82570; 84156; 85027

== ENCOUNTER → 2023-10-11 | Outpatient (CLI) | payer MEDICARE, MEDICAID, SELFPAY ==
[2023-10-11 15:17] LABS: Absolute Lymphocyte Count 2.47 X10^3/uL (0.83-4.51); Absolute Neutrophil Count 4.5 X10^3/uL (2.0-7.7); Basophil# 0.04 X10^3/uL; Basophil% 0.5 % (0-1); Eosinophil# 0.26 X10^3/uL; Eosinophils% 3.3 % (0-5); Hematocrit 35.3 % (40-54); Hemoglobin 11.4 g/dL (13.0-16.5); Lymphocyte # 2.47 X10^3/ul (0.83-4.51); Lymphocyte % 31.8 % (19-41); Mean Corp Hgb Conc 32.3 g/dL (32-36); Mean Corpuscular Hgb 28.9 pg (27.0-32.0); Mean Corpuscular Volume 89.4 fL (80-94); Mean Platelet Vol. 10.4 fl (6.2-12.0); Monocyte# 0.46 X10^3/uL; Monocyte% 5.9 % (0-10); NRBC Flagged by Analyzer 0 % (0-5); Neutrophil # 4.52 X10^3/uL (2.7-7.7); Neutrophil % 58.2 % (47-70); Platelet Count 173 K/mm3 (150-450); RBC Distribution Width CV 12.7 % (11.6-14.6); Red Blood Count 3.95 M/mm3 (4.6-6.2); White Blood Count 7.8 K/mm3 (4.4-11.0)
[2023-10-11 15:33] LABS: Vitamin D,25 Hydroxy 39.8 ng/mL
[2023-10-11 15:39] LABS: Hemoglobin A1c 7.9 % (3.8-5.6)
[2023-10-11 15:42] LABS: AST(SGOT) 16 U/L (15-37); Alanine Aminotransfer ALT/SGPT 15 U/L (16-61); Albumin, Serum 3.4 g/dL (3.2-5.0); Alkaline Phosphatase 78 U/L (45-117); Anion Gap 4 (5-15); BUN 27 mg/dL (7-18); BUN/Creat Ratio 11.4 RATIO (10-20); Calcium,Total 8.9 mg/dL (8.5-10.1); Chloride 111 mmol/L (98-107); Cholesterol 123 mg/dL (200); Creatinine, Serum 2.36 mg/dL (0.70-1.30); EST Glomerular Filtration Rate 29 mL/min (>60); Est Glom Filt Rate - Afr Amer 35 mL/min (>60); Globulin 3.3 g/dL (2.2-4.2); Glucose 163 mg/dL (74-106); High Density Lipoprotein 49 mg/dL; Potassium 4.5 mmol/L (3.5-5.1); Protein, Total 6.7 g/dL (6.4-8.2); Sodium Level 140 mmol/L (136-145); Thyroid Stim Hormone (TSH) 1.68 uIU/mL (0.358-3.74); Triglycerides 94 mg/dL; Very Low Density Lipoprotein 19 mg/dL (5-40)
== END | disposition home or self-care (01) ==
LOC: POLAB3 14:22
PROVIDERS: PCP Family Medicine Geriatric Medicine; Visit Provider Family Medicine Geriatric Medicine
DX: I10 Essential (primary) hypertension (principal); E11.65 Type 2 diabetes mellitus with hyperglycemia; E78.5 Hyperlipidemia, unspecified; E55.9 Vitamin D deficiency, unspecified
CPT/HCPCS: 36415; 80053; 80061; 82306; 83036; 84443; 85025

== ENCOUNTER → 2023-10-13 | Outpatient (CLI) | payer MEDICARE, MEDICAID, SELFPAY ==
[2023-10-13 15:46] LABS: Microalbumin:Creatinine Ratio 277.6 mg/g CRE (<30 mg/g CRE)
== END | disposition home or self-care (01) ==
LOC: POLAB3 13:01
PROVIDERS: PCP Family Medicine Geriatric Medicine; Visit Provider Family Medicine Geriatric Medicine
DX: I10 Essential (primary) hypertension (principal); E11.65 Type 2 diabetes mellitus with hyperglycemia
CPT/HCPCS: 82043; 82570

== ENCOUNTER 2024-03-21 14:30 | Outpatient (RCR) | payer MEDICARE, MEDICAID, SELFPAY ==
--- NOTE | 2024-02-15 15:47 | HP.PTEVAL ---
Patient's Visit Information Visit Information Visit Information: ALEISHA ERVIN is a 73 year old M referred to Physical Therapy by Dr. Nabeel Reyes MD with a diagnosis of LE weakness. Date of Evaluation: 02/15/24 Physical Therapist: Eliezer Lin, DPT, OCS, CSCS Visit Plan Frequency: 2x /Week Duration: 4-6 Weeks Plan: 2x/week for 4-6 weeks for 1. Teach FW weight shift, vestibular balance ex and LE general strength via HEP with pics. 2. integrate improvements to faster walking and fully shifting weight Fw on steps. Subjective Subjective: Legs swell up and feel stiff. Possibly from his arthritis but has DM also. Getting worse over time. Has kidney problem 2017 and since then has been worsening. This symptoms makes it hard to walk fast or longer distances. No falls. No AD needed. Feels numby at times in feet. No spinning. No leg pain necessarily but feels weak in legs. Retired from [place] in [place]. Lives with family and in house one story, a couple steps with railing. No troubkle on steps with railing. Basic ADLs: dress, bathroom, shower all I. Spends day with and hanging out with people. Hobbies: Get ready to go out. Activities : Cannot walk fast. Limited distance 1/2 mile before feels dangerous, cannot run. Wants to have strength on legs. Exercises: none Objective Objective: Walks I slow and lacking FW weight shift but I. Stands with good balance but tends posterior. Trasnfer chair and bed I. Steps require UE x 2 and foot only half way on step and lacks FW weight shift. ankle strength 4-, knee strength 4-, hips strength 4 flexiona nd 3+ abd and ext. 0/3 reflexes patella and achilles B. sensation EL WNL to gross light touch but feels numby distally B. coordination to reciprocal toe tap and heel tap is fair. able to heel rasie and toe raise but loses balance BW with toe raise. Obviously bearing more weight through heels with balance. UE an LE AROM WFL, HS and gastroc moderately tight. Balance/Special Test Scores Functional Gait Assessment Score: 24 % Disability: 20.0000 CATSIB Score (Max score 120 seconds): 94 Lower Extremity Functional Score: 33 TUG Test Time Seconds: 12 30 Second Chair Rise Test Seconds: 18 Goals Goal 1:: I appropriate HEP to limit future probklems(FW weight shift, vest and LE strengthat home) Goal Time Frame: 4-6 Weeks Goal 2:: Pt feel 50% better in overall mobility and speed. Goal Time Frame: 4-6 Weeks Goal 3:: TUG < 10 seconds Goal Time Frame: 4-6 Weeks Goal 4:: LEFS 50 Goal Time Frame: 4-6 Weeks Rehabilitation Potential Physical Therapy Diagnosis: Neuropathy symptoms and weakness causing difficulty with confidence in funciton. Rehabilitation Potential: Fair Anticipated Interventions Patient/Client Instruction: Educate patient on: Condition For the Purpose of:: To improve nutrient delivery to tissue, To improve muscle performance and motor function, To increase tolerance to activity/condition/position and To improve gait and locomotor functions Therapeutic Exercise to Include: Strength training, Balance training, Flexibilty training and Gait and locomotor training For the Purpose of:: To improve nutrient delivery to tissue, To improve muscle performance and motor function, To improve ability to perform ADL's, To increase tolerance to activity/condition/position and To improve ability of physical actions for home/community/work/leisure Text: Thank you for the opportunity to evaluate your patient. For Medicare and Medicare HMO plans, please review the plan of care and approve it. It will need to be FAXED BACK to us at [phone] for Medicare purposes. For Medicare only, by signing this I certify the plan of care. Please let me know if there are questions or concerns regarding this plan of care. Physician Signature: Date:
--- NOTE | 2024-03-21 15:17 | HP.PTREVAL ---
Re-Evaluation Intro: Dr. Nabeel Reyes MD, It has been my pleasure to treat ALEISHA ERVIN over the last 8 visits for LE weakness. Please see the progress note below for an update on the physical therapy plan of care! Subjective Subjective: It/s better , walking speed is improved. Legs feel stronger. L knee still sore with OA at times. TNo schedule with Dr. Reyes. Sleep is Ok, Activities like walking in evening are still limited. Soreness in evening is noticeable. Objective Objective/Function: Not quite sure if pt is doing his current HEP, though still provided more today to progress general strengthening. After this, he should have general strengthening with Sink Exs, fwd weight shifting with Step Ups and Sit to Stands, and proprioception with VOR Head Turs/Nods. Still doesn't tolerate a whole lot - progressions are difficult ea session. Pt to see PT next. Plan Plan Plan: 2x/week x 2-4 more weeks, 0please let him do his HEP and work out to gym for more aggressive strength LE and posture and get I for membership Balance/Gait/Functional tests Balance/Special Test Scores Functional Gait Assessment Score: 24 % Disability: 20.0000 CATSIB Score (Max score 120 seconds): 94 Lower Extremity Functional Score: 43 TUG Test Time Seconds: 12 Tug Test: <20 sec.=mostly independent 30 Second Chair Rise Test Seconds: 18 Goals Goals Goal 1:: I appropriate HEP to limit future probklems(FW weight shift, vest and LE strengthat home) Goal Time Frame: 4-6 Weeks Goal Progress: Goal Met Goal 2:: Pt feel 50% better in overall mobility and speed. Goal Time Frame: 4-6 Weeks Goal Progress: Goal Met Goal 3:: TUG < 10 seconds Goal Time Frame: 4-6 Weeks Goal Progress: Not Progressing Goal 4:: LEFS 50 Goal Time Frame: 4-6 Weeks Goal Progress: Progressing Goal 5:: I gym ex for LE strength and core strength adn posture to limit future problems. Anticipated Interventions Anticipated Interventions Patient/Client Instruction: Educate patient on: Condition For the Purpose of:: To improve nutrient delivery to tissue, To improve muscle performance and motor function, To increase tolerance to activity/condition/position and To improve gait and locomotor functions Therapeutic Exercise to Include: Strength training, Balance training, Flexibilty training and Gait and locomotor training For the Purpose of:: To improve nutrient delivery to tissue, To improve muscle performance and motor function, To improve ability to perform ADL's, To increase tolerance to activity/condition/position and To improve ability of physical actions for home/community/work/leisure Re-Evaluation Ending Re-evaluation ending: Please do not hesitate to contact me at [phone] by phone or if you have questions or concerns regarding this new plan of care! Sincerely, Eliezer Lin, DPT, OCS, CSCS
--- NOTE | 2024-05-26 14:42 | HP.PT.NRP ---
Patient Information Patient Information: ALEISHA ERVIN was seen in my office for initial evaluation on 02/15/24. The following Plan of Care was established for this patient: POC Established Initial Frequency: 2x /Week Initial Duration: 4-6 Weeks Anticipated Interventions Patient/Client Instruction: Educate patient on: Condition For the Purpose of:: To improve nutrient delivery to tissue, To improve muscle performance and motor function, To increase tolerance to activity/condition/position and To improve gait and locomotor functions Therapeutic Exercise to Include: Strength training, Balance training, Flexibilty training and Gait and locomotor training For the Purpose of:: To improve nutrient delivery to tissue, To improve muscle performance and motor function, To improve ability to perform ADL's, To increase tolerance to activity/condition/position and To improve ability of physical actions for home/community/work/leisure Last Seen Last Seen: This patient was last seen in our office 03/21/24. Pertinent comments regarding their Physical therapy will appear below: Pt seen 8 visits and was 70% better. Did not show up for his next visit. At this point, it has been over two months and I will discontinue from my care. At this point I will be discontinuing this patient from physical therapy. I would be happy to see this patient again in the future if found appropriate by the physician. Thank you! Eliezer Lin, DPT, OCS, CSCS Balance/Gait/Functional tests Balance/Special Test Scores Functional Gait Assessment Score: 24 % Disability: 20.0000 CATSIB Score (Max score 120 seconds): 94 Lower Extremity Functional Score: 43 TUG Test Time Seconds: 12 Tug Test: <20 sec.=mostly independent 30 Second Chair Rise Test Seconds: 18
== END 2024-03-21 19:00 | disposition home or self-care (01) ==
LOC: PT 14:30
PROVIDERS: PCP Family Medicine Geriatric Medicine; Referring Provider Family Medicine Geriatric Medicine; Visit Provider Family Medicine Geriatric Medicine
DX: R29.898 Other symptoms and signs involving the musculoskeletal system (principal)
CPT/HCPCS: 97110; 97112; 97161

== ENCOUNTER → 2024-04-24 | Outpatient (CLI) | payer MEDICARE, MEDICAID, SELFPAY ==
[2024-04-24 14:48] LABS: Absolute Lymphocyte Count 2.26 X10^3/uL (0.83-4.51); Absolute Neutrophil Count 4.9 X10^3/uL (2.0-7.7); Basophil# 0.04 X10^3/uL; Basophil% 0.5 % (0-1); Eosinophil# 0.24 X10^3/uL; Hematocrit 34.8 % (40-54); Hemoglobin 11.3 g/dL (13.0-16.5); Lymphocyte # 2.26 X10^3/ul (0.83-4.51); Lymphocyte % 28.6 % (19-41); Mean Corp Hgb Conc 32.5 g/dL (32-36); Mean Corpuscular Hgb 28.9 pg (27.0-32.0); Mean Platelet Vol. 11.3 fl (6.2-12.0); Monocyte% 6.3 % (0-10); NRBC Flagged by Analyzer 0 % (0-5); Neutrophil # 4.85 X10^3/uL (2.7-7.7); Neutrophil % 61.3 % (47-70); Platelet Count 141 K/mm3 (150-450); RBC Distribution Width CV 13.6 % (11.6-14.6); RBC Distribution Width SD 44.4 fl (35.1-43.9); Red Blood Count 3.91 M/mm3 (4.6-6.2); White Blood Count 7.9 K/mm3 (4.4-11.0)
[2024-04-24 15:29] LABS: Vitamin D,25 Hydroxy 37.5 ng/mL
[2024-04-24 15:45] LABS: AST(SGOT) 21 U/L (15-37); Alanine Aminotransfer ALT/SGPT 21 U/L (16-61); Albumin, Serum 3.4 g/dL (3.2-5.0); Alkaline Phosphatase 76 U/L (45-117); Anion Gap 7 (5-15); BUN 29 mg/dL (7-18); Calcium,Total 9.2 mg/dL (8.5-10.1); Chloride 109 mmol/L (98-107); Creatinine, Serum 2.41 mg/dL (0.70-1.30); EST Glomerular Filtration Rate 28 mL/min (>60); Est Glom Filt Rate - Afr Amer 34 mL/min (>60); Globulin 3.5 g/dL (2.2-4.2); Glucose 122 mg/dL (74-106); Potassium 4.9 mmol/L (3.5-5.1); Protein, Total 6.9 g/dL (6.4-8.2); Sodium Level 142 mmol/L (136-145)
== END | disposition home or self-care (01) ==
LOC: POLAB3 14:31
PROVIDERS: PCP Family Medicine Geriatric Medicine; Visit Provider Family Medicine Geriatric Medicine
DX: I10 Essential (primary) hypertension (principal); E11.65 Type 2 diabetes mellitus with hyperglycemia; E55.9 Vitamin D deficiency, unspecified
CPT/HCPCS: 36415; 80053; 82306; 84443; 85025

== ENCOUNTER → 2024-10-16 | Outpatient (CLI) | payer MEDICARE, SELFPAY ==
[2024-10-16 15:00] LABS: Absolute Lymphocyte Count 2.43 X10^3/uL (0.83-4.51); Absolute Neutrophil Count 3.9 X10^3/uL (2.0-7.7); Basophil# 0.06 X10^3/uL; Basophil% 0.8 % (0-1); Eosinophil# 0.28 X10^3/uL; Eosinophils% 3.9 % (0-5); Hematocrit 37.2 % (40-54); Hemoglobin 11.9 g/dL (13.0-16.5); Lymphocyte # 2.43 X10^3/ul (0.83-4.51); Lymphocyte % 33.8 % (19-41); Mean Corpuscular Volume 90.7 fL (80-94); Mean Platelet Vol. 10.8 fl (6.2-12.0); Monocyte# 0.51 X10^3/uL; Monocyte% 7.1 % (0-10); NRBC Flagged by Analyzer 0 % (0-5); Neutrophil # 3.89 X10^3/uL (2.7-7.7); Platelet Count 166 K/mm3 (150-450); RBC Distribution Width SD 42.9 fl (35.1-43.9); White Blood Count 7.2 K/mm3 (4.4-11.0)
[2024-10-16 15:57] LABS: ALB/GLOB Ratio 1.5 RATIO (0.9-2.4); AST(SGOT) 18 U/L (<=37); Alanine Aminotransfer ALT/SGPT 10 U/L (<=46); Alkaline Phosphatase 80 U/L (40-129); Anion Gap 11 (5-15); BUN 37 mg/dL (4-19); BUN/Creat Ratio 17.2 RATIO (10-20); Calcium 9.2 mg/dL (7.6-11.0); Carbon Dioxide 23.5 mmol/L (22.0-29.0); Chloride 106 mmol/L (96-108); Creatinine, Serum 2.16 mg/dL (0.70-1.20); EST Glomerular Filtration Rate 32 (>60); Globulin 2.7 g/dL (2.2-4.2); Glucose 168 mg/dL (70-99); Potassium 4.8 mmol/L (3.3-5.1); Protein, Total 6.7 g/dL (5.9-8.4); Sodium Level 141 mmol/L (133-145); Total Bilirubin 0.34 mg/dL (0.00-1.30); Vitamin D,25 Hydroxy 33.6 ng/mL (30-100)
[2024-10-16 21:54] LABS: Microalbumin:Creatinine Ratio 2377.7 mg/g CRE
[2024-10-17 03:31] LABS: PTHIN 82 pg/mL (11-61)
[2024-10-17 03:32] LABS: Phosphorus 4.5 mg/dL (2.7-4.5)
== END | disposition home or self-care (01) ==
LOC: POLAB3 14:37
PROVIDERS: PCP Family Medicine Geriatric Medicine; Visit Provider Internal Medicine Nephrology
DX: E11.65 Type 2 diabetes mellitus with hyperglycemia (principal); N18.4 Chronic kidney disease, stage 4 (severe); E11.22 Type 2 diabetes mellitus with diabetic chronic kidney disease; E55.9 Vitamin D deficiency, unspecified; I12.9 Hypertensive chronic kidney disease with stage 1 through stage 4 chronic kidney disease, or unspecified chronic kidney disease; D50.9 Iron deficiency anemia, unspecified
CPT/HCPCS: 36415; 80053; 82043; 82306; 82570; 83970; 84100; 84443; 85025

== ENCOUNTER 2025-03-14 17:27 | Emergency (ER) | payer MEDICARE, SELFPAY ==
[2025-03-14 17:28] VITALS: BP 176/83; PULSE 64; RESP 16; TEMP 36.1; O2SAT 99; BMI 31.1
--- NOTE | 2025-03-14 17:43 | EDS_ITS ---
HPI History of Present Illness Chief Complaint: Laceration [facility] Medical History Left upper arm pain Problem with dialysis access Chronic renal failure, stage 4 (severe) Urinary tract infection due to extended-spectrum beta lactamase (ESBL) producing Escherichia coli Renal cyst, right Metabolic acidosis Acute renal failure superimposed on stage 3 chronic kidney disease History of colon cancer Hyperkalemia HLD (hyperlipidemia) HTN (hypertension) Diabetes mellitus, type II Sepsis Home Medications ?Medication ?Instructions ?Recorded ?Last Taken ?Type glimepiride 1 mg tablet 2 mg PO DAILY@0800 DIABETES 05/19/18 05/11/19 08:00 History 2 mg metoprolol succinate 25 mg 50 mg PO BID heart 05/30/18 12/05/20 06:50 History tablet,extended release 24 hr 50 MG atorvastatin 40 mg tablet 40 mg PO DAILY cholesterol 0 11/08/18 05/10/19 08:00 History 40 mg hydralazine 25 mg tablet 50 mg PO 4XD 01/09/20 Unknow n History ergocalciferol (vitamin D2) 1,250 50,000 unit PO DAILY 04/10/20 Unknown History mcg (50,000 unit) capsule pregabalin 50 mg capsule 25 mg PO DAILY 04/10/20 Unkn own History diazepam 2 mg tablet (Valium) 2 mg PO TID PRN vertigo #12 tabs 08/15/22 Unknown Rx meclizine 25 mg tablet 25 mg PO TID PRN dizziness # 20 tabs 08/15/22 Unknown Rx polysaccharide iron complex 150 mg 150 mg PO .every ot her day #90 caps 12/29/23 Unknown Rx iron capsule (Ferrex) cephalexin 500 mg capsule 500 mg PO TID 5 days #15 cap s 03/14/25 Unknown Rx Allergy/AdvReac Type Severity Reaction Status Date / Time No Known Allergies Allergy Verified 03/14/25 17:29 Family History Brother Myocardial infarction Surgical History S/P arteriovenous (AV) fistula repair Presence of surgically created arteriovenous shunt for hemodialysis Hx of colectomy Social History Smoking Status: Never smoker alcohol intake: never substance use type: does not use caffeine: Yes what type of physical activity do you participate in: walking and running frequency: daily duration: < 15 minutes/day seatbelt use: always EXAM Physical Exam Const Vital Signs: 03/14/25 17:28 Temperature 96.9 F L Temperature Source Oral Pulse Rate 64 Respiratory Rate 16 Blood Pressure 176/83 H Blood Pressure Mean 114 Pulse Ox 99 Oxygen Delivery Method Room Air [facility] MDM MDM Narrative Medical decision making narrative: HISTORY OF PRESENT ILLNESS: Chief complaint: Finger laceration 74-year-old male presents with concern for left index finger laceration. States he was cutting coconut and he cut his finger. This occurred approximately 30 minutes prior to arrival. Unknown last tetanus. REVIEW OF SYSTEMS: Pertinent positives: Finger laceration Pertinent negatives: Numbness PHYSICAL EXAM: Nursing triage notes reviewed, Vital signs reviewed Extremities: No edema Neuro: Intact 5/5 strength with ok sign (median), intact finger abduction (ulnar) intact wrist extension (radial n). Intact sensation in the radial, ulnar, and median nerve distributions. Skin: Left index finger with avulsion with partial distal nail involvement. MEDICAL DECISION MAKING: Chief Complaint: please see HPI MDM Narrative: The patient was initially hemodynamically stable, afebrile and nontoxic- appearing. Exam avulsion of the dorsal surface of the left second digit with pa rtial nail involvement. The patient suffered avulsion injury to the left index finger. No obvious tendinous involvement. No foreign bodies noted Tourniquet was initially placed for initial hemostasis let was then applied to the area for anesthesia and further hemostasis tourniquet was removed with ongoing bleeding. A [id number] stitch with 6-0 Vicryl was made with complete hemostasis. Surgicel dressing placed. Bleeding instructions given provide antibiotics given. Tetanus updated. Wound care instructions were given. Outpatient follow-up instructed with PCP as well as hand surgery. Shared decision making: I will have a discussion with the patient and or visitors regarding risk/benefits of further testing or admission. They will be made aware of of the risk/benefits inherent in this decision they will be given the opportunity to voice understanding. Total critical care time today provided was at least 0 minutes. This excludes separately billable procedures. Critical care time (if documented) is secondary to the patient having high probability of clinically significant/life threatening deterioration in the patient's condition which required my urgent intervention. Impression: 1. Acute finger pain 2. Finger avulsion Dispo: Discharge home This note was generated with [employer] dictation software. It may contain incorrect words, spelling, and punctuation that were not noted in review of the chart prior to signing. Discharge Plan Triage Chief Complaint: Laceration ED Provider: Rafa Krueger Dx/Rx/DC Orders Instructions: ED Abrasion Prescriptions: New cephalexin 500 mg capsule 500 mg PO TID 5 Days Qty: 15 0RF No Action polysaccharide iron complex [Ferrex 150] 150 mg iron capsule 150 mg PO .every other day Qty: 90 3RF glimepiride 1 mg tablet 2 mg PO DAILY@0800 metoprolol succinate 25 MG tablet extended release 24 hr 50 mg PO BID atorvastatin 40 MG tablet 40 mg PO DAILY hydralazine 25 MG tablet 50 mg PO 4XD ergocalciferol (vitamin D2) 50,000 UNIT capsule 50,000 unit PO DAILY pregabalin 50 MG capsule 25 mg PO DAILY meclizine 25 mg tablet 25 mg PO TID PRN (Reason: dizziness) Qty: 20 0RF diazepam [Valium] 2 mg tablet 2 mg PO TID PRN (Reason: vertigo) Qty: 12 0RF Primary Care Provider: Nabeel Reyes Chi Referrals: Rusty Berry MD [Med Staff - Active Staff] - Nabeel Reyes Chi, MD [Primary Care Provider] - Activity Restrictions/Additional Instructions: Thank you for trusting us with your care today! Please take Tylenol (2 pills, 650 mg), ibuprofen (2 pills, 400 mg) every 6 hours as needed for pain and fever control. Please keep dressing on for the first 24 hours. After which time change her dressings daily. Please use topical peroxide and Neosporin daily to prevent infection. Please take antibiotics as prescribed until course is complete. Please return to the emergency department if your symptoms change or worsen. Please follow with your primary care physician for further outpatient evaluation and management. You can also follow-up with our local hand surgeon Dr. Berry Print Language: Turkish Disposition Disposition: Home, Self Care
[2025-03-14] MEDS: Lidocaine 1% (20 ml mdv) 20 ML Vial 5 ML INFILT (18:03)
[2025-03-14] MEDS: Lidocaine/Epi/Tetracaine 50 ML 1 APPLIC TOPICAL (18:03)
--- NOTE | 2025-03-14 20:12 | ED.RN ---
BP @ D/C 223/83. Verbal order for home BP mediations, observe and then D/C if BP is stable.
[2025-03-14 21:07] VITALS: BP 209/75; PULSE 65; RESP 20; TEMP 36.6; O2SAT 100
== END 2025-03-14 21:15 | disposition home or self-care (01) ==
PROVIDERS: Emergency Provider Emergency Medicine; PCP Family Medicine Geriatric Medicine; Visit Provider Emergency Medicine
DX: S61.311A Laceration without foreign body of left index finger with damage to nail, initial encounter (principal); N18.4 Chronic kidney disease, stage 4 (severe); E11.22 Type 2 diabetes mellitus with diabetic chronic kidney disease; I12.9 Hypertensive chronic kidney disease with stage 1 through stage 4 chronic kidney disease, or unspecified chronic kidney disease; E78.5 Hyperlipidemia, unspecified; Z99.2 Dependence on renal dialysis; Z85.038 Personal history of other malignant neoplasm of large intestine; Z79.84 Long term (current) use of oral hypoglycemic drugs; Z79.899 Other long term (current) drug therapy; Z90.49 Acquired absence of other specified parts of digestive tract; W26.0XXA Contact with knife, initial encounter; Z23 Encounter for immunization
CPT/HCPCS: 12001; 90471; 90715; 99284

== ENCOUNTER → 2025-04-12 | Outpatient (CLI) | payer MEDICARE, SELFPAY ==
[2025-04-12 14:06] LABS: Hematocrit 37.7 % (40-54); Hemoglobin 12.7 g/dL (13.0-16.5); Immature Granulocytes Count 0.020 X10^3/uL (0.0-0.0); Mean Corp Hgb Conc 33.7 g/dL (32-36); Mean Corpuscular Volume 88.1 fL (80-94); Mean Platelet Vol. 10.3 fl (6.2-12.0); NRBC Flagged by Analyzer 0 % (0-5); Platelet Count 174 K/mm3 (150-450); RBC Distribution Width CV 13.3 % (11.6-14.6); RBC Distribution Width SD 42.6 fl (35.1-43.9); Red Blood Count 4.28 M/mm3 (4.6-6.2); White Blood Count 7.6 K/mm3 (4.4-11.0)
[2025-04-12 15:15] LABS: AST(SGOT) 20 U/L (<=37); Alanine Aminotransfer ALT/SGPT 11 U/L (<=46); Albumin, Serum 4.2 g/dL (3.4-4.8); Alkaline Phosphatase 76 U/L (40-129); Anion Gap 14 (5-15); BUN 32 mg/dL (4-19); BUN/Creat Ratio 14.3 RATIO (10-20); Calcium,Total 9.3 mg/dL (7.6-11.0); Carbon Dioxide 20.0 mmol/L (21.0-32.0); Chloride 106 mmol/L (98-108); Globulin 2.8 g/dL (2.2-4.2); Glucose 122 mg/dL (70-99); Potassium 4.6 mmol/L (3.3-5.1); Vitamin D,25 Hydroxy 40.1 ng/mL (30-100)
[2025-04-12 21:53] LABS: Xtra Tube Kwok EXTRA TUBE
== END | disposition home or self-care (01) ==
LOC: POLAB3 13:52
PROVIDERS: PCP Family Medicine Geriatric Medicine; Visit Provider Family Medicine Geriatric Medicine
DX: I10 Essential (primary) hypertension (principal); E03.9 Hypothyroidism, unspecified; E55.9 Vitamin D deficiency, unspecified
CPT/HCPCS: 36415; 80053; 82306; 84443; 85025

== ENCOUNTER → 2025-06-18 | Outpatient (CLI) | payer MEDICARE, SELFPAY ==
[2025-06-18 14:08] LABS: Hematocrit 36.9 % (40-54); Hemoglobin 12.0 g/dL (13.0-16.5); Mean Corp Hgb Conc 32.5 g/dL (32-36); Mean Corpuscular Volume 89.6 fL (80-94); Mean Platelet Vol. 10.9 fl (6.2-12.0); Platelet Count 134 K/mm3 (150-450); RBC Distribution Width CV 13.2 % (11.6-14.6); RBC Distribution Width SD 43.1 fl (35.1-43.9); Red Blood Count 4.12 M/mm3 (4.6-6.2); White Blood Count 7.4 K/mm3 (4.4-11.0)
[2025-06-18 14:28] LABS: Creatinine, Urine (random) 39.20 mg/dL (39.00-259.00); Protein, Urine (Random) 23.2 mg/dL (0.0-12.0); Protein:Creat Ratio 592 mg/g CRE (0-200)
[2025-06-18 14:33] LABS: Albumin, Serum 3.9 g/dL (3.4-4.8); Anion Gap 10 (5-15); BUN 36 mg/dL (4-19); BUN/Creat Ratio 16.4 RATIO (10-20); Calcium,Total 8.9 mg/dL (7.6-11.0); Carbon Dioxide 22.7 mmol/L (21.0-32.0); Chloride 109 mmol/L (98-108); Glucose 55 mg/dL (70-99); Potassium 4.6 mmol/L (3.3-5.1)
[2025-06-18 15:50] LABS: PTHIN 93 pg/mL (11-61)
== END | disposition home or self-care (01) ==
LOC: POLAB3 13:53
PROVIDERS: PCP Family Medicine Geriatric Medicine; Visit Provider Internal Medicine Nephrology
DX: E11.22 Type 2 diabetes mellitus with diabetic chronic kidney disease (principal); N18.4 Chronic kidney disease, stage 4 (severe); D50.9 Iron deficiency anemia, unspecified
CPT/HCPCS: 36415; 80069; 82570; 83970; 84156; 85027